=== PATIENT | female | born 1955 | race Caucasian/White ===

== ENCOUNTER 2020-05-09 08:11 | Outpatient (REF) | payer OTHER, SELFPAY ==
--- NOTE | 2020-05-09 08:16 | MM_ITS ---
EXAMINATION: MM SCREENING DIGITAL BREAST TOMOSYNTHESIS, BILATERAL CLINICAL INFORMATION: Screening. Asymptomatic. The lifetime risk of breast cancer based on the Tyrer-Cuzick Model is 7.6%. COMPARISON: Mammography: 05/04/2019 and studies dating back to 07/12/2011. TECHNIQUE: Digital breast tomosynthesis is performed in both the craniocaudal and mediolateral oblique views along with computer-aided detection (CAD). Synthesized 2D images are generated from the tomosynthesis. FINDINGS: The breasts are heterogeneously dense, which may obscure small masses (ACR BI-RADS breast composition Category c). There is stable parenchymal pattern of the right breast with some architectural distortion related to previous biopsy. There is multiplicity and bilaterality of calcifications. Within the deep lateral aspect of the left breast there is a density with some increasing calcifications approximately 10 cm from the nipple measuring approximately 1.1 cm in diameter. Recommend spot magnification view in craniocaudal view and rolled craniocaudal views to see its vertical orientation within the breast. If lesion is persistent would consider ultrasound. MM/MM tomosynthesis screening BI IMPRESSION: Left breast density with increasing calcifications for further evaluation as described. ASSESSMENT: BI-RADS 0: Incomplete - Need Additional Imaging Evaluation RECOMMENDATION: 1. Additional views of the left breast 2. Targeted ultrasound if warranted after review of the additional views. 3. Radiology department staff will contact the patient for additional imaging. This patient's information was entered into a reminder system with a target due date for their next mammogram.
== END 2020-05-09 08:12 | disposition home or self-care (01) ==
LOC: HO.MAMMO 08:11
PROVIDERS: PCP Family Medicine; Visit Provider Family Medicine
DX: Z12.31 Encounter for screening mammogram for malignant neoplasm of breast (principal)
CPT/HCPCS: 77063; 77067

== ENCOUNTER 2020-05-21 08:20 | Outpatient (REF) | payer OTHER, SELFPAY ==
--- NOTE | ~2020-05-21 | US_ITS ---
EXAMINATION: US DIAGNOSTIC ULTRASOUND BREAST, LEFT CLINICAL INFORMATION: Density with question calcifications.. COMPARISON: Mammography of same day and mammograms and ultrasounds dating back to November 25, 2011. TECHNIQUE: Ultrasound of the breast is performed with real-time villagomez scale imaging and color Doppler. FINDINGS: There is no focal suspicious finding. There is no solid mass, architectural abnormality, duct ectasia, or edema in the soft tissue planes. Results are discussed with the patient at time of visit. US/US breast LT limited IMPRESSION: No suspicious ultrasound findings to suggest malignancy of the left breast. ASSESSMENT: BI-RADS 1: Negative RECOMMENDATION: Routine annual mammography screening due in 12 months. This patient's information was entered into a reminder system with a target due date for their next mammogram.
--- NOTE | ~2020-05-21 | MM_ITS ---
EXAMINATION: MM DIAGNOSTIC DIGITAL BREAST TOMOSYNTHESIS, LEFT US TARGETED BREAST, LEFT CLINICAL INFORMATION: Question density with calcifications lateral deep left breast. COMPARISON: Mammography: 05/09/2020 and studies dating back to 10/09/2009 TECHNIQUE: Digital breast tomosynthesis is performed. 2D images are generated from the tomosynthesis. The following views are obtained: Spot magnification views in craniocaudal projection as well as rolled medial and lateral craniocaudal views. Targeted left breast ultrasound. FINDINGS: There are scattered areas of fibroglandular density (ACR BI-RADS breast composition Category b). There are some scattered calcifications with no suspicious grouping identified. No persistent suspicious mass is evident with a nodular parenchymal pattern being present. Targeted left breast ultrasound was then performed. No suspicious cystic or solid masses identified. No region of abnormal distal sound shadowing. Results are discussed with the patient at time of visit. MM/MM tomosynthesis added views L IMPRESSION: No mammographic or ultrasound findings to suggest malignancy of the left breast. ASSESSMENT: BI-RADS 1: Negative. RECOMMENDATION: Routine annual mammography screening due in 12 months. This patient's information was entered into a reminder system with a target due date for their next mammogram.
== END 2020-05-21 08:21 | disposition home or self-care (01) ==
LOC: HO.MAMMO 08:20
PROVIDERS: Visit Provider Family Medicine
DX: R92.8 Other abnormal and inconclusive findings on diagnostic imaging of breast (principal)
CPT/HCPCS: 76642; 77061; 77065

== ENCOUNTER 2021-05-15 09:34 | Outpatient (REF) | payer OTHER, SELFPAY ==
--- NOTE | ~2021-05-15 | MM_ITS ---
EXAMINATION: MM SCREENING DIGITAL BREAST TOMOSYNTHESIS, BILATERAL CLINICAL INFORMATION: Screening. Asymptomatic. The lifetime risk of breast cancer based on the Tyrer-Cuzick Model is 3%. COMPARISON: Mammography: 05/21/2020, 05/09/2020, 05/04/2019, 04/28/2018, 04/26/2017; targeted ultrasound left breast 05/21/2020 TECHNIQUE: Digital breast tomosynthesis is performed in both the craniocaudal and mediolateral oblique views along with computer-aided detection (CAD). Synthesized 2D images are generated from the tomosynthesis. Additional right CC view is provided. FINDINGS: There are scattered areas of fibroglandular density (ACR BI-RADS breast composition Category b). Breast tissue composition borders on heterogeneously dense. There is fine fibronodular parenchymal pattern similar to prior exams. There is no interval significant mass or architectural abnormality or abnormal calcifications. Right breast again has chronic ectatic duct and central anterior breast with associated coarse calcifications and adjacent biopsy clip marker. There is a stable nodule with some coarse calcification posterior central 12:00 right breast. The axilla and skin contours are unremarkable. MM/MM tomosynthesis screening BI IMPRESSION: No significant changes from prior exams. ASSESSMENT: BI-RADS 2: Benign RECOMMENDATION: Routine annual mammography screening. This patient's information was entered into a reminder system with a target due date for their next mammogram.
== END 2021-05-15 09:35 | disposition home or self-care (01) ==
LOC: HO.MAMMO 09:34
PROVIDERS: PCP Family Medicine; Visit Provider Family Medicine
DX: Z12.31 Encounter for screening mammogram for malignant neoplasm of breast (principal)
CPT/HCPCS: 77063; 77067

== ENCOUNTER 2021-09-17 12:47 | Outpatient (REF) | payer OTHER, SELFPAY ==
--- NOTE | ~2021-09-17 | MM_ITS ---
EXAMINATION: BONE DENSITOMETRY CLINICAL INDICATION: Menopause. COMPARISON: Baseline BD dated 04/29/2005. TECHNIQUE: Using a MacuCLEAR DXA System (software version: 13.1) manufactured by [employer], dual-energy x-ray absorptiometry was performed of the lumbar spine and left hip. The images are of good technical quality. Summary results are attached. FINDINGS: AP SPINE L1-L4: Current: BMD 1.305 g/cm2, Z-score 2.6, T-score 1.0, normal, 8.8% increase from baseline (<5% change is not significant). Baseline: BMD 1.199 g/cm2. LEFT FEMUR, NECK: Current: BMD 0.883 g/cm2, Z-score 0.4, T-score -1.1, osteopenia. Baseline: BMD 0.912 g/cm2. LEFT FEMUR, TOTAL: Current: BMD 1.014 g/cm2, Z-score 1.3, T-score 0.0, normal, 8.9% increase from baseline (<5% change is not significant). Baseline: BMD 0.931 g/cm2. IDENTIFIED RISK FACTORS: Early menopause, bilateral oophorectomy, secondary osteoporosis. HISTORY OF FRACTURE: None listed. MEDICATIONS: Vitamin D, ERT/SERMS. MM/XR DEXA axial skeleton IMPRESSION: 1. DIAGNOSIS: Osteopenia based on the lowest T-score value of -1.1 in the femoral neck applying World Health Organization criteria. 2. 10-YEAR FRACTURE RISK PREDICTION, FRAX: Major osteoporotic fracture (clinical spine, forearm, hip or shoulder) 8.5%. Hip fracture 0.7%. 3. Treatment Recommendations: NOF guidelines recommend consideration for treatment in postmenopausal women and men age 50 and older presenting with the following: -A hip or vertebral (clinical or morphometric) fracture. -T-score less than or equal to -2.5 at the femoral neck or spine after appropriate evaluation to exclude secondary causes. -Low bone mass at the hip or spine and a 10-year fracture probability by FRAX of greater than or equal to 3% for hip fracture or greater than or equal to 20% for major osteoporotic fracture based on the [place] adapted WHO algorithm. 4. Other Recommendations: All treatment decisions require clinical judgment and consideration of individual patient factors, including patient preferences, comorbidities, previous drug use, risk factors not captured in the FRAX model (e.g. frailty, falls, vitamin D deficiency, increased bone turnover, interval significant decline in bone density) and possible under or overestimation of fracture risk by FRAX. Additional medical evaluation for secondary cause of low bone mineral density may be appropriate. FUTURE SCAN RECOMMENDATION: People with diagnosed cases of osteoporosis or at high risk for fracture should have regular bone mineral density tests. For patients eligible for Medicare, routine testing is allowed once every 2 years. The testing frequency can be increased to one year for patients who have rapidly progressing disease, those who are receiving or discontinuing medical therapy to restore bone mass, or have additional risk factors.
== END 2021-09-17 12:48 | disposition home or self-care (01) ==
LOC: HO.MAMMO 12:47
PROVIDERS: Visit Provider Family Medicine
DX: Z13.820 Encounter for screening for osteoporosis (principal); Z78.0 Asymptomatic menopausal state; M85.80 Other specified disorders of bone density and structure, unspecified site
CPT/HCPCS: 77080

== ENCOUNTER 2022-05-20 13:49 | Outpatient (REF) | payer OTHER, SELFPAY ==
--- NOTE | ~2022-05-20 | MM_ITS ---
EXAMINATION: MM SCREENING DIGITAL BREAST TOMOSYNTHESIS, BILATERAL CLINICAL INFORMATION: Screening. Asymptomatic. The lifetime risk of breast cancer based on the Tyrer-Cuzick Model is 6%. COMPARISON: Mammography: 05/15/2021, 05/21/2020, 05/09/2020, 05/04/2019, 04/28/2018 TECHNIQUE: Digital breast tomosynthesis is performed in both the craniocaudal and mediolateral oblique views along with computer-aided detection (CAD). Synthesized 2D images are generated from the tomosynthesis. FINDINGS: There are scattered areas of fibroglandular density (ACR BI-RADS breast composition Category b). There is fine fibronodular parenchymal pattern similar to prior studies. Right breast has chronic duct ectasia central anterior breast with associated rim calcifications and adjacent biopsy clip marker. There are other scattered calcifications which are similar to prior studies. No developing density or architectural abnormality or significant mass. The axilla and skin contours are unremarkable. MM/MM tomosynthesis screening BI IMPRESSION: No significant changes from prior exams. ASSESSMENT: BI-RADS 2: Benign RECOMMENDATION: Routine annual mammography screening. This patient's information was entered into a reminder system with a target due date for their next mammogram.
== END 2022-05-20 13:50 | disposition home or self-care (01) ==
LOC: HO.MAMMO 13:49
PROVIDERS: Visit Provider Family Medicine
DX: Z12.31 Encounter for screening mammogram for malignant neoplasm of breast (principal)
CPT/HCPCS: 77063; 77067

== ENCOUNTER 2023-05-26 11:50 | Outpatient (REF) | payer OTHER, SELFPAY ==
--- NOTE | ~2023-05-26 | MM_ITS ---
EXAMINATION: MM SCREENING DIGITAL BREAST TOMOSYNTHESIS, BILATERAL CLINICAL INFORMATION: Screening. Asymptomatic. COMPARISON: Mammography: This study is compared with prior exams dating back to 2018. TECHNIQUE: Digital breast tomosynthesis is performed in both the craniocaudal and mediolateral oblique views along with computer-aided detection (CAD). Synthesized 2D images are generated from the tomosynthesis. FINDINGS: There are scattered areas of fibroglandular density (ACR BI-RADS breast composition Category b). There are no significant masses, abnormal calcifications, or other abnormalities. In the right breast, there is a tissue marker in the posterior nipple line at a middle depth. Extending from the level of the tissue marker with the nipple, there are coarse, unchanged, benign calcifications. MM/MM tomosynthesis screening BI IMPRESSION: No mammographic evidence of malignancy. ASSESSMENT: BI-RADS BI-RADS 2 - Benign Findings RECOMMENDATION: Routine annual mammography screening. 1 year F/U This examination should not preclude the clinical evaluation of a suspicious palpable abnormality. This patient's information was entered into a reminder system with a target due date for their next mammogram.
== END 2023-05-26 11:51 | disposition home or self-care (01) ==
LOC: HO.MAMMO 11:50
PROVIDERS: PCP Family Medicine; Visit Provider Family Medicine
DX: Z12.31 Encounter for screening mammogram for malignant neoplasm of breast (principal)
CPT/HCPCS: 77063; 77067

== ENCOUNTER → 2023-05-26 12:30 | Outpatient (BNV) | payer OTHER, SELFPAY | PROVIDERS: PCP Family Medicine; Visit Provider Radiology Diagnostic Radiology | DX: Z12.31 Encounter for screening mammogram for malignant neoplasm of breast (principal) | CPT/HCPCS: 77063; 77067 ==

== ENCOUNTER 2024-04-22 12:58 | Outpatient (AMB) | payer MEDICARE, SELFPAY ==
--- NOTE | 2024-04-22 13:01 | MHC.OFFVIS ---
Vital Signs 04/22/24 13:02 Height 5 ft 4 in Weight 143 lb BMI 24.5 BP 130/68 Blood Pressure Location Lt brachial Position Sitting Respiration 16 Pulse 86 Pulse Source Pulse Oximeter Pulse Oximetry (%) 95 Oxygen Delivery Method Room Air Intake Visit Reasons: Chronic Neck Pain Allergies Penicillins Allergy (Severe, Verified 04/22/24 13:06) Seizure minocycline Adverse Reaction (Severe, Verified 04/22/24 13:06) Hives Medication List - Last Reconciled 04/22/24 by Rosy Jeffrey LPN amlodipine 2.5 mg PO DAILY estradiol 1 patch topical QWEEK ipratropium bromide 2 sprays intranasal TID PRN losartan 100 mg PO DAILY HPI Comments Details: Nancy is very pleasant 68 years old female who presents in my office with complains on pain in the right-side of the neck. She reports that this pain started 12 years ago. She denies any trauma associated with this pain. She denies any car accident. She was under care of multiple practitioners in the town including Dr. Pratt, [facility], [facility] pain management, and [facility] pain management and Dr. Dumont. She reports her pain today severe 9/10. Because of her pain she can not sleep normally can not do activities of daily living she can - take care of herself, she can function normally. She reports that movements aggravate her pain and heat application make her pain slightly better. The pain is constant and severe throughout the day. In terms of tissue damage he reports her pain is pulsing, throbbing, shooting, sharp, hurting sensation. In the past she tried meloxicam and muscle relaxants for her pain, she reports no improvement. She tried physical therapy, last physical therapy was in October of 2022 she reports no improvement. Right chiropractic manipulations with no help she tried acupuncture therapy with minimal help immediately after the procedure but then the pain would come back she tried laser treatment she tried trigger point injections facet joint injections epidural steroid injections all of those were not effective to control her pain. She had an MRI of the lumbar spine results of which dictated as below. Her past medical history significant for chronic neck pain, hypertension, migraine headaches and history of midline upper back basal cell carcinoma past surgical history significant for total hysterectomy due to endometriosis colonoscopy, right thumb CMC arthroplasty, and left thumb tenosynovitis procedure. Review of Systems Const Reports no additional complaints ENT Reports Normal hearing present Card Reports no additional complaints Resp Reports no additional complaints GI Reports no additional complaints Reports no additional complaints Musc Reports as per HPI Neuro Reports no additional complaints, Reports Normal hearing present, Denies Abnormal speech present, Denies confusion and Denies Sensory deficit (Neuro) Psych Reports no additional complaints and Denies confusion Physical Exam Vital Signs: Last Vital Signs Pulse 86 04/22/24 13:02 Resp 16 04/22/24 13:02 BP 130/68 04/22/24 13:02 Pulse Ox 95 04/22/24 13:02 Oxygen Delivery Method Room Air 04/22/24 13:02 BMI result Body Mass Index 24.5 Const General: no acute distress; No confusion Orientation/consciousness: patient oriented x3 and No confusion Eyes General: appearance normal, both eyes and all related structures Pupils: Equal, round and reactive pupils present EOM: EOMs intact bilaterally Neck Other: Limited range of motion of the cervical spine. Lateral medial rotation of the neck is painful. Flexing forward causes strain in the neck but no pain and flexing backwards causes severe pain aggravation. Axial compression on the head aggravates the pain, Valsalva maneuver is negative. No radiation of the pain into the upper extremities. Chest Chest palpation & inspection: normal inspection of the chest Resp Effort & Inspection: normal respiratory effort, able to speak in complete sentences, normal respiratory pattern, no audible wheezes and no cough Cardio Jugular venous distension: no JVD GI Inspection: Yes normal to inspection Neuro General: patient oriented x3, gait normal and No confusion Cranial nerves: Yes CN's II-XII intact bilaterally, Yes Equal, round and reactive pupils present, Yes Normal hearing present and Yes Ability to bilaterally elevate shoulders present Speech: No Abnormal speech present Gait exam (Neuro): Normal gait present Motor exam (neuro): 5/5 motor strength present throughout Sensory Exam: No Sensory deficit (Neuro) Extrem General: No pedal edema Psych Speech and movement: Normal speech and movement present Affect: normal affect Attitude: cooperative Thought process: Normal thought process present Thought content: Normal thought content present Insight: Good insight present (Psych) Judgement: Good judgement present (Psych) Results Reviewed Results Reviewed: MRI of the cervical spine without contrast 06/11/2023. Bones appear normal no fracture or deformity no regular edema. Alignment appears normal. Spinal cord appears normal in signal. Soft tissues appears normal. Cervical spine levels: C2-C3: Degenerative disc changes as well as degenerative facet and uncovertebral changes are noted more prominent on the left. Finding cause moderate left-sided foraminal stenosis. No significant spinal canal stenosis. C3-C4: Mild degenerative disc changes and degenerative changes of the facets and uncovertebral joints with moderate left-sided foraminal stenosis. Only minimal central canal stenosis. C4-C5: Minimal degenerative disc bulge with only mild spinal canal stenosis and minimal bilateral foraminal stenosis. C5-C6: Minimal degenerative disc bulge with slightly more prominent on the right paracentral and foraminal positioned finding cause mild spinal canal stenosis. Degenerative changes contribute to moderate right-sided foraminal stenosis. C6-C7 degenerative disc osteophyte with mild spinal canal stenosis. Finding cause mild bilateral foraminal stenosis. C7-T1: Minimal degenerative changes with mild left sided foraminal stenosis Assessment & Plan Assessment & Plan (1) Spondylosis of cervical joint without myelopathy: Code(s): M47.812 - Spondylosis without myelopathy or radiculopathy, cervical region Category: Medical (2) Chronic pain syndrome: Code(s): G89.4 - Chronic pain syndrome Category: Medical Plan This patient most likely suffers from spondylosis of cervical spine which is demonstrable on her MRI. Possibility exists of myofascial pain syndrome however negative results of trigger point injections put this diagnosis very far on background. I offered this patient diagnostic medial branch block on the right C4-C5 C6-C7. If this will result in good pain improvement I will perform sprint PNS for this patient. If the medial branch block results in no improvement considering prolonged history of treatment with this patient absence of the results of multiple therapy modalities, absence of results from conservative therapy including NSAIDs and muscle relaxants I will offer this patient [facility]. Brochures of [facility] and sprint PNS were given to the patient. I will see the patient after the diagnostic right C4-C5 C6-C7 medial branch block. Patient Instructions: I here by testify that I spent 46 minutes in conversation with this patient as well as planning her care evaluating her prior records and diagnostic studies and organizing this note. Coding Level of Care Code New Pt Level 4 (23506) Diagnoses Spondylosis of cervical joint without myelopathy M47.812 Chronic pain syndrome G89.4
[2024-04-22 13:02] VITALS: BP 130/68; PULSE 86; RESP 16; O2SAT 95; BMI 24.5
--- OUTSIDE RECORDS SUMMARY | 2024-04-22 15:15 | XMS_ITS | Data Portability ---
Author Organization [facility], [facility] Address [address] [place] [address] Care Team Providers Care Human Services Instructor Name Role Phone MIQUEL PENA Primary Care Provide r RYAN FORBES OTHER MERRAY HANEY OTHER SHARMAINE DELGADO Sports Medicine Assessment Encounter Date Assessment Date Assessment LastModified by Organization Details LastModified Time 06/22/2023 06/22/2023 We completed your Medicare Wellness exam today. This was an opportunity to assess your overall well being including your ability to care for yourself, your mobility, memory, mental health, as well as your safety. With advancing age, it is important to assign someone in your life as your Health Care Proxy (HCP). This person should know what is important to you and what your wishes are for medical procedures if you cannot communicate your wishes yourself (severe illness, unconsciousness) . We discussed having a completed Health Care Proxy form today. In addition, today we started a conversation about your End of Life wishes. These conversations will continue over the years. Please consider reading the book, Being Mortal by Chapin Metz to help frame future conversations. We discussed the purpose of a MOLST form (Medical Orders for Life Sustaining Treatment) and completed this form if appropriate per your wishes. Vision and Hearing are senses that are critically important as we age. When impaired, they can contribute to memory loss, falls, and make it harder to drive, talk to family and friends, and engage in the world. Please get your vision checked yearly and your hearing checked when you start to notice hearing loss. We discussed approaches to lowering your risk of heart disease and stroke . Your blood pressure . Your cholesterol . We discussed cancer screening you may need as well as vaccines to prevent infections. Colon Cancer : Your risk of colon cancer is . Due for colorectal screening:. If you are not planning to have a colonoscopy please screen with stool cards yearly. Breast Cancer : Breast Cancer Screening (mammography). Next mammogram due: . Cervical Cancer Screening (pap test). Next pap due: . Influenza Vaccine : Flu shot yearly. Tetanus Vaccine : Every 10 years. Due: . The following vaccines are available from your pharmacy: Pneumonia Vaccine : PCV20: once after age 65. Shingles Vaccine : 2 shots after age 50. Covid Vaccine : Make sure you have received the most up to date covid vaccine. Your personal health goal for the year is: [email or web address] Not available 06/22/2023 10:30:56 01/16/2024 01/16/2024 Exostosis right foot [email or web address] Not available 01/16/2024 10:45:56 Plan of Treatment Reminders Order Date Submit Date Provider Last Modified By Organization Details Last Modified Time Details Appointments LAB Follow-Up 2024 09:00A M [facility] Lab Not available Not available Not available Medical Managemen t 15 2024 09:15A M Miquel Salazar MD Not available Not available Not available LAB Follow-Up 2024 09:00A M [facility] Lab Not available Not available Not available Wellness Visit 30 2024 08:30A M Miquel Salazar MD Not available Not available Not available Lab lipid panel, serum - did you draw this on 06/14? if not pls draw TY 2023 024 [facility], [address], [place], [address], 06/23/2023 10:18:22 Referral podiatris t referral - right foot ganglion cyst. causing pain 2023 024 [email or web address] Carson Barney DPM, [address], [place], [address], 12/08/2023 14:33:13 Procedures None recorded. Surgeries None recorded. Imaging XR, hip + pelvis, unilatera l, 2 or 3 view - left hip pain r/o arthritis 2023 024 [facility] ([facility]), [address], [place], [address], 09/12/2023 08:28:16 Medication Orders meloxicam 7.5 mg tablet 2023 024 [id number], [address], [place], [id number], 12/25/2023 12:24:39 methocarb shahid 500 mg tablet 2023 024 [facility] [address], [address] [place], [address], 12/25/2023 12:53:31 amlodipin e 2.5 mg tablet 2023 024 [facility] [address], [address] [place], [address], 12/25/2023 12:42:05 ipratropi um bromide 42 mcg (0.06 %) nasal spray 2023 024 [facility] [address], [address] [place], [address], 12/25/2023 12:45:42 Patient TargetsNo targets recorded. Patient Instructions Encounter Date Encounter Id Patient Instructions Last Modified By Organization Details Last Modified Time 06/22/2023 [id number] advance directives: care instructions [email or web address] Not available 06/22/2023 14:42:21 preventing falls: care instructions [email or web address] Not available 06/22/2023 14:42:21 hearing loss: care instructions [email or web address] Not available 06/22/2023 14:42:21 well visit, over 65: care instructions [email or web address] Not available 06/22/2023 14:42:21 After a discussion of treatment and medication options, which included consideration of the best practices in medicine, a medical plan was provided. The patient's opinions and concerns were included in this treatment plan and goal. * Maintain 1200 mg of calcium from food sources daily, * Take vitamin D 3206-9779 units daily to help absorption of calcium into your bones * Use sunblock consistently * Review the website: CVRx to get more information on the Mediterranean diet - a heart healthy eating plan * Immunizations up to date. Discussed Prevnar 20. Shingrix vaccine at the pharmacy. * The current guidelines from the [place] [employer] is moderate aerobic physical activity about 30 minutes for 5 days of the week. Walking at a moderately fast pace, as tolerated. Try to build muscle mass. This will help maintain bone strength and support your joints. * Pap smear not indicated due to hysterectomy (endometriosis) * Mammogram guidelines discussed, no family history or personal history of abnormal mammograms, Up to date, normal in 2023. Prefers every year,, Giovanna Renae MD and done at [facility] * Your bone density is due 2023, prefers 2024. Osteopenia. FRAX major 8.9% Hip 0.7% * Colonoscopy is due 2032. Normal in year 2022. * Health care proxy discussed and no changes. * MOLST form discussed. No changes. * Wellness Visit in 1 year * See your dentist at least twice a year. * Get your vision checked at least once every 2 years. * Discussed labs Saturated fat is a bad kind of fat. For a heart healthy diet, 16 grams of saturated fat per day for women and 20 grams of saturated fat per day for men. * yearly visits with derm at [facility]. HTN - at goal of less than 130/80 per the AHA guidelines. Continue meds and f/u in 6 mos. Discussed labs, sugar and kidney function and electrolytes normal. Cholesterol labs were not drawn for this visit, pt will have labs done today. Saturated fat is a bad kind of fat. For a heart healthy diet, 16 grams of saturated fat per day for women and 20 grams of saturated fat per day for men. Continue low salt diet of less than 1500 mg of sodium per day. The [place] [employer] (AHA) recommends 30 minutes of moderate physical activity 5 days a week. A Mediterranean type of diet and a plant based diet is recommended, review the website: [employer].org. The DASH diet is also recommended. DO NOT USE WITH ANY IBUPROFEN, ALEVE, ADVIL, NAPROXEN OR MOTRIN if taking this prescription strength NSAID. Always take this with meals/food. * Continue to be active. Bed rest is not good for pain, and can make it worse. * Gentle stretching is helpful to maintain your flexibility. * Try alternating both warm packs and ice packs on the affected area. * Take meloxicam as needed for back pain, * To reduce the risk of future back problems, adopt an exercise plan that strengthens the core of your body. * Always use good body mechanics: lift by bending your knees, don? t twist your body to reach or lift, and don? t reach high over your head. * Return to clinic if symptoms are worse or persistent. adela Not available 06/22/2023 20:07:55 12/04/2023 [id number] [facility] serves as the focal point for all health care services the patient needs. adela Not available 12/04/2023 20:57:12 01/16/2024 [id number] Dispensed order for x-ray evaluation right foot. jen Not available 01/16/2024 10:46:13 Reason for Referral Systems Project Manager Referral for Gang lion cyst of right foot right foot ganglion cyst. causing pain Referring Physician: Miquel Salazar, Family Medicine, Encounter Date: 12/04/2023 Results Created Date Observation Date Name Description Value Unit Range Abnormal Flag Note LastModifiedBy Organization Detail LastModifiedTime 06/15/19 24 06/15/2023 BASIC METAB OLIC PANEL glucose 90 mg/dL 70-100 Not Available [address], [address], 06/15/2023 15:41:57 06/15/19 24 06/15/2023 BASIC METAB OLIC PANEL BUN 18 mg/dL 7-18 Not Available [address], [address], 06/15/2023 15:41:57 06/15/19 24 06/15/2023 BASIC METAB OLIC PANEL creatinine 0.6 mg/dL 0.8-1. 3 low Not Available [address], [address], 06/15/2023 15:41:57 06/15/19 24 06/15/2023 BASIC METAB OLIC PANEL B/C 30.0 ratio Not Available [address], [address], 06/15/2023 15:41:57 06/15/19 24 06/15/2023 BASIC METAB OLIC PANEL GFR >=60ML /MIN mL/mi n normal >=60m L/min - Ethel l or midly reduc ed <60mL /min- Decre ased kidne y funct ion <15mL /min - Kidne y failu re [facility] calcu lates estim ated Glome rular Filtr ation Rate (eGFR ) using the Chron ic Kidne y Disea se Epide miolo gy Colla borat ion (CKD- EPI) Equat ion (Alexey barker et. al 2020) as recom yovani d by the Natio nal Kidne y Found ation . eGFR is based on age, serum creat inine , and sex. CKD-E PI does not calcu late eGFR by race, does not apply to child joni (age <18 years ), and shoul d not be used in pregn garrison. Not Available [address], [address], 06/15/2023 15:41:57 06/15/19 24 06/15/2023 BASIC METAB OLIC PANEL sodium 138 mmol/ L 136-14 5 Not Available [address], [address], 06/15/2023 15:41:57 06/15/19 24 06/15/2023 BASIC METAB OLIC PANEL potassium 4.2 mmol/ L 3.5-5. 1 Not Available [address], [address], 06/15/2023 15:41:57 06/15/19 24 06/15/2023 BASIC METAB OLIC PANEL chloride 100 mmol/ L 96-107 Not Available [address], [address], 06/15/2023 15:41:57 06/15/19 24 06/15/2023 BASIC METAB OLIC PANEL anion gap 11.1 5.0-15 .0 Not Available [address], [address], 06/15/2023 15:41:57 06/15/19 24 06/15/2023 BASIC METAB OLIC PANEL CO2 27 mmol/ L 21-32 Not Available [address], [address], 06/15/2023 15:41:57 06/15/19 24 06/15/2023 BASIC METAB OLIC PANEL calcium 9.7 mg/dL 8.5-10 .3 Not Available [address], [address], 06/15/2023 15:41:57 06/22/19 24 06/23/2023 LIPID PANEL cholesterol 224 mg/dL <200 mg/dl Leidy able 200-2 39 mg/dl Borde rline High >240 mg/dl High Not Available [address], [address], 06/23/2023 10:18:22 06/22/19 24 06/23/2023 LIPID PANEL triglyceride s 108 mg/dL <150 mg/dL Ethel l 150-1 99 mg/dL Borde rline High 200-4 99 mg/dL High >500 mg/dL Very High Not Available [address], [address], 06/23/2023 10:18:22 06/22/19 24 06/23/2023 LIPID PANEL direct HDL 82 mg/dL <40 mg/dl - Major Risk for CHD >60 mg/dl - Negat myranda Risk for CHD Not Available [address], [address], 06/23/2023 10:18:22 06/22/19 24 06/23/2023 LDL - CALCU LATED LDL - calculated 120.4 RISK CATEG ORY LDL GOAL _ CHD or CHD Risk Equiv alent s <100 mg/dl (10-y ear risk >20%) 2+ Risk Facto rs <130 mg/dl (10-y ear risk <= 20%) 0-1 Risk Facto r??? <160 mg/dl ??? Almos t all peopl e with 0-1 risk facto r have a 10 year risk <10%, thus 10 year risk asses ment in peopl e with 0-1 risk facto r is not vidyachavez carrera. Not Available [address], [address], 06/23/2023 10:18:24 12/22/19 24 12/22/2023 CBC WBC 5.97 K/??L 3.98-1 0.04 Not Available [address], [address], 12/22/2023 15:42:34 12/22/1912/22/2023 CBC RBC 3.55 M/??L 3.93-5 .22 low Not Available [address], [address], 12/22/2023 15:42:34 12/22/1912/22/2023 CBC HGB 11.9 g/dL 11.2-1 5.7 Not Available [address], [address], 12/22/2023 15:42:34 12/22/1912/22/2023 CBC HCT 35.3 % 34.1-4 4.9 Not Available [address], [address], 12/22/2023 15:42:34 12/22/1912/22/2023 CBC MCV 99.4 fL 79.4-9 4.8 high Not Available [address], [address], 12/22/2023 15:42:34 12/22/19 24 12/22/2023 CBC MCH 33.5 pg 25.6-3 2.2 high Not Available [address], [address], 12/22/2023 15:42:34 12/22/19 24 12/22/2023 CBC MCHC 33.7 g/dL 32.2-3 5.5 Not Available [address], [address], 12/22/2023 15:42:34 12/22/19 24 12/22/2023 CBC plt 300 K/??L 182-36 9 Not Available [address], [address], 12/22/2023 15:42:34 12/22/19 24 12/22/2023 CBC MPV 9.6 fL 9.4-12 .3 Not Available [address], [address], 12/22/2023 15:42:34 12/22/19 24 12/22/2023 CBC neut% 52.9 % 34.0-7 1.1 Not Available [address], [address], 12/22/2023 15:42:34 12/22/19 24 12/22/2023 CBC neut# 3.16 1.56-6 .13 Not Available [address], [address], 12/22/2023 15:42:34 12/22/19 24 12/22/2023 CBC lymph % 34.0 % 19.3-5 1.7 Not Available [address], [address], 12/22/2023 15:42:34 12/22/19 24 12/22/2023 CBC lymph # 2.03 K/??L 1.18-3 .74 Not Available [address], [address], 12/22/2023 15:42:34 12/22/19 24 12/22/2023 CBC mono% 8.7 % 4.7-12 .5 Not Available [address], [address], 12/22/2023 15:42:34 12/22/19 24 12/22/2023 CBC mono# 0.52 0.24-0 .56 Not Available [address], [address], 12/22/2023 15:42:34 12/22/19 24 12/22/2023 CBC eo% 3.7 % 0.7-5. 8 Not Available [address], [address], 12/22/2023 15:42:34 12/22/19 24 12/22/2023 CBC eo# 0.22 0.04-0 .36 Not Available [address], [address], 12/22/2023 15:42:34 12/22/19 24 12/22/2023 CBC baso% 0.5 % 0.1-1. 2 Not Available [address], [address], 12/22/2023 15:42:34 12/22/19 24 12/22/2023 CBC baso# 0.03 0.00-0 .08 Not Available [address], [address], 12/22/2023 15:42:34 12/22/19 24 12/22/2023 CBC RDW-CV 11.8 % 11.7-1 4.4 Not Available [address], [address], 12/22/2023 15:42:34 12/22/19 24 12/22/2023 CBC Ig% 0.200 % 0.000- 1.500 Ig % >0.5 Indic ates possi ble Left Shift Not Available [address], [address], 12/22/2023 15:42:34 12/22/19 24 12/22/2023 CBC Ig# 0.010 0.000- 0.093 Not Available [address], [address], 12/22/2023 15:42:34 12/22/19 24 12/22/2023 CBC NRBC% 0.0 % 0.0-0. 2 Not Available [address], [address], 12/22/2023 15:42:34 12/22/19 24 12/22/2023 CBC NRBC# 0.000 0.000- 0.012 Not Available [address], [address], 12/22/2023 15:42:34 12/22/19 24 12/22/2023 COMP. METAB OLIC PANEL glucose 98 mg/dL 70-100 Not Available [address], [address], 12/22/2023 16:25:37 12/22/19 24 12/22/2023 COMP. METAB OLIC PANEL BUN 18 mg/dL 7-18 Not Available [address], [address], 12/22/2023 16:25:37 12/22/19 24 12/22/2023 COMP. METAB OLIC PANEL creatinine 0.7 mg/dL 0.8-1. 3 low Not Available [address], [address], 12/22/2023 16:25:37 12/22/19 24 12/22/2023 COMP. METAB OLIC PANEL B/C 25.7 ratio Not Available [address], [address], 12/22/2023 16:25:37 12/22/19 24 12/22/2023 COMP. METAB OLIC PANEL GFR >=60ML /MIN mL/mi n normal >=60m L/min - Ethel l or midly reduc ed <60mL /min- Decre ased kidne y funct ion <15mL /min - Kidne y failu re [facility] calcu lates estim ated Glome rular Filtr ation Rate (eGFR ) using the Chron ic Kidne y Disea se Epide miolo gy Colla borat ion (CKD- EPI) Equat ion (Inke r et. al 2020) as recom yovani d by the Natio nal Kidne y Found ation . eGFR is based on age, serum creat inine , and sex. CKD-E PI does not calcu late eGFR by race, does not apply to child joni (age <18 years ), and shoul d not be used in pregn garrison. Not Available [address], [address], 12/22/2023 16:25:37 12/22/19 24 12/22/2023 COMP. METAB OLIC PANEL sodium 137 mmol/ L 136-14 5 Not Available [address], [address], 12/22/2023 16:25:37 12/22/19 24 12/22/2023 COMP. METAB OLIC PANEL potassium 5.2 mmol/ L 3.5-5. 1 high Not Available [address], [address], 12/22/2023 16:25:37 12/22/19 24 12/22/2023 COMP. METAB OLIC PANEL chloride 102 mmol/ L 96-107 Not Available [address], [address], 12/22/2023 16:25:37 12/22/19 24 12/22/2023 COMP. METAB OLIC PANEL anion gap 11.1 5.0-15 .0 Not Available [address], [address], 12/22/2023 16:25:37 12/22/19 24 12/22/2023 COMP. METAB OLIC PANEL CO2 24 mmol/ L 21-32 Not Available [address], [address], 12/22/2023 16:25:37 12/22/19 24 12/22/2023 COMP. METAB OLIC PANEL calcium 9.3 mg/dL 8.5-10 .3 Not Available [address], [address], 12/22/2023 16:25:37 12/22/19 24 12/22/2023 COMP. METAB OLIC PANEL total protein 7.4 g/dL 6.4-8. 2 Not Available [address], [address], 12/22/2023 16:25:37 12/22/19 24 12/22/2023 COMP. METAB OLIC PANEL albumin 3.7 g/dL 3.4-5. 0 Not Available [address], [address], 12/22/2023 16:25:37 12/22/19 24 12/22/2023 COMP. METAB OLIC PANEL globulin 3.7 g/dL Not Available [address], [address], 12/22/2023 16:25:37 12/22/19 24 12/22/2023 COMP. METAB OLIC PANEL A/G 1.0 ratio 0.8-2. 0 Not Available [address], [address], 12/22/2023 16:25:37 12/22/19 24 12/22/2023 COMP. METAB OLIC PANEL total bilirubin 0.40 mg/dL 0.00-1 .00 Not Available [address], [address], 12/22/2023 16:25:37 12/22/19 24 12/22/2023 COMP. METAB OLIC PANEL AST 26 U/L 0-37 Not Available [address], [address], 12/22/2023 16:25:37 12/22/19 24 12/22/2023 COMP. METAB OLIC PANEL ALT 32 U/L 6-63 Not Available [address], [address], 12/22/2023 16:25:37 12/22/19 24 12/22/2023 COMP. METAB OLIC PANEL alk. phos. 95 U/L 50-136 Not Available [address], [address], 12/22/2023 16:25:37 12/22/19 24 12/22/2023 LIPID PANEL cholesterol 249 mg/dL <200 mg/dl Leidy able 200-2 39 mg/dl Borde rline High >240 mg/dl High Not Available [address], [address], 12/22/2023 16:25:37 12/22/19 24 12/22/2023 LIPID PANEL triglyceride s 59 mg/dL <150 mg/dL Ethel l 150-1 99 mg/dL Borde rline High 200-4 99 mg/dL High >500 mg/dL Very High Not Available [address], [address], 12/22/2023 16:25:37 12/22/19 24 12/22/2023 LIPID PANEL direct HDL 82 mg/dL <40 mg/dl - Major Risk for CHD >60 mg/dl - Negat myranda Risk for CHD Not Available [address], [address], 12/22/2023 16:25:37 12/22/19 24 12/22/2023 DIREC T LDL direct LDL 136 mg/dL RISK CATEG ORY LDL GOAL _ CHD or CHD Risk Equiv alent s <100 mg/dl (10-y ear risk >20%) 2+ Risk Facto rs <130 mg/dl (10-y ear risk <= 20%) 0-1 Risk Facto r??? <160 mg/dl ??? Almos t all peopl e with 0-1 risk facto r have a 10 year risk <10%, thus 10 year risk asses ment in peopl e with 0-1 risk facto r is not necchavez carrera. Not Available [facility] [address], [place], [address], 12/22/2023 16:25:38 06/12/19 24 06/12/2023 MRI, cervi connie spine No observ ation record ed. [facility] [address], [place], [address], 06/13/2023 17:57:38 06/20/19 24 05/26/2023 MAMMO , scree tye No observ ation record ed. [facility] [address] [place] [address] [place], [address], 06/20/2023 13:18:03 09/12/19 24 09/11/2023 XR, hip + pelvi s, unila teral , 2 or 3 view CLINIC AL HISTOR Y: Left hip pain. TECHNI QUE: Two views of the left hip were obtain ed. COMPAR VIET: None. FINDIN GS: There is no fractu re, sublux ation, or disloc ation. There is mild narrow ing of the left hip joint. IMPRES RYAN: Mild DJD left hip. Iván pierre Physic aaliyah: Victor Manuel oglesby [facility] ([facility]) [address] [place], [address], 09/26/2023 14:54:29 01/17/20 24 01/17/2024 XR, foot CLINIC AL HISTOR Y: Exosto sis right foot TECHNI QUE: AP, obliqu e, and latera l views of the right foot obtain ed. COMPAR VIET: Novemb er 18, 2014 FINDIN GS: There is no acute fractu re or disloc ation. The joint spaces are preser amado. The soft tissue s are unrema rkable . IMPRES RYAN: No acute bone injury . No interv al change Readin ignacio Physic aaliyah: Victor Manuel Kaufman [facility] (Imaging) [address] [place], [address], 01/17/2024 10:00:29 Result Notes None recorded. Problems Name Problem SNOMED Code Status Onset Date Resolution Date Notes Provider Name and Address Organization Details Recorded Time Sprain of sacroilia c ligament 92544618 Completed 02/27/2013 Miquel Salazar MD [address] [place], [place] [address] [place], [address], [facility] 6 16:04:44 Diarrhea 05795548 Completed 02/27/2013 Miquel Salazar MD [address] [place], [place] [address], [address], [facility] 6 16:04:44 Low back pain 018136330 Active Miquel Salazar MD [address] [place] [address] [place], [address], [facility] 6 16:04:44 Hip pain 27280623 Completed 02/27/2013 MD [place], [address], [facility] 6 16:04:44 Acute bronchiti s 27947503 Completed 02/27/2013 MD [place], [address], [facility] 6 16:04:44 Congenita l hearing disorder 72252623 Active Miquel Salazar MD [address] [place], [place] [address], [address], [facility] 6 19:53:11 Migraine 92296922 Active 2017 Miquel Salazar MD [address] [place] [address] [place], [address], [facility] 8 16:38:15 Essential hypertens ion 40726128 Active 2018 Miquel Salazar MD [address] [place] [address] [place], [address], [facility] 9 09:15:00 Lymphocyt ic-plasma cytic colitis Active 2020 Miquel Salazar MD [address] [place] [address] [place], [address], [facility] 1 11:59:55 Osteopeni a 050201238 Active 2023 Miquel Salazar MD [address] [place] [address] [place], [address], [facility] 4 20:11:57 Chronic neck pain for greater than 3 months 878884602675 103 Active 2023 Miquel Salazar MD [address] [place] [address] [place], [address], [facility] 4 16:57:36 Notes:Some problems listed i n Document: #[id number] could not be added to this patient's chart. Please review this document and add these problems to the patient's chart manually as needed. Problem Notes None recorded. Procedures Surgical History Date Name Laterality Status Provider Name and Address Organization Details Recorded Time 12/25/19 24 Cardiovascular disease risk reduction counseling [place], [address], [facility] 12/25/2023 12:39:12 12/04/19 24 [id number] [place], [address], [facility] 12/04/2023 20:57:12 06/22/19 24 Medicare Wellness Visit completed Haydee Pollock [facility] 06/22/2023 10:30:57 11/15/19 23 Colonoscopy completed Miquel Salazar MD [address] [place] [address], [address], [facility] 11/26/2022 19:55:34 06/18/19 23 Medicare Wellness Visit completed Haydee Pollock [place] [facility] 06/17/2022 08:23:54 05/28/19 22 Medicare Wellness Visit completed Haydee Pollock [facility] 05/28/2021 08:39:36 05/28/19 22 Alcohol use screening completed Haydee Pollock [facility] 05/28/2021 08:39:36 05/28/19 22 Cardiovascular disease risk reduction counseling completed Haydee Pollock [facility] 05/28/2021 08:39:37 05/28/19 22 Medicare Risk for Falls Screen completed Haydee Pollock [facility] 05/28/2021 14:50:49 05/28/19 22 Advanced Care Planning completed Miquel Salazar MD [address] [place] [address], [address], [facility] 05/28/2021 21:13:29 07/24/19 21 Medicare Risk for Falls Screen completed Hansa Portillo CMA [facility] 07/23/2020 09:13:13 11/25/19 20 prevention[facility]cardiov ascular risk reduction [facility] 12:17:26 11/25/19 20 [facility] 12:17:26 02/23/20 17 Other (specify) completed Miquel Salazar MD [address] [place] [address], [address], [facility] 03/08/2017 06:44:43 07/10/19 15 Other (specify) completed Miquel Salazar MD [address] [place] [address], [address], [facility] 07/12/2014 10:51:09 09/11/19 13 Colonoscopy completed Miquel Salazar MD [address] [place] [address], [id number], [facility] 05/01/2013 12:50:27 05/25/19 13 Treatment and Advice completed Raven Dobbins Mph, LPT [address] [place] [address], [phone], [facility] 05/25/2012 10:16:20 Total Hysterectomy completed Jesus Salazar MD [address] [place] [address], [phone], [facility] 08/24/2012 10:30:09 Appendectomy completed Judy Sood [facility] 04/08/2011 15:42:03 Imaging Results Imaging Date Name Status LastModified by Organiz ation Details LastModified Time 06/12/2023 MRI, cervical spine completed [facility] [address] [place], [address], 06/13/2023 17:57:38 05/26/2023 MAMMO, screening completed [facility] [address] [place] [address] [place], [address], 06/20/2023 13:18:03 09/11/2023 XR, hip + pelvis, unilateral, 2 or 3 view completed [facility] (Imaging) [address] [place], [address], 09/26/2023 14:54:29 01/17/2024 XR, foot completed [facility] (Imaging) [address] [place], [address], 01/17/2024 10:00:29 Procedure Notes None recorded. Medical Equipment None Reported. Allergies Allergen ID Allergen Name Allergen Category Reaction Reaction Severity Criticality Documentation Date Start Date Code Code System Note Provider Name and Address Organization Details Recorded Time 321102 lisinopri l medicatio n cough Not available Not available 05/06/2019 87199 RxNorm Miquel Salazar MD [address] [place] [address], [place], [phone], [facility] 0 15:45:08 63711 Medicinal product containin g penicilli n and acting as antibacte rial agent (product) medicatio n Not available Not available Not available 01/14/2011 95856 05 SNOMED Not Available [facility] 1 06:05:41 27497 minocycli ne medicatio n Not available Not available Not available 01/14/2011 6980 RxNorm Not Available [facility] 1 06:05:41 Medications Name Sig Start Date Stop Date Status Note LastModified by Organization Details LastModified Time prednison e tab 5mg active Not Available Not Available No t Available tramadol hcl tab 50mg active Not Available Not Available Not Available flovent hfa aer 110mcg active Not Available Not Available Not Available prednison e tab 10mg active Not Available Not Available Not Available meloxicam tab 15mg active Not Available Not Available Not Available sumatript an tab 100mg use as directed active Not Available Not Available No t Available metronida zol cre 0.75% active Not Available Not Available Not Available estradiol tab 1mg take 1.00 tab daily active Not Available Not Available No t Available fluticaso ne spr 50mcg active Not Available Not Available Not Available irais-d tab 12 hour active Not Available Not Available Not Available cyclobenz apr tab 10mg active Not Available Not Available Not Available cheratuss in syp ac active Not Available Not Available No t Available betameth dip cre 0.05% use as directed active Not Available Not Available No t Available budesonid e cap 3mg/24hr active Not Available Not Available Not Available irais-d tab 24 hour active Not Available Not Available Not Available azithromy shireen tab 250mg active Not Available Not Available Not Available apap/code ine tab 300-30mg active Not Available Not Available Not Available omeprazol e cap 20mg active Not Available Not Available Not Available proair hfa aer active Not Available Not Available Not Available losartan 50 mg tablet TAKE 1 & 1/2 (ONE & ONE-HALF ) TABLETS BY MOUTH ONCE DAILY 05/28 completed Not Available Not Available Not Available methocarb shahid 500 mg tablet TAKE 1 TABLET BY MOUTH TWICE DAILY NEEDED FOR 30 DAYS FOR CHRONIC NECK PAIN active Not Available Not Available No t Available prednison e 10 mg tablet Take 3 tablets every day by oral route for 5 days. 03/05 completed Not Available Not Available Not Available naproxen 375 mg tablet take 1 tablet by mouth twice a day active Not Available Not Available No t Available AmLactin 12 % topical cream active OTC PRN Not Available Not Available Not Available azithromy shireen 250 mg tablet 2 tablets on day 1, then one a day for 4 days 2011 active Not Available Not Available Not Avai lable sumatript an 100 mg tablet take 1 tablet by mouth immediat terrence may repeat after 2 hours active PRN Not Available Not Available No t Available prednison e 20 mg tablet TAKE 2 TABLETS BY MOUTH EVERY DAY FOR 4 DAYS 06/21 completed Not Available Not Available Not Available fluoroura cil 5 % topical cream APPLY CREAM TOPICALL Y TO SKIN CANCER AND 1 CM SURROUND ING TWICE DAILY FOR UP TO 8 WEEKS OR STOP SOONER IF SIGNIFIC ANT CRUSTING , IRRITATI ON, OR PAIN DEVELOPS active Not Available Not Available No t Available amlodipin e 2.5 mg tablet Take 1 tablet every day by oral route for 90 days, for hyperten ryan. 2023 active Not Available Not Available Not Avai lable acetamino phen 300 mg-codein e 30 mg tablet TAKE 1 TABLET BY MOUTH EVERY 6 HOURS NEEDED FOR 7 DAYS active Not Available Not Available No t Available triamcino lone acetonide 0.1 % topical cream apply to legs twice a day for 2 weeks ON and 1 week OFF; AVOID FACE AND BODY FOLDS 09/23 completed Not Available Not Available Not Available meloxicam 7.5 mg tablet TAKE 1 TO 2 TABLETS BY MOUTH DAILY WITH FOOD NEEDED FOR ACUTE BACK PAIN 12/24 completed Not Available Not Available Not Available oxycodone -acetamin ophen 5 mg-325 mg tablet TAKE 1 TABLET BY MOUTH EVERY 4 TO 6 HOURS NEEDED FOR PAIN active Not Available Not Available No t Available prednisol one acetate 1 % eye drops,mario pension INSTILL 1 DROP INTO RIGHT EYE THREE TIMES DAILY FOR 5 DAYS FOLLOWIN G PROCEDUR E, THEN STOP, SHAKE WELL 11/25 completed Not Available Not Available Not Available estradiol 1 mg tablet TAKE 1 TABLET BY MOUTH ONCE DAILY 11/20 completed not taking 1 xr Not Available Not Available Not Available Beconase AQ 42 mcg (0.042 %) nasal spray SPRAY 1 SPRAY TWICE A DAY BY INTRANAS AL ROUTE 07/18 completed Not Available Not Available Not Available imiquimod 5 % topical cream packet APPLY A SMALL AMOUNT TO BIOPSY SITE ON RIGHT LEG (SITES A AND B DISCUSSE D) 5 NIGHTS WEEKLY FOR 6 WEEKS. EXPECT IRRITATI ON, INFLAMMA TION, CRUSTING . 12/03 completed Not Available Not Available Not Available benzonata te 100 mg capsule TAKE 1 CAPSULE BY MOUTH THREE TIMES DAILY FOR 5 DAYS 06/21 completed Not Available Not Available Not Available lisinopri l 10 mg tablet TAKE 1 TABLET BY MOUTH ONCE DAILY 05/29 completed Not Available Not Available Not Available metronida zole 0.75 % topical cream APPLY CREAM TOPICALL Y TWICE DAILY TO FACE FOR ROSACEA 12/15 completed Not Available Not Available Not Available losartan 25 mg tablet TAKE 1 TABLET BY MOUTH ONCE DAILY FOR 30 DAYS STOP LISINOPR IL DUE TO COUGH 11/20 completed Not taking 05/19/19 21 LZ Not Available Not Available Not Available codeine 10 mg-guaife nesin 100 mg/5 mL Syrup Take 10 millilit ers by oral route at bedtime and every 6h as needed for cough. 2011 active Not Available Not Available Not Avai lable omeprazol e 20 mg capsule,d elayed release Take 1 capsule( s) every day by oral route 30 minutes before breakfas t 2011 active Not Available Not Available Not Avai lable codeine 10 mg-guaife nesin 100 mg/5 mL oral liquid TAKE 10 ML BY MOUTH EVERY 4 HOURS NEEDED 06/21 completed Not Available Not Available Not Available mupirocin 2 % topical ointment 11/24 completed Not taking 04/05/19 LZ Not Available Not Available Not Available diclofena c sodium 50 mg tablet,de layed release take 1 tablet by mouth twice a day if needed for 15 DAYS 09/23 completed Not Available Not Available Not Available budesonid e DR - ER 3 mg capsule,d elayed,ex tended release TAKE 2 CAPSULES BY MOUTH DAILY FOR 14 DAYS THEN 1 CAPSULE DAILY FOR 14 DAYS THEN STOP 11/20 completed not taking xr Not Available Not Available Not Available ipratropi um bromide 42 mcg (0.06 %) nasal spray USE 2 SPRAY(S) IN EACH NOSTRIL THREE TIMES DAILY NEEDED FOR POST NASAL DRIP active Not Available Not Available No t Available losartan 100 mg tablet TAKE 1 TABLET BY MOUTH EVERY DAY FOR 30 DAYS active Not Available Not Available No t Available fexofenad ine 60 mg-pseudo ephedrine ER 120 mg tablet,ex t.release ,12 hr Take 1 tablet twice a day by oral route. 2011 active Not Available Not Available Not Avai lable SF 5000 Plus 1.1 % dental cream USE A PEA SIZED AMOUNT TWICE DAILY DIRECTED 06/17 completed Not Available Not Available Not Available fluticaso ne propionat e 50 mcg/actua tion nasal spray,mario pension INSTILL 1 SPRAY INTO EACH NOSTRIL 2 TIMES DAILY active Not Available Not Available No t Available doxycycli ne hyclate 100 mg tablet Take 1 tablet twice a day by oral route for 10 days. 10/07 completed Not Available Not Available Not Available estradiol 0.1 mg/24 hr weekly transderm al patch APPLY 1 PATCH TOPICALL Y ONCE A WEEK FOR 90 DAYS active Not Available Not Available No t Available naproxen 500 mg tablet take 1 tablet by mouth twice a day with meals for 7 days 06/10 completed Not Available Not Available Not Available oxycodone 5 mg tablet 02/27 completed Not taking 04/05/19 LZ Not Available Not Available Not Available neomycin- polymyxin -hydrocor t 3.5 mg-10,000 unit/mL-1 % ear drops,mario p INSTILL 4 DROPS INTO AFFECTED EAR(S) BY OTIC ROUTE 3 TIMES PER DAY active ineffect myranda Not Available Not Available Not Available cyclobenz aprine 5 mg tablet TAKE 1 TABLET BY MOUTH 3 TIMES A DAY NEEDED FOR 7 DAYS active Not Available Not Available No t Available azelaic acid 15 % topical gel APPLY TO PERIORBI CARMEN DERMATIT IS ONCE DAILY active Not Available Not Available No t Available Prilosec OTC 20 mg tablet,de layed release take 1 tab 30 minutes before breakfas t 2011 active Not Available Not Available Not Avai lable Flovent HFA 110 mcg/actua tion aerosol inhaler Inhale 2 puffs twice a day by inhalati on route. 2012 active Not Available Not Available Not Avai lable Irais-D 24 Hour 180 mg-240 mg tablet,ex tended release Take 1 tablet daily 2011 active Not Available Not Available Not Avai lable vitamin E 1 PO QD active Not Available Not Av ailable Not Available Fish Oil active Not Available Not Avai lable Not Available biotin 1 PO QD active Not Available Not Avail able Not Available Vitamin D3 active Not Available Not Available Not Available vitamin A and D 1 PO QD active Not Available Not Available Not Available Vitamin B12 active Not Available Not Available Not Available Vitals Date Recorded Body height Body mass index (BMI) Body weight Heart rate Systolic blood pressure Diastolic blood pressure Provider Name and Address Organization Details Last Updated DateTime 4 162.56 cm 24.1 kg/m2 03646.3 3 g 72 /min 112 mm[Hg] 72 mm[Hg] Haydee Pollock MA [facility] 4 14:26:01 Date Recorded Body height Body mass index (BMI) Body weight Heart rate Systolic blood pressure Diastolic blood pressure Provider Name and Address Organization Details Last Updated DateTime 4 162.56 cm 23.7 kg/m2 05155.7 5 g 72 /min 120 mm[Hg] 69 mm[Hg] Kelly Cox MA [facility] 4 14:26:38 Date Recorded Body height Body mass index (BMI) Body weight Heart rate Systolic blood pressure Diastolic blood pressure Provider Name and Address Organization Details Last Updated DateTime 4 162.56 cm 23.7 kg/m2 78644.7 5 g 76 /min 126 mm[Hg] 74 mm[Hg] Haydee Pollock MA [facility] 4 15:07:05 Date Recorded Body height Body mass index (BMI) Body weight Heart rate Systolic blood pressure Diastolic blood pressure Provider Name and Address Organization Details Last Updated DateTime 4 162.56 cm 23.5 kg/m2 53265.1 5 g 76 /min 132 mm[Hg] 74 mm[Hg] Haydee Pollock MA [facility] 4 12:27:28 Date Recorded Systolic blood pressure Diastolic blood pressure Provider Name and Address Organization Details Last Updated DateTime 12/25/2023 110 mm[Hg] 70 mm[Hg] Miquel Salazar MD [address] [place] [address], [phone], [facility] 12/25/2023 12:46:14 Date Recorded Body height Body mass index (BMI) Body weight Provider Name and Address Organization Details Last Updated DateTime 01/16/2024 162.56 cm 23.8 kg/m2 33811.62 g Rody Hardin LPN [facility] 01/16/2024 10:23:13 Social History Question Answer Notes LastModified by Organizat ion Details LastModified Time Tobacco Smoking Status Former Smoker quit 1995. Smoked for about 25 years. EZRA Angel, [facility] 01/14/2011 14:04:30 What Is Your Level Of Alcohol Consumption? Moderate 3-4 Beer A Week Information not available 05/15/2015 Do You Wear A Helmet When Biking? No N/A Information not available 02/25/2015 What Is Your Level Of Caffeine Consumption? Occasional Information not available 02/25/2015 How Much Tobacco Do You Chew? None Information not available 02/25/2015 What Type Of Diet Are You Following? REGULAR Information not available 02/25/2015 Which Illicit Or Recreational Drugs Have You Used? 0 Information not available 02/25/2015 Do You Or Have You Ever Used E-cigarettes Or Vape? 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 16+yearssinc elastcigaret te 1997 Information not available 06/22/2023 How Many Days In The Past Year Have You Had A Heavy Drinking Consumption (4+ Female, 5+ Male)? 0 Information not available 08/24/2012 Are There Any Guns Present In Your Home? No Information not available 02/25/2015 Live Alone Or With Others? With Others Boyfriend Since 20 Yrs - Babatunde Information not available 01/14/2011 Does The Patient Have Difficulty Speaking German? No Information not available 02/25/2015 Does The Patient Have Difficulty Reading German? No Information not available 02/25/2015 Patient Has Health Care Proxy Signed And In Chart Yes Babatunde Lamere - Form Given 07/18/2016 Information not available 11/23/2018 MOLST Form Signed And In Chart 05/28/2021 Information not available 06/02/2021 Marital Status Single [id number] In formation not available 02/24/2011 Mosquito Repellent Used Routinely Yes Information not available 02/25/2015 What Was The Date Of Your Most Recent Tobacco Screening? 12/25/2023 Information not available 12/25/2023 How Many Children Do You Have? 0 [id number] Information not available 02/24/2011 Are There Any Occupational Health Risks Where You Work? None Information not available 05/15/2015 What Is Your Current Pack Years? 30ormorepack years 27 Pack Yrs Information not available 06/22/2023 Seat Belts Used Routinely No Information not available 02/25/2015 Are You Sexually Active? Yes Information not available 05/15/2015 Smoke Alarm In Home Yes Information not available 02/25/2015 At What Age Did You Start Smoking Tobacco? 15 Information not available 06/22/2023 Do You Or Have You Ever Used Smokeless Tobacco? Never Used Smokeless Tobacco Information not available 04/05/2019 How Much Tobacco Do You Smoke? 1 PPD Information not available 06/22/2023 What Types Of Sporting Activities Do You Participate In? Walking Information not available 05/15/2015 General Stress Level Low Information not available 02/25/2015 Do You Use Sunscreen Routinely? Yes Information not available 02/25/2015 Do You Or Have You Ever Used Any Other Forms Of Tobacco Or Nicotine? No Information not available 11/25/2021 Sex: Female Functional Status None recorded. Mental Status None recorded. Family History Relationship Description Onset Age of this Age Resolved Age Notes LastModified by Organization Details LastModified Time Mother Hypertensive disorder previo usly record ed as Hypert ension [email or web address] illo Not available 05/15/2015 16:12:11 Father Problem 85 acute anemia from WW2 klopezdelcast illo Not available 05/15/2015 16:12:11 Sister Hypertensive disorder klopezdelcast illo Not available 11/25/2019 15:10:54 Notes:sister x 3 in [place], unkn own Medical History Condition Response Hearing Loss Y Migraine Headaches Y Chronic Neck Pain Y Allergic Rhinitis Y CANCER Y Crohn's Disease Y Gynecological History Statement/Question Response Hysterectomy Y Age at Menarche 12 Obstetrics History GPAL:G 0 P 0 0 0 0 Immunizations Vaccine Type Date Status Note Provider Altaf ba and Address Organization Details Recorded Time Tdap 1 completed Not Available [facility] 04/27/2019 02:35:39 Influenza, split virus, quadrivalent, PF 0 completed Melani Anne LPN [facility] 01/27/2020 15:25:21 Td (adult), 2 Lf tetanus toxoid, preservative free, adsorbed 1 completed Haydee Pollock MA [facility] 12/24/2020 10:54:20 pneumococcal polysaccharide PPV23 1 completed Miquel Salazar MD [address] [place] [address], [address], [facility] 02/26/2021 14:05:27 COVID-19, mRNA, LNP-S, PF, 30 mcg/0.3 mL dose 1 [facility] 09:14:10 COVID-19, mRNA, LNP-S, PF, 30 mcg/0.3 mL dose 3 completed Francisca Lnych RMSravan null, [facility] 05/09/2023 12:30:04 Influenza, adjuvanted, quadrivalent, PF 3 completed Haydee Pollock MA [facility] 12/25/2023 12:25:29 COVID-19, mRNA, LNP-S, PF, 30 mcg/0.3 mL dose 1 completed Haydee Pollock MA [facility] 12/25/2023 12:25:29 COVID-19, mRNA, LNP-S, PF, 30 mcg/0.3 mL dose, lia-sucrose 2 [facility] 12/25/2023 12:25:29 COVID-19, mRNA, LNP-S, PF, lia-sucrose, 30 mcg/0.3 mL 3 [facility] 12/25/2023 12:25:29 Pneumococcal conjugate PCV20, polysaccharide [id number] conjugate, adjuvant, PF 4 [facility] 12/25/2023 12:25:36 COVID-19, mRNA, LNP-S, PF, 50 mcg/0.5 mL 4 [facility] 12/25/2023 12:25:36 Influenza, high-dose, trivalent, PF 4 [facility] 12/25/2023 12:25:36 Past Encounters Encounter ID Performer Location Encounter Start Date Encounter Closed Date Diagnosis/Indication Diagnosis SNOMED-CT Code Diagnosis ICD10 Code Diagnosis Note [id number] Radiology , [address] [address] 11/12/2010 13:51:13 11/22/2010 12:23:08 [id number] [facility], OFFICE [address] [place] [address] 01/14/2011 13:44:02 01/17/2011 06:59:04 [id number] Michael Quiroz , [facility], OFFICE [address] [place] [id number] 02/10/2012 09:20:09 02/10/2012 11:00:55 [id number] Arabella Sood MD , [facility], OFFICE [address] [place] [id number] 02/22/2012 09:14:13 02/22/2012 10:20:13 [id number] Brian Millard MD Radiology , [address] [address] 02/22/2012 10:20:36 02/28/2012 13:59:22 [id number] Michael Quiroz , [facility], OFFICE [address] [facility] [place] [address] 03/09/2012 15:12:29 03/09/2012 16:04:52 [id number] Michael Quiroz , [facility], OFFICE [address] [facility] [place] [address] 03/23/2012 08:02:55 03/23/2012 08:43:50 [id number] Elba Adams NP , [facility], OFFICE [address] [facility] [place] [address] 04/19/2012 09:13:18 04/19/2012 10:03:50 [id number] Miquel Salazar MD , [facility], OFF[facility] [address] [facility] [place] [address] 04/27/2012 08:06:14 04/27/2012 09:01:31 [id number] Miquel Salazar MD , [facility], OFF[facility] [address] [facility] [place] [address] 05/18/2012 08:40:21 05/18/2012 09:36:54 [id number] Raven Dobbins Mph, LPT Physical Therapy, [facility] [address] [facility] [place] [address] 05/25/2012 08:16:34 05/25/2012 10:24:40 [id number] Michael ROY, [facility], OFFICE [address] [facility] [place] [address] 08/09/2012 16:03:43 08/10/2012 06:43:41 [id number] CESAR Elaine , [facility], OFFICE [address] [facility] [place] [address] 08/15/2012 16:35:53 08/16/2012 06:43:27 [id number] Nithya Stahl , [facility], OFFICE [address] [facility] [place] [address] 08/20/2012 14:22:08 08/20/2012 15:25:51 [id number] , [facility], OFFICE [address] [facility] [place] [address] 08/24/2012 09:31:14 08/24/2012 10:50:07 [id number] Melani Norman LPN , [facility], OFFICE [address] [place] [id number] 10/16/2012 08:49:42 10/16/2012 09:54:00 [id number] Miquel Salazar MD , [facility], OFFICE [address] [place] [address] 09/20/2013 07:59:33 09/20/2013 08:58:38 Elevated blood-pressure reading without diagnosis of hypertension 404537498 Upper resp iratory infection 49406399 Cough 97560865 Adult heal th examination 426866302 see Risk Assessment and Lifestyle Change Counseling section above [id number] Rosalia Vidal CMA , [facility], OFFICE [address] [place] [id number] 09/27/2013 13:19:21 09/27/2013 13:42:57 Acute sinusitis 74535263 Dysfunctio n of eustachian tube 66999838 [id number] , [facility], OFFICE [address] [place] [address] 02/14/2014 09:33:13 02/14/2014 10:48:12 Adult health examination 716075376 see Risk Assessment and Lifestyle Change Counseling section above Counseling [id number] Hearing loss 59082684 Migraine 61645454 Colitis 56394178 [id number] Miquel Salazar MD , [facility], OFFICE [address] [place] [id number] 04/22/2014 15:33:39 04/22/2014 16:43:49 Low back strain 164916169 Upper resp iratory infection 98238851 Cough 50020071 [id number] Alin Olivares MD , [facility], OFFICE [address] [place] [id number] 02/25/2015 15:39:15 02/25/2015 16:36:12 Screening for disorder 746067764 Z11.59 Foot pain 46042002 M79.6 71 [id number] Nuha Mariano, PT Physical Therapy, [address] [address] 03/17/2015 17:05:32 03/18/2015 09:42:30 Foot pain 82552257 M79.055 [id number] Nuha Mariano, PT Physical Therapy, [address] [address] 03/23/2015 16:47:44 03/24/2015 08:15:30 Foot pain 48099504 M79.106 [id number] [facility], [address] [address] 04/14/2015 14:35:36 04/16/2015 15:51:16 Plantar fasciitis 380820876 M72.2 [id number] Miquel Salazar MD , [facility], OFFICE [address] [place] [address] 05/15/2015 15:46:19 05/18/2015 15:29:00 Adult health examination 735250947 Z00.00 see Risk Assessment and Lifestyle Change Counseling section above Counseling 948641324 Z71 .9 Migraine 57174699 G43.90 9 Varicella vaccination 68 098993 Z23 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 [id number] Carson Barney DPM Podiatry, [address] [address] 06/02/2015 14:49:39 06/02/2015 15:47:38 Plantar fasciitis 754681367 M72.2 [id number] Lexie Dozier , [facility], OFFICE [address] [place] [id number] 2015 15:06:18 06/20/2015 11:41:45 Upper respiratory infection 78228853 J06.9 [id number] Carson Barney DPM Podiatry, [address] [address] 07/30/2015 15:15:59 07/30/2015 15:54:16 Plantar fasciitis 371417175 M72.2 [id number] Carson Barney DPM Podiatry, [address] [address] 10/01/2015 15:11:30 10/01/2015 16:37:34 Plantar fasciitis 921949996 M72.2 [id number] Miquel Salazar MD , [facility], OFFICE [address] [place] [id number] 07/18/2016 15:41:28 07/18/2016 16:35:55 Adult health examination 198490434 Z00.00 see Risk Assessment and Lifestyle Change Counseling section above Congenital hearing disorder 36964287 H90.8 Headache 81272260 R51 Knee pain 55430411 M25.5 [id number] Mendy Vance NP , [facility], OFFICE [address] [place] [address] [phone] 6 09/23/2016 15:34:42 09/23/2016 16:02:53 Low back pain 734828114 M54.5 right sided [id number] Candido Dodson MD , [facility], OFFICE [address] [place] [address] [phone] 6 06/10/2017 09:10:12 06/10/2017 10:14:37 Edema of lower extremity 892966652 R60.0 no ultrasound available over weekend; will check D dimer and if negative just supportive measures; if positive send to ER for u/s. [id number] Miquel Salazar MD , [facility], OFFICE [address] [place] [address] [phone] 6 06/23/2017 15:10:50 06/23/2017 16:33:11 Pain in left knee 1346815233 99607 M25.500 [id number] Michael Ann NP , [facility], OFFICE [address] [place] [address] [phone] 6 08/03/2017 15:11:10 08/03/2017 15:55:08 Abdominal pain 60459555 R10.9 r/o U colitis mild, GB disease, pancreatit is, gastroente ritis-- BM's are normal for her and without fever.cons ider colleen vu, US abd, : she has not missed any work, eating well and BM's unchanged. diagnostic picture is unclear. will get abd US to evaluate for gallstones . If sx persist or worsen she is to either go to ED or contact her PCP. [id number] MD KIRILL Jain, [facility], OFFICE [address] [place] [address] [phone] 6 11/17/2017 15:39:36 11/17/2017 16:58:56 Adult health examination 966090182 Z00.00 see Risk Assessment and Lifestyle Change Counseling section above Depression screening 171 233621 Z13.89 depression screening tool administer ed, entered into emr, scored and discussed, time greater than 7.5 minutes Congenital hearing disorder 46179906 H90.8 Migraine 34001643 G43.90 9 [id number] Miquel Salazar MD FP, [facility], OFFICE [address] [place] [address] [id number] 6 11/22/2018 15:54:32 11/22/2018 17:00:32 Adult health examination 944481037 Z00.00 see Risk Assessment and Lifestyle Change Counseling section above Depression screening 171 604458 Z13.89 depression screening tool administer ed, entered into emr, scored and discussed, time greater than 7.5 minutes Migraine 85353404 G43.90 9 Elevated blood-pressure reading without diagnosis of hypertension 905795960 R03.0 [id number] Miquel Salazar MD , [facility], OFFICE [address] [place] [address] [id number] 6 04/05/2019 08:45:14 04/05/2019 10:16:08 Essential hypertension 67772709 I10 [id number] MD KIRILL Jain, [facility], OFFICE [address] [place] [address] [phone] 6 08/08/2019 08:51:07 08/09/2019 13:52:03 Essential hypertension 14120552 I10 [id number] MD KIRILL Jain, [facility], OFFICE [address] [place] [address] [phone] 6 11/25/2019 14:54:07 11/26/2019 09:22:11 Adult health examination 880902584 Z00.00 see Risk Assessment and Lifestyle Change Counseling section above Depression screening 171 535813 Z13.89 depression screening tool administer ed, entered into emr, scored and discussed, time greater than 7.5 minutes Screening for alcohol abuse 566432646 Z13.39 Counseling 314991079 Z71 .89 Essential hypertension 10642443 I10 Congenital hearing disorder 12181831 H90.8 Migraine 40940743 G43.90 9 [id number] Melani Anne LPN , [facility], OFFICE [address] [place] [address] 6 01/25/2020 08:58:43 01/28/2020 12:08:00 Active or passive immunization 710688261 Z23 [id number] Carson Barney DPM Podiatry, [address] 40259-537 1 02/28/2020 07:53:48 03/02/2020 13:04:56 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 [id number] Miquel Salazar MD , [facility], OFFICE [address] [place] [address] [id number] 6 05/19/2020 10:47:12 05/20/2020 15:40:02 Essential hypertension 99349625 I10 [id number] Miquel Salazar MD , [facility], OFFICE [address] [place] [address] [id number] 6 06/25/2020 08:03:12 06/29/2020 11:33:28 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 [id number] Miquel Salazar MD , [facility], OFFICE [address] [place] [address] [id number] 6 07/23/2020 09:08:07 07/27/2020 13:46:16 Lymphocytic-plasmacyt ic colitis 88691327 K52.832 Essential hypertension 10047329 I10 [id number] Miquel Salazar MD , [facility], OFFICE [address] [place] [address] [id number] 6 09/03/2020 11:44:14 09/04/2020 09:57:05 Essential hypertension 26397272 I10 Lymphocyti c-plasmacyt ic colitis 46223887 K52.832 Neck pain 84781021 M54.2 Thoracic back pain 08276 8004 M54.6 [id number] Miquel Salazar MD , [facility], OFFICE [address] [place] [address] [id number] 6 11/20/2020 09:19:54 11/22/2020 19:09:53 Essential hypertension 73810274 I10 Migraine 54914295 G43.90 9 [id number] Miquel Salazar MD , [facility], OFFICE [address] [place] [address] [phone] 6 12/24/2020 10:20:05 01/06/2021 09:09:52 Screening for malignant neoplasm of colon 530224422 Z12.11 Referral for a DIRECT booked colonoscop y. This patient is a healthy ASA Class 1 or 2 patient (only mild systemic disease), or a STABLE, well controlled insulin dependent diabetic. They do not have serious cardiac disease ie MD/angiopl asty within 1 year, symptomati c CHF; renal failure with CKD 4 or 5; take Coumadin, Plavix, Aggrenox, etc. Active or passive immunization 483989585 Z23 Palpitations 36301091 R0 0.2 Essential hypertension 97180208 I10 [id number] Ginger Littlejohn RN BSN , [facility], OFFICE [address] [place] [address] [phone] 6 12/28/2020 14:59:41 12/29/2020 10:38:18 Palpitations 28482286 R00.2 [id number] Ginger Littlejohn RN BSN , [facility], OFFICE [address] [place] [address] [phone] 6 12/29/2020 16:08:37 12/30/2020 12:53:10 Palpitations 69864608 R00.2 [id number] Miquel Salazar MD , [facility], OFFICE [address] [place] [address] [id number] 6 02/26/2021 13:42:37 02/26/2021 14:20:59 Active or passive immunization 660150651 Z23 Strain of right trapezius muscle 4391373906 3438564 S29.012A Strain of neck muscle 36 4104663 S16.1XXA [id number] Miquel Salazar MD , [facility], OFFICE [address] [place] [address] [phone] 6 05/28/2021 14:42:04 05/28/2021 15:41:00 Adult health examination 109674942 Z00.00 see Risk Assessment and Lifestyle Change Counseling section above Counseling 818905854 Z71 .9 including cardiovasc ular risk reduction counseling Depression screening 171 027231 Z13.31 depression screening tool administer ed, entered into emr, scored and discussed, time greater than 7.5 minutes Screening for alcohol abuse 963255963 Z13.39 Essential hypertension 14706838 I10 Advance di rective discussed with patient 544283668 Z71.89 Strain of right trapezius muscle 4588620017 6202212 S29.012A Congenital hearing disorder 78927916 H90.8 Migraine 57609877 G43.90 9 Screening for osteoporosis 054372563 Z13.416 [id number] Miquel Salazar MD , [facility], OFFICE [address] [place] [address] [phone] 6 11/25/2021 08:00:39 11/25/2021 08:30:56 Essential hypertension 31669253 I10 Active or passive immunization 844107092 Z23 Pt declines Shingles/ PPV23 vac 11/25/21 Posterior rhinorrhea 758 46275 R09.82 [id number] Miquel Salazar MD , [facility], OFFICE [address] [place] [address] [phone] 6 06/17/2022 13:46:55 06/17/2022 14:56:58 Adult health examination 724273359 Z00.00 see Risk Assessment and Lifestyle Change Counseling section above Depression screening 171 342239 Z13.31 depression screening tool administer ed Screening for alcohol abuse 189569388 Z13.39 Alcohol use screening tool administer ed Essential hypertension 08551481 I10 Migraine 57316061 G43.90 9 Chronic neck pain 713221 3690 107 M54.2 Congenital hearing disorder 80448580 H90.8 Lymphocytic colitis 1187 494669 K52.832 Menopausal flushing 1984 24671 N95.1 Rosacea 980944764 L71.9 Hyperlipidemia 97043717 E78.5 [id number] Giovanna Crocker RN Endoscopy , [address] [phone] 1 11/11/2022 08:16:15 11/11/2022 13:43:57 [id number] Miquel Salazar MD , [facility], OFFICE [address] [place] [address] [phone] 6 12/15/2022 13:16:12 12/15/2022 13:56:14 Migraine 25749483 G43.909 Active or passive immunization 275085633 Z23 Pneumo: aware at [facility] ingrix: aware at pharmacy Essential hypertension 12135818 I10 [id number] APURVA Castaneda , [facility], OFFICE [address] [place] [address] [phone] 6 05/01/2023 13:15:48 05/01/2023 13:56:17 Upper respiratory infection 79685886 J06.9 Patient presents with symptoms consistent with viral infection. No evidence of pneumonia on exam. Discussed supportive care: pushing fluids, rest, nasal saline and Mucinex as needed. Encouraged to follow up if symptoms persist for more then 10 days or if they are worsening. Discussed natural course of viral illnesses and lack of evidence for treating with antibiotic s. Cough 65325350 R05.9 use flonasesta rt tessalon pearls Acute sinusitis 43493329 J01.90 Encourage force fluids, steam inhalation as needed, adequate rest.Will start flonaseAdv ised current guidelines no abx until >2 weeks sx or worsening with fever/clifton ge in nasal dischargeC an use mucinex OTCFollow up if not improving or symptoms worsening. [id number] Mendy Vance NP , [facility], OFFICE [address] [place] [address] [phone] 6 05/09/2023 13:53:09 05/12/2023 13:08:35 Active or passive immunization 892267995 Z23 Pneumo: aware at [facility] ingrix: aware at pharmacy Acute bronchitis 2092543 2 J20.9 sick x2+ weeks with exp wheeze on exam- pt declines albuterol, has not tolerated in the past- short prednisone burst as prescribed . med discussed- discussed supportive care, rest, fluids, nasal saline, warm salt water gargle, humidifier - report trouble breathing, fever, not improving in a few days, or other concerns Cough 47831595 R05.9 cough med with codeine has been helpful. will refill. 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 Congenital hearing disorder 91383222 H90.8 Essential hypertension 30084707 I10 Lymphocytic colitis 1187 084450 K52.832 Acute low back pain 2788 62817 M54.50 Osteopenia 540654681 M85 .80 [id number] APURVA Castaneda , [facility], OFFICE [address] [place] [address] [id number] 6 09/08/2023 14:18:40 09/08/2023 14:56:41 Active or passive immunization 562544499 Z23 Pneumo/Brittany ngles-awar e at pharmacy Pain of le ft hip joint 3354058995 14499 M25.552 hx and sx consistent with likely arthritisx ray todayAdvis ed tylenol/ib uprofen as needed for painAdvise d to wear good fitting shoes and limit activities that worsen painAdvise d to call with worsneing or change in sxConsider sports med fu [id number] Miquel Salazar MD , [facility], OFFICE [address] [place] [address] [id number] 6 12/04/2023 14:38:53 12/04/2023 15:33:49 Ganglion cyst of right foot 2665881263 921783 M67.471 reassuranc e, wants to aspirate cyst, referral to Dr Barney [id number] Miquel Slaazar MD , [facility], OFFICE [address] [place] [address] [id number] 6 12/25/2023 11:51:29 12/25/2023 12:56:18 Migraine 50262658 G43.909 has no had a migraine since 2017 Essential hypertension 62347413 I10 HTN - at goal of less than 130/80 per the AHA guidelines . Continue meds and f/u in 6 mos.Discus sed labs.Minerva nue low salt diet of less than 1500 mg of sodium per day. The [place] [employer] n (AHA) recommends 30 minutes of moderate physical activity 5 days a week.A Mediterran maranda type of diet and a plant based diet is recommende d, review the website: [employer]. Brandtone. The DASH diet is also recommende d.* Review this website: https://Acompli/al l-about-go od-and-alfred ap for healthy inexpensiv e meals. Active or passive immunization 409389790 Z23 Pneumo: aware at pharmacy Shingrix: aware at pharmacy Flu: Completed 12/25/23 as COVID: Completed 12/25/23 as Counseled by member of primary health care team 168524994 Z71.9 Today we discussed ways to reduce your 10-year cardiovasc ular disease risk. 10%Things that decrease risk for cardiovasc ular events include eating a diet high in fiber (fruits and vegetables ) and low in simple carbohydra vicky (bread, rice, pasta, alcohol, potatoes), decreasing processed foods, limiting juice and alcohol, limiting saturated fats (butter, ice cream, and cheeses), and adding regular daily activity. Having blood pressure that is <130/80. Having well controlled cholestero l (LDL and triglyceri yannick) by eating a healthy diet and taking medication s when necessary. Managing daily stress with meditation or yoga. Depending on your other cardiovasc ular risks your practition er may recommend taking daily aspirin. Posterior rhinorrhea 758 08282 R09.82 effective, refill given Chronic neck pain 539703 3097 107 M54.2 consulted with waste specialist , cortisone injection, NSAIDS and PT with no improvemen t, trial of muscle relaxant and try 1/2 tab first per dose and let me know via portal. [id number] Carson Barney DPM Podiatry, [address] [address]91-288 6 01/16/2024 10:16:17 01/16/2024 10:53:04 Exostosis of right foot 8196488152 7065633 M89.8X7 Health Concerns Section Related Observation LastModified by Organization Detai ls LastModified Time None Recorded Concern Status LastModified by Organization Details LastModified Time None Recorded Advance Directives Directive None Recorded Payers Encounter Date Sequence Insurance Name Policy Number Policy [place] Covered Member ID [place] Member ID Guarantor Name 06/22/2023 1 [facility] [id number] Nancy Gesiorek [id number] Nancy Gesiorek 09/08/2023 1 [facility] [id number] Nancy Gesiorek [id number] Nancy Gesiorek 12/04/2023 1 [facility] [id number] Nancy Gesiorek [id number] Nancy Gesiorek 12/25/2023 1 [facility] [id number] Nancy Gesiorek [id number] Nancy Gesiorek 01/16/2024 1 [place] [employer] Nancy Gesiorek [id number] Nancy Gesiorek 01/16/2024 2 [place] [id number] Nancy Gesiorek [id number] Nancy Gesiorek Notes Date Note Type Note Provider Name and Address Organization Details Recorded Time text/html Physical Exam/FemaleReported bypatient.PHAPatient is here for a Wellness Visit. She describes her health status as good. Patient's health is the same as last year.Risk Assessment and Lifestyle Change Counseling 65+ (Medicare)Reported bypatient.Coronary Artery Disease Risk Assessment:No Family history of coronary artery disease; No personal history of diabetes; No history of peripheral vascular disease, AAA, or carotid disease; No personal history of coronary artery disease Breast Cancer Risk Assessment:No family history of breast cancer; No history of breast cancer or dcis Colon Cancer Risk Assessment:No family history of pre cancerous colon polyps or cancer; Patient has low risk for colon cancer Lung Cancer Risk Assessment:Has used cigarettes less than 30 pack years;Former smoker quit more than 15 years ago; No symptoms of Lung Cancer; No asbestos exposure Fracture Risk Assessment:No unexplained fracture; balance is normal; No use of corticosteroids; No anti-seizure medication;Abnormal bone density osteopenia; Has adequate calcium intake; Taking Vitamin D supplement; No chronic use of proton pump inhibitors; Patient has higher than average risk for osteoporotic bone fractures Cognitive/Behavioral Risk Assessment:No personal history of mental illness; No family history of mental illness; Do you or anyone else have concerns about your memory? no Safety Risk Assessment:No grab bars in bathroom; Has rails on steps; No falls; No evidence of abuse/neglect; Do you feel safe in your current relationship?YES Functional Status:Patient does not have trouble hearing the television or radio when others do not. (wears hearing aids); Patient does not have to strain or struggle to hear/understand conversations (wears hearing aids); Patient does not need help with preparing meals, transportation, shopping, taking medicine, managing finances, or other activities of daily living.; Patient does not have visual loss that interferes with daily activities; Does not live alone; Patient was not unsteady and did not take longer than 30 seconds during the timed get up and go test.; Patient reports no falls in the past 6 months. Diet:Counseled about eating a diet low in trans and saturated fats and high in fiber, fruits and vegetables; Counseled about appropriate calcium intake and good dietary sources of calcium.; Counseled about the importance of maintaining a positive calcium balance and taking 1000 iu Vitamin D daily.; Discussed the value of a Mediterranean diet , and eating more fruits and vegetables Exercise counseling:Discussed the importance of daily physical activity; Discussed the importance of weight bearing exercise Safety:Counseled about protecting skin from the sun and lowering the risk of skin cancerVMG HypertensionReported bypatient.Duration:Age / year diagnosed (63); ASCVD 10-year risk Context:No ischemic heart disease; No kidney disease; No history of CVA; No congestive heart failure; No history of transient ischemic attacks; No peripheral vascular disease; No history of diabetes Control:BP Goal less than (130/80); Patient understands medications are to lower blood pressure Compliance:Compliant with diet; Compliant with follow-up visits Barriers to CareNo identified barriers to care Self Care:Using home BP monitor occasionally home BPs range >140/90 Aggravating factors:counseled to increase activity; counseled to decrease salt intake Associated Symptoms:No chest pain; No shortness of breath; No edema; No fatigue; No palpitations; No decline in exercise capacity; No snoring Ability to Manage Self CareOn how confident the patient feels in ability to self manage condition the patient selects 9 with 10 being very confident and 1 being very low confidence back pain from Mondaywa reaching for something with both hands and felt painwas not able to return to work on Mon stiff difficult getting in and out of the car Miquel Salazar MD [address] [place], [phone], [facility] 06/22/2023 20:12:07 4 text/html 09/08/2023left hip sore since junenothing makes better or worsewalking forward is okhurts walking backwardssitting for awhile and then getting up hurtslying on side hurts no numbness or tingling in legsno pain into leg at allall pain centered in the hip tylenol doesn't helpmeloxicam wasn't helpful APURVA Castaneda [address] [place], [address], [facility] 09/08/2023 14:50:00 4 text/html cyst on the irght lateral side of footgot larger in the past 2 weekscausing pt pain Miquel Salazar MD [address] [place], [phone], [facility] 12/04/2023 20:58:54 4 text/html VMG HypertensionReported bypatient.Duration:Age / year diagnosed (63); ASCVD 10-year risk Context:No ischemic heart disease; No kidney disease; No history of CVA; No congestive heart failure; No history of transient ischemic attacks; No peripheral vascular disease; No history of diabetes Control:BP Goal less than (130/80); Patient understands medications are to lower blood pressure Compliance:Compliant with diet; Compliant with follow-up visits Barriers to CareNo identified barriers to care Self Care:Using home BP monitor occasionally home BPs range 130-140/85/90 Aggravating factors:counseled to increase activity; counseled to decrease salt intake Associated Symptoms:No chest pain; No shortness of breath; No edema; No fatigue; No palpitations; No decline in exercise capacity; No snoring Ability to Manage Self CareOn how confident the patient feels in ability to self manage condition the patient selects 9 with 10 being very confident and 1 being very low confidence has not needed migraine medication since 2016chronic neck pain - did PT several times, went to waste specialist and was told muscular, minor arthritis, did cortisone injection not help; takes tylenol arthritis ; has tried diclofenac, meloxicam, and naproxen, has tried cyclobenzaprine and nothing has been effective Miquel Salazar MD [address] [place] [address], [phone], [facility] 12/25/2023 21:12:15 4 text/html Patient presents to the office complaining of a small lump on the top/outside of her right foot. Patient states area is generally not uncomfortable and she first noticed lump a couple of months ago. Patient without complaints of swelling or discoloration. Patient without any known trauma. Carson Barney DPM [address] [place], [address], [facility] 01/16/2024 10:46:27 OBGyn Episode No OBEpisode recorded.
== END 2024-04-22 13:37 | disposition home or self-care (01) ==
PROVIDERS: PCP Family Medicine; Referring Provider Family Medicine; Visit Provider Anesthesiology
DX: M47.812 Spondylosis without myelopathy or radiculopathy, cervical region (principal); G89.4 Chronic pain syndrome
CPT/HCPCS: 99204

== ENCOUNTER → 2024-04-22 12:58 | Outpatient (BNVA) | payer MEDICARE, SELFPAY | PROVIDERS: PCP Family Medicine; Referring Provider Family Medicine; Visit Provider Anesthesiology | DX: M47.812 Spondylosis without myelopathy or radiculopathy, cervical region (principal); G89.4 Chronic pain syndrome | CPT/HCPCS: 99202 ==

== ENCOUNTER 2024-06-10 08:54 | Outpatient (REF) | payer MEDICARE, SELFPAY ==
--- NOTE | ~2024-06-10 | MM_ITS ---
EXAMINATION: MM SCREENING DIGITAL BREAST TOMOSYNTHESIS, BILATERAL CLINICAL INFORMATION: Screening. Asymptomatic. COMPARISON: Mammography: Comparison is made with available priors TECHNIQUE: Digital breast mammography with tomosynthesis is performed in both the craniocaudal and mediolateral oblique views along with computer-aided detection (CAD). FINDINGS: There are scattered areas of fibroglandular density (ACR BI-RADS breast composition Category b). Right marker clip with adjacent benign calcifications. Bilateral circumscribed oval masses which wax and wane consistent with benign fibrocystic changes. There are no significant masses, abnormal calcifications, or other abnormalities. MM/MM tomosynthesis screening BI IMPRESSION: No mammographic evidence of malignancy. ASSESSMENT: BI-RADS BI-RADS 2 - Benign Findings RECOMMENDATION: Routine annual mammography screening. 1 year F/U This examination should not preclude the clinical evaluation of a suspicious palpable abnormality. This patient's information was entered into a reminder system with a target due date for their next mammogram. Electronically signed by: Judi Ozuna DO 06/11/2024 04:06 PM BATSHEVA CEJA
--- OUTSIDE RECORDS SUMMARY | 2024-06-10 09:28 | XMS_ITS | Patient Health Record ---
Author Organization [facility] Address [address] [facility] [address] [place] [id number] Care Team Providers Care Mobile Application Tester Name Role Phone ERIKA DE LEON Primary Care Provider SHARON Vale Unavailable [phone] Allergies Allergen (clinical drug ingredient) Drug/Non Drug Allergy documented on EMR Reaction Allergy Type Onset Date Status minocycline Minocycline HCl Hives Drug Allergy Active Penicillin Seizures Drug Allergy Active Reason For Referral No Information Medications Medication SIG (Take, Route, Frequency, Duration) Notes Start Date End Date Status Estradiol 0.1 MG/24HR 1 patch to skin Transdermal for 90 days 06/10/2019 Active Losartan Potassium 50 MG 1 tablet Orally Once a day Active amLODIPine Besylate 2.5 MG 1 tablet Orally Once a day Active Social History Tobacco Use: Social History Observation Description Date Details (start date - stop date) Former Smoker NA - NA Tobacco Use/Smoking Question Answer Notes Are you a former smoker How long has it been since you last smoked? > 10 years Alcohol Screen (Audit-C) Question Answer Notes Did you have a drink contain ing alcohol in the past year? Yes How often did you have a dri nk containing alcohol in the past year? 2 to 3 times a week (3 points) How many drinks did you have on a typical day when you were drinking in the past year? 3 or 4 drinks (1 point) How often did you have 6 or more drinks on one occasion in the past year? Never (0 point) Points 4 Interpretation Positive Problems Problem Type SNOMED Code ICD Code Onset Dates Problem Status W/U Status Risk Notes Problem Menopause (682984495) Menopausal and female climacteric states (N95.1) Active confirmed Problem COVID-19 (515899309) COVID-19 (U07.1) Active confirmed Vital Signs Temperature 96.4 degrees Fahrenheit 06/26/2023 Blood pressure diastolic 78 mm Hg 06/26/2023 Height 5 ft 2.8 in in 06/26/2023 Blood pressure systolic 124 mm Hg 06/26/2023 Weight 140 lbs 06/26/2023 BMI 24.96 kg/m2 06/26/2023 Encounters Encounter Location Date Provider Diagnosis [facility] [employer] [address] [place] [address] 06/26/2023 SHARON RICO Encounter for gynecological examination (general) (routine) without abnormal findings Z01.419 ; Encounter for screening mammogram for malignant neoplasm of breast Z12.31 and Menopausal and female climacteric states N95.1 [facility] [employer] [address] [place] [address] 03/11/2024 SHARON RICO Menopausal and femal e climacteric states N95.1 Assessments Encounter Date Diagnosis (ICD Code) Assessment Notes Treatment Notes Treatment Clinical Notes Section Notes 06/26/2023 Encounter for gynecological examination (general) (routine) without abnormal findings (ICD-10 - Z01.419) During the visit, the following areas of concern were addressed: Discussed sstopping cervical cancer screening as per ASCCP guidelines. Advised continued annual pelvic exams. Patient encouraged to increase her level of exercise. SBE technique encouraged/tau ght. Patient reminded when annual mammogram is due. Patient encouraged to keep colon screening up to date. 03/11/2024 Menopausal and female climacteric states (ICD-10 - N95.1) 06/26/2023 Encounter for screening mammogram for malignant neoplasm of breast (ICD-10 - Z12.31) 06/26/2023 Menopausal and female climacteric states (ICD-10 - N95.1) Plan Of Treatment Pending Test Test Name Order Date MM Digital Screening Mammogram 3D 2018 MM Digital Screening Mammogram 3D 2020 MM Digital Screening Mammogram 3D 2021 MM Digital Screening Mammogram 3D 2022 MM Digital Screening Mammogram 3D 2023 Next Appt Details Provider Name:SHARON Ronnie Melendez, 07/01/2024 01:00:00 PM, [address], [place], [address], Insurance Providers Payer Name Payer Address Payer Phone Subscriber Number Group Number Insured Name Patient Relationship to Insured Coverage Start Date Coverage End Date MEDICARE [address] MAYURI HOLLIS [id number] YUDY MELARA Self - patient is the insured [employer] [place] [address] [place] [address] YUDY MELARA Self - patient is the insured Medical (General) History Medical History History ICD Code Essential (primary) hypertension I10 COVID-19 U07.1 Surgical History Surgery Date(Month/Year) RICARDO/BSO in her 20's (one ovary was remov ed later) Basal Cell - Thumb - right 2016 Basal Cell - Thumb - left 11/2018 Removal of mole on right upper arm 2018 Removal of dry patch on back - potentially precancerous, not sent for pathology 2018 removal of mole on right leg and on fore head 2023 Hospitalization History Reason Date(Month/Year) see surgical history
--- OUTSIDE RECORDS SUMMARY | 2024-06-10 09:28 | XMS_ITS | Data Portability ---
Author Organization [facility], , [facility], OFFICE Address [address] [place] [address] Care Team Providers Care Advertising Operations Coordinator Name Role Phone MIQUEL PENA Primary Care Provide r RYAN FORBES OTHER MERARY HANEY OTHER SHARMAINE DELGADO Sports Medicine [facility] Pain Management Assessment Encounter Date Assessment Date Assessment LastModified by Organization Details LastModified Time 01/16/2024 01/16/2024 Exostosis right foot jerskine Not available 01/16/2024 10:45:56 Plan of Treatment Reminders Order Date Submit Date Provider Last Modified By Organization Details Last Modified Time Details Appointments LAB Follow- Up 2024 09:00A M [facility] Lab Not available Not available Not available Medical Managem ent 15 2024 09:15A M Miquel Salazar MD Not available Not available Not available LAB Follow- Up 2024 09:00A M [facility] Lab Not available Not available Not available Wellnes s Visit 30 2024 08:30A M Miquel Salazar MD Not available Not available Not available Lab CBC 2024 025 [facility], [address] [place] [address], [address], 05/14/2024 16:35:58 TSH, serum or plasma 2024 025 [facility], [address] [place] [address], [address], 05/14/2024 16:35:58 BMP, serum or plasma 2024 025 [facility], [address] [place], [address], 05/14/2024 16:35:58 BNP (B-type natriur etic peptide ), serum or plasma 2024 025 [facility], [address] [place] [address], [address], 05/14/2024 16:35:59 Referral podiatr ist referra l - right foot ganglio n cyst. causing pain 2023 024 [email or web address] Carson Barney DPM, [address] [facility], [place], [address], 12/08/2023 14:33:13 Procedures None recorde d. Surgeries None recorde d. Imaging exercis e stress test - can walk on treadmi ll, 5'4 , 142lbs, no pacer, pt cleared to hold Amlodip ine 24hrs priorSt andard exercis e stress test without imaging Can the patient walk on a treadmi ll? YOK to hold beta mrina s? N/ADoes patient have asthma? NDoes patient have seizure disorde r? NDoes patient have abnorma l triponi n value? N/A 2024 025 [facility] (Cardiology), [address] [place], [address], 05/22/2024 13:51:32 XR, chest - worseni ng SOB [address] [facility] (Imaging), [address], [place], [address], 05/15/2024 10:55:52 XR, hip + pelvis, unilate ral, 2 or 3 view - left hip pain r/o arthrit is [address] [facility] (Imaging), [address], [place], [address], 09/12/2023 08:28:16 Medication Orders methoca rbamol 500 mg tablet 2023 024 [facility] [address], [address] [place], [address], 05/14/2024 16:06:24 amlodip ine 2.5 mg tablet 2023 024 [facility] [address], [address] [place], [address], 12/25/2023 12:42:05 ipratro pium bromide 42 mcg (0.06 %) nasal spray 2023 024 [facility] [address], [address] [place], [address], 12/25/2023 12:45:42 Patient TargetsNo targets recorded. Patient Instructions Encounter Date Encounter Id Patient Instructions Last Modified By Organization Details Last Modified Time 12/04/2023 [id number] [facility] serves as the focal point for all health care services the patient needs. adela Not available 12/04/2023 20:57:12 01/16/2024 [id number] Dispensed order for x-ray evaluation right foot. jersjosé miguel Not available 01/16/2024 10:46:13 05/14/2024 [id number] CCM: The provider and patient discussed the Chronic Care Management program, including the services provided, and any fees associated with them. [facility] Not available 05/14/2024 15:57:29 Reason for Referral Battery Checker Referral for Gang lion cyst of right foot right foot ganglion cyst. causing pain Referring Physician: Miquel Salazar, Family Medicine, Encounter Date: 12/04/2023 Results Created Date Observation Date Name Description Value Unit Range Abnormal Flag Note LastModifiedBy Organization Detail LastModifiedTime 12/22/19 24 12/22/2023 CBC WBC 5.97 K/? ? ?L 3.98-1 0.04 Not Available [address], [address], 12/22/2023 15:42:34 12/22/19 24 12/22/2023 CBC RBC 3.55 M/? ? ?L 3.93-5 .22 low Not Available [address], [address], 12/22/2023 15:42:34 12/22/19 24 12/22/2023 CBC HGB 11.9 g/dL 11.2-1 5.7 Not Available [address], [address], 12/22/2023 15:42:34 12/22/19 24 12/22/2023 CBC HCT 35.3 % 34.1-4 4.9 Not Available [address], [address], 12/22/2023 15:42:34 12/22/19 24 12/22/2023 CBC MCV 99.4 fL 79.4-9 4.8 high Not Available [address], [address], 12/22/2023 15:42:34 12/22/19 24 12/22/2023 CBC MCH 33.5 pg 25.6-3 2.2 high Not Available [address], [address], 12/22/2023 15:42:34 12/22/19 24 12/22/2023 CBC MCHC 33.7 g/dL 32.2-3 5.5 Not Available [address], [address], 12/22/2023 15:42:34 12/22/19 24 12/22/2023 CBC plt 300 K/? ? ?L 182-36 9 Not Available [address], [address], 12/22/2023 15:42:34 12/22/19 24 12/22/2023 CBC MPV 9.6 fL 9.4-12 .3 Not Available [address], [address], 12/22/2023 15:42:34 12/22/19 24 12/22/2023 CBC neut% 52.9 % 34.0-7 1.1 Not Available [address], [address], 12/22/2023 15:42:34 12/22/19 24 12/22/2023 CBC neut# 3.16 1.56-6 .13 Not Available [address], [address], 12/22/2023 15:42:34 12/22/19 24 12/22/2023 CBC lymph % 34.0 % 19.3-5 1.7 Not Available [address], [address], 12/22/2023 15:42:34 12/22/19 24 12/22/2023 CBC lymph # 2.03 K/? ? ?L 1.18-3 .74 Not Available [address], [address], 12/22/2023 15:42:34 12/22/19 24 12/22/2023 CBC mono% 8.7 % 4.7-12 .5 Not Available [address], [address], 12/22/2023 15:42:34 12/22/19 24 12/22/2023 CBC mono# 0.52 0.24-0 .56 Not Available [address], [address], 12/22/2023 15:42:34 12/22/19 24 12/22/2023 CBC eo% 3.7 % 0.7-5. 8 Not Available [address], [address], 12/22/2023 15:42:34 12/22/19 24 12/22/2023 CBC eo# 0.22 0.04-0 .36 Not Available [address], [address], 12/22/2023 15:42:34 12/22/19 24 12/22/2023 CBC baso% 0.5 % 0.1-1. 2 Not Available [address], [address], 12/22/2023 15:42:34 12/22/19 24 12/22/2023 CBC baso# 0.03 0.00-0 .08 Not Available [address], [address], 12/22/2023 15:42:34 12/22/19 24 12/22/2023 CBC RDW-CV 11.8 % 11.7-1 4.4 Not Available [address], [address], 12/22/2023 15:42:34 12/22/19 24 12/22/2023 CBC Ig% 0.200 % 0.000- 1.500 Ig % >0.5 Indic ates possi ble Left Shift Not Available [address], [address], 12/22/2023 15:42:34 12/22/19 24 12/22/2023 CBC Ig# 0.010 0.000- 0.093 Not Available [address], [address], 12/22/2023 15:42:34 12/22/19 24 12/22/2023 CBC NRBC% 0.0 % 0.0-0. 2 Not Available [address], [address], 12/22/2023 15:42:34 12/22/19 24 12/22/2023 CBC NRBC# 0.000 0.000- 0.012 Not Available [address], [address], 12/22/2023 15:42:34 12/22/19 24 12/22/2023 COMP. METAB OLIC PANEL glucose 98 mg/dL 70-100 Not Available [address], [address], 12/22/2023 16:25:37 12/22/19 24 12/22/2023 COMP. METAB OLIC PANEL BUN 18 mg/dL 7-18 Not Available [address], [address], 12/22/2023 16:25:37 12/22/19 24 12/22/2023 COMP. METAB OLIC PANEL creatinine 0.7 mg/dL 0.8-1. 3 low Not Available [address], [address], 12/22/2023 16:25:37 12/22/19 24 12/22/2023 COMP. METAB OLIC PANEL B/C 25.7 ratio Not Available [address], [address], 12/22/2023 16:25:37 12/22/19 24 12/22/2023 COMP. METAB [...] be used in pregn garrison. Not Available [address], [address], 12/22/2023 16:25:37 12/22/19 24 12/22/2023 COMP. METAB OLIC PANEL sodium 137 mmol/ L 136-14 5 Not Available [address], [address], 12/22/2023 16:25:37 12/22/19 24 12/22/2023 COMP. METAB OLIC PANEL potassium 5.2 mmol/ L 3.5-5. 1 high Not Available [address], [address], 12/22/2023 16:25:37 12/22/19 24 12/22/2023 COMP. METAB OLIC PANEL chloride 102 mmol/ L 96-107 Not Available [address], [address], 12/22/2023 16:25:37 12/22/19 24 12/22/2023 COMP. METAB OLIC PANEL anion gap 11.1 5.0-15 .0 Not Available [address], [address], 12/22/2023 16:25:37 12/22/19 24 12/22/2023 COMP. METAB OLIC PANEL CO2 24 mmol/ L 21-32 Not Available [address], [address], 12/22/2023 16:25:37 12/22/19 24 12/22/2023 COMP. METAB OLIC PANEL calcium 9.3 mg/dL 8.5-10 .3 Not Available [address], [address], 12/22/2023 16:25:37 12/22/19 24 12/22/2023 COMP. METAB OLIC PANEL total protein 7.4 g/dL 6.4-8. 2 Not Available [address], [address], 12/22/2023 16:25:37 12/22/19 24 12/22/2023 COMP. METAB OLIC PANEL albumin 3.7 g/dL 3.4-5. 0 Not Available [address], [address], 12/22/2023 16:25:37 12/22/19 24 12/22/2023 COMP. METAB OLIC PANEL globulin 3.7 g/dL Not Available [address], [address], 12/22/2023 16:25:37 12/22/19 24 12/22/2023 COMP. METAB OLIC PANEL A/G 1.0 ratio 0.8-2. 0 Not Available [address], [address], 12/22/2023 16:25:37 12/22/19 24 12/22/2023 COMP. METAB OLIC PANEL total bilirubin 0.40 mg/dL 0.00-1 .00 Not Available [address], [address], 12/22/2023 16:25:37 12/22/19 24 12/22/2023 COMP. METAB OLIC PANEL AST 26 U/L 0-37 Not Available [address], [address], 12/22/2023 16:25:37 12/22/19 24 12/22/2023 COMP. METAB OLIC PANEL ALT 32 U/L 6-63 Not Available [address], [address], 12/22/2023 16:25:37 12/22/19 24 12/22/2023 COMP. METAB OLIC PANEL alk. phos. 95 U/L 50-136 Not Available [address], [address], 12/22/2023 16:25:37 12/22/19 24 12/22/2023 LIPID PANEL cholesterol 249 mg/dL <200 mg/dl Leidy able 200-2 39 mg/dl Borde rline High >240 mg/dl High Not Available [address], [address], 12/22/2023 16:25:37 12/22/19 24 12/22/2023 LIPID PANEL triglyceride s 59 mg/dL <150 mg/dL Ethel l 150-1 99 mg/dL Borde rline High 200-4 99 mg/dL High >500 mg/dL Very High Not Available [address], [address], 12/22/2023 16:25:37 12/22/19 24 12/22/2023 LIPID PANEL direct HDL 82 mg/dL <40 mg/dl - Major Risk for CHD >60 mg/dl - Negat myranda Risk for CHD Not Available [address], [address], 12/22/2023 16:25:37 12/22/19 24 12/22/2023 DIREC T LDL direct LDL 136 mg/dL RISK CATEG ORY LDL GOAL _ CHD or CHD Risk Equiv alent s <100 mg/dl (10-y ear risk >20%) 2+ Risk Facto rs <130 mg/dl (10-y ear risk <= 20%) 0-1 Risk Facto r? <160 mg/dl ? Almos t all peopl e with 0-1 risk facto r have a 10 year risk <10%, thus 10 year risk asses ment in peopl e with 0-1 risk facto r is not neces deandre. Not Available [address], [address], 12/22/2023 16:25:38 09/12/19 24 09/11/2023 XR, hip + pelvi [...] joint. IMPRES RYAN: Mild DJD left hip. Readlamar pierre Physic aaliyah: Victor Manuel Kaufman [facility] (Imaging) [address] [place], [address], 09/26/2023 14:54:29 01/17/20 24 01/17/2024 XR, foot CLINIC AL HISTOR Y: Exosto sis right foot TECHNI QUE: AP, obliqu e, and latera l views of the right foot obtain ed. COMPAR VIET: Novemb er 2014 FINDIN GS: There is no acute fractu re or disloc ation. The joint spaces are preser amado. The soft tissue s are unrema rkable . IMPRES RYAN: No acute bone injury . No interv al change Iván pierre Physic aaliyah: Victor Manuel Kaufman [facility] (Imaging) [address] [place], [address], 01/17/2024 10:00:29 05/15/19 25 05/15/2024 XR, chest CLINIC AL HISTOR Y: Cough. TECHNI QUE: Fronta l view and latera l view of the chest obtain ed. COMPAR VIET: Report of a chest x-ray [facility] Novemb er 2011 FINDIN GS: The heart is normal in size and config uratio n.Ther e is no hilar or medias tinal enlarg ement. There is no focal lung consol idatio n or infilt rate. The bony thorax is intact . IMPRES RYAN: No acute diseas e. Iván pierre Physic aaliyah: Victor Manuel Kaufman [facility] (Imaging) [address] [place], [address], 05/16/2024 17:05:22 05/22/19 25 05/22/2024 stres s test exerc ise Table format ting from the origin al result was not includ ed. Images from the origin al result were not includ ed. Result Report Amado cabrera Name: Gesior ek, Racheal e Pativirgilio t Class: Outpat ient Techno logist : Bruffe e, Ayana Perfor jeanine Physic aaliyah: None Select ed Orderi ng Prov: Loaiza Jackarvin barker Stephy Brady Primar y Care Physic aaliyah: Jesus Luna Elina lo Diagno sis: Dyspne a, unspec ified type [R06.0 0 (ICD-1 0-CM)] Reason For Exam: Dyspne a on exerti on Proced ure(s) Perfor med: Stress Test Exerci se Exam Date and Time: 2024 11:13 AM Access ion #: [id number] Result Status : Final Stress Test Exerci se: Patien t Commun icatio n Not Releas ed Not seen Stress Test Findin gs Stress Findin gs The restin g heart rate was 88 BPM. The restin g BP was 132/82 mmHg. A peak heart rate of 139 BPM was achiev ed. ECG Report Pt exerci sed for 3: 49 min on a ROBERTH protoc ol achiev ing 6.5 METS. Test termin ated due to shortn ess of breath . Baseli ne restin g HR was 88 bpm. Max heart rate achiev ed was 142 bpm (93% MPHR). 1. ECG: Baseli ne ECG showed sinus rhythm withou t signif icant ST-T wave abnorm ality. With exerci se there were no ECG change s meetin g criter ia for ischem ia. 2. SYMPTO MS: No chest pain sympto ms concer tye for angina . Patien t did endors e signif icant shortn ess of breath with exerci se. 3. EXERCI SE PHYSIO LOGY: Averag e functi onal capaci ty for age. Blood pressu re: 148/90 at rest, 200/90 with exerci se, and 120/78 on discha rge from stress lab. 4. ARRHYT HMIAS: None Conclu ryan: Exerci se stress test withou t EKG change s meetin g criter ia for ischem ia and withou t sympto ms concer tye for angina . Testin g was stoppe d due to patien t report of signif icant shortn ess of breath . SaO2 at peak exerci se 93%, SaO2 at rest 99%. See attach ed stress report for full detail s. Susan Chao HORTICULTURAL SERVICES SUPERVISOR with Dr. Palbito watts Respon se to Stress The patien t exerci sed for minute s and second s, achiev ing 6.5 METS at peak exerci se. Baseli ne blood pressu re was 132/82 mmHg, and baseli ne heart rate was 88 bpm. The patien t achiev ed a peak heart rate of 139 bpm, which is% of their maximu m predic harley heart rate. Stress Measur ements Max Stress Vitals Max BP Systol ic 200 mmHg Max BP Diasto lic 90 mmHg Stress Vitals ( 10:22 AM - 5 11:13 AM) Stress Test Row Name 10:30: 18 10:37: 06 10:40: 06 10:40: 55 10:41: 55 Phase of Stress Test Baseli ne Exerci se Exerci se Exerci se Recove ry HR 88 bpm 90 bpm 134 bpm 139 bpm 133 bpm BP ? 148/90 188/10 0 ? 200/90 Stage Supine Stage 1 Stage 1 Stage 2 ? Speed 0 mph 0 mph 1.7 mph 2.5 mph 0 mph METs 1 METs 1 METs 4.6 METs 6.5 METs 1.1 METs Time in Stage 00:01: 47 00:00: 00 00:03: 00 00:00: 49 00:01: 00 Elevat ion 0 % 0 % 10 % 12 % 0 % Row Name 10:47: 01 Phase of Stress Test Recove ry HR 94 bpm BP 120/78 Speed 0 mph METs 1 METs Time in Stage 00:05: 06 Elevat ion 0 % Signed Electr onical ly signed by Jase Dan MD on 5 at 1348 EST JESUS HEREDIA [facility] Diagnostic Imaging [address] [facility], [place], [address], 05/23/2024 12:59:34 05/22/19 25 05/22/2024 exerc ise stres s test No observ ation record ed. [facility] [address] [place], [address], 05/23/2024 12:59:34 Result Notes None recorded. Procedures Surgical History Date Name Laterality Status Provider Name and Address Organization Details Recorded Time Jorge Luis - Colonoscopy completed Aleksander Kang MD [address] [place] [address], [id number], [facility] 11/11/2022 10:16:45 Imaging Results Imaging Date Name Status LastModified by Organiz ation Details LastModified Time 09/11/2023 XR, hip + pelvis, unilateral, 2 or 3 view completed [facility] (Imaging) [address], [place], [address], 09/26/2023 14:54:29 01/17/2024 XR, foot completed [facility] (Imaging) [address], [place], [address], 01/17/2024 10:00:29 05/15/2024 XR, chest completed [facility] (Imaging) [address], [place], [address], 05/16/2024 17:05:22 05/22/2024 stress test exercise completed [facility] Diagnostic Imaging [address] [place], [address], 05/23/2024 12:59:34 05/22/2024 exercise stress test completed [facility] [address] [place], [address], 05/23/2024 12:59:34 Procedure Notes None recorded. Medical Equipment None Reported. Allergies Allergen ID Allergen Name Allergen Category Reaction Reaction Severity Criticality Documentation Date Start Date Code Code System Note Provider Name and Address Organization Details Recorded Time 665131 minocycli ne medicatio n hives Not available Not available 11/09/2022 6980 RxNorm HUONG Arredondo, [facility] 14:58:29 [id number] Product containin g penicilli n (product) medicatio n seizure Not available Not available 11/09/2022 94186 8001 SNOMED Shaylee Aguilar RN [facility] 3 14:59:41 Medications Name Sig Start Date Stop Date [...] DAYS FOR CHRONIC NECK PAIN active Not taking 05/14/24 cc Not Available Not Available Not Available prednison e 10 mg tablet Take [...] t Available amlodipin e 2.5 mg tablet TAKE 1 TABLET BY MOUTH ONCE DAILY FOR HIGH BLOOD PRESSURE active Not Available Not Available No t Available acetamino phen 300 mg-codein e 30 mg [...] Available prednisol one acetate 1 % eye drops,mraio pension INSTILL 1 DROP INTO RIGHT EYE [...] TAKE 1 TABLET BY MOUTH ONCE DAILY active Not Available Not Available [...] weekly transderm al patch APPLY 1 PATCH TO SKIN WEEKLY active Not Available Not Available No t [...] Not Available Not Available Not Available Vitals None Recorded Social History Question Answer Notes LastModified by Organizat ion Details LastModified Time What Is Your Level Of Alcohol Consumption? 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 16+yearssinc elastcigaret te 1997 Information not available 06/22/2023 How Many Days In The Past Year Have You Had A Heavy Drinking Consumption (4+ Female, 5+ Male)? 0 [email or web address] Information not available 08/24/2012 Are There Any Guns Present In Your Home? No Information not available 02/25/2015 Live Alone Or With Others? With Others Boyfriend Since 20 Yrs - Babatunde adela Information not available 01/14/2011 Patient Has Health Care Proxy Signed And In Chart Yes Babatunde Nateere - Form Given 07/18/2016 Information not available 11/23/2018 MOLST Form Signed And In Chart 05/28/2021 Information not available 06/02/2021 Marital Status Single [id number] In formation not available 02/24/2011 Mosquito Repellent Used Routinely Yes Information not available 02/25/2015 What Was The Date Of Your Most Recent Tobacco Screening? 05/14/2024 [email or web address] Information not available 05/14/2024 How Many Children Do You Have? 0 Information not available 02/24/2011 Are There Any Occupational Health Risks Where You Work? None Information not available 05/15/2015 What Is Your Current Pack Years? 30ormorepack years 27 Pack Yrs Information not available 06/22/2023 Seat Belts Used Routinely No Information not available 02/25/2015 Are You Sexually Active? Yes [email or web address] Information not available 05/15/2015 Smoke Alarm In [...] previo usly record ed as Hypert ension [email or web address] illo Not available 05/15/2015 16:12:11 Father Problem 85 acute anemia from WW2 [email or web address] illo Not available 05/15/2015 16:12:11 Sister Hypertensive disorder [email or web address] illo Not available 11/25/2019 15:10:54 Notes:sister x 3 in [place], unkn own Medical History Condition Response Hearing Loss Y Migraine Headaches Y Chronic Neck Pain Y Allergic Rhinitis Y CANCER Y Crohn's Disease Y Gynecological History Statement/Question Response Hysterectomy Y Age at Menarche 12 Obstetrics History GPAL:G 0 P 0 0 0 0 Past Encounters Encounter ID Performer Location Encounter Start Date Encounter Closed Date Diagnosis/Indication Diagnosis SNOMED-CT Code Diagnosis ICD10 Code Diagnosis Note [id number] Radiology , [address] [place] [facility] [place] [address] 11/12/2010 13:51:13 11/22/2010 12:23:08 [id number] , [facility], OFFICE [address] [place] [facility] [place] [address] 01/14/2011 13:44:02 01/17/2011 06:59:04 [id number] Michael Quiroz , [facility], OFFICE [address] [place] [facility] [place] [address] 02/10/2012 09:20:09 02/10/2012 11:00:55 [id number] Arabella Sood MD , [facility], OFFICE [address] [place] [facility] [place] [address] 02/22/2012 09:14:13 02/22/2012 10:20:13 [id number] Brian Millard MD Radiology , [address] [place] [facility] [place] [address] 02/22/2012 10:20:36 02/28/2012 13:59:22 [id number] Michael ROY, [facility], OFFICE [address] [place] [facility] [place] [address] 03/09/2012 15:12:29 03/09/2012 16:04:52 [id number] Michael ROY, [facility], OFFICE [address] [facility] [place] [address] 03/23/2012 08:02:55 03/23/2012 08:43:50 [id number] Elba Adams NP , [facility], OFFICE [address] [place] [facility] [place] [address] 04/19/2012 09:13:18 04/19/2012 10:03:50 [id number] Miquel Salazar MD FP, [facility], OFFICE [address] [place] [facility] [place] [address] 04/27/2012 08:06:14 04/27/2012 09:01:31 [id number] MD KIRILL Jain, [facility], OFFICE [address] [facility] [place] [address] 05/18/2012 08:40:21 05/18/2012 09:36:54 [id number] Raven Dobbins Mph, LPT Physical Therapy, [facility] [address] [facility] [place] [address] 05/25/2012 08:16:34 05/25/2012 10:24:40 [id number] Michael Quiroz , [facility], OFFICE [address] [facility] [place] [address] 08/09/2012 16:03:43 08/10/2012 06:43:41 [id number] CESAR Elaine , [facility], OFFICE [address] [facility] [place] [address] 08/15/2012 16:35:53 08/16/2012 06:43:27 [id number] Nithya Stahl , [facility], OFFICE [address] [facility] [place] [address] 08/20/2012 14:22:08 08/20/2012 15:25:51 [id number] , [facility], OFFICE [address] [facility] [place] [address] 08/24/2012 09:31:14 08/24/2012 10:50:07 [id number] Melani Norman LPN , [facility], OFFICE [address] [facility] [place] [address] 10/16/2012 08:49:42 10/16/2012 09:54:00 [id number] Miquel Salazar MD , [facility], OFFICE [address] [facility] [place] [address] 09/20/2013 07:59:33 09/20/2013 08:58:38 [id number] Rosalia Vidal CMA FP, [facility], OFFICE [address] [facility] [place] [address] 09/27/2013 13:19:21 09/27/2013 13:42:57 [id number] , [facility], OFFICE [address] [facility] [place] [address] 02/14/2014 09:33:13 02/14/2014 10:48:12 [id number] Miquel Salazar MD , [facility], OFFICE [address] [facility] [place] [address] 04/22/2014 15:33:39 04/22/2014 16:43:49 [id number] Alin Olivares MD , [facility], OFFICE [address] [place] [address], [place] [address] 02/25/2015 15:39:15 02/25/2015 16:36:12 [id number] Nuha Mariano, PT Physical Therapy, [address] [place] [facility] [place] [address] 03/17/2015 17:05:32 03/18/2015 09:42:30 [id number] Nuha Mariano, PT Physical Therapy, [address] [place] [facility] [place] [address] 03/23/2015 16:47:44 03/24/2015 08:15:30 [id number] Mary Lou Copeland Podiatry, [facility] [address] [place] [address] 04/14/2015 14:35:36 04/16/2015 15:51:16 [id number] Miquel Salazar MD , [facility], OFFICE [address] [place] [address] on [facility] [place] [address] 05/15/2015 15:46:19 05/18/2015 15:29:00 [id number] Carson Barney DPM Podiatry, [facility] [address] [place] [address] 06/02/2015 14:49:39 06/02/2015 15:47:38 [id number] Lexie Dozier , [facility], OFFICE [address] [place] [address], [place] [address] 2015 15:06:18 06/20/2015 11:41:45 [id number] Carson Barney DPM Podiatry, [address] [place] [facility] [place] [address] 07/30/2015 15:15:59 07/30/2015 15:54:16 [id number] Carson Barney DPM Podiatry, [address] [place] [facility] [place] [address] 10/01/2015 15:11:30 10/01/2015 16:37:34 [id number] Miquel Salazar MD FP, [facility], OFFICE [address] [place] [facility] [place] [address] 07/18/2016 15:41:28 07/18/2016 16:35:55 [id number] Mendy Vance HORTICULTURAL SERVICES SUPERVISOR , [facility], OFFICE [address] [place] [facility] [place] [address] 09/23/2016 15:34:42 09/23/2016 16:02:53 [id number] Candido Dodson MD , [facility], OFFICE [address] [place] [address] 06/10/2017 09:10:12 06/10/2017 10:14:37 [id number] Miquel Salazar MD , [facility], OFFICE [address] [place] [facility] [place] [address] 06/23/2017 15:10:50 06/23/2017 16:33:11 [id number] Michael Ann NP , [facility], OFFICE [address] [place] [facility] [place] [address] 08/03/2017 15:11:10 08/03/2017 15:55:08 [id number] Miquel Salazar MD , [facility], OFFICE [address] [place] [facility] [place] [address] 11/17/2017 15:39:36 11/17/2017 16:58:56 [id number] Miquel Salazar MD , [facility], OFFICE [address] [place] [facility] [place] [address] 11/22/2018 15:54:32 11/22/2018 17:00:32 [id number] Miquel Salazar MD , [facility], OFFICE [address] [place] [facility] [place] [address] 04/05/2019 08:45:14 04/05/2019 10:16:08 [id number] Miquel Salazar MD FP, [facility], OFFICE [address] [place] [facility] [place] [address] 08/08/2019 08:51:07 08/09/2019 13:52:03 [id number] MD KIRILL Jain, [facility], OFFICE [address] [place] [address] 6 11/25/2019 14:54:07 11/26/2019 09:22:11 [id number] Melani Anne LPN , [facility], OFFICE [address] [place] [address] 01/25/2020 08:58:43 01/28/2020 12:08:00 [id number] Carson Barney, DPDaiana Podiatry, [facility] [address] [place] [address] 02/28/2020 07:53:48 03/02/2020 13:04:56 [id number] Miquel Salazar MD , [facility], OFFICE [address] [place] [facility] [place] [address] 05/19/2020 10:47:12 05/20/2020 15:40:02 [id number] MD KIRILL Jain, [facility], OFFICE [address] [place] [facility] [place] [address] 06/25/2020 08:03:12 06/29/2020 11:33:28 [id number] MD KIRILL Jain, [facility], OFFICE [address] [place] [facility] [place] [address] 07/23/2020 09:08:07 07/27/2020 13:46:16 [id number] MD KIRILL Jain, [facility], OFFICE [address] [place] [facility] [place] [address] 09/03/2020 11:44:14 09/04/2020 09:57:05 [id number] Miquel Salazar MD , [facility], OFFICE [address] [place] [facility] [place] [address] 11/20/2020 09:19:54 11/22/2020 19:09:53 [id number] MD KIRILL Jain, [facility], OFFICE [address] [place] [facility] [place] [address] 12/24/2020 10:20:05 01/06/2021 09:09:52 [id number] Ginger Littlejohn RN BSN , [facility], OFFICE [address] [place] [facility] [place] [address] 12/28/2020 14:59:41 12/29/2020 10:38:18 [id number] Ginger Littlejohn RN BSN , [facility], OFFICE [address] [place] [address] [place] [facility] [place] [address] 12/29/2020 16:08:37 12/30/2020 12:53:10 [id number] Miquel Salazar MD FP, [facility], OFFICE [address] [place] [address] [place] [facility] [place] [address] 02/26/2021 13:42:37 02/26/2021 14:20:59 [id number] MD KIRILL Jain, [facility], OFFICE [address] [place] [address], [place] [address] 6 05/28/2021 14:42:04 05/28/2021 15:41:00 [id number] MD KIRILL Jain, [facility], OFFICE [address] [place] [address], [place] [address] 11/25/2021 08:00:39 11/25/2021 08:30:56 [id number] MD KIRILL Jain, [facility], OFFICE [address] [place] [address], [place] [address] 6 06/17/2022 13:46:55 06/17/2022 14:56:58 [id number] Giovanna Crocker RN Endoscopy , [address] [address] 11/11/2022 08:16:15 11/11/2022 13:43:57 [id number] MD KIRILL Jain, [facility], OFFICE [address] [place] [address] [place] [facility] [place] [address] 12/15/2022 13:16:12 12/15/2022 13:56:14 [id number] APURVA Castaneda FP, [facility], OFFICE [address] [place] [address] [place] [facility] [place] [address] 05/01/2023 13:15:48 05/01/2023 13:56:17 [id number] Mendy Vance NP FP, [facility], OFFICE [address] [place] [address] 05/09/2023 13:53:09 05/12/2023 13:08:35 [id number] Miquel Salazar MD , [facility], OFFICE [address] [place] [address] 6 06/22/2023 13:48:30 06/22/2023 14:55:15 [id number] APURVA Castaneda , [facility], OFFICE [address] [place] [address] 6 09/08/2023 14:18:40 09/08/2023 14:56:41 [id number] Miquel Salazar MD , [facility], OFFICE [address] [place] [address] 6 12/04/2023 14:38:53 12/04/2023 15:33:49 [id number] Miquel Salazar MD , [facility], OFFICE [address] [place] [address] 6 12/25/2023 11:51:29 12/25/2023 12:56:18 [id number] Carson Barney DPM Podiatry, [address] [address] 01/16/2024 10:16:17 01/16/2024 10:53:04 [id number] GREGOR LOAIZA PA-C FP, [facility], OFFICE [address] [place] [address] 6 05/14/2024 15:46:46 05/14/2024 16:32:47 Health Concerns Section Related Observation LastModified by Organization Detai ls LastModified Time None Recorded Concern Status LastModified by Organization Details LastModified Time None Recorded Advance Directives Directive None Recorded Payers Encounter Date Sequence Insurance Name Policy Number Policy [place] Covered Member ID [place] Member ID Guarantor Name 09/08/[address] [facility] [id number] Nancy Gesiorek [id number] Nancy Gesiorek 12/04/[address] [facility] [id number] [facility] [id number] Nancy Gesiorek 12/25/[address] [facility] [id number] Nancy Gesiorek [id number] Nancy Gesiorek 01/16/2024 1 [place] [facility] Nancy Gesiorek [id number] Nancy Gesiorek 01/16/2024 2 [place] [id number] Nancy Gesiorek [id number] Nancy Gesiorek 05/14/2024 1 [place] [facility] Nancy Gesiorek [id number] Nancy Gesiorek 05/14/2024 2 [facility] [id number] Nancy Gesiorek [id number] Nancy Gesiorek OBGyn Episode No OBEpisode recorded.
--- OUTSIDE RECORDS SUMMARY | 2024-06-10 09:29 | XMS_ITS | Data Portability ---
Author Organization [facility], [facility] Address [address] [place] [address] Care Team Providers Care Junior Technical Writer Name Role Phone MIQUEL PENA Primary Care Provide r RYAN FORBES OTHER MERARY HANEY OTHER SHARMAINE DELGADO Sports Medicine [facility] Pain Management Assessment Encounter Date Assessment Date Assessment LastModified by Organization Details LastModified Time 01/16/2024 01/16/2024 Exostosis right foot jerskine Not available 01/16/2024 10:45:56 Plan of Treatment Reminders Order Date Submit Date Provider Last Modified By Organization Details Last Modified Time Details Appointments LAB Follow- Up 2024 09:00A M [facility] Lab Not available Not available Not available Medical Managem ent 15 2024 09:15A M Miquel Salazar MD Not available Not available Not available LAB Follow- Up 2024 09:00A M [facility] Lab Not available Not available Not available [facility] s Visit 30 2024 08:30A M Miquel Salazar MD Not available Not available Not available Lab CBC 2024 025 [facility], [address] [place] [address], [address], 05/14/2024 16:35:58 TSH, serum or plasma 2024 025 [facility], [address] [place] [address], [address], 05/14/2024 16:35:58 BMP, serum or plasma 2024 025 [facility], [address] [place] [address], [address], 05/14/2024 16:35:58 BNP (B-type natriur etic peptide ), serum or plasma 2024 025 [facility], [address] [place] [address], [address], 05/14/2024 16:35:59 Referral podiatr ist referra l - right foot ganglio n cyst. causing pain 2023 024 [email or web address] Carson Barney DPM, [address], [place], [address], 12/08/2023 14:33:13 Procedures None recorde d. Surgeries None recorde d. Imaging exercis e stress test - can walk on treadmi ll, 5'4 , 142lbs, no pacer, pt cleared to hold Amlodip ine 24hrs priorSt andard exercis e stress test without imaging Can the patient walk on a treadmi ll? YOK to hold beta mirna s? N/ADoes patient have asthma? NDoes patient have seizure disorde r? NDoes patient have abnorma l triponi n value? N/A 2024 025 [facility] (Cardiology), [address] [place], [address], 05/22/2024 13:51:32 XR, chest - worseni ng SOB 2024 025 [facility] (Imaging), [address] [place], [address], 05/15/2024 10:55:52 XR, hip + pelvis, unilate ral, 2 or 3 view - left hip pain r/o arthrit is 2023 024 [facility] (Imaging), [address] [place], [address], 09/12/2023 08:28:16 Medication Orders methoca rbamol 500 mg tablet 2023 024 [facility] [address], [address] [place], [address], 05/14/2024 16:06:24 amlodip ine 2.5 mg tablet 2023 024 [facility] [address] [place], [address], 12/25/2023 12:42:05 ipratro pium bromide 42 mcg (0.06 %) nasal spray 2023 024 [facility] [address] [place], [address], 12/25/2023 12:45:42 Patient TargetsNo targets recorded. Patient Instructions Encounter Date Encounter Id Patient Instructions Last Modified By Organization Details Last Modified Time 12/04/2023 [id number] [facility] serves as the focal point for all health care services the patient needs. adela Not available 12/04/2023 20:57:12 01/16/2024 [id number] Dispensed order for x-ray evaluation right foot. jersjosé miguel Not available 01/16/2024 10:46:13 05/14/2024 [id number] CCM: The provider and patient discussed the Chronic Care Management program, including the services provided, and any fees associated with them. [facility] Not available 05/14/2024 15:57:29 Reason for Referral Compounder Referral for Gang lion cyst of right foot right foot ganglion cyst. causing pain Referring Physician: Miquel Salazar, Family Medicine, Encounter Date: 12/04/2023 Results Created Date Observation Date Name Description Value Unit Range Abnormal Flag Note LastModifiedBy Organization Detail LastModifiedTime 12/22/19 24 12/22/2023 CBC WBC 5.97 K/? ? ?L 3.98-1 0.04 Not Available [address] [place], [address], 12/22/2023 15:42:34 12/22/19 24 12/22/2023 CBC RBC 3.55 M/? ? ?L 3.93-5 .22 low Not Available [address], [address], 12/22/2023 15:42:34 12/22/19 24 12/22/2023 CBC HGB 11.9 g/dL 11.2-1 5.7 Not Available [address], [address], 12/22/2023 15:42:34 12/22/19 24 12/22/2023 CBC HCT 35.3 % 34.1-4 4.9 Not Available [address], [address], 12/22/2023 15:42:34 12/22/19 24 12/22/2023 CBC MCV 99.4 fL 79.4-9 4.8 high Not Available [address], [address], 12/22/2023 15:42:34 12/22/19 24 12/22/2023 CBC MCH 33.5 pg 25.6-3 2.2 high Not Available [address], [address], 12/22/2023 15:42:34 12/22/19 24 12/22/2023 CBC MCHC 33.7 g/dL 32.2-3 5.5 Not Available [address], [address], 12/22/2023 15:42:34 12/22/19 24 12/22/2023 CBC plt 300 K/? ? ?L 182-36 9 Not Available [address], [address], 12/22/2023 15:42:34 12/22/19 24 12/22/2023 CBC MPV 9.6 fL 9.4-12 .3 Not Available [address], [address], 12/22/2023 15:42:34 12/22/1912/22/2023 CBC neut% 52.9 % 34.0-7 1.1 Not Available [address], [address], 12/22/2023 15:42:34 12/22/19 24 12/22/2023 CBC neut# 3.16 1.56-6 .13 Not Available [address], [address], 12/22/2023 15:42:34 12/22/1912/22/2023 CBC lymph % 34.0 % 19.3-5 1.7 Not Available [address], [address], 12/22/2023 15:42:34 12/22/1912/22/2023 CBC lymph # 2.03 K/? ? ?L 1.18-3 .74 Not Available [address], [address], 12/22/2023 15:42:34 12/22/1912/22/2023 CBC mono% 8.7 % 4.7-12 .5 Not Available [address], [address], 12/22/2023 15:42:34 12/22/1912/22/2023 CBC mono# 0.52 0.24-0 .56 Not Available [address], [address], 12/22/2023 15:42:34 12/22/19 24 12/22/2023 CBC eo% 3.7 % 0.7-5. 8 Not Available [address], [address], 12/22/2023 15:42:34 12/22/19 24 12/22/2023 CBC eo# 0.22 0.04-0 .36 Not Available [address], [address], 12/22/2023 15:42:34 12/22/19 24 12/22/2023 CBC baso% 0.5 % 0.1-1. 2 Not Available [address], [address], 12/22/2023 15:42:34 12/22/19 24 12/22/2023 CBC baso# 0.03 0.00-0 .08 Not Available [address], [address], 12/22/2023 15:42:34 12/22/19 24 12/22/2023 CBC RDW-CV 11.8 % 11.7-1 4.4 Not Available [address], [address], 12/22/2023 15:42:34 12/22/19 24 12/22/2023 CBC Ig% 0.200 % 0.000- 1.500 Ig % >0.5 Indic ates possi ble Left Shift Not Available [address], [address], 12/22/2023 15:42:34 12/22/19 24 12/22/2023 CBC Ig# 0.010 0.000- 0.093 Not Available [address], [address], 12/22/2023 15:42:34 12/22/19 24 12/22/2023 CBC NRBC% 0.0 % 0.0-0. 2 Not Available [address], [address], 12/22/2023 15:42:34 12/22/19 24 12/22/2023 CBC NRBC# 0.000 0.000- 0.012 Not Available [address], [address], 12/22/2023 15:42:34 12/22/19 24 12/22/2023 COMP. METAB OLIC PANEL glucose 98 mg/dL 70-100 Not Available [address], [address], 12/22/2023 16:25:37 12/22/19 24 12/22/2023 COMP. METAB OLIC PANEL BUN 18 mg/dL 7-18 Not Available [address], [address], 12/22/2023 16:25:37 12/22/19 24 12/22/2023 COMP. METAB OLIC PANEL creatinine 0.7 mg/dL 0.8-1. 3 low Not Available [address], [address], 12/22/2023 16:25:37 12/22/19 24 12/22/2023 COMP. METAB OLIC PANEL B/C 25.7 ratio Not Available [address], [address], 12/22/2023 16:25:37 12/22/19 24 12/22/2023 COMP. METAB [...] borat ion (CKD- EPI) Equat ion (Alexey r et. al 2020) as recom yovani d by the [facility]io n[facility] ation . eGFR is based on age, serum creat inine , and sex. CKD-E PI does not calcu late eGFR by race, does not apply to child joni (age <18 years ), and shoul d not be used in pregn garrison. Not Available [address], [address], 12/22/2023 16:25:37 12/22/19 24 12/22/2023 COMP. METAB OLIC PANEL sodium 137 mmol/ L 136-14 5 Not Available [address], [address], 12/22/2023 16:25:37 12/22/19 24 12/22/2023 COMP. METAB OLIC PANEL potassium 5.2 mmol/ L 3.5-5. 1 high Not Available [address], [address], 12/22/2023 16:25:37 12/22/19 24 12/22/2023 COMP. METAB OLIC PANEL chloride 102 mmol/ L 96-107 Not Available [address], [address], 12/22/2023 16:25:37 12/22/19 24 12/22/2023 COMP. METAB OLIC PANEL anion gap 11.1 5.0-15 .0 Not Available [address], [address], 12/22/2023 16:25:37 12/22/19 24 12/22/2023 COMP. METAB OLIC PANEL CO2 24 mmol/ L 21-32 Not Available [address], [address], 12/22/2023 16:25:37 12/22/19 24 12/22/2023 COMP. METAB OLIC PANEL calcium 9.3 mg/dL 8.5-10 .3 Not Available [address], [address], 12/22/2023 16:25:37 12/22/19 24 12/22/2023 COMP. METAB OLIC PANEL total protein 7.4 g/dL 6.4-8. 2 Not Available [address], [address], 12/22/2023 16:25:37 12/22/19 24 12/22/2023 COMP. METAB OLIC PANEL albumin 3.7 g/dL 3.4-5. 0 Not Available [address], [address], 12/22/2023 16:25:37 12/22/19 24 12/22/2023 COMP. METAB OLIC PANEL globulin 3.7 g/dL Not Available [address], [address], 12/22/2023 16:25:37 12/22/19 24 12/22/2023 COMP. METAB OLIC PANEL A/G 1.0 ratio 0.8-2. 0 Not Available [address], [address], 12/22/2023 16:25:37 12/22/19 24 12/22/2023 COMP. METAB OLIC PANEL total bilirubin 0.40 mg/dL 0.00-1 .00 Not Available [address], [address], 12/22/2023 16:25:37 12/22/19 24 12/22/2023 COMP. METAB OLIC PANEL AST 26 U/L 0-37 Not Available [address], [address], 12/22/2023 16:25:37 12/22/19 24 12/22/2023 COMP. METAB OLIC PANEL ALT 32 U/L 6-63 Not Available [address], [address], 12/22/2023 16:25:37 12/22/19 24 12/22/2023 COMP. METAB OLIC PANEL alk. phos. 95 U/L 50-136 Not Available [address], [address], 12/22/2023 16:25:37 12/22/19 24 12/22/2023 LIPID PANEL cholesterol 249 mg/dL <200 mg/dl Leidy able 200-2 39 mg/dl Borde rline High >240 mg/dl High Not Available [address], [address], 12/22/2023 16:25:37 12/22/19 24 12/22/2023 LIPID PANEL triglyceride s 59 mg/dL <150 mg/dL Ethel l 150-1 99 mg/dL Borde rline High 200-4 99 mg/dL High >500 mg/dL Very High Not Available [address], [address], 12/22/2023 16:25:37 12/22/19 24 12/22/2023 LIPID PANEL direct HDL 82 mg/dL <40 mg/dl - Major Risk for CHD >60 mg/dl - Negat myranda Risk for CHD Not Available [address], [address], 12/22/2023 16:25:37 12/22/19 24 12/22/2023 DIREC T [...] with 0-1 risk facto r is not nitesh carrera. Not Available [address], [address], 12/22/2023 16:25:38 09/12/19 24 09/11/2023 XR, hip [...] Readlamar pierre Physic aaliyah: Victor Manuel Kaufman [facility] (Imaging) [address] [place], [address], 09/26/2023 14:54:29 01/17/20 24 01/17/2024 XR, foot CLINIC AL HISTOR Y: Exosto sis right foot TECHNI QUE: AP, obliqu e, and latera l views of the right foot obtain ed. COMPAR VIET: [facility] er 2014 FINDIN GS: There is no acute fractu re or disloc ation. The joint spaces are preser amado. The soft tissue s are unrema rkable . IMPRES RYAN: No acute bone injury . No interv al change Readlamar pierre Physic aaliyah: Victor Manuel Kaufman [facility] (Imaging) [address] [place], [address], 01/17/2024 10:00:29 05/15/19 25 05/15/2024 XR, chest CLINIC AL HISTOR Y: Cough. TECHNI QUE: Fronta l view and latera l view of the chest obtain ed. COMPAR VIET: Report of a chest x-ray [facility] ([place], [place]) Novem er 2011 FINDIN GS: The heart is normal in size and config uratio n.Ther e is no hilar or medias tinal enlarg ement. There is no focal lung consol idatio n or infilt rate. The bony thorax is intact . IMPRES RYAN: No acute diseas e. Readlamar pierre Physic aaliyah: Victor Manuel Kaufman [facility] (Imaging) [address] [place], [address], 05/16/2024 17:05:22 05/22/19 25 05/22/2024 stres s test exerc ise Table format ting from the origin al result was not includ ed. Images from the origin al result were not includ ed. Result Report Amado cabrera Name: Gesior ek, Racheal e Pativirgilio cabrera Class: Outpat ient Techno logist : Bruffe e, Ayana Perfor jeanine Physic aaliyah: None Select ed Orderi ng Prov: Mike Loaiza Primar y Care Physic aaliyah: Jesus Flores Jeremy Antoine lo Diagno sis: Dyspne a, unspec ified type [R06.0 0 (ICD-1 0-CM)] Reason For Exam: Dyspne a on exerti on Proced ure(s) Perfor med: Stress Test Exerci se Exam Date and Time: 2024 11:13 AM Access ion #: [id number] Result Status : Final Stress Test Exerci se: Pativirgilio t Commun icatio n Not Releas ed [...] report for full detail s. Susan Chao EN[employer] LEVEL SALES REPRESENTATIVE with Dr. Pablito watts Respon se to Stress The patien [...] on 5 at 1348 EST JESUS HEREDIA [facility] [address], [place], [address], 05/23/2024 12:59:34 05/22/19 25 05/22/2024 exerc ise stres s test No observ ation record ed. [facility] [address], [place], [address], 05/23/2024 12:59:34 Result Notes None recorded. Problems Name Problem SNOMED Code Status Onset Date Resolution Date Notes Provider Name and Address Organization Details Recorded Time Sprain of sacroilia c ligament 43218601 Completed 02/27/2013 [place], [address], [facility] 6 16:04:44 Diarrhea 10906386 Completed 02/27/2013 [place], [address], [facility] 6 16:04:44 Low back pain 150659843 [place], [address], [facility] 6 16:04:44 Hip pain 53055786 Completed 02/27/2013 [place], [address], [facility] 6 16:04:44 Acute bronchiti s 93902208 Completed 02/27/2013 [place], [address], [facility] 6 16:04:44 Congenita l hearing disorder 37153369 Active [place], [address], [facility] 6 19:53:11 Migraine 28819004 Active 2017 [place], [address], [facility] 8 16:38:15 Essential hypertens ion 63723815 Active 2018 [place], [address], [facility] 9 09:15:00 Lymphocyt ic-plasma cytic colitis Active 2020 Miquel Salazar MD [address] [place], [place] [address] [place], [address], [facility] 1 11:59:55 Osteopeni a 972735037 Active 2023 Miquel Salazar MD [address] [place], [place] [address] [place], [address], [facility] 20:11:57 Chronic neck pain for greater than 3 months 177848484050 103 Active 2023 Miquel Salazar MD [address] [place], [place] [address] [place], [address], [facility] 16:57:36 Notes:Some problems listed i n Document: #[id number] could not be added to this patient's chart. Please review this document and add these problems to the patient's chart manually as needed. Problem Notes None recorded. Procedures Surgical History Date Name Laterality Status Provider Name and Address Organization Details Recorded Time 12/25/19 24 Cardiovascular disease risk reduction counseling completed Miquel Salazar MD [address] [place] [address], [address], [facility] 12/25/2023 12:39:12 12/04/19 24 G2211 completed Miquel Salazar MD [address] [place] [address], [address], [facility] 12/04/2023 20:57:12 06/22/19 24 Medicare Wellness Visit completed Haydee Pollock MA [facility] 06/22/2023 10:30:57 11/15/19 23 Colonoscopy completed Miquel Salazar MD [address] [place] [address], [address], [facility] 11/26/2022 19:55:34 06/18/19 23 Medicare Wellness [...] Risk for Falls Screen completed Haydee Pollock MA [facility] 05/28/2021 14:50:49 05/28/19 22 Advanced Care Planning completed Miquel Salazar MD [address] [place] [address], [address], [facility] 05/28/2021 21:13:29 07/24/19 21 Medicare Risk for Falls Screen completed Hansa Portillo CMA [facility] 07/23/2020 09:13:13 11/25/19 20 prevention-cardiov ascular risk reduction counseling completed [facility] 11/22/2019 12:17:26 11/25/19 20 prevention-annual alcohol misuse screening completed [facility] 11/22/2019 12:17:26 02/23/20 17 Other (specify) completed Miquel Salazar MD [address] [place] [address], [address], [facility] 03/08/2017 06:44:43 07/10/19 15 Other (specify) completed Miquel Salazar MD [address] [place] [address], [phone], [facility] 07/12/2014 10:51:09 09/11/19 13 Colonoscopy completed Miquel Salazar MD [address] [place] [address], [address], [facility] 05/01/2013 12:50:27 05/25/19 13 Treatment and Advice completed Raven Dobbins Mph, LPT [address] [place] [address], [address], [facility] 05/25/2012 10:16:20 Total Hysterectomy completed Jeuss Salazar MD [address] [place] [address], [address], [facility] 08/24/2012 10:30:09 Appendectomy completed Judy Sood MA [facility] 04/08/2011 15:42:03 Imaging Results Imaging Date Name Status LastModified by Organiz ation Details LastModified Time 09/11/2023 XR, hip + pelvis, unilateral, [address] [facility] (Imaging) [address], [place], [address], 09/26/2023 14:54:29 01/17/2024 XR, foot completed [facility] (Imaging) [address] [place], [address], 01/17/2024 10:00:29 05/15/2024 XR, chest completed [facility] (Imaging) [address] [place], [address], 05/16/2024 17:05:22 05/22/2024 stress test exercise completed [facility] [address] [place] [address], [address], 05/23/2024 12:59:34 05/22/2024 exercise stress test completed [address], [address], 05/23/2024 12:59:34 Procedure Notes None recorded. Medical Equipment None Reported. Allergies Allergen ID Allergen Name Allergen Category Reaction Reaction Severity Criticality Documentation Date Start Date Code Code System Note Provider Name and Address Organization Details Recorded Time 562551 lisinopri l medicatio n cough Not available Not available 05/06/2019 84286 RxNorm Miquel Salazar MD [address] [place] [address], [place], [address], [facility] 0 15:45:08 980[address] Product containin g penicilli n (product) medicatio n Not available Not available Not available 01/14/2011 54961 8001 SNOMED Not Available [facility] 1 06:05:41 07099 minocycli ne medicatio n Not available Not available Not available 01/14/2011 6980 RxNorm Not Available [facility] 1 06:05:41 Medications Name Sig Start Date Stop Date Status Note LastModified by Organization Details LastModified Time prednison e tab 5mg active Not Available Not Available Not Available flovent hfa aer 110mcg active Not Available Not Available Not Available meloxicam tab 15mg active Not Available Not Available Not Available sumatript an tab 100mg use as directed active Not Available Not Available No t Available estradiol tab 1mg take 1.00 tab daily active Not Available Not Available No t Available cyclobenz apr tab 10mg active Not Available Not Available Not Available betameth dip cre 0.05% use as directed active Not Available Not Available No t Available irais-d tab 24 hour active Not Available Not Available Not Available azithromy shireen tab 250mg active Not Available Not Available Not Available apap/code ine tab 300-30mg active Not Available Not Available Not Available proair hfa aer active Not Available Not Available Not Available tramadol hcl tab 50mg active Not Available Not Available Not Available prednison e tab 10mg active Not Available Not Available Not Available metronida zol cre 0.75% active Not Available Not Available Not Available fluticaso ne spr 50mcg active Not [...] MOUTH ONCE DAILY 11/20 completed not taking xr Not Available [...] Updated DateTime 4 162.56 cm 23.7 kg/m2 24654.7 5 g 72 /min 120 mm[Hg] 69 mm[Hg] Kelly Cox MA [facility] 4 14:26:38 Date Recorded Body height Body mass index (BMI) Body weight Heart rate Systolic blood pressure Diastolic blood pressure Provider Name and Address Organization Details Last Updated DateTime 4 162.56 cm 23.7 kg/m2 44973.7 5 g 76 /min 126 mm[Hg] 74 mm[Hg] Haydee Pollock MA [facility] 4 15:07:05 Date Recorded Body height Body mass index (BMI) Body weight Heart rate Systolic blood pressure Diastolic blood pressure Provider Name and Address Organization Details Last Updated DateTime 4 162.56 cm 23.5 kg/m2 99968.1 5 g 76 /min 132 mm[Hg] 74 mm[Hg] Haydee Pollock MA [facility] 4 12:27:28 Date Recorded Systolic blood pressure Diastolic blood pressure Provider Name and Address Organization Details Last Updated DateTime 12/25/2023 110 mm[Hg] 70 mm[Hg] Miquel Salazar MD [address] [place] [address], [phone], [facility] 12/25/2023 12:46:14 Date Recorded Body height Body mass index (BMI) Body weight Provider Name and Address Organization Details Last Updated DateTime 01/16/2024 162.56 cm 23.8 kg/m2 46722.62 g Rody Hardin LPN [facility] 01/16/2024 10:23:13 Date Recorded Body height Body mass index (BMI) Body weight Oxygen saturation Oxygen saturation in Arterial blood by Pulse oximetry Heart rate Systolic blood pressure Diastolic blood pressure Provider Name and Address Organization Details Last Updated DateTime 5 162.56 cm 24.4 kg/m2 46558.8 2 g 98 % 98 % 86 /min 124 mm[Hg] 84 mm[Hg] Saloni Jacques MA [facility] 16:08:34 Date Recorded Systolic blood pressure Diastolic blood pressure Provider Name and Address Organization Details Last Updated DateTime 04/22/2024 130 mm[Hg] 68 mm[Hg] Estella Villa RN [facility] 04/23/2024 09:22:02 Social History Question Answer Notes LastModified by Organizat ion Details LastModified Time Tobacco Smoking Status Former Smoker quit 1995. Smoked for about 25 years. Rosalia Vidal CMA null, [facility] 01/14/2011 14:04:30 What Is Your Level Of Alcohol Consumption? 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 not available 05/15/2015 When Did You [...] Others Boyfriend Since 20 Yrs - Babatunde chapman Information not available 01/14/2011 Patient Has Health Care Proxy Signed And In Chart Yes Babatunde Vazquez - Form Given 07/18/2016 Information not available [...] quadrivalent, PF 0 completed Melani Anne LPN [facility] 01/27/2020 15:25:21 Td (adult), 2 Lf tetanus toxoid, preservative free, adsorbed 1 completed Haydee Pollock MA [facility] 12/24/2020 10:54:20 pneumococcal polysaccharide PPV23 1 completed Miquel Salazar MD [address] [place] [address], [address], [facility] 02/26/2021 14:05:27 COVID-19, mRNA, LNP-S, PF, 30 mcg/0.3 mL dose 1 completed Hansa Portillo CMA [facility] 07/23/2020 09:14:10 COVID-19, mRNA, LNP-S, PF, 30 mcg/0.3 mL dose 3 completed Francisca Lynch RMSravan [facility] 05/09/2023 12:30:04 Influenza, adjuvanted, quadrivalent, PF 3 completed Haydee Pollock MA [facility] 12/25/2023 12:25:29 COVID-19, mRNA, LNP-S, PF, 30 mcg/0.3 mL dose 1 completed Haydee Pollock MA [facility] 12/25/2023 12:25:29 COVID-19, mRNA, LNP-S, PF, 30 mcg/0.3 mL dose, lia-sucrose 2 completed Haydee Pollock MA [facility] 12/25/2023 12:25:29 COVID-19, mRNA, LNP-S, PF, lia-sucrose, 30 mcg/0.3 mL 3 [facility] 12:25:29 Pneumococcal conjugate PCV20, polysaccharide LCT443 conjugate, adjuvant, PF 4 [facility] 12/25/2023 12:25:36 COVID-19, mRNA, LNP-S, PF, 50 mcg/0.5 mL 4 [facility] 12/25/2023 12:25:36 Influenza, high-dose, trivalent, PF 4 [facility] 12:25:36 Past Encounters Encounter ID Performer Location Encounter Start Date Encounter Closed Date Diagnosis/Indication Diagnosis SNOMED-CT Code Diagnosis ICD10 Code Diagnosis Note [id number] Radiology , [address] [address] 6 11/12/2010 13:51:13 11/22/2010 12:23:08 [id number] [facility], OFFICE [address] [place] [address]75[address]193 6 01/14/2011 13:44:02 01/17/2011 06:59:04 [id number] Michael Quiroz , [facility], OFFICE [address] [place] [address]80-145 6 02/10/2012 09:20:09 02/10/2012 11:00:55 [id number] Arabella Sood MD , [facility], OFFICE [address] [place] [address] 61106-443 6 02/22/2012 09:14:13 02/22/2012 10:20:13 [id number] Brian Millard MD Radiology , [address] [address] 6 02/22/2012 10:20:36 02/28/2012 13:59:22 [id number] Michael Quiroz [facility], OFFICE [address] [place] [address]37[address] 6 03/09/2012 15:12:29 03/09/2012 16:04:52 [id number] Michael Quiroz , [facility], OFFICE [address] [facility] [place] [address] 03/23/2012 08:02:55 03/23/2012 08:43:50 [id number] Elba Adams NP , [facility], OFFICE [address] [facility] [place] [address] 6 04/19/2012 09:13:18 04/19/2012 10:03:50 [id number] Miquel Salazar MD , [facility], OFFICE [address] [facility] [place] [address] 6 04/27/2012 08:06:14 04/27/2012 09:01:31 [id number] Miquel Salazar MD , [facility], OFFICE [address] [facility] [place] [address] 6 05/18/2012 08:40:21 05/18/2012 09:36:54 [id number] Raven Dobbins Mph, LPT Physical Therapy, [facility] [address] [facility] [place] [address] 05/25/2012 08:16:34 05/25/2012 10:24:40 [id number] Michael Quiroz , [facility], OFFICE [address] [facility] [place] [address] 6 08/09/2012 16:03:43 08/10/2012 06:43:41 [id number] KERI ElaineP-EZE , [facility], OFFICE [address] [facility] [place] [address] 6 08/15/2012 16:35:53 08/16/2012 06:43:27 [id number] Nithya Stahl , [facility], OFFICE [address] [facility] [place] [address] 08/20/2012 14:22:08 08/20/2012 15:25:51 [id number] , [facility], OFFICE [address] [facility] [place] [address] 6 08/24/2012 09:31:14 08/24/2012 10:50:07 [id number] Melani Norman LPN , [facility], OFFICE [address] [facility] [place] [address] 6 10/16/2012 08:49:42 10/16/2012 09:54:00 [id number] Miquel Salazar MD , [facility], OFFICE [address] [place] [address]22[address] 6 09/20/2013 07:59:33 09/20/2013 08:58:38 Elevated blood-pressure reading without diagnosis of hypertension [id number] Upper resp iratory infection 22048174 Cough 33577046 Adult heal th examination 220200519 see Risk Assessment and Lifestyle Change Counseling section above [id number] Rosalia Vidal CMA FP, [facility], OFFICE [address] [place] [address]39[address] 6 09/27/2013 13:19:21 09/27/2013 13:42:57 Acute sinusitis 07650503 Dysfunctio n of eustachian tube 39143671 [id number] , [facility], OFFICE [address] [place] [address]207 6 02/14/2014 09:33:13 02/14/2014 10:48:12 Adult health examination 047070603 see Risk Assessment and Lifestyle Change Counseling section above Counseling 118327388 Hearing loss 89078619 Migraine 17898011 Colitis 06337641 [id number] Miquel Salazar MD , [facility], OFFICE [address] [place] [address] 6 04/22/2014 15:33:39 04/22/2014 16:43:49 Low back strain 411230781 Upper resp iratory infection 06015019 Cough 86612028 [id number] Alin Olivares MD , [facility], OFFICE [address] [place] [address]24[address]738 6 02/25/2015 15:39:15 02/25/2015 16:36:12 Screening for disorder 301326800 Z11.59 Foot pain 37234330 M79.6 71 [id number] Nuha Mariano, PT Physical Therapy, [address] [address] 6 03/17/2015 17:05:32 03/18/2015 09:42:30 Foot pain 02051516 M79.919 [id number] Nuha Mariano, PT Physical Therapy, [address] [address] 6 03/23/2015 16:47:44 03/24/2015 08:15:30 Foot pain 36372737 M79.144 [id number] Mary Lousravan [facility], [facility] [address] [place] [address] 04/14/2015 14:35:36 04/16/2015 15:51:16 Plantar fasciitis 179935272 M72.2 [id number] Miquel Salazar MD , [facility], OFFICE [address] [place] [address]759 6 05/15/2015 15:46:19 05/18/2015 15:29:00 Adult health examination 858431475 Z00.00 see Risk Assessment and Lifestyle Change Counseling section above Counseling 261069562 Z71 .9 Migraine 85695472 G43.90 9 Varicella vaccination 68 693192 Z23 Congenital hearing disorder 33631827 H90.8 [id number] Carson Barney DPM Podiatry, [facility] [address] [place] [address] 6 06/02/2015 14:49:39 06/02/2015 15:47:38 Plantar fasciitis 713875881 M72.2 [id number] Lexie Dozier , [facility], OFFICE [address] [place] [address] 6 2015 15:06:18 06/20/2015 11:41:45 Upper respiratory infection 45885224 J06.9 [id number] Carson Barney DPM Podiatry, [address] [address] 6 07/30/2015 15:15:59 07/30/2015 15:54:16 Plantar fasciitis 362161512 M72.2 [id number] Carson Barney DPM Podiatry, [address] [address] 6 10/01/2015 15:11:30 10/01/2015 16:37:34 Plantar fasciitis 242678330 M72.2 [id number] Miquel Salazar MD , [facility], OFFICE [address] [place] [address]98[address] 6 07/18/2016 15:41:28 07/18/2016 16:35:55 Adult health examination 216440029 Z00.00 see Risk Assessment and Lifestyle Change Counseling section above Congenital hearing disorder 73204717 H90.8 Headache 85021718 R51 Knee pain 95385988 M25.5 61 [id number] Mendy Vance NP FP, [facility], OFFICE [address] [place] [address] 6 09/23/2016 15:34:42 09/23/2016 16:02:53 Low back pain 039938596 M54.5 right sided [id number] Candido Dodson MD FP, [facility], OFFICE [address] [place] [address] 06/10/2017 09:10:12 06/10/2017 10:14:37 Edema of lower extremity 639637780 R60.0 no ultrasound available over weekend; will check D dimer and if negative just supportive measures; if positive send to ER for u/s. [id number] Miquel Salazar MD FP, [facility], OFFICE [address] [place] [address] 6 06/23/2017 15:10:50 06/23/2017 16:33:11 Pain in left knee 6364888561 21764 M25.565 [id number] Michael Ann NP FP, [facility], OFFICE [address] [place] [address] 6 08/03/2017 15:11:10 08/03/2017 15:55:08 Abdominal pain 33811959 R10.9 r/o U colitis mild, GB disease, pancreatit is, gastroente ritis-- BM's are normal for her and without fever.cons ider watching, colleen, US abd, : she has not missed any work, eating well and BM's unchanged. diagnostic picture is unclear. will get abd US to evaluate for gallstones . If sx persist or worsen she is to either go to ED or contact her PCP. [id number] Miquel Salazar MD FP, [facility], OFFICE [address] [place] [address] 11/17/2017 15:39:36 11/17/2017 16:58:56 Adult health examination 730302661 Z00.00 see Risk Assessment and Lifestyle Change Counseling section above Depression screening 171 006885 Z13.89 depression screening tool administer ed, entered into emr, scored and discussed, time greater than 7.5 minutes Congenital hearing disorder 72101911 H90.8 Migraine 05927047 G43.90 9 [id number] Miquel Salazar MD , [facility], OFFICE [address] [place] [address] 6 11/22/2018 15:54:32 11/22/2018 17:00:32 Adult health examination 262630249 Z00.00 see Risk Assessment and Lifestyle Change Counseling section above Depression screening 171 Z13.89 depression screening tool administer ed, entered into emr, scored and discussed, time greater than 7.5 minutes Migraine 04122428 G43.90 9 Elevated blood-pressure reading without diagnosis of hypertension 293579895 R03.0 [id number] Miquel Salazar MD , [facility], OFFICE [address] [place] [address]13[address] 6 04/05/2019 08:45:14 04/05/2019 10:16:08 Essential hypertension 95281862 I10 [id number] Miquel Salazar MD , [facility], OFFICE [address] [place] [address]6776[address] 6 08/08/2019 08:51:07 08/09/2019 13:52:03 Essential hypertension 64326251 I10 [id number] Miquel Salazar MD , [facility], OFFICE [address] [place] [address] 80870[address] 6 11/25/2019 14:54:07 11/26/2019 09:22:11 Adult health examination 804564681 Z00.00 see Risk Assessment and Lifestyle Change Counseling section above Depression screening 171 Z13.89 depression screening tool administer ed, entered into emr, scored and discussed, time greater than 7.5 minutes Screening for alcohol abuse 245980308 Z13.39 Counseling 328465143 Z71 .89 Essential hypertension 22569806 I10 Congenital hearing disorder 01194876 H90.8 Migraine 90878549 G43.90 9 [id number] Melani Anne LPN FP, [facility], OFFICE [address] [place] [address] 6 01/25/2020 08:58:43 01/28/2020 12:08:00 Active or passive immunization 490523356 Z23 [id number] Carson Barney DPM Podiatry, [address] [address] 02/28/2020 07:53:48 03/02/2020 13:04:56 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 [id number] Miquel Salazar MD , [facility], OFFICE [address] [place] [address] 6 05/19/2020 10:47:12 05/20/2020 15:40:02 Essential hypertension 32160432 I10 [id number] Miquel Salazar MD , [facility], OFFICE [address] [place] [address]1597[address] 6 06/25/2020 08:03:12 06/29/2020 11:33:28 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 [id number] Miquel Salazar MD , [facility], OFFICE [address] [place] [address]39[address] 6 07/23/2020 09:08:07 07/27/2020 13:46:16 Lymphocytic-plasmacyt ic colitis 25110887 K52.832 Essential hypertension 02205507 I10 [id number] Miquel Salazar MD , [facility], OFFICE [address] [place] [address]9775[address] 6 09/03/2020 11:44:14 09/04/2020 09:57:05 Essential hypertension 81404173 I10 Lymphocyti c-plasmacyt ic colitis 14323633 K52.832 Neck pain 32327178 M54.2 Thoracic back pain 79966 8004 M54.6 [id number] Miquel Salazar MD , [facility], OFFICE [address] [place] [address]06[address] 6 11/20/2020 09:19:54 11/22/2020 19:09:53 Essential hypertension 81954016 I10 Migraine 87124563 G43.90 9 [id number] Miquel Salazar MD , [facility], OFFICE [address] [place] [address] 26556[address]365 6 12/24/2020 10:20:05 01/06/2021 09:09:52 Screening for malignant neoplasm of colon 771956807 Z12.11 Referral for a DIRECT booked colonoscop y. This patient is a healthy ASA Class 1 or 2 patient (only mild systemic disease), or a STABLE, well controlled insulin dependent diabetic. They do not have serious cardiac disease ie CT/angiopl asty within 1 year, symptomati c CHF; renal failure with CKD 4 or 5; take Coumadin, Plavix, Aggrenox, etc. Active or passive immunization 756856598 Z23 Palpitations 38671151 R0 0.2 Essential hypertension 55051929 I10 [id number] Ginger Littlejohn RN BSN , [facility], OFFICE [address] [place] [address] 98[address] 6 12/28/2020 14:59:41 12/29/2020 10:38:18 Palpitations 37144616 R00.2 [id number] Ginger Littlejohn RN BSN , [facility], OFFICE [address] [place] [address]153[address] 6 12/29/2020 16:08:37 12/30/2020 12:53:10 Palpitations 84306628 R00.2 [id number] Miquel Salazar MD , [facility], OFFICE [address] [place] [address]326[address]737 6 02/26/2021 13:42:37 02/26/2021 14:20:59 Active or passive immunization 564813603 Z23 Strain of right trapezius muscle 1610435790 3947299 S29.012A Strain of neck muscle 36 7555807 S16.1XXA [id number] Miquel Salazar MD , [facility], OFFICE [address] [place] [address] 6 05/28/2021 14:42:04 05/28/2021 15:41:00 Adult health examination 559189466 Z00.00 see Risk Assessment and Lifestyle Change Counseling section above Counseling 787623293 Z71 .9 including cardiovasc ular risk reduction counseling Depression screening 171 985091 Z13.31 depression screening tool administer ed, entered into emr, scored and discussed, time greater than 7.5 minutes Screening for alcohol abuse 226997892 Z13.39 Essential hypertension 28800001 I10 Advance di rective discussed with patient 471856745 Z71.89 Strain of right trapezius muscle 5678229682 1645008 S29.012A Congenital hearing disorder 33361707 H90.8 Migraine 63216010 G43.90 9 Screening for osteoporosis 842046310 Z13.547 [id number] Miquel Salazar MD , [facility], OFFICE [address] [place] [address] 6 11/25/2021 08:00:39 11/25/2021 08:30:56 Essential hypertension 36014844 I10 Active or passive immunization 694130367 Z23 Pt declines Shingles/ PPV23 vac 11/25/21 Posterior rhinorrhea 758 54600 R09.82 [id number] Miquel Salazar MD , [facility], OFFICE [address] [place] [address]40[address] 6 06/17/2022 13:46:55 06/17/2022 14:56:58 Adult health examination 742596781 Z00.00 see Risk Assessment and Lifestyle Change Counseling section above Depression screening 171 103105 Z13.31 depression screening tool administer ed Screening for alcohol abuse 787296387 Z13.39 Alcohol use screening tool administer ed Essential hypertension 80149394 I10 Migraine 97634775 G43.90 9 Chronic neck pain 808689 4923 107 M54.2 Congenital hearing disorder 04871524 H90.8 Lymphocytic colitis 1187 522843 K52.832 Menopausal flushing 1983 38943 N95.1 Rosacea 072725813 L71.9 Hyperlipidemia 22670169 E78.5 [id number] Giovanna Crocker , surety bond agent , [address] [address] 11/11/2022 08:16:15 11/11/2022 13:43:57 [id number] Miquel Salazar MD , [facility], OFFICE [address] [place] [address]346[address] 6 12/15/2022 13:16:12 12/15/2022 13:56:14 Migraine 26440879 G43.909 Active or passive immunization 196481214 Z23 Pneumo: aware at pharmacy ingrix: aware at pharmacy Essential hypertension 24821016 I10 [id number] APURVA Castaneda , [facility], OFFICE [address] [place] [address] 05/01/2023 13:15:48 05/01/2023 13:56:17 Upper respiratory infection 07649593 J06.9 Patient presents with symptoms consistent with viral infection. No evidence of pneumonia on exam. Discussed supportive care: pushing fluids, rest, nasal saline and Mucinex as needed. Encouraged to follow up if symptoms persist for more then 10 days or if they are worsening. Discussed natural course of viral illnesses and lack of evidence for treating with antibiotic s. Cough 49160577 R05.9 use flonasesta rt tessalon pearls Acute sinusitis 13868794 J01.90 Encourage force fluids, steam inhalation as needed, adequate rest.Will start flonaseAdv ised current guidelines no abx until >2 weeks sx or worsening with fever/clifton ge in nasal dischargeC an use mucinex OTCFollow up if not improving or symptoms worsening. [id number] Mendy Vance NP , [facility], OFFICE [address] [place] [address] 16852[address] 6 05/09/2023 13:53:09 05/12/2023 13:08:35 Active or passive immunization 723417582 Z23 Pneumo: aware at [facility] ingrix: aware at pharmacy Acute bronchitis 7074851 2 J20.9 sick x2+ weeks with exp wheeze on exam- pt declines albuterol, has not tolerated in the past- short prednisone burst as prescribed . med discussed- discussed supportive care, rest, fluids, nasal saline, warm salt water gargle, humidifier - report trouble breathing, fever, not improving in a few days, or other concerns Cough 30038837 R05.9 cough med with codeine has been helpful. will refill. can cause sedation not to take before driving [id number] Miquel Salazar MD , [facility], OFFICE [address] [place] [address] 6 06/22/2023 13:48:30 06/22/2023 14:55:15 Adult health examination 311733379 Z00.00 see Risk Assessment and Lifestyle Change Counseling section above Depression screening 171 856139 Z13.31 depression screening tool administer ed Screening for alcohol abuse 890350728 Z13.39 Alcohol use screening tool administer ed Migraine 44021520 G43.90 9 Postmenopausal state 764 82867 Z78.0 Screening mammography 24 507988 Z12.31 ENDOSCOPY SUPPORT SPECIALIST orders for PT Congenital hearing disorder 03364356 H90.8 Essential hypertension 74280894 I10 Lymphocytic colitis 1187 259876 K52.832 Acute low back pain 2788 57199 M54.50 Osteopenia 807193550 M85 .80 [id number] APURVA Castaneda FP, [facility], OFFICE [address] [place] [address]91[address] 6 09/08/2023 14:18:40 09/08/2023 14:56:41 Active or passive immunization 796358829 Z23 Pneumo/Brittany ngles-awar e at pharmacy Pain of le ft hip joint 6571463714 61807 M25.552 hx and sx consistent with likely arthritisx ray todayAdvis ed tylenol/ib uprofen as needed for painAdvise d to wear good fitting shoes and limit activities that worsen painAdvise d to call with worsneing or change in sxConsider sports med fu [id number] Miquel Salazar MD , [facility], OFFICE [address] [place] [address] 6 12/04/2023 14:38:53 12/04/2023 15:33:49 Ganglion cyst of right foot 4854148355 142021 M67.471 reassuranc e, wants to aspirate cyst, referral to Dr Barney [id number] Miquel Salazar MD , [facility], OFFICE [address] [place] [address] 30642[address] 6 12/25/2023 11:51:29 12/25/2023 12:56:18 Migraine 21392916 G43.909 has no had a migraine since 2017 Essential hypertension 46044218 I10 HTN - at goal of less than 130/80 per the AHA guidelines . Continue meds and f/u in 6 mos.Discus sed labs.Minerva nue low salt diet of less than 1500 mg of sodium per day. The [place] [employer] n (AHA) recommends 30 minutes of moderate physical activity 5 days a week.A Mediterran maranda type of diet and a plant based diet is recommende d, review the website: [place]. The DASH diet is also recommende d.* Review this website: https://[employer]/al l-about-go od-and-alfred ap for healthy inexpensiv e meals. Active or passive immunization 073265365 Z23 Pneumo: aware at pharmacy Shingrix: aware at pharmacy Flu: Completed 12/25/23 as COVID: Completed 12/25/23 as Counseled by member of primary health care team 803820495 Z71.9 Today we discussed ways to reduce [...] recommend taking daily aspirin. Posterior rhinorrhea 758 03293 R09.82 effective, refill given Chronic neck pain 024075 2327 107 M54.2 consulted with [facility] , cortisone injection, NSAIDS and PT with no improvemen t, trial of muscle relaxant and try 1/2 tab first per dose and let me know via portal. [id number] Carson Barney DPM Podiatry, [address] [address] 01/16/2024 10:16:17 01/16/2024 10:53:04 Exostosis of right foot 6188767362 5658034 M89.8X7 [id number] GREGOR LOAIZA PA-C , [facility], OFFICE [address] [place] [address] 05/14/2024 15:46:46 05/14/2024 16:32:47 Active or passive immunization 330107356 Z23 Shingles - reminded Dyspnea on exertion 6084 5006 R06.09 c/o shortness of breath with increased heart rate on exertion intermitte ntlyreassu evelyn VS and exam todayWill order labs, chest xray, and a stress test for further evaluation Call with any worsening symptoms in the interimGo to the emergency room if crushing chest pain, severe SOB Cough 50523384 R05.9 Patient with 1 month of dry cough, noticed after losartan brand changePoss ibly a side effect of new manufactur ed medication vs other - workup belowCan contact pharmacy to see if previous tablet is available , if not possibly consider pharmacy change vs medication changewill call after speaking with her pharmacy Health Concerns Section Related Observation LastModified by Organization Detai ls LastModified Time None Recorded Concern Status LastModified by Organization Details LastModified Time None Recorded Advance Directives Directive None Recorded Payers Encounter Date Sequence Insurance Name Policy Number Policy [place] Covered Member ID [place] Member ID Guarantor Name 09/08/2023 1 [facility] [id number] Nancy Gesiorek [id number] Nancy Gesiorek 12/04/2023 1 [facility] [id number] Nancy Gesiorek [id number] Nancy Gesiorek 12/25/2023 1 [facility] [id number] Nancy Gesiorek [id number] Nancy Gesiorek 01/16/2024 1 [place] Nancy Gesiorek [id number] Nancy Gesiorek 01/16/2024 2 [place] [id number] Nancy Gesiorek [id number] Nancy Gesiorek 05/14/2024 1 [place] Nancy Gesiorek [id number] Nancy Gesiorek 05/14/2024 2 [place] [id number] Nancy Gesiorek [id number] Nancy Gesiorek Notes Date Note Type Note Provider Name and Address Organization Details Recorded Time 4 text/html 09/08/2023left hip sore since junenothing makes better or worsewalking forward is okhurts walking backwardssitting for awhile and then getting up hurtslying on side hurts no numbness or tingling in legsno pain into leg at allall pain centered in the hip tylenol doesn't helpmeloxicam wasn't helpful APURVA Castaneda [address] [place] [address], [phone], [facility] 09/08/2023 14:50:00 4 text/html cyst on the irght lateral side of footgot larger in the past 2 weekscausing pt pain Miquel Salazar MD [address] [place] [address], [phone], [facility] 12/04/2023 20:58:54 4 text/html [facility] HypertensionReported [...] - did PT several times, went to [facility] and was told muscular, minor arthritis, did cortisone injection not help; takes tylenol arthritis ; has tried diclofenac, meloxicam, and naproxen, has tried cyclobenzaprine and nothing has been effective Miquel Salazar MD [address] [place] [address], [phone], [facility] 12/25/2023 21:12:15 4 text/html Patient presents to the office complaining of a small lump on the top/outside of her right foot. Patient states area is generally not uncomfortable and she first noticed lump a couple of months ago. Patient without complaints of swelling or discoloration. Patient without any known trauma. Carson Barney DPM [address] [place] [address], [phone], [facility] 01/16/2024 10:46:27 5 text/html VMG HypertensionReported bypatient.Duration:Age / year diagnosed [...] confident and 1 being very low confidence 05/14/24 Patient presents with cough and shortness or breath on exertion - dry cough, feels like she can't breath x 1 month- getting very short of breath- gets very weak and feels like shes going to pee her pants- hr goes to 87-127 with walking to the bathroom- was getting losartan at a different pharmacy ([facility]) then refilled at a different pharmacy ([facility]) in march and feels like the cough began then denies chest pain, syncopedenies n/v/ddenies swelling of legs no hx of cardiac event Patient has agreed to allow the participation of a professional student in today? s visit. This consent allows for a professional student to: gather medical history, review present medications, review past medical history and complaints, perform non-sensitive parts of physical exam without supervising practitioner present, and participate in discussion with patient and practitioner of diagnosis and treatment plans. 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
--- OUTSIDE RECORDS SUMMARY | 2024-06-10 09:29 | XMS_ITS ---
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 Physical Medications Medication SIG (Take, Route, Frequency, Duration) Notes Start Date End Date Status Losartan Potassium 50 MG 1 tablet Orally Once a day Active amLODIPine Besylate 2.5 MG 1 tablet Orally Once a day Active Estradiol 0.1 MG/24HR 1 patch to skin Transdermal for 90 days 06/10/2019 Active Social History Tobacco Use: Social History [...] Never (0 point) Points 4 Interpretation Positive Vital Signs Temperature 96.4 degrees Fahrenheit 06/26/19 24 Blood pressure systolic 124 mm Hg 06/26/19 24 Blood pressure diastolic 78 mm Hg 024 Height 5 ft 2.8 in in 06/26/2023 Weight 140 lbs 06/26/2023 BMI 24.96 kg/m2 06/26/2023 Encounters Encounter Location Date Provider Diagnosis [facility] [address] [place] [address] 06/26/2023 SHARON RICO Encounter for gynecological examination (general) (routine) without abnormal findings Z01.419 ; Encounter for screening mammogram for malignant neoplasm of breast Z12.31 and Menopausal and female climacteric states N95.1 Assessments Encounter Date Diagnosis [...] to keep colon screening up to date. 06/26/2023 Encounter for screening mammogram for malignant neoplasm of breast (ICD-10 - Z12.31) 06/26/2023 Menopausal and female climacteric states (ICD-10 - N95.1) Plan Of Treatment Medication Medication Name Sig Start Date Stop Date Notes Estradiol 0.1 MG/24HR 1 patch to skin Tr ansdermal for 90 days 06/10/2019 Treatment Notes Assessment Notes Encounter for gynecological examination (general) (routine) without abnormal findings During the visit, the following areas of concern were addressed: Discussed sstopping cervical cancer screening as per ASCCP guidelines. Advised continued annual pelvic exams. Patient encouraged to increase her level of exercise. SBE technique encouraged/taught. Patient reminded when annual mammogram is due. Patient encouraged to keep colon screening up to date. Pending Test Test Name Order Date MM Digital Screening Mammogram 3D 2023 Next Appt Details Follow Up: 1 Year, Reason: Y early Internal Grinding Machine Operator Exam Provider Name:SHARON Ronnie Melendez, 07/01/2024 01:00:00 PM, [address], [address], [place], [address], Progress Notes * GABRIELLE MELARAOB: 956 (68 yo F)Acc No.[id number]:06/26/2023 PROGRESS NOTES Patient:?NANCY MELARA Provider:?SHARON RICO MD :1955???Age:68 Y???Sex:Female D ate:06/26/2023 Address:[address] [place] [address] [id number] Pcp:ERIKA DE LEON Subjective: * Chief Complaints: * ???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 Nancy is a 68yo G0 s/p RICARDO/BSO for endometriosis who presents for her yearly obgyn specialist exam. ? She has been in state of good health since her last exam. She has the following concerns: none ? She has received the Perceptive Pixel Covid-19 vaccine. ? Relationship status: partnered for nearly 27 years. She is sexually active. Sexual partner(s): male. She does not wish to have STI testing. ? She does not report vaginal dryness. She does not have hot flashes/night sweats - she uses estrogen therapy and would like a refill. ? The patient has had a hysterectomy for endometriosis. Pap smears are no longer indicated. ? She has not been diagnosed with breast cancer. She does not have a family history of breast cancer. Her last mammogram was 05/26/2023 (done at [facility]). ? She does not have a family history of colon cancer. She a has had a colonoscopy. She had a colonoscopy November 2022. She reports no polyps, so follow up in 10 yrs. ? The patient does exercise. She exercises x 2 days/week by walking and lifting weights. 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 * Medical History:? * Internal Grinding Machine Operator History:?/ Para?0/0.?Mammogram:?05/26/23 [facility] < 50% density, 05/15/21 < 50% density, at [facility]04/20/20 with additional imaging 05/2020, 05/04/19 < 50% density, 05/01/18 < 50% density, 2018.?Abnormal Pap Smear:?no history of abnormal pap smears.?LMP and menses?hysterectomy.?Hysterectomy:?RICARDO/BSO 40yrs ago for endometriosis (done over several surgeries).?Colonoscopy?November 2022, yes has had one ? 2008.?Bone Density:?Had one years ago.?*Hep B Vac?2015.? * OB History:?Total pregnancies?0.? * Surgical History:?RICARDO/BSO in her 20's (one ovary was removed later) Basal Cell - Thumb - right 2016Basal Cell - Thumb - left 11/2018Removal of mole on right upper arm 2018Removal of dry patch on back - potentially precancerous, not sent for pathology 2018removal of mole on right leg and on forehead 2023 * Hospitalization/Major Diagno stic Procedure:?see surgical history * Family History:?Mother: dece ased.?Father: .? No Family Hx : Breast, Ovarian or Colon Cancer No contact with 2 siblings Sister - Madhavi - 1946 - well. * Social History:?Tobacco Use:?Tobacco Use/Smoking?Are you a?former smoker ?How long has it been since you last smoked??> 10 years ???Drugs/Alcohol:?Drugs?Have you used drugs other than those for medical reasons in the past 12 months??No ?Alcohol Screen (Audit-C)?Did you have a drink containing alcohol in the past year??Yes ?How often did you have a drink containing alcohol in the past year??2 to 3 times a week (3 points) ?How many drinks did you have on a typical day when you were drinking in the past year??3 or 4 drinks (1 point) ?How often did you have 6 or more drinks on one occasion in the past year??Never (0 point) ?Points?4 ?Interpretation?Positive ???Miscellaneous:?no Children. ?no Domestic violence. ?Exercise: yes. ?Home smoke detector use: yes, smoke detectors, carbon monoxide detector. ?Housing: [place] owns a home. ?Living with: significant other. ?Marital status: single, in relationship with male partner, Babatunde. 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 ?Pets: none. ?no Sexual abuse. ?Sexually active: yes. ?no Travel outside of the [place]. ?no Verbal abuse. * Medications:?TakingamLODIPin e Besylate 2.5 MG Tablet 1 tablet Orally Once a dayLosartan Potassium 50 MG Tablet 1 tablet Orally Once a dayEstradiol 0.1 MG/24HR Patch Weekly 1 patch to skin Transdermal Medication List reviewed and reconciled with the patientTaking amLODIPine Besylate 2.5 MG Tablet 1 tablet Orally Once a dayTaking Losartan Potassium 50 MG Tablet 1 tablet Orally Once a dayTaking Estradiol 0.1 MG/24HR Patch Weekly 1 patch to skin Transdermal Medication List reviewed and reconciled with the patient * Allergies:?Minocycline HCl: Hives - AllergyPenicillin: Seizures - Allergyno[Allergies Verified] Objective: * Vitals:?Ht: 5 ft 2.8 in, Wt: 140 lbs, BMI:24.96 Index, BP: 124/78 mm Hg, Temp: 96.4 F. * Examination: ???General Examination: ?GENERAL APPEARANCE:?in no acute distress, well developed, well nourished, chili pepper grinder present in room.?HEAD:?normocephalic, atraumatic.?NECK/THYROID:?neck supple, full range of motion, thyroid normal.?LYMPH NODES:?no axillary or supraclavicular adenopathy.?SKIN:? normal, good turgor, no rashes, no suspicious lesions.?BREASTS:? normal, no dimpling, no discharge, no drainage, no masses palpable bilaterally, nontender.?ABDOMEN:? soft, non-tender, non distended without masses or hepatosplenomegay.?RECTAL:?deferred due to recent colonoscopy.?BACK:? no costovertebral angle tenderness.?FEMALE GENITOURINARY:?Vulva without lesions or masses, vagina pink without abnormal discharge, lesions or masses, cervix, uterus and ovaries are surgically absent.?NEUROLOGIC:? alert and oriented, gait normal.?PSYCH:? alert, oriented, cognitive function intact, cooperative with exam, good eye contact, mood/affect full range, speech clear.? Assessment: * Assessment: 1.?Encounter for gynecologic al examination (general) (routine) without abnormal findings - Z01.419 (Primary)?2.?Encounter for screening mammogram for malignant neoplasm of breast - Z12.31?3.?Menopausal and female climacteric states - N95.1? Plan: * Treatment: 2.?Encounter for screening m ammogram for malignant neoplasm of breast?Imaging: MM Digital Screening Mammogram 3D 3.?Menopausal and female cli macteric states? Refill Estradiol Patch Weekly, 0.1 MG/24HR, 1 patch to skin, Transdermal, 90 days, 13, Refills 4.?? * Procedure Codes:? * Follow Up:?1 Year (Reason: Y early Internal Grinding Machine Operator Exam) * Images: Billing Information: * Visit Code:? [id number] Preventive Care Est Pt. Age 65 and over. * Procedure Codes:? * Sign off status: Completed true * Provider:?SHARON RICO MD Date:?2023 Generated for [employer] anitha/Sherice/eTransmitting on:?06/10/2024 09:29 AM EST History and Physical Notes * HPI (History of Present Illness) Category Sub-Category Detail Notes Category Not es Constitutional Nancy is a 68yo G0 s/p RICARDO/BSO for endometriosis who presents for her yearly obgyn specialist exam. She has been in state of good health since her last exam. She has the following concerns: none She has received the Perceptive Pixel Covid-19 vaccine. Relationship status: partnered for nearly 27 years. She is sexually active. Sexual partner(s): male. She does not wish to have STI testing. She does not report vaginal dryness. She does not have hot flashes/night sweats - she uses estrogen therapy and would like a refill. The patient has had a hysterectomy for endometriosis. Pap smears are no longer indicated. She has not been diagnosed with breast cancer. She does not have a family history of breast cancer. Her last mammogram was 05/26/2023 (done at [facility]). She does not have a family history of colon cancer. She a has had a colonoscopy. She had a colonoscopy November 2022. She reports no polyps, so follow up in 10 yrs. The patient does exercise. She exercises x 2 days/week by walking and lifting weights. Examination Category Sub-Category Detail Notes Category Not es General Examination GENERAL APPEARANCE: in no ac [place] distress, well developed, well nourished, chili pepper grinder present in room HEAD: normocephalic, atrau matic NECK/THYROID: neck supple, full ra nge of motion, thyroid normal ABDOMEN: soft, non-tender, no n distended without masses or hepatosplenomegay NEUROLOGIC: alert and oriented, gait normal SKIN: normal, good turgor, no rashes, no suspicious lesions BACK: no costovertebral an gle tenderness BREASTS: normal, no dimpling, no discharge, no drainage, no masses palpable bilaterally, nontender LYMPH NODES: no axillary or supra clavicular adenopathy RECTAL: deferred due to rece nt colonoscopy PSYCH: alert, oriented, cog nitive function intact, cooperative with exam, good eye contact, mood/affect full range, speech clear FEMALE GENITOURINARY: Vulva without lesi ons or masses, vagina pink without abnormal discharge, lesions or masses, cervix, uterus and ovaries are surgically absent
--- OUTSIDE RECORDS SUMMARY | 2024-06-10 09:30 | XMS_ITS ---
Author Organization [facility] Address [address] [place] [address] Care Team Providers Care Drum Loader And Unloader Name Role Phone ERIKA DE LEON Primary Care Provider SHARON Vale Unavailable [phone] REASON FOR VISIT RX TO NEW PHARMACY Medications Medication SIG (Take, Route, Fr equency, Duration) Notes Start Date End Date Status Estradiol 0.1 MG/24HR 1 patch to skin Tr ansdermal for 90 days 06/10/2019 Active Encounters Encounter Location Date Provider Diagnosis [facility] [address] [address] 03/11/2024 SHARON RICO Menopausal and femal e climacteric states N95.1 Assessments Encounter Date Diagnosis (ICD Code) Assessment Notes Treatment Notes Treatment Clinical Notes Section Notes 03/11/2024 Menopausal and female climacteric states (ICD-10 - N95.1) Plan Of Treatment Medication Medication Name Sig Start Date Stop Date Notes Estradiol 0.1 MG/24HR 1 patch to skin Tr ansdermal for 90 days 06/10/2019 Next Appt Details Provider Name:SHARON Melendez, 07/01/2024 01:00:00 PM, [address], [address], [place], [address], Progress Notes * GABRIELLE MELARAOB: 9[birth year] (68 yo F)Acc No.[id number]:03/11/2024 Patient:?FAUSTONIDHINILES MORATAYAIE :1955???Age:68 Y???Sex:Female Address:[address] [place] [address] [place], [address] * Refills? Refill Estradiol Patch Weekly, 0.1 MG/24HR, Transdermal, 13, 1 patch to skin, 90 days, Refills=4 * true * Date:? Generated for Isaias welsh/Sherice/Johnitting on:?06/10/2024 09:29 AM EST
== END 2024-06-10 08:55 | disposition home or self-care (01) ==
LOC: HO.MAMMO 08:54
PROVIDERS: PCP Family Medicine; Visit Provider Family Medicine
DX: Z12.31 Encounter for screening mammogram for malignant neoplasm of breast (principal)
CPT/HCPCS: 77063; 77067

== ENCOUNTER → 2024-06-10 09:15 | Outpatient (BNV) | payer MEDICARE, SELFPAY | PROVIDERS: PCP Family Medicine; Visit Provider Internal Medicine | DX: Z12.31 Encounter for screening mammogram for malignant neoplasm of breast (principal) | CPT/HCPCS: 77063; 77067 ==

== ENCOUNTER 2024-07-09 06:08 | Outpatient (REF) | payer MEDICARE, SELFPAY ==
--- NOTE | ~2024-07-09 | FL_ITS ---
EXAMINATION: FL GUIDANCE ONLY HISTORY: M47.812 - Spondylosis without myelopathy or radiculopathy, cervical region COMPARISON: None available. TECHNIQUE: Fluoroscopy time: 0.4 minutes. Cumulative Dose: 1.31 mGy. DAP: 0.0201 mGym2 Images: 6. FINDINGS: Images demonstrate multiple needles and contrast material in the right neck. FL/FL guidance in treatment room IMPRESSION: Fluoroscopy during procedure. Please see procedure report for additional information. Electronically signed by: Stephen Tapia MD 07/09/2024 11:06 AM EDT
--- OUTSIDE RECORDS SUMMARY | 2024-07-09 06:11 | XMS_ITS ---
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 Medications Medication SIG (Take, Route, Frequency, Duration) Notes Start Date End Date Status Estradiol 0.075 MG/24HR 1 patch to skin Transdermal weekly for 90 days Use this script preferentially, as we are working on decreasing the dosage 07/01/2024 Active amLODIPine Besylate 2.5 MG 1 tablet Orally Once a day Active Losartan Potassium 50 MG 1 tablet [...] Points 4 Interpretation Positive Vital Signs Temperature 97.3 degrees Fahrenheit 07/02/19 25 Blood pressure systolic 144 mm Hg 07/02/19 25 Blood pressure diastolic 78 mm Hg 025 Height 5 ft 2.8 in in 07/01/2024 Weight 140 lbs 07/01/2024 BMI 24.96 kg/m2 07/01/2024 Encounters Encounter Location Date Provider Diagnosis [address] [place] [address] 07/01/2024 SHARON RICO Encounter for gynecological examination (general) (routine) without abnormal findings Z01.419 ; Encounter for screening mammogram for malignant neoplasm of breast Z12.31 and Menopausal and female climacteric states N95.1 Assessments Encounter Date Diagnosis (ICD Code) Assessment Notes Treatment Notes Treatment Clinical Notes Section Notes 07/01/2024 Encounter for gynecological examination (general) (routine) without [...] to keep colon screening up to date. 07/01/2024 Encounter for screening mammogram for malignant neoplasm of breast (ICD-10 - Z12.31) 07/01/2024 Menopausal and female climacteric states (ICD-10 - N95.1) Estrogen patch refill sent to pharmacy in 03/2024. Does not need refill today, but would be agreeable to trial of lower dose patch to see if we can taper her dose without a return of the symptoms of hot flashes/night sweats. Plan Of Treatment Medication Medication Name Sig Start Date Stop Date Notes Estradiol 0.1 MG/24HR 1 patch to skin Transdermal 06/10/2019 Estradiol 0.075 MG/24HR 1 patch to skin Transdermal weekly for 90 days 07/01/2024 Use this script preferentially, as we are working on decreasing the dosage Treatment Notes Assessment Notes Encounter for gynecological [...] to keep colon screening up to date. Menopausal and female climacteric states Estrogen patch refill sent to pharmacy in 03/2024. Does not need refill today, but would be agreeable to trial of lower dose patch to see if we can taper her dose without a return of the symptoms of hot flashes/night sweats. 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 ? She has been in state of good health since her last exam. She has the following concerns: none ? She has received the [employer] Covid-19 vaccine. ? Relationship status: partnered for nearly 28 years. She is sexually active. Sexual partner(s): male. She does not wish to have STI testing. ? She does not report vaginal dryness. She does not have hot flashes/night sweats - she uses estrogen therapy and would like a refill. According to the [place] [employer], estrogens may increase a woman's potential for breast cancer, coronary heart disease, stroke, venous thromboembolism, and dementia. ? The patient has had a hysterectomy for endometriosis. Pap smears are no longer indicated. ? She has not been diagnosed with breast cancer. She does not have a family history of breast cancer. Her last mammogram was 06/2024 (done at [facility]). ? She does not have a family history of colon cancer. She a has had a colonoscopy. She had a colonoscopy November 2022. She reports no polyps, so follow up in 10 yrs. ? The patient does exercise. She exercises x 1-2 days/week by walking and lifting weights. * ROS:?Annual Visual Developer Exam ROS:?Bowel habit changes?denies.?Bladder symptoms?denies.?Vaginal discharge, unusual?denies.?Vaginal itch or odor?denies.?weight or appetite changes?denies.?Chest pains, SOB?denies.?depression?denies.?Breast:?Denies?Breast lump.?Denies?Nipple discharge.?Hematology:?Denies?Swollen glands.?Skin:?Patient denies?changing moles.?Comments?sees derm annually.?Psychiatric:?Denies?Anxiety.? * Medical History:? * Visual Developer History:?/ Para?0/0.?Mammogram:?06/10/2024, < 50% density, 05/26/23 [facility] < 50% density, 05/15/21 < 50% density, at [facility]04/20/20 with additional imaging 05/2020, 05/04/19 < 50% density, 05/01/18 < 50% density, 2019.?Abnormal Pap Smear:?no history of abnormal pap smears.?LMP and menses?hysterectomy.?Hysterectomy:?RICARDO/BSO 40yrs ago for endometriosis (done over several surgeries).?Colonoscopy?November 2022, yes has had one ? 2008.?Bone Density:?Had one years ago.?*Hep B Vac?2016.? * OB History:?Total pregnancies?0.? * Surgical History:?RICARDO/BSO [...] the past year??Never (0 point) ?Points?4 ?Interpretation?Positive ???Miscellaneous:?Children: no. ?Domestic violence: no. ?Exercise: yes. ?Home smoke detector use: yes, smoke detectors, carbon monoxide detector. ?Housing: [place] owns a home. ?Living with: significant other. ?Marital status: single, in relationship with male partner, Babatunde. 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 ?Pets: none. ?Sexual abuse: no. ?Sexually active: yes. ?Travel outside of the [place]: no. ?Verbal abuse: no. * Medications:?TakingamLODIPin e Besylate 2.5 MG Tablet 1 tablet Orally Once a day Losartan Potassium 50 MG Tablet 1 tablet Orally Once a day Estradiol 0.1 MG/24HR Patch Weekly 1 patch to skin Transdermal Medication List reviewed and reconciled with the patientTaking amLODIPine Besylate 2.5 MG Tablet 1 tablet Orally Once a day Taking Losartan Potassium 50 MG Tablet 1 tablet Orally Once a day Taking Estradiol 0.1 MG/24HR Patch Weekly 1 patch to skin Transdermal Medication List reviewed and reconciled with the patient * Allergies:?Minocycline HCl: Hives - AllergyPenicillin: Seizures - Allergyno[Allergies Verified] Objective: * Vitals:?Ht: 5 ft 2.8 in, Wt: 140 lbs, BMI:24.96Index, BP: 144/78 mm Hg, Temp: 97.3 F. * Examination: ???General Examination: ?GENERAL APPEARANCE:?in no acute distress, well developed, well nourished, home supervisor present in room.?HEAD:?normocephalic, atraumatic.?NECK/THYROID:?neck supple, full range of motion, thyroid normal.?LYMPH NODES:?no axillary or supraclavicular adenopathy.?SKIN:? normal, good turgor, no rashes, no suspicious lesions.?BREASTS:? normal, no dimpling, no discharge, no drainage, no masses palpable bilaterally, nontender.?ABDOMEN:? soft, non-tender, non distended without masses or hepatosplenomegay.?RECTAL:?deferred at patient request.?BACK:? no costovertebral angle tenderness.?FEMALE GENITOURINARY:?Vulva without lesions or masses, vagina pink without abnormal discharge, lesions or masses, cervix, uterus and ovaries are surgically absent.?NEUROLOGIC:? alert and oriented, gait normal.?PSYCH:? alert, oriented, cognitive function intact, cooperative with exam, good eye contact, mood/affect full range, speech clear.? Assessment: * Assessment: 1.?Encounter for gynecologic al examination (general) (routine) without abnormal findings - Z01.419 (Primary)???2.?Encounter for screening mammogram for malignant neoplasm of breast - Z12.31???3.?Menopausal and female climacteric states - N95.1??? Plan: * Treatment: 2.?Encounter for screening m ammogram for malignant neoplasm of breast?Imaging: MM Digital Screening Mammogram 3D 3.?Menopausal and female cli macteric states? Stop Estradiol Patch Weekly, 0.1 MG/24HR, 1 patch to skin, Transdermal.?? Notes: Estrogen patch refill sent to pharmacy in 03/2024. Does not need refill today, but would be agreeable to trial of lower dose patch to see if we can taper her dose without a return of the symptoms of hot flashes/night sweats.?? 4.?Others? Start Estradiol Patch Weekly, 0.075 MG/24HR, 1 patch to skin, Transdermal, weekly, 90 days, 13 patches, Refills 3, Notes to Pharmacist: Use this script preferentially, as we are working on decreasing the dosage.?? * Procedure Codes:? * Follow Up:?1 year, med follo wup; 2 year (Reason: Yearly Visual Developer Exam) * Images: Billing Information: * Visit Code:? 40540 Preventive Care Est Pt. Age 65 and over. * Procedure Codes:? * Sign off status: Completed true * Provider:?SHARON RICO MD Date:?2024 Generated for Isaias welsh/Sherice/eTjaviersmitting on:?07/09/2024 06:11 AM EDT History and Physical Notes * HPI (History of Present Illness) Category Sub-Category Detail Notes Category Not es Constitutional Nancy is a 69yo G0 s/p RICARDO/BSO for endometriosis who presents for her yearly cannoneer exam. She has been in state of good health since her last exam. She has the following concerns: none She has received the [employer] Covid-19 vaccine. Relationship status: partnered for nearly 28 years. She is sexually active. Sexual partner(s): male. She does not wish to have STI testing. She does not report vaginal dryness. She does not have hot flashes/night sweats - she uses estrogen therapy and would like a refill. According to the [place] [employer], estrogens may increase a woman's potential for breast cancer, coronary heart disease, stroke, venous thromboembolism, and dementia. The patient has had a hysterectomy for endometriosis. Pap smears are no longer indicated. She has not been diagnosed with breast cancer. She does not have a family history of breast cancer. Her last mammogram was 06/2024 (done at [facility]). She does not have a family history of colon cancer. She a has had a colonoscopy. She had a colonoscopy November 2022. She reports no polyps, so follow up in 10 yrs. The patient does exercise. She exercises x 1-2 days/week by walking and lifting weights. Examination Category Sub-Category Detail Notes Category Not es General Examination GENERAL APPEARANCE: in no ac [place] distress, well developed, well nourished, home supervisor present in room HEAD: normocephalic, atrau matic [...] axillary or supra clavicular adenopathy RECTAL: deferred at patient request PSYCH: alert, oriented, cog nitive function intact, cooperative with exam, good eye contact, mood/affect full range, speech clear FEMALE GENITOURINARY: Vulva without lesi ons or masses, vagina pink without abnormal discharge, lesions or masses, cervix, uterus and ovaries are surgically absent
--- OUTSIDE RECORDS SUMMARY | 2024-07-09 06:12 | XMS_ITS | Patient Health Record ---
Author Organization [facility] Address [address] [place] [address] Care Team Providers Care Blocker And Cutter Contact Lens Name Role Phone ERIKA DE LEON Primary Care Provider SHARON Vale Unavailable [phone] Allergies Allergen (clinical drug ingredient) Drug/Non Drug [...] Status W/U Status Risk Notes Problem Menopause ([id number]) Menopausal and female climacteric states (N95.1) Active confirmed Problem COVID-19 (090013837) COVID-19 (U07.1) Active confirmed Vital Signs Temperature 97.3 degrees Fahrenheit 07/01/2024 Blood pressure diastolic 78 mm Hg 07/01/2024 Height 5 ft 2.8 in in 07/01/2024 Blood pressure systolic 144 mm Hg 07/01/2024 Weight 140 lbs 07/01/2024 BMI 24.96 kg/m2 07/01/2024 Encounters Encounter Location Date Provider Diagnosis [facility] [place] [address] [address] [facility] [address] [place] [address] 07/01/2024 SHARONSravan CASTILLORICO Encounter for gynecological examination (general) (routine) without abnormal findings Z01.419 ; Encounter for screening mammogram for malignant neoplasm of breast Z12.31 and Menopausal and female climacteric states N95.1 [facility] [address] [facility] [address] [place] [address] 03/11/2024 SHARON RICO Menopausal and femal e climacteric states N95.1 Assessments Encounter Date Diagnosis (ICD Code) Assessment Notes Treatment Notes Treatment Clinical Notes Section Notes 03/11/2024 Menopausal and female climacteric states (ICD-10 - N95.1) 07/01/2024 Encounter for gynecological examination (general) (routine) [...] of hot flashes/night sweats. Plan Of Treatment Pending Test Test Name Order Date MM Digital Screening Mammogram 3D 2018 MM Digital Screening Mammogram 3D 2020 MM Digital Screening Mammogram 3D 2021 MM Digital Screening Mammogram 3D 2022 MM Digital Screening Mammogram 3D 2023 MM Digital Screening Mammogram 3D 2024 Next Appt Details Provider Name:SHARON Melendez, 07/03/2025 10:40:00 AM, [address], [address], [place], [address], Insurance Providers Payer Name Payer Address Payer Phone Subscriber Number Group Number Insured Name Patient Relationship to Insured Coverage Start Date Coverage End Date MEDICARE [address] [place] [id number] FAUSTONIDHIYUDY MORATAYA Self - patient is the insured 1 MED[employer] [address] [place] [address] [id number] FAUSTONIDHIYUDY MORATAYA Self - patient is the insured Medical [...]
--- OUTSIDE RECORDS SUMMARY | 2024-07-09 06:12 | XMS_ITS | Data Portability ---
Author Organization [facility], , [facility], OFFICE Address [address] [place] [address] Care Team Providers Care Maintenance Assistant Name Role Phone MIQUEL PENA Primary Care Provide r RYAN FORBES OTHER MERARY HANEY OTHER SHARMAINE DELGADO Sports Medicine [facility] [phone] Assessment Encounter Date Assessment Date Assessment LastModified by Organization Details LastModified Time 01/16/2024 01/16/2024 Exostosis right foot jerskine Not available 01/16/2024 10:45:56 06/24/2024 06/24/2024 We reviewed your chronic medical conditions and updated your plan for management. Please review instructions below. We have discussed your personal goals and discussed how to reach your goals. Please reach out to us via the Portal or phone if you have questions about your chronic conditions or if you or your caregivers require assistance in meeting your goals. Please visit our website [employer] for more patient resources. As part of your care plan, we will help coordinate your ongoing medical needs, arrange for durable medical equipment, renew prescriptions and necessary prior authorizations, facilitate getting referrals and collaborating with specialist, referrals for VNA services. reny Not available 06/24/2024 08:06:07 Plan of Treatment Reminders Order Date Submit Date Provider Last Modified By Organization Details Last Modified Time Details Appointments Follow Up, 15 2024 09:30A M Miquel Salazar MD Not available Not available Not available LAB Follow -Up 2024 09:00A M [facility] Lab Not available Not available Not available Wellne ss Visit 30 2024 08:30A M Miquel Salazar MD Not available Not available Not available Lab CBC 2024 025 [facility], [address] [place] [address], [address], 06/19/2024 10:43:11 TSH, serum or plasma 2024 025 [facility], [address] [place] [address], [address], 06/19/2024 14:21:50 BMP, serum or plasma 2024 025 [facility], [address] [place] [address], [address], 06/19/2024 15:57:53 BNP (B-typ e natriu retic peptid e), serum or plasma 2024 025 [facility], [address] [place] [address], [address], 06/20/2024 11:08:16 Referral podiat rist referr al - right foot gangli on cyst. causin g pain 2023 024 Carson Barney DPM, [address] [facility], [place], [address], 12/08/2023 14:33:13 Procedures None record ed. Surgeries None record ed. Imaging exerci se stress test - can walk on treadm ill, 5'4 , 142lbs , no pacer, pt cleare d to hold Amlodi pine 24hrs priorS tandar d exerci se stress test withou t imagin gCan the patien t walk on a treadm ill? YOK to hold beta blocke rs? N/ADoe s patien t have asthma ? NDoes patien t have seizur e disord er? NDoes patien t have abnorm al tripon in value? N/A 2024 025 [facility] (Cardiology), [address] [place], [address], 05/22/2024 13:51:32 XR, chest - worsen ing SOB 2024 025 [facility] (Imaging), [address], [place], [address], 05/15/2024 10:55:52 Medication Orders omepra zole 20 mg capsul e,armando yed releas e 2024 025 [facility], [address] [place], [address], 06/24/2024 09:43:57 ipratr opium bromid e 42 mcg (0.06 %) nasal spray 2024 025 [facility], [address] [place], [address], 06/24/2024 09:41:06 methoc arbamo l 500 mg tablet 2023 025 [facility], [address] [place], [address], 06/24/2024 09:09:21 amlodi pine 2.5 mg tablet 2023 024 [facility], [address] [place], [address], 12/25/2023 12:42:05 ipratr opium bromid e 42 mcg (0.06 %) nasal spray 2023 024 [facility], [address] [place], [address], 12/25/2023 12:45:42 Patient TargetsNo targets recorded. Patient Instructions Encounter Date Encounter Id Patient Instructions Last Modified By Organization Details Last Modified Time 12/04/[id number] [facility] serves as the focal point for all health care services the patient needs. HealthLoopluisitozdelcastillo Not available 12/04/2023 20:57:12 01/16/2024 [id number] Dispensed order for x-ray evaluation right foot. jerskine Not available 01/16/2024 10:46:13 05/14/2024 [id number] CCM: The provider and patient discussed the Chronic Care Management program, including the services provided, and any fees associated with them. 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 causing pain Referring Physician: Miquel Salazar, Family Medicine, Encounter Date: 12/04/2023 Results Created Date Observation Date Name Description Value Unit Range Abnormal Flag Note LastModifiedBy Organization Detail LastModifiedTime 12/22/1912/22/2023 CBC WBC 5.97 K/? ? ?L 3.98-1 0.04 Not Available [address], [address], 12/22/2023 15:42:34 12/22/19 24 12/22/2023 CBC RBC 3.55 M/? ? ?L 3.93-5 .22 low Not Available [address], [address], 12/22/2023 15:42:34 12/22/1912/22/2023 CBC HGB 11.9 g/dL 11.2-1 5.7 Not Available [address], [address], 12/22/2023 15:42:34 12/22/1912/22/2023 CBC HCT 35.3 % 34.1-4 4.9 Not Available [address], [address], 12/22/2023 15:42:34 12/22/19 24 12/22/2023 CBC MCV 99.4 fL 79.4-9 4.8 high Not Available [address], [address], 12/22/2023 15:42:34 12/22/19 24 12/22/2023 CBC MCH 33.5 pg 25.6-3 2.2 high Not Available [address], [address], 12/22/2023 15:42:34 12/22/19 24 12/22/2023 CBC MCHC 33.7 g/dL 32.2-3 5.5 Not Available [address], [address], 12/22/2023 15:42:34 12/22/19 24 12/22/2023 CBC plt 300 K/? ? ?L 182-36 9 Not Available [address], [address], 12/22/2023 15:42:34 12/22/19 24 12/22/2023 CBC MPV 9.6 fL 9.4-12 .3 Not Available [address], [address], 12/22/2023 15:42:34 12/22/19 24 12/22/2023 CBC neut% 52.9 % 34.0-7 1.1 Not Available [address], [address], 12/22/2023 15:42:34 12/22/19 24 12/22/2023 CBC neut# 3.16 1.56-6 .13 Not Available [address], [address], 12/22/2023 15:42:34 12/22/19 24 12/22/2023 CBC lymph % 34.0 % 19.3-5 1.7 Not Available [address], [address], 12/22/2023 15:42:34 12/22/19 24 12/22/2023 CBC lymph # 2.03 K/? ? ?L 1.18-3 .74 Not Available [address], [address], 12/22/2023 15:42:34 12/22/19 24 12/22/2023 CBC mono% 8.7 % 4.7-12 .5 Not Available [address], [address], 12/22/2023 15:42:34 12/22/19 24 12/22/2023 CBC mono# 0.52 0.24-0 .56 Not Available [address], [address], 12/22/2023 15:42:34 12/22/19 24 12/22/2023 CBC eo% 3.7 % 0.7-5. 8 Not Available [address], [address], 12/22/2023 15:42:34 12/22/19 24 12/22/2023 CBC eo# 0.22 0.04-0 .36 Not Available [address], [address], 12/22/2023 15:42:34 12/22/19 24 12/22/2023 CBC baso% 0.5 % 0.1-1. 2 Not Available [address], [address], 12/22/2023 15:42:34 12/22/19 24 12/22/2023 CBC baso# 0.03 0.00-0 .08 Not Available [address], [address], 12/22/2023 15:42:34 12/22/19 24 12/22/2023 CBC RDW-CV 11.8 % 11.7-1 4.4 Not Available [address], [address], 12/22/2023 15:42:34 12/22/19 24 12/22/2023 CBC Ig% 0.200 % 0.000- 1.500 Ig % >0.5 Indic ates possi ble Left Shift Not Available [address], [address], 12/22/2023 15:42:34 12/22/19 24 12/22/2023 CBC Ig# 0.010 0.000- 0.093 Not Available [address], [address], 12/22/2023 15:42:34 12/22/19 24 12/22/2023 CBC NRBC% 0.0 % 0.0-0. 2 Not Available [address], [address], 12/22/2023 15:42:34 12/22/19 24 12/22/2023 CBC NRBC# 0.000 0.000- 0.012 Not Available [address], [address], 12/22/2023 15:42:34 12/22/19 24 12/22/2023 COMP. METAB OLIC PANEL glucose 98 mg/dL 70-100 Not Available [address], [address], 12/22/2023 16:25:37 12/22/19 24 12/22/2023 COMP. METAB OLIC PANEL BUN 18 mg/dL 7-18 Not Available [address], [address], 12/22/2023 16:25:37 12/22/19 24 12/22/2023 COMP. METAB OLIC PANEL creatinine 0.7 mg/dL 0.8-1. 3 low Not Available [address], [address], 12/22/2023 16:25:37 12/22/19 24 12/22/2023 COMP. METAB OLIC PANEL B/C 25.7 ratio Not Available [address], [address], 12/22/2023 16:25:37 12/22/19 24 12/22/2023 COMP. METAB [...] be used in pregn garrison. Not Available [address], [address], 12/22/2023 16:25:37 12/22/19 24 12/22/2023 COMP. METAB OLIC PANEL sodium 137 mmol/ L 136-14 5 Not Available [address], [address], 12/22/2023 16:25:37 12/22/19 24 12/22/2023 COMP. METAB OLIC PANEL potassium 5.2 mmol/ L 3.5-5. 1 high Not Available [address], [address], 12/22/2023 16:25:37 12/22/19 24 12/22/2023 COMP. METAB OLIC PANEL chloride 102 mmol/ L 96-107 Not Available [address], [address], 12/22/2023 16:25:37 12/22/19 24 12/22/2023 COMP. METAB OLIC PANEL anion gap 11.1 5.0-15 .0 Not Available [address], [address], 12/22/2023 16:25:37 12/22/19 24 12/22/2023 COMP. METAB OLIC PANEL CO2 24 mmol/ L 21-32 Not Available [address], [address], 12/22/2023 16:25:37 12/22/19 24 12/22/2023 COMP. METAB OLIC PANEL calcium 9.3 mg/dL 8.5-10 .3 Not Available [address], [address], 12/22/2023 16:25:37 12/22/19 24 12/22/2023 COMP. METAB OLIC PANEL total protein 7.4 g/dL 6.4-8. 2 Not Available [address], [address], 12/22/2023 16:25:37 12/22/19 24 12/22/2023 COMP. METAB OLIC PANEL albumin 3.7 g/dL 3.4-5. 0 Not Available [address], [address], 12/22/2023 16:25:37 12/22/19 24 12/22/2023 COMP. METAB OLIC PANEL globulin 3.7 g/dL Not Available [address], [address], 12/22/2023 16:25:37 12/22/19 24 12/22/2023 COMP. METAB OLIC PANEL A/G 1.0 ratio 0.8-2. 0 Not Available [address], [address], 12/22/2023 16:25:37 12/22/19 24 12/22/2023 COMP. METAB OLIC PANEL total bilirubin 0.40 mg/dL 0.00-1 .00 Not Available [address], [address], 12/22/2023 16:25:37 12/22/19 24 12/22/2023 COMP. METAB OLIC PANEL AST 26 U/L 0-37 Not Available [address], [address], 12/22/2023 16:25:37 12/22/19 24 12/22/2023 COMP. METAB OLIC PANEL ALT 32 U/L 6-63 Not Available [address], [address], 12/22/2023 16:25:37 12/22/19 24 12/22/2023 COMP. METAB OLIC PANEL alk. phos. 95 U/L 50-136 Not Available [address], [address], 12/22/2023 16:25:37 12/22/19 24 12/22/2023 LIPID PANEL cholesterol 249 mg/dL <200 mg/dl Leidy able 200-2 39 mg/dl Borde rline High >240 mg/dl High Not Available [address], [address], 12/22/2023 16:25:37 12/22/19 24 12/22/2023 LIPID PANEL triglyceride s 59 mg/dL <150 mg/dL Ethel l 150-1 99 mg/dL Borde rline High 200-4 99 mg/dL High >500 mg/dL Very High Not Available [address], [address], 12/22/2023 16:25:37 12/22/19 24 12/22/2023 LIPID PANEL direct HDL 82 mg/dL <40 mg/dl - Major Risk for CHD >60 mg/dl - Negat myranda Risk for CHD Not Available [address], [address], 12/22/2023 16:25:37 12/22/19 24 12/22/2023 DIREC T [...] r is not nitesh carrera. Not Available [address], [address], 12/22/2023 16:25:38 06/20/19 25 06/19/2024 CBC WBC 6.19 K/? ? ?L 3.98-1 0.04 Not Available [address], [address], 06/19/2024 10:43:11 06/20/19 25 06/19/2024 CBC RBC 4.03 M/? ? ?L 3.93-5 .22 Not Available [address], [address], 06/19/2024 10:43:11 06/20/19 25 06/19/2024 CBC HGB 13.3 g/dL 11.2-1 5.7 Not Available [address], [address], 06/19/2024 10:43:11 06/20/19 25 06/19/2024 CBC HCT 39.0 % 34.1-4 4.9 Not Available [address], [address], 06/19/2024 10:43:11 06/20/19 25 06/19/2024 CBC MCV 96.8 fL 79.4-9 4.8 high Not Available [address], [address], 06/19/2024 10:43:11 06/20/19 25 06/19/2024 CBC MCH 33.0 pg 25.6-3 2.2 high Not Available [address], [address], 06/19/2024 10:43:11 06/20/19 25 06/19/2024 CBC MCHC 34.1 g/dL 32.2-3 5.5 Not Available [address], [address], 06/19/2024 10:43:11 06/20/19 25 06/19/2024 CBC plt 279 K/? ? ?L 182-36 9 Not Available [address], [address], 06/19/2024 10:43:11 06/20/19 25 06/19/2024 CBC MPV 9.3 fL 9.4-12 .3 low Not Available [address], [address], 06/19/2024 10:43:11 06/20/19 25 06/19/2024 CBC neut% 48.6 % 34.0-7 1.1 Not Available [address], [address], 06/19/2024 10:43:11 06/20/19 25 06/19/2024 CBC neut# 3.01 1.56-6 .13 Not Available [address], [address], 06/19/2024 10:43:11 06/20/19 25 06/19/2024 CBC lymph % 36.5 % 19.3-5 1.7 Not Available [address], [address], 06/19/2024 10:43:11 06/20/19 25 06/19/2024 CBC lymph # 2.26 K/? ? ?L 1.18-3 .74 Not Available [address], [address], 06/19/2024 10:43:11 06/20/19 25 06/19/2024 CBC mono% 8.9 % 4.7-12 .5 Not Available [address], [address], 06/19/2024 10:43:11 06/20/19 25 06/19/2024 CBC mono# 0.55 0.24-0 .56 Not Available [address], [address], 06/19/2024 10:43:11 06/20/19 25 06/19/2024 CBC eo% 5.2 % 0.7-5. 8 Not Available [address], [address], 06/19/2024 10:43:11 06/20/19 25 06/19/2024 CBC eo# 0.32 0.04-0 .36 Not Available [address], [address], 06/19/2024 10:43:11 06/20/19 25 06/19/2024 CBC baso% 0.6 % 0.1-1. 2 Not Available [address], [address], 06/19/2024 10:43:11 06/20/19 25 06/19/2024 CBC baso# 0.04 0.00-0 .08 Not Available [address], [address], 06/19/2024 10:43:11 06/20/19 25 06/19/2024 CBC RDW-CV 11.9 % 11.7-1 4.4 Not Available [address], [address], 06/19/2024 10:43:11 06/20/19 25 06/19/2024 CBC Ig% 0.200 % 0.000- 1.500 Ig % >0.5 Indic ates possi ble Left Shift Not Available [address], [address], 06/19/2024 10:43:11 06/20/19 25 06/19/2024 CBC Ig# 0.010 0.000- 0.093 Not Available [address], [address], 06/19/2024 10:43:11 06/20/19 25 06/19/2024 CBC NRBC% 0.0 % 0.0-0. 2 Not Available [address], [address], 06/19/2024 10:43:11 06/20/19 25 06/19/2024 CBC NRBC# 0.000 0.000- 0.012 Not Available [address], [address], 06/19/2024 10:43:11 06/20/19 25 06/19/2024 TSH TSH 4.32 uIU/m L 0.50-6 .00 The Ameri can Colle ge of Endoc rinol ogy and Ameri can Thyro id Assoc iatio n recom mend goal TSH value s betwe en 0.4-4 .0 mIU/m L. Not Available [address], [address], 06/19/2024 14:21:50 06/20/1906/19/2024 BASIC METAB OLIC PANEL glucose 94 mg/dL 70-100 Not Available [address], [address], 06/19/2024 15:57:53 06/20/19 25 06/19/2024 BASIC METAB OLIC PANEL BUN 15 mg/dL 7-18 Not Available [address], [address], 06/19/2024 15:57:53 06/20/19 25 06/19/2024 BASIC METAB OLIC PANEL creatinine 0.7 mg/dL 0.8-1. 3 low Not Available [address], [address], 06/19/2024 15:57:53 06/20/19 25 06/19/2024 BASIC METAB OLIC PANEL B/C 21.4 ratio Not Available [address], [address], 06/19/2024 15:57:53 06/20/19 25 06/19/2024 BASIC METAB OLIC PANEL GFR >=60ML /MIN [...] be used in pregn garrison. Not Available [address], [address], 06/19/2024 15:57:53 06/20/19 25 06/19/2024 BASIC METAB OLIC PANEL sodium 137 mmol/ L 136-14 5 Not Available [address], [address], 06/19/2024 15:57:53 06/20/19 25 06/19/2024 BASIC METAB OLIC PANEL potassium 4.5 mmol/ L 3.5-5. 1 Not Available [address], [address], 06/19/2024 15:57:53 06/20/19 25 06/19/2024 BASIC METAB OLIC PANEL chloride 102 mmol/ L 96-107 Not Available [address], [address], 06/19/2024 15:57:53 06/20/19 25 06/19/2024 BASIC METAB OLIC PANEL anion gap 10.4 5.0-15 .0 Not Available [address], [address], 06/19/2024 15:57:53 06/20/19 25 06/19/2024 BASIC METAB OLIC PANEL CO2 25 mmol/ L 21-32 Not Available [address], [address], 06/19/2024 15:57:53 06/20/19 25 06/19/2024 BASIC METAB OLIC PANEL calcium 9.3 mg/dL 8.5-10 .3 Not Available [address], [address], 06/19/2024 15:57:53 06/20/19 25 06/19/2024 LIPID PANEL cholesterol 250 mg/dL <200 mg/dl Leidy able 200-2 39 mg/dl Borde rline High >240 mg/dl High Not Available [address], [address], 06/19/2024 16:23:28 06/20/19 25 06/19/2024 LIPID PANEL triglyceride s 80 mg/dL <150 mg/dL Ethel l 150-1 99 mg/dL Borde rline High 200-4 99 mg/dL High >500 mg/dL Very High Not Available [address], [address], 06/19/2024 16:23:28 06/20/19 25 06/19/2024 LIPID PANEL direct HDL 93 mg/dL <40 mg/dl - Major Risk for CHD >60 mg/dl - Negat myranda Risk for CHD Not Available [address], [address], 06/19/2024 16:23:28 06/20/19 25 06/19/2024 DIREC T LDL direct LDL 133 mg/dL RISK CATEG ORY LDL GOAL _ [...] r is not neces deandre. Not Available [address], [address], 06/19/2024 16:23:29 06/20/19 25 06/20/2024 B TYPE NATRI URETI C PEPTI DE (BNP) B type natriuretic peptide (BNP) 35 pg/mL <100 normal BNP level s incre ase with age in the gener al popul ation with the highe st value s seen in indiv idual s great er than 75 years of age. Refer ence: J. Am. Mickey. Cardi ol. 2002; 40:97 6-982 . Not Available [facility] [address] [place], [address], 06/20/2024 11:08:16 01/17/20 24 01/17/2024 XR, foot CLINIC AL HISTOR Y: Exosto sis right foot TECHNI QUE: AP, obliqu e, and latera l views of the right foot obtain ed. COMPAR VIET: Novemb er 18, 2015 FINDIN GS: There is no acute fractu re or disloc ation. The joint spaces are preser amado. The soft tissue s are unrema rkable . IMPRES RYAN: No acute bone injury . No interv al change Iván pierre Physic aaliyah: Victor Manuel Kaufman [facility] (Imaging) [address], [place], [address], 01/17/2024 10:00:29 05/15/1905/15/2024 XR, chest CLINIC AL HISTOR Y: Cough. TECHNI QUE: Fronta l view and latera l view of the chest obtain ed. COMPAR VIET: Report of a chest x-ray perfor med Novemb er 2011 FINDIN GS: The heart is normal in size and config uratio n.Ther e is no hilar or medias tinal enlarg ement. There is no focal lung consol idatio n or infilt rate. The bony thorax is intact . IMPRES RYAN: No acute diseas e. Iván pierre Physic aaliyah: Victor Manuel Kaufman [facility] (Imaging) [address], [place], [address], 05/16/2024 17:05:22 05/22/1905/22/2024 stres s test exerc ise Table format ting from the origin al result was not includ ed. Images from the origin al result were not includ ed. 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 Kenney er Respon se to Stress The pativirgilio t exerci sed for minute s and [...] mmHg Stress Vitals ( 10:22 AM - 2 5 11:13 AM) Stress Test Row Name [...] Dan MD on 5 at 1348 EST KHARME N HALEY WRIGHT CASTIL MIKE LOAIZA [facility] [address] [place] [place] [address], [address], 05/23/2024 12:59:34 05/22/1905/22/2024 exerc ise stres s test No observ ation record ed. [address], [address], 05/23/2024 12:59:34 06/12/1906/10/2024 MAMMO , scree tye No observ ation record ed. clementina [facility] [address] [place], [address], 06/11/2024 21:55:32 Result Notes None recorded. Procedures Surgical History Date Name Laterality Status Provider Name and Address Organization Details Recorded Time 3 Jorge Luis - Colonoscopy completed Aleksander Kang MD [address] [place] [address], [id number], [facility] 11/11/2022 10:16:45 Imaging Results Imaging Date Name Status LastModified by Organiz ation Details LastModified Time 01/17/2024 XR, foot completed [facility] (Imaging) [address] [place], [address], 01/17/2024 10:00:29 05/15/2024 XR, chest completed [facility] (Imaging) [address] [place], [address], 05/16/2024 17:05:22 05/22/2024 stress test exercise completed [facility] [address] [place], [address], 05/23/2024 12:59:34 05/22/2024 exercise stress test completed [facility] [address] [place], [address], 05/23/2024 12:59:34 06/10/2024 MAMMO, screening completed [facility] [address] [place], [address], 06/11/2024 21:55:32 Procedure Notes None recorded. Medical Equipment None Reported. Allergies Allergen ID Allergen Name Allergen Category Reaction Reaction Severity Criticality Documentation Date Start Date Code Code System Note Provider Name and Address Organization Details Recorded Time 098606 minocycli ne medicatio n hives Not available Not available 11/09/2022 6980 RxNorm HUONG Arredondo, [facility] 14:58:29 664282 Product containin g penicilli n (product) medicatio n seizure Not available Not available 11/09/2022 84505 8001 SNOMED HUONG Arredondo, [facility] 14:59:41 Medications Name Sig Start Date Stop [...] FOR 30 DAYS FOR CHRONIC NECK PAIN 06/24 completed Not taking 05/14/24 cc Not Available Not [...] Not Available Not Available Not Avai lable benzonata te 200 mg capsule Take 1 capsule 3 times a day by oral route as needed, for cough. 06/24 completed Not Available Not Available Not Available sumatript an 100 mg tablet take 1 tablet by mouth immediat terrence may repeat after 2 hours 06/24 completed PRN Not Available Not Available Not Available prednison e 20 mg tablet TAKE 2 TABLETS BY MOUTH EVERY DAY FOR 4 DAYS 06/21 completed Not Available Not Available Not Available fluoroura cil 5 % topical cream APPLY CREAM TOPICALL Y TO SKIN CANCER AND 1 CM SURROUND ING TWICE DAILY FOR UP TO 8 WEEKS OR STOP SOONER IF SIGNIFIC ANT CRUSTING , IRRITATI ON, OR PAIN DEVELOPS active not using 06/24/24 as Not Available Not Available Not Available amlodipin e 2.5 mg tablet TAKE [...] xr Not Available Not Available Not Available estradiol 0.075 mg/24 hr weekly transderm al patch APPLY 1 PATCH TO SKIN ONCE WEEKLY active Not Available Not Available No t Available Beconase AQ 42 mcg (0.042 %) [...] oral route 30 minutes before breakfas t 2024 active Not Available Not Available Not Avai [...] bromide 42 mcg (0.06 %) nasal spray SPRAY 2 SPRAYS 3 TIMES A DAY INTRANAS ALLY NEEDED, FOR RHINORRH EA POST NASAL DRIP. active Not Available Not Available No t Available losartan 100 mg tablet TAKE 1 TABLET BY MOUTH ONCE DAILY 2024 active Not Available Not Available Not Avai lable fexofenad ine 60 mg-pseudo ephedrine ER 120 mg tablet,ex t.release ,12 hr Take 1 tablet twice a day by oral route. 2011 active Not Available Not Available Not Avai laboscar SF 5000 Plus 1.1 % dental cream [...] myranda Not Available Not Available Not Available olmesarta n 5 mg tablet TAKE 2 TABLETS BY MOUTH DAILY FOR HIGH BLOOD PRESSURE active Not taking, wants to take Losartan 06/24/24 Not Available Not Available Not Available cyclobenz [...] Alcohol Consumption? 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 06/24/2024 Information not available 06/24/2024 How Many Children Do You Have? 0 [...] Fl, unkn own Medical History Condition Response Migraine Headaches Y Hearing Loss Y Crohn's Disease Y CANCER Y Chronic Neck Pain Y Allergic Rhinitis Y Gynecological History Statement/Question Response Hysterectomy Y Age at Menarche 12 Obstetrics History GPAL:G 0 P 0 0 0 0 Past Encounters Encounter ID Performer Location Encounter Start Date Encounter Closed Date Diagnosis/Indication Diagnosis SNOMED-CT Code Diagnosis ICD10 Code Diagnosis Note [id number] Radiology , [facility] [address] [facility] [place] [address] 11/12/2010 13:51:13 11/22/2010 12:23:08 [id number] , [facility], OFFICE [address] [facility] [facility] [place] [phone] 01/14/2011 13:44:02 01/17/2011 06:59:04 [id number] Michael Quiroz , [facility], OFFICE [address] [facility] [place] [address] 02/10/2012 09:20:09 02/10/2012 11:00:55 [id number] Arabella Sood MD , [facility], OFFICE [address] [facility] [place] [address] 02/22/2012 09:14:13 02/22/2012 10:20:13 [id number] Brian Millard MD Radiology , [facility] [address] [facility] [place] [address] 02/22/2012 10:20:36 02/28/2012 13:59:22 [id number] Michael ROY, [facility], OFFICE [address] [facility] [place] [address] 03/09/2012 15:12:29 03/09/2012 16:04:52 [id number] Michael ROY, [facility], OFFICE [address] [facility] [place] [address] 03/23/2012 08:02:55 03/23/2012 08:43:50 [id number] Elba Adams NP , [facility], OFFICE [address] [facility] [place] [address] 04/19/2012 09:13:18 04/19/2012 10:03:50 [id number] Miquel Salazar MD FP, [facility], OFFICE [address] [facility] [place] [address] 04/27/2012 08:06:14 04/27/2012 09:01:31 [id number] MD KIRILL Jain, [facility], OFFICE [address] [place] [facility] [place] [address] 05/18/2012 08:40:21 05/18/2012 09:36:54 [id number] Raven Dobbins Mph, LPT Physical Therapy, [facility] [address] [facility] [address] 05/25/2012 08:16:34 05/25/2012 10:24:40 [id number] Michael Quiroz , [facility], OFFICE [address] [facility] [address] 08/09/2012 16:03:43 08/10/2012 06:43:41 [id number] CESAR Elaine , [facility], OFFICE [address] [facility] [address] 08/15/2012 16:35:53 08/16/2012 06:43:27 [id number] Nithya Stahl , [facility], OFFICE [address] [facility] [address] 08/20/2012 14:22:08 08/20/2012 15:25:51 [id number] , [facility], OFFICE [address] [facility] [address] 08/24/2012 09:31:14 08/24/2012 10:50:07 [id number] Melani Norman LPN , [facility], OFFICE [address] [facility] [address] 10/16/2012 08:49:42 10/16/2012 09:54:00 [id number] Miquel Salazar MD , [facility], OFFICE [address] [facility] [address] 09/20/2013 07:59:33 09/20/2013 08:58:38 [id number] Rosalia Vidal CMA , [facility], OFFICE [address] [facility] [address] 09/27/2013 13:19:21 09/27/2013 13:42:57 [id number] , [facility], OFFICE [address] [place] [facility] [address] 02/14/2014 09:33:13 02/14/2014 10:48:12 [id number] Miquel Salazar MD , [facility], OFFICE 238 [facility] [place] [facility] [address] 04/22/2014 15:33:39 04/22/2014 16:43:49 [id number] Alin Olivares MD , [facility], OFFICE 238 [facility] [place] [facility] [address] 02/25/2015 15:39:15 02/25/2015 16:36:12 [id number] Nuha Mariano, PT Physical Therapy, [facility] 238 [facility] [place] [facility] [address] 03/17/2015 17:05:32 03/18/2015 09:42:30 [id number] Nuha Mariano, PT Physical Therapy, [address] [place] [facility] [address] 03/23/2015 16:47:44 03/24/2015 08:15:30 [id number] Mary Lou Copeland Podiatry, [facility] [address] [place] [address] 04/14/2015 14:35:36 04/16/2015 15:51:16 [id number] Miquel Salazar MD , [facility], OFFICE [address] [place] [address] [place] [facility] [address] 05/15/2015 15:46:19 05/18/2015 15:29:00 [id number] Carson Barney DPM Podiatry, [facility] [address] [place] [address] 06/02/2015 14:49:39 06/02/2015 15:47:38 [id number] Lexie Dozier , [facility], OFFICE 238 [facility] [place] [facility] [address] 2015 15:06:18 06/20/2015 11:41:45 [id number] Carson Barney DPM Podiatry, [address] [place] [facility] [address] 07/30/2015 15:15:59 07/30/2015 15:54:16 [id number] Carson Barney DPM Podiatry, [address] [place] [facility] [address] 10/01/2015 15:11:30 10/01/2015 16:37:34 [id number] Miquel Salazar MD , [facility], OFFICE [address] [facility] [address] 07/18/2016 15:41:28 07/18/2016 16:35:55 [id number] Mendy Vance NP FP, [facility], OFFICE [address] [facility] [address] 09/23/2016 15:34:42 09/23/2016 16:02:53 [id number] Candido Dodson MD , [facility], OFFICE [address] [place] [address] 06/10/2017 09:10:12 06/10/2017 10:14:37 [id number] Miquel Salazar MD , [facility], OFFICE [address] [facility] [address] 06/23/2017 15:10:50 06/23/2017 16:33:11 [id number] Michael Ann NP , [facility], OFFICE [address] [place] [address] [place] [facility] [address] 08/03/2017 15:11:10 08/03/2017 15:55:08 [id number] Miquel Salazar MD , [facility], OFFICE [address] [facility] [address] 11/17/2017 15:39:36 11/17/2017 16:58:56 [id number] MD KIRILL Jain, [facility], OFFICE [address] [facility] [address] 11/22/2018 15:54:32 11/22/2018 17:00:32 [id number] MD KIRILL Jain, [facility], OFFICE [address] [place] [address] [place] [facility] [address] 04/05/2019 08:45:14 04/05/2019 10:16:08 [id number] MD KIRILL Jain, [facility], OFFICE [address] [facility] [address] 08/08/2019 08:51:07 08/09/2019 13:52:03 [id number] MD KIRILL Jain, [facility], OFFICE [address] [facility] [address] 11/25/2019 14:54:07 11/26/2019 09:22:11 [id number] Melani Anne LPN , [facility], OFFICE [address] [place] [address] 01/25/2020 08:58:43 01/28/2020 12:08:00 [id number] Carson Barney, DPDaiana Podiatry, [address] [address] 02/28/2020 07:53:48 03/02/2020 13:04:56 [id number] Miquel Salazar MD , [facility], OFFICE [address] [facility] [address] 05/19/2020 10:47:12 05/20/2020 15:40:02 [id number] MD KIRILL Jain, [facility], OFFICE [address] [facility] [address] 06/25/2020 08:03:12 06/29/2020 11:33:28 [id number] MD KIRILL Jain, [facility], OFFICE [address] [facility] [address] 07/23/2020 09:08:07 07/27/2020 13:46:16 [id number] MD KIRILL Jain, [facility], OFFICE [address] [facility] [address] 09/03/2020 11:44:14 09/04/2020 09:57:05 [id number] MD KIRILL Jain, [facility], OFFICE [address] [facility] [address] 11/20/2020 09:19:54 11/22/2020 19:09:53 [id number] MD KIRILL Jain, [facility], OFFICE [address] [facility] [address] 12/24/2020 10:20:05 01/06/2021 09:09:52 [id number] Ginger Littlejohn RN BSN , [facility], OFFICE [address] [facility] [address] 12/28/2020 14:59:41 12/29/2020 10:38:18 [id number] HUONG SchneiderN , [facility], OFFICE [address] [facility] [address] 12/29/2020 16:08:37 12/30/2020 12:53:10 [id number] MD KIRILL Jain, [facility], OFFICE [address] [facility] [address] 02/26/2021 13:42:37 02/26/2021 14:20:59 [id number] MD KIRILL Jain, [facility], OFFICE [address] [facility] [address] 05/28/2021 14:42:04 05/28/2021 15:41:00 [id number] MD KIRILL Jain, [facility], OFFICE [address] [facility] [address] 11/25/2021 08:00:39 11/25/2021 08:30:56 [id number] MD KIRILL Jain, [facility], OFFICE [address] [facility] [address] 06/17/2022 13:46:55 06/17/2022 14:56:58 [id number] Giovanna Crocker RN Endoscopy , [address] [address] 11/11/2022 08:16:15 11/11/2022 13:43:57 [id number] Miquel Salazar MD FP, [facility], OFFICE 238 [facility] [place] [facility] [address] 12/15/2022 13:16:12 12/15/2022 13:56:14 [id number] APURVA Castaneda FP, [facility], OFFICE [address] [facility] [place] [facility] [address] 05/01/2023 13:15:48 05/01/2023 13:56:17 [id number] Mendy Vance NP FP, [facility], OFFICE [address] [place] [address] [place] [facility] [address] 05/09/2023 13:53:09 05/12/2023 13:08:35 [id number] Miquel Salazar MD FP, [facility], OFFICE [address] [place] [address] on [facility] [address] 06/22/2023 13:48:30 06/22/2023 14:55:15 [id number] APRUVA Castaneda FP, [facility], OFFICE [address] [place] [address] on [facility] [address] 09/08/2023 14:18:40 09/08/2023 14:56:41 [id number] Miquel Salazar MD FP, [facility], OFFICE [address] [place] [address] on [facility] [address] 12/04/2023 14:38:53 12/04/2023 15:33:49 [id number] Miquel Salazar MD , [facility], OFFICE [address] [place] [address] on [facility] [address] 12/25/2023 11:51:29 12/25/2023 12:56:18 [id number] Carson Barney DPM Podiatry, [address] [place] [facility] [address] 01/16/2024 10:16:17 01/16/2024 10:53:04 [id number] GREGOR LOAIZA PA-C FP, [facility], OFFICE [address] [place] [address] on [facility] [address] 05/14/2024 15:46:46 05/14/2024 16:32:47 [id number] Miquel Salazar MD FP, [facility], OFFICE [address] [place] [address] [place] [facility] [address] 06/24/2024 08:59:03 06/24/2024 09:49:38 Health Concerns Section Related Observation LastModified by Organization Detai ls LastModified Time None Recorded Concern Status LastModified by Organization Details LastModified Time None Recorded Advance Directives Directive None Recorded Payers Encounter Date Sequence Insurance Name Policy Number Policy [place] Covered Member ID [place] Member ID Guarantor Name 12/04/2023 1 [facility] [id number] Nancy Gesiorek [id number] Nancy Gesiorek 12/25/2023 1 [facility] [id number] Nancy Gesiorek [id number] Nancy Gesiorek 01/16/2024 1 [place] Nancy Gesiorek [id number] Nancy Gesiorek 01/16/2024 2 [place] [id number] Nancy Gesiorek [id number] Nancy Gesiorek 05/14/2024 1 [place] Nancy Gesiorek [id number] Nancy Gesiorek 05/14/2024 2 [place] [id number] Nancy Gesiorek [id number] Nancy Gesiorek 06/24/2024 1 [place] Nancy Gesiorek [id number] Nancy Gesiorek 06/24/2024 2 [place] [id number] Nancy Gesiorek [id number] Nancy Gesiorek OBGyn Episode No OBEpisode recorded.
--- OUTSIDE RECORDS SUMMARY | 2024-07-09 06:13 | XMS_ITS ---
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 Physical Medications Medication SIG (Take, Route, Frequency, [...] 06/26/2023 Encounters Encounter Location Date Provider Diagnosis [facility] [address] [place] [address] 06/26/2023 SHARON RICO Encounter for gynecological examination [...] Follow Up: 1 Year, Reason: Y 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 ? She has been in state of good health since her last exam. She has the following concerns: none ? She has received the [employer] Covid-19 vaccine. ? Relationship status: partnered for [...] Her last mammogram was 05/26/2023 (done at [facility]). ? She does not have a family history of colon cancer. She a has had a colonoscopy. She had a colonoscopy November 2022. She reports no polyps, so follow up in 10 yrs. ? The patient does exercise. She exercises x 2 days/week by walking and lifting weights. 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 * Medical History:? * Wheel Worker History:?/ Para?0/0.?Mammogram:?05/26/23 [facility] < 50% density, 05/15/21 < 50% density, at [facility]04/20/20 with additional imaging 05/2020, 05/04/19 < [...] in relationship with male partner, Babatunde. 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 ?Pets: none. ?no Sexual abuse. ?Sexually active: yes. ?no Travel outside of the [place]. ?no Verbal abuse. * Medications:?TakingamLODIPin e [...] no acute distress, well developed, well nourished, diamond die maker present in room.?HEAD:?normocephalic, atraumatic.?NECK/THYROID:?neck supple, full range [...] * Follow Up:?1 Year (Reason: Y early Wheel Worker Exam) * Images: Billing Information: * Visit Code:? 07795 Preventive Care Est Pt. Age 65 and over. * Procedure Codes:? 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 She has been in state of good health since her last exam. She has the following concerns: none She has received the [employer] Covid-19 vaccine. Relationship status: partnered for nearly [...] Her last mammogram was 05/26/2023 (done at [facility]). She does not have a family history of colon cancer. She a has had a colonoscopy. She had a colonoscopy November 2022. She reports no polyps, so follow up in 10 yrs. The patient does exercise. She exercises x 2 days/week by walking and lifting weights. Examination Category Sub-Category Detail Notes Category Not es General Examination GENERAL APPEARANCE: in no ac tangirnaq distress, well developed, well nourished, diamond die maker present in room HEAD: normocephalic, atrau matic [...]
--- OUTSIDE RECORDS SUMMARY | 2024-07-09 06:13 | XMS_ITS | Data Portability ---
Author Organization [facility], [facility] Address [address] [place] [address] Care Team Providers Care Field Appraiser Name Role Phone MIQUEL PENA Primary Care Provide r RYAN FORBES OTHER MERARY HANEY OTHER SHARMAINE DELGADO Sports Medicine [facility] Pain Management Assessment Encounter Date [...] meeting your goals. Please visit our website [facility] for more patient resources. As part of [...] available LAB Follow -Up 2024 09:00A M [facility] Lab Not available Not available Not available Kallie ss Visit 30 2024 08:30A M Miquel Salazar MD Not available Not available Not available Lab CBC 2024 025 [facility], [address] [place] [address], [address], 06/19/2024 10:43:11 TSH, serum or plasma 2024 025 [facility], [address] [place] [address], [address], 06/19/2024 14:21:50 BMP, serum or plasma 2024 025 [facility], [address] [place] [address], [address], 06/19/2024 15:57:53 BNP (B-typ e natriu retic peptid e), serum or plasma 2024 025 [facility], [address] [place] [address], [address], 06/20/2024 11:08:16 Referral podiat rist referr al - right foot gangli on cyst. causin g pain 2023 024 [email or web address] Carson Barney DPM, [address] [facility], [place], [address], 12/08/2023 14:33:13 Procedures None record ed. Surgeries [...] al tripon in value? N/A 2024 025 GELA Lassiter [facility] (Cardiology), [address] [place], [address], 05/22/2024 13:51:32 XR, chest - worsen ing SOB 2024 [facility] (Imaging), [address] [place], [address], 05/15/2024 10:55:52 Medication Orders omepra zole 20 mg capsul e,armando yed releas e 2024 025 [facility][id number], [address] [place], [address], 06/24/2024 09:43:57 ipratr opium bromid e 42 mcg (0.06 %) nasal spray 2024 025 [facility][id number], [address] [place], [address], 06/24/2024 09:41:06 methoc arbamo l 500 mg tablet [address] [facility], [address] [place], [address], 06/24/2024 09:09:21 amlodi pine 2.5 mg tablet [address] [facility], [address] [place], [address], 12/25/2023 12:42:05 ipratr opium bromid e 42 mcg (0.06 %) nasal spray [address] [facility], [address] [place], [address], 12/25/2023 12:45:42 Patient TargetsNo targets recorded. Patient Instructions Encounter Date Encounter Id Patient Instructions Last Modified By Organization Details Last Modified Time 12/04/[id number] [facility] serves as the focal point for all health care services the patient needs. [email or web address] Not available 12/04/2023 20:57:12 01/16/2024 [id number] Dispensed order for x-ray evaluation right foot. [email or web address] Not available 01/16/2024 10:46:13 05/14/2024 [id number] CCM: The provider and patient discussed the Chronic Care Management program, including the services provided, and any fees associated with them. [email or web address] Not available 05/14/2024 15:57:29 06/24/2024 [id number] pulmonary function test* - dyspnea on exertion for 3 months, neg exercise stress test, smoker x 20 yrs 20 pack year, quit age 42 no ABG's [email or web address] Not available 06/28/2024 12:47:26 Reason for Referral [employer] Referral for Gang lion cyst of right foot right foot ganglion cyst. causing pain Referring Physician: Miquel Salazar, Family Medicine, Encounter Date: 12/04/2023 Results Created Date Observation Date Name Description Value Unit Range Abnormal Flag Note LastModifiedBy Organization Detail LastModifiedTime 12/22/1912/22/2023 CBC WBC 5.97 K/? ? ?L 3.98-1 0.04 Not Available [address], [address], 12/22/2023 15:42:34 12/22/1912/22/2023 CBC RBC 3.55 M/? ? ?L 3.93-5 .22 low Not Available [address], [address], 12/22/2023 15:42:34 12/22/1912/22/2023 CBC HGB 11.9 g/dL 11.2-1 5.7 Not Available [address], [address], 12/22/2023 15:42:34 12/22/1912/22/2023 CBC HCT 35.3 % 34.1-4 4.9 Not Available [address], [address], 12/22/2023 15:42:34 12/22/1912/22/2023 CBC MCV 99.4 fL 79.4-9 4.8 high Not Available [address], [address], 12/22/2023 15:42:34 12/22/19 24 12/22/2023 CBC MCH 33.5 pg 25.6-3 2.2 high Not Available [address], [address], 12/22/2023 15:42:34 12/22/19 24 12/22/2023 CBC MCHC 33.7 g/dL 32.2-3 5.5 Not Available [address], [address], 12/22/2023 15:42:34 12/22/1912/22/2023 CBC plt 300 K/? ? ?L 182-36 9 Not Available [address], [address], 12/22/2023 15:42:34 12/22/1912/22/2023 CBC MPV 9.6 fL 9.4-12 .3 Not Available [address], [address], 12/22/2023 15:42:34 12/22/1912/22/2023 CBC neut% 52.9 % 34.0-7 1.1 Not Available [address], [address], 12/22/2023 15:42:34 12/22/19 24 12/22/2023 CBC neut# 3.16 1.56-6 .13 Not Available [address], [address], 12/22/2023 15:42:34 12/22/19 24 12/22/2023 CBC lymph % 34.0 % 19.3-5 1.7 Not Available [address], [address], 12/22/2023 15:42:34 12/22/19 24 12/22/2023 CBC lymph # 2.03 K/? ? ?L 1.18-3 .74 Not Available [address], [address], 12/22/2023 15:42:34 12/22/19 24 12/22/2023 CBC mono% 8.7 % 4.7-12 .5 Not Available [address], [address], 12/22/2023 15:42:34 12/22/19 24 12/22/2023 CBC mono# 0.52 0.24-0 .56 Not Available [address], [address], 12/22/2023 15:42:34 12/22/19 24 12/22/2023 CBC eo% 3.7 % 0.7-5. 8 Not Available [address], [address], 12/22/2023 15:42:34 12/22/19 24 12/22/2023 CBC eo# 0.22 0.04-0 .36 Not Available [address], [address], 12/22/2023 15:42:34 12/22/19 24 12/22/2023 CBC baso% 0.5 % 0.1-1. 2 Not Available [address], [address], 12/22/2023 15:42:34 12/22/19 24 12/22/2023 CBC baso# 0.03 0.00-0 .08 Not Available [address], [address], 12/22/2023 15:42:34 12/22/19 24 12/22/2023 CBC RDW-CV 11.8 % 11.7-1 4.4 Not Available [address], [address], 12/22/2023 15:42:34 12/22/19 24 12/22/2023 CBC Ig% 0.200 % 0.000- 1.500 Ig % >0.5 Indic ates possi ble Left Shift Not Available [address], [address], 12/22/2023 15:42:34 12/22/19 24 12/22/2023 CBC Ig# 0.010 0.000- 0.093 Not Available [address], [address], 12/22/2023 15:42:34 12/22/19 24 12/22/2023 CBC NRBC% 0.0 % 0.0-0. 2 Not Available [address], [address], 12/22/2023 15:42:34 12/22/19 24 12/22/2023 CBC NRBC# 0.000 0.000- 0.012 Not Available [address], [address], 12/22/2023 15:42:34 12/22/19 24 12/22/2023 COMP. METAB OLIC PANEL glucose 98 mg/dL 70-100 Not Available [address], [address], 12/22/2023 16:25:37 12/22/19 24 12/22/2023 COMP. METAB OLIC PANEL BUN 18 mg/dL 7-18 Not Available [address], [address], 12/22/2023 16:25:37 12/22/19 24 12/22/2023 COMP. METAB OLIC PANEL creatinine 0.7 mg/dL 0.8-1. 3 low Not Available [address], [address], 12/22/2023 16:25:37 12/22/19 24 12/22/2023 COMP. METAB OLIC PANEL B/C 25.7 ratio Not Available [address], [address], 12/22/2023 16:25:37 12/22/19 24 12/22/2023 COMP. METAB [...] be used in pregn garrison. Not Available [address], [address], 12/22/2023 16:25:37 12/22/19 24 12/22/2023 COMP. METAB OLIC PANEL sodium 137 mmol/ L 136-14 5 Not Available [address], [address], 12/22/2023 16:25:37 12/22/19 24 12/22/2023 COMP. METAB OLIC PANEL potassium 5.2 mmol/ L 3.5-5. 1 high Not Available [address], [address], 12/22/2023 16:25:37 12/22/19 24 12/22/2023 COMP. METAB OLIC PANEL chloride 102 mmol/ L 96-107 Not Available [address], [address], 12/22/2023 16:25:37 12/22/19 24 12/22/2023 COMP. METAB OLIC PANEL anion gap 11.1 5.0-15 .0 Not Available [address], [address], 12/22/2023 16:25:37 12/22/19 24 12/22/2023 COMP. METAB OLIC PANEL CO2 24 mmol/ L 21-32 Not Available [address], [address], 12/22/2023 16:25:37 12/22/19 24 12/22/2023 COMP. METAB OLIC PANEL calcium 9.3 mg/dL 8.5-10 .3 Not Available [address], [address], 12/22/2023 16:25:37 12/22/19 24 12/22/2023 COMP. METAB OLIC PANEL total protein 7.4 g/dL 6.4-8. 2 Not Available [address], [address], 12/22/2023 16:25:37 12/22/19 24 12/22/2023 COMP. METAB OLIC PANEL albumin 3.7 g/dL 3.4-5. 0 Not Available [address], [address], 12/22/2023 16:25:37 12/22/19 24 12/22/2023 COMP. METAB OLIC PANEL globulin 3.7 g/dL Not Available [address], [address], 12/22/2023 16:25:37 12/22/19 24 12/22/2023 COMP. METAB OLIC PANEL A/G 1.0 ratio 0.8-2. 0 Not Available [address], [address], 12/22/2023 16:25:37 12/22/19 24 12/22/2023 COMP. METAB OLIC PANEL total bilirubin 0.40 mg/dL 0.00-1 .00 Not Available [address], [address], 12/22/2023 16:25:37 12/22/19 24 12/22/2023 COMP. METAB OLIC PANEL AST 26 U/L 0-37 Not Available [address], [address], 12/22/2023 16:25:37 12/22/19 24 12/22/2023 COMP. METAB OLIC PANEL ALT 32 U/L 6-63 Not Available [address], [address], 12/22/2023 16:25:37 12/22/19 24 12/22/2023 COMP. METAB OLIC PANEL alk. phos. 95 U/L 50-136 Not Available [address], [address], 12/22/2023 16:25:37 12/22/19 24 12/22/2023 LIPID PANEL cholesterol 249 mg/dL <200 mg/dl Leidy able 200-2 39 mg/dl Borde rline High >240 mg/dl High Not Available [address], [address], 12/22/2023 16:25:37 12/22/19 24 12/22/2023 LIPID PANEL triglyceride s 59 mg/dL <150 mg/dL Ethel l 150-1 99 mg/dL Borde rline High 200-4 99 mg/dL High >500 mg/dL Very High Not Available [address], [address], 12/22/2023 16:25:37 12/22/19 24 12/22/2023 LIPID PANEL direct HDL 82 mg/dL <40 mg/dl - Major Risk for CHD >60 mg/dl - Negat myranda Risk for CHD Not Available [address], [address], 12/22/2023 16:25:37 12/22/19 24 12/22/2023 DIREC T [...] 0-1 risk facto r is not nitesh causeyy. Not Available [address], [address], 12/22/2023 16:25:38 06/20/19 25 06/19/2024 CBC WBC 6.19 K/? ? ?L 3.98-1 0.04 Not Available [address], [address], 06/19/2024 10:43:11 06/20/19 25 06/19/2024 CBC RBC 4.03 M/? ? ?L 3.93-5 .22 Not Available [address], [address], 06/19/2024 10:43:11 06/20/19 25 06/19/2024 CBC HGB 13.3 g/dL 11.2-1 5.7 Not Available [address], [address], 06/19/2024 10:43:11 06/20/19 25 06/19/2024 CBC HCT 39.0 % 34.1-4 4.9 Not Available [address], [address], 06/19/2024 10:43:11 06/20/19 25 06/19/2024 CBC MCV 96.8 fL 79.4-9 4.8 high Not Available [address], [address], 06/19/2024 10:43:11 06/20/19 25 06/19/2024 CBC MCH 33.0 pg 25.6-3 2.2 high Not Available [address], [address], 06/19/2024 10:43:11 06/20/19 25 06/19/2024 CBC MCHC 34.1 g/dL 32.2-3 5.5 Not Available [address], [address], 06/19/2024 10:43:11 06/20/19 25 06/19/2024 CBC plt 279 K/? ? ?L 182-36 9 Not Available [address], [address], 06/19/2024 10:43:11 06/20/19 25 06/19/2024 CBC MPV 9.3 fL 9.4-12 .3 low Not Available [address], [address], 06/19/2024 10:43:11 06/20/19 25 06/19/2024 CBC neut% 48.6 % 34.0-7 1.1 Not Available [address], [address], 06/19/2024 10:43:11 06/20/19 25 06/19/2024 CBC neut# 3.01 1.56-6 .13 Not Available [address], [address], 06/19/2024 10:43:11 06/20/19 25 06/19/2024 CBC lymph % 36.5 % 19.3-5 1.7 Not Available [address], [address], 06/19/2024 10:43:11 06/20/19 25 06/19/2024 CBC lymph # 2.26 K/? ? ?L 1.18-3 .74 Not Available [address], [address], 06/19/2024 10:43:11 06/20/19 25 06/19/2024 CBC mono% 8.9 % 4.7-12 .5 Not Available [address], [address], 06/19/2024 10:43:11 06/20/19 25 06/19/2024 CBC mono# 0.55 0.24-0 .56 Not Available [address], [address], 06/19/2024 10:43:11 06/20/19 25 06/19/2024 CBC eo% 5.2 % 0.7-5. 8 Not Available [address], [address], 06/19/2024 10:43:11 06/20/19 25 06/19/2024 CBC eo# 0.32 0.04-0 .36 Not Available [address], [address], 06/19/2024 10:43:11 06/20/19 25 06/19/2024 CBC baso% 0.6 % 0.1-1. 2 Not Available [address], [address], 06/19/2024 10:43:11 06/20/19 25 06/19/2024 CBC baso# 0.04 0.00-0 .08 Not Available [address], [address], 06/19/2024 10:43:11 06/20/19 25 06/19/2024 CBC RDW-CV 11.9 % 11.7-1 4.4 Not Available [address], [address], 06/19/2024 10:43:11 06/20/19 25 06/19/2024 CBC Ig% 0.200 % 0.000- 1.500 Ig % >0.5 Indic ates possi ble Left Shift Not Available [address], [address], 06/19/2024 10:43:11 06/20/19 25 06/19/2024 CBC Ig# 0.010 0.000- 0.093 Not Available [address], [address], 06/19/2024 10:43:11 06/20/19 25 06/19/2024 CBC NRBC% 0.0 % 0.0-0. 2 Not Available [address], [address], 06/19/2024 10:43:11 06/20/19 25 06/19/2024 CBC NRBC# 0.000 0.000- 0.012 Not Available [address], [address], 06/19/2024 10:43:11 06/20/19 25 06/19/2024 TSH TSH 4.32 uIU/m L 0.50-6 .00 The Ameri can Colle ge of Endoc rinol ogy and Ameri can Thyro id Assoc iatio n recom mend goal TSH value s betwe en 0.4-4 .0 mIU/m L. Not Available [address], [address], 06/19/2024 14:21:50 06/20/1906/19/2024 BASIC METAB OLIC PANEL glucose 94 mg/dL 70-100 Not Available [address], [address], 06/19/2024 15:57:53 06/20/19 25 06/19/2024 BASIC METAB OLIC PANEL BUN 15 mg/dL 7-18 Not Available [address], [address], 06/19/2024 15:57:53 06/20/19 25 06/19/2024 BASIC METAB OLIC PANEL creatinine 0.7 mg/dL 0.8-1. 3 low Not Available [address], [address], 06/19/2024 15:57:53 06/20/19 25 06/19/2024 BASIC METAB OLIC PANEL B/C 21.4 ratio Not Available [address], [address], 06/19/2024 15:57:53 06/20/19 25 06/19/2024 BASIC METAB [...] be used in pregn garrison. Not Available [address], [address], 06/19/2024 15:57:53 06/20/19 25 06/19/2024 BASIC METAB OLIC PANEL sodium 137 mmol/ L 136-14 5 Not Available [address], [address], 06/19/2024 15:57:53 06/20/19 25 06/19/2024 BASIC METAB OLIC PANEL potassium 4.5 mmol/ L 3.5-5. 1 Not Available [address], [address], 06/19/2024 15:57:53 06/20/19 25 06/19/2024 BASIC METAB OLIC PANEL chloride 102 mmol/ L 96-107 Not Available [address], [address], 06/19/2024 15:57:53 06/20/19 25 06/19/2024 BASIC METAB OLIC PANEL anion gap 10.4 5.0-15 .0 Not Available [address], [address], 06/19/2024 15:57:53 06/20/19 25 06/19/2024 BASIC METAB OLIC PANEL CO2 25 mmol/ L 21-32 Not Available [address], [address], 06/19/2024 15:57:53 06/20/19 25 06/19/2024 BASIC METAB OLIC PANEL calcium 9.3 mg/dL 8.5-10 .3 Not Available [address], [address], 06/19/2024 15:57:53 06/20/19 25 06/19/2024 LIPID PANEL cholesterol 250 mg/dL <200 mg/dl Leidy able 200-2 39 mg/dl Borde rline High >240 mg/dl High Not Available [address], [address], 06/19/2024 16:23:28 06/20/19 25 06/19/2024 LIPID PANEL triglyceride s 80 mg/dL <150 mg/dL Ethel l 150-1 99 mg/dL Borde rline High 200-4 99 mg/dL High >500 mg/dL Very High Not Available [address], [address], 06/19/2024 16:23:28 06/20/19 25 06/19/2024 LIPID PANEL direct HDL 93 mg/dL <40 mg/dl - Major Risk for CHD >60 mg/dl - Negat myranda Risk for CHD Not Available [address], [address], 06/19/2024 16:23:28 06/20/19 25 06/19/2024 DIREC T [...] r is not neces deandre. Not Available [address], [address], 06/19/2024 16:23:29 06/20/19 25 06/20/2024 B TYPE [...] ol. 2002; 40:97 6-982 . Not Available [facility] [address] [place], [address], 06/20/2024 11:08:16 01/17/20 24 01/17/2024 XR, foot [...] Iván pierre Physic aaliyah: Victor Manuel Kaufman [facility]) [address], [place], [address], 01/17/2024 10:00:29 05/15/1905/15/2024 XR, chest CLINIC AL [...] e. Iván pierre Physic aaliyah: Victor Manuel gar [facility] (Imaging) [address], [place], [address], 05/16/2024 17:05:22 05/22/1905/22/2024 stres s test exerc ise Table format ting from the origin al result was not includ ed. Images from the origin al result were not includ ed. Result Report Patien t Name: Gesior ek, Racheal e Patien t Class: Outpat ient Techno logist : Bruffe eAyana Perfor jeanine Physic aaliyah: None Select ed Orderi ng Prov: Mike Loaiza Primar y Care Physic aaliyah: Jesus Swanson lo Diagno sis: Dyspne a, unspec ified type [R06.0 0 (ICD-1 0-CM)] Reason For Exam: Dyspne a on exerti on Proced ure(s) Perfor med: Stress Test Exerci se Exam Date and Time: 2024 11:13 AM Access ion #: [id number] Result Status : Final Stress Test [...] ed stress report for full detail sDenver Chao, RECORD LABEL INTERN with Dr. Kenney er Respon se to Stress The patien t [...] on 5 at 1348 EST JESUS HEREDIA [facility] [address] [place] [address], [address], 05/23/2024 12:59:34 05/22/19 25 05/22/2024 exerc ise stres s test No observ ation record ed. [address], [address], 05/23/2024 12:59:34 06/12/1906/10/2024 MAMMO , scree tye No observ ation record ed. clementina recinos [facility] [address] [place], [address], 06/11/2024 21:55:32 Result Notes None recorded. Problems Name Problem SNOMED Code Status Onset Date Resolution Date Notes Provider Name and Address Organization Details Recorded Time Sprain of sacroilia c ligament 63302946 Completed 02/27/2013 Miquel Salazar MD [address] [place], [address], [facility] 6 16:04:44 Diarrhea 73177876 Completed 02/27/2013 Miquel Salazar MD [address] [place] [address] [place], [address], [facility] 6 16:04:44 Low back pain 669416282 Active Miquel Salazar MD [address] [place] [address] [place], [address], [facility] 6 16:04:44 Hip pain 42469322 Completed 02/27/2013 Miquel Salazar MD [address] [place] [address] [place], [address], [facility] 6 16:04:44 Acute bronchiti s 82752117 Completed 02/27/2013 Miquel Salazar MD [address] [place] [address] [place], [address], [facility] 6 16:04:44 Congenita l hearing disorder 42063040 Active Miquel Salazar MD [address] [place] [address] [place], [address], [facility] 6 19:53:11 Migraine 53472387 Active 2017 Miquel Salazar MD [address] [place] [address] [place], [address], [facility] 8 16:38:15 Essential hypertens ion 74916884 Active 2018 Miquel Salazar MD [address] [place] [address] [place], [address], [facility] 9 09:15:00 Lymphocyt ic-plasma cytic colitis Active 2020 Miquel Salazar MD [address] [place] [address] [place], [address], [facility] 1 11:59:55 Osteopeni a 263483758 Active 2023 Miquel Salazar MD [address] [place], [address], [facility] 20:11:57 Chronic neck pain for greater than 3 months 793772691206 103 Active 2023 Miquel Salazar MD [address] [place] [address] [facility] [place], [address], [facility] 16:57:36 Notes:Some problems listed i n Document: #[id number] could not be added to this patient's chart. Please review this document and add these problems to the patient's chart manually as needed. Problem Notes None recorded. Procedures Surgical History Date Name Laterality Status Provider Name and Address Organization Details Recorded Time 12/25/19 24 Cardiovascular disease risk reduction counseling completed Miquel Salazar MD [address] [place] [address], [phone], [facility] 12/25/2023 12:39:12 12/04/19 24 [id number] completed Miquel Salazar MD [address] [place] [address], [address], [facility] 12/04/2023 20:57:12 06/22/19 24 Medicare Wellness Visit completed Haydee Pollock MA [facility] 06/22/2023 10:30:57 11/15/19 23 Colonoscopy completed Miquel Salazar MD [address] [place] [address], [address], [facility] 11/26/2022 19:55:34 06/18/19 23 Medicare Wellness Visit completed Haydee Pollock MA [facility] 06/17/2022 08:23:54 05/28/19 22 Medicare Wellness Visit completed Haydee Pollock MA [facility] 05/28/2021 08:39:36 05/28/19 22 Alcohol use screening completed Haydee Pollock MA [facility] 05/28/2021 08:39:36 05/28/19 22 Cardiovascular disease risk reduction counseling completed Haydee Pollock MA [facility] 05/28/2021 08:39:37 05/28/19 22 Medicare Risk for Falls Screen completed Haydee Pollock MA [facility] 05/28/2021 14:50:49 05/28/19 22 Advanced Care Planning completed Miquel Salazar MD [address] [place] [address], [address], [facility] 05/28/2021 21:13:29 07/24/19 21 Medicare Risk for Falls Screen completed Hansa Portillo CMA [facility] 07/23/2020 09:13:13 11/25/19 20 prevention-cardiov ascular risk reduction counseling completed [facility] 11/22/2019 12:17:26 11/25/19 20 prevention-annual alcohol misuse screening completed [facility] 11/22/2019 12:17:26 02/23/20 17 Other (specify) completed Miquel Salazar MD [address] [place] [address], [address], [facility] 03/08/2017 06:44:43 07/10/19 15 Other (specify) completed Miquel Salazar MD [address] [place] [address], [address], [facility] 07/12/2014 10:51:09 09/11/19 13 Colonoscopy completed Miquel Salazar MD [address] [place] [address], [address], [facility] 05/01/2013 12:50:27 05/25/19 13 Treatment and Advice completed Raven Dobbins Mph, LPT [address] [place] [address], [address], [facility] 05/25/2012 10:16:20 Total Hysterectomy completed Jesus Salazar MD [address] [place] [address], [address], [facility] 08/24/2012 10:30:09 Appendectomy completed Judy Sood MA [facility] 04/08/2011 15:42:03 Imaging Results Imaging Date Name Status LastModified by Organiz ation Details LastModified Time 01/17/2024 XR, foot completed [facility] [address], [place], [address], 01/17/2024 10:00:29 05/15/2024 XR, chest completed [facility] (Imaging) [address] , [place], [address], 05/16/2024 17:05:22 05/22/2024 stress test exercise completed [facility] [address] [place], [address], 05/23/2024 12:59:34 05/22/2024 exercise stress test completed [facility] [address] [place], [address], 05/23/2024 12:59:34 06/10/2024 MAMMO, screening completed [facility] [address] [place], [address], 06/11/2024 21:55:32 Procedure Notes None recorded. Medical Equipment None Reported. Allergies Allergen ID Allergen Name Allergen Category Reaction Reaction Severity Criticality Documentation Date Start Date Code Code System Note Provider Name and Address Organization Details Recorded Time 812344 lisinopri l medicatio n cough Not available Not available 05/06/2019 60358 RxNorm Miquel Salazar MD [address] [place] [address], [place], [address] [place] [address] 0 15:45:08 23226 Product containin g penicilli n (product) medicatio n Not available Not available Not available 01/14/2011 39783 8001 SNOMED Not Available [facility] 1 06:05:41 20339 minocycli ne medicatio n Not available Not available Not available 01/14/2011 6980 RxNorm Not Available [facility] 06:05:41 Medications Name Sig Start Date Stop [...] Updated DateTime 4 162.56 cm 23.7 kg/m2 17093.7 5 g 76 /min 126 mm[Hg] 74 mm[Hg] Haydee Pollock [facility] 4 15:07:05 Date Recorded Body height Body mass index (BMI) Body weight Heart rate Systolic blood pressure Diastolic blood pressure Provider Name and Address Organization Details Last Updated DateTime 162.56 cm 23.5 kg/m2 63517.1 5 g 76 /min 132 mm[Hg] 74 mm[Hg] Haydee Ron [facility] 4 12:27:28 Date Recorded Systolic blood pressure Diastolic blood pressure Provider Name and Address Organization Details Last Updated DateTime 12/25/2023 110 mm[Hg] 70 mm[Hg] Miquel Salazar MD [address] [place] [address], [id number], [facility] 12/25/2023 12:46:14 Date Recorded Body height Body mass index (BMI) Body weight Provider Name and Address Organization Details Last Updated DateTime 01/16/2024 162.56 cm 23.8 kg/m2 43815.62 g Rody Hardin LPN [facility] 01/16/2024 10:23:13 Date Recorded Body height Body mass index (BMI) Body weight Oxygen saturation Oxygen saturation in Arterial blood by Pulse oximetry Heart rate Systolic blood pressure Diastolic blood pressure Provider Name and Address Organization Details Last Updated DateTime 5 162.56 cm 24.4 kg/m2 66865.8 2 g 98 % 98 % 86 /min 124 mm[Hg] 84 mm[Hg] Saloni Jacques [facility] 5 16:08:34 Date Recorded Body height Body mass index (BMI) Body weight Heart rate Systolic blood pressure Diastolic blood pressure Provider Name and Address Organization Details Last Updated DateTime 03/17/202 5 162.56 cm 24.4 kg/m2 33510.1 2 g 76 /min 142 mm[Hg] 84 mm[Hg] Haydee Pollock MA [facility] 09:16:23 Date Recorded Systolic blood pressure Diastolic blood pressure Provider Name and Address Organization Details Last Updated DateTime 06/24/2024 124 mm[Hg] 80 mm[Hg] Miquel Salazar MD [address] [place] [address], [phone], [facility] 06/24/2024 09:40:20 Date Recorded Systolic blood pressure Diastolic blood pressure Provider Name and Address Organization Details Last Updated DateTime 04/22/2024 130 mm[Hg] 68 mm[Hg] Estella Villa RN [facility] 04/23/2024 09:22:02 Social History Question Answer Notes LastModified by Organizat ion Details LastModified Time Tobacco Smoking Status Former Smoker quit 1995. Smoked for about 25 years. EZRA Angel, 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 Information not available 05/15/2015 When Did You [...] Others Boyfriend Since 20 Yrs - Babatunde [email or web address] Information not available 01/14/2011 Patient Has Health [...] Medical History Condition Response Migraine Headaches Y Crohn's Disease Y Allergic Rhinitis Y Hearing Loss Y CANCER Y Chronic Neck Pain Y Gynecological History Statement/Question Response Hysterectomy Y [...] polysaccharide PPV23 1 completed Miquel Salazar MD [address] [place] [address], [phone], [facility] 02/26/2021 14:05:27 COVID-19, mRNA, LNP-S, PF, 30 mcg/0.3 mL dose 1 completed Hansa Portillo CMA [facility] 07/23/2020 09:14:10 COVID-19, mRNA, LNP-S, PF, 30 mcg/0.3 mL dose 3 [facility] 12:30:04 Influenza, adjuvanted, quadrivalent, PF 3 completed [facility] 12/25/2023 12:25:29 COVID-19, mRNA, LNP-S, PF, 30 mcg/0.3 mL dose 1 [facility] 12/25/2023 12:25:29 COVID-19, mRNA, LNP-S, PF, 30 mcg/0.3 mL dose, lia-sucrose 2 [facility] 12/25/2023 12:25:29 COVID-19, mRNA, LNP-S, PF, lia-sucrose, 30 mcg/0.3 mL 3 completed Haydee Pollock [facility] 12/25/2023 12:25:29 Pneumococcal conjugate PCV20, polysaccharide HUS256 conjugate, adjuvant, PF 4 completed Haydee Ronsaroj [facility] 12/25/2023 12:25:36 COVID-19, mRNA, LNP-S, PF, 50 mcg/0.5 mL 4 completed Haydee Asafsaroj [facility] 12/25/2023 12:25:36 Influenza, high-dose, trivalent, PF 4 completed [facility] 12/25/2023 12:25:36 Past Encounters Encounter ID Performer Location Encounter Start Date Encounter Closed Date Diagnosis/Indication Diagnosis SNOMED-CT Code Diagnosis ICD10 Code Diagnosis Note [id number] Radiology , [address] [address] 11/12/2010 13:51:13 11/22/2010 12:23:08 [id number] [facility], OFFICE [address] [place] [address] 6 01/14/2011 13:44:02 01/17/2011 06:59:04 [id number] Michael Quiroz , [facility], OFFICE [address] [place] [address]207 6 02/10/2012 09:20:09 02/10/2012 11:00:55 [id number] Arabella Sood MD , [facility], OFFICE [address] [place] [address] 6 02/22/2012 09:14:13 02/22/2012 10:20:13 [id number] Brian Millard MD Radiology , [facility] [address] [place] [facility] [address] 02/22/2012 10:20:36 02/28/2012 13:59:22 [id number] Michael Quiroz , [facility], OFFICE [address] [facility] [place] [address] 03/09/2012 15:12:29 03/09/2012 16:04:52 [id number] Michael Quiroz , [facility], OFFICE [address] [facility] [address] 03/23/2012 08:02:55 03/23/2012 08:43:50 [id number] Elba Adams NP , [facility], OFFICE [address] [facility] [place] [facility] [address] 04/19/2012 09:13:18 04/19/2012 10:03:50 [id number] Miquel Salazar MD , [facility], OFFICE [address] [facility] [place] [facility] [address] 04/27/2012 08:06:14 04/27/2012 09:01:31 [id number] Miquel Salazar MD , [facility], OFFICE [address] [facility] [place] [facility] [address] 05/18/2012 08:40:21 05/18/2012 09:36:54 [id number] Raven Dobbins Mph, LPT Physical Therapy, [facility] [address] [facility] [place] [facility] [address] 05/25/2012 08:16:34 05/25/2012 10:24:40 [id number] Micheal Quiroz , [facility], OFFICE [address] [facility] [place] [facility] [address] 08/09/2012 16:03:43 08/10/2012 06:43:41 [id number] CESAR Elaine , [facility], OFFICE [address] [facility] [place] [facility] [address] 08/15/2012 16:35:53 08/16/2012 06:43:27 [id number] Nithya Stahl , [facility], OFFICE [address] [place] [address] 08/20/2012 14:22:08 08/20/2012 15:25:51 [id number] , [facility], OFFICE [address] [place] [address]67[address] 6 08/24/2012 09:31:14 08/24/2012 10:50:07 [id number] Melani Norman LPN , [facility], OFFICE [address] [place] [address] 6 10/16/2012 08:49:42 10/16/2012 09:54:00 [id number] Miquel Salazar MD , [facility], OFFICE [address] [place] [address] 6 09/20/2013 07:59:33 09/20/2013 08:58:38 Elevated blood-pressure reading without diagnosis of hypertension 123696352 Upper resp iratory infection 71288999 Cough 67049970 Adult heal th examination 648960907 see Risk Assessment and Lifestyle Change Counseling section above [id number] Rosalia Vidal CMA FP, [facility], OFFICE [address] [place] [address] 6 09/27/2013 13:19:21 09/27/2013 13:42:57 Acute sinusitis 23643183 Dysfunctio n of eustachian tube 25734697 [id number] , [facility], OFFICE [address] [place] [address] 6 02/14/2014 09:33:13 02/14/2014 10:48:12 Adult health examination 228601303 see Risk Assessment and Lifestyle Change Counseling section above Counseling 116165387 Hearing loss 47808249 Migraine 18324821 Colitis 25018593 [id number] MD KIRILL Jain, C, OFFICE [address] [place] [address] 6 04/22/2014 15:33:39 04/22/2014 16:43:49 Low back strain 549882480 Upper resp iratory infection 78161176 Cough 01491532 [id number] Alin Olivares MD FP, C, OFFICE [address] [place] [address] 6 02/25/2015 15:39:15 02/25/2015 16:36:12 Screening for disorder 638328679 Z11.59 Foot pain 98686777 M79.6 71 [id number] Nuha Mariano, PT Physical Therapy, [address] [address] 6 03/17/2015 17:05:32 03/18/2015 09:42:30 Foot pain 55394010 M79.053 [id number] Nuha Mariano, PT Physical Therapy, [address] [address] 6 03/23/2015 16:47:44 03/24/2015 08:15:30 Foot pain 56148629 M79.450 [id number] Mary Lou Copeland Podiatry, [address] [address] 6 04/14/2015 14:35:36 04/16/2015 15:51:16 Plantar fasciitis 161057448 M72.2 [id number] Miquel Salazar MD , [facility], OFFICE [address] [place] [address] 6 05/15/2015 15:46:19 05/18/2015 15:29:00 Adult health examination 684648745 Z00.00 see Risk Assessment and Lifestyle Change Counseling section above Counseling 538844537 Z71 .9 Migraine 95532657 G43.90 9 Varicella vaccination 68 815302 Z23 Congenital hearing disorder 35491875 H90.8 [id number] Carson Barney Daiana Podiatry, [address] [address] 6 06/02/2015 14:49:39 06/02/2015 15:47:38 Plantar fasciitis 452220863 M72.2 [id number] Lexie ROY, [facility], OFFICE [address] [place] [address] 6 2015 15:06:18 06/20/2015 11:41:45 Upper respiratory infection 54854484 J06.9 [id number] Carson Barney DPM Podiatry, [address] [address] 6 07/30/2015 15:15:59 07/30/2015 15:54:16 Plantar fasciitis 201611240 M72.2 [id number] Carson Barney DPM Podiatry, [address] [address] 6 10/01/2015 15:11:30 10/01/2015 16:37:34 Plantar fasciitis 292519740 M72.2 [id number] Miquel Salazar MD , [facility], OFFICE [address] [place] [address] 6 07/18/2016 15:41:28 07/18/2016 16:35:55 Adult health examination 324943611 Z00.00 see Risk Assessment and Lifestyle Change Counseling section above Congenital hearing disorder 64353941 H90.8 Headache 06543735 R51 Knee pain 36031656 M25.5 61 [id number] Mendy Vance NP , [facility], OFFICE [address] [place] [address] 6 09/23/2016 15:34:42 09/23/2016 16:02:53 Low back pain 706214921 M54.5 right sided [id number] Candido Dodson MD , [facility], OFFICE [address] [place] [address] 06/10/2017 09:10:12 06/10/2017 10:14:37 Edema of lower extremity 422721938 R60.0 no ultrasound available over weekend; will check D dimer and if negative just supportive measures; if positive send to ER for u/s. [id number] Miquel Salazar MD , [facility], OFFICE [address] [place] [address] 6 06/23/2017 15:10:50 06/23/2017 16:33:11 Pain in left knee 0438613509 94709 M25.894 [id number] Michael Ann NP , [facility], OFFICE [address] [place] [address] 6 08/03/2017 15:11:10 08/03/2017 15:55:08 Abdominal pain 51790232 R10.9 r/o U colitis mild, GB disease, pancreatit is, gastroente ritis-- BM's are normal for her and without fever.cons ider watching, bentyl, US abd, : she has not missed any work, eating well and BM's unchanged. diagnostic picture is unclear. will get abd US to evaluate for gallstones . If sx persist or worsen she is to either go to ED or contact her PCP. [id number] MD KIRILL Jain, C, OFFICE [address] [place] [address] 6 11/17/2017 15:39:36 11/17/2017 16:58:56 Adult health examination 292708001 Z00.00 see Risk Assessment and Lifestyle Change Counseling section above Depression screening 171 400638 Z13.89 depression screening tool administer ed, entered into emr, scored and discussed, time greater than 7.5 minutes Congenital hearing disorder 82122826 H90.8 Migraine 06159524 G43.90 9 [id number] MD KIRILL Jain, Amina, OFFICE [address] [place] [address]16[address] 6 11/22/2018 15:54:32 11/22/2018 17:00:32 Adult health examination 435807983 Z00.00 see Risk Assessment and Lifestyle Change Counseling section above Depression screening 171 471727 Z13.89 depression screening tool administer ed, entered into emr, scored and discussed, time greater than 7.5 minutes Migraine 41915433 G43.90 9 Elevated blood-pressure reading without diagnosis of hypertension 888914511 R03.0 [id number] MD KIRLIL Jain, C, OFFICE [address] [place] [address] 6 04/05/2019 08:45:14 04/05/2019 10:16:08 Essential hypertension 47796438 I10 [id number] MD KIRILL Jain, C, OFFICE [address] [place] [address] 6 08/08/2019 08:51:07 08/09/2019 13:52:03 Essential hypertension 75130897 I10 [id number] MD KIRILL Jain, Amina, OFFICE [address] [place] [address]41[address] 6 11/25/2019 14:54:07 11/26/2019 09:22:11 Adult health examination 477273122 Z00.00 see Risk Assessment and Lifestyle Change Counseling section above Depression screening 171 979582 Z13.89 depression screening tool administer ed, entered into emr, scored and discussed, time greater than 7.5 minutes Screening for alcohol abuse 397098913 Z13.39 Counseling 161265324 Z71 .89 Essential hypertension 33314535 I10 Congenital hearing disorder 89991661 H90.8 Migraine 59893929 G43.90 9 [id number] Melani Anne LPN , [facility], OFFICE [address] [place] [address] 01/25/2020 08:58:43 01/28/2020 12:08:00 Active or passive immunization 632355391 Z23 [id number] Carson Barney DPM Podiatry, [address] [address] 02/28/2020 07:53:48 03/02/2020 13:04:56 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 [id number] Miquel Salazar MD , [facility], OFFICE [address] [place] [address]73[address] 6 05/19/2020 10:47:12 05/20/2020 15:40:02 Essential hypertension 00029507 I10 [id number] Miquel Salazar MD , [facility], OFFICE [address] [place] [address] 45254[address] 6 06/25/2020 08:03:12 06/29/2020 11:33:28 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 K52.646 [id number] Miquel Salazar MD , [facility], OFFICE [address] [place] [address]4044[address] 6 07/23/2020 09:08:07 07/27/2020 13:46:16 Lymphocytic-plasmacyt ic colitis 34554605 K52.832 Essential hypertension 89055697 I10 [id number] Miquel Salazar MD , [facility], OFFICE [address] [place] [address] 6 09/03/2020 11:44:14 09/04/2020 09:57:05 Essential hypertension 05479332 I10 Lymphocyti c-plasmacyt ic colitis 99403894 K52.832 Neck pain 32772425 M54.2 Thoracic back pain 50409 8004 M54.6 [id number] Miquel Salazar MD , [facility], OFFICE [address] [place] [address] 6 11/20/2020 09:19:54 11/22/2020 19:09:53 Essential hypertension 57179989 I10 Migraine 11732719 G43.90 9 [id number] Miquel Salazar MD , [facility], OFFICE [address] [place] [address] 11832[address] 6 12/24/2020 10:20:05 01/06/2021 09:09:52 Screening for malignant neoplasm of colon 656916401 Z12.11 Referral for a DIRECT booked colonoscop y. This patient is a healthy ASA Class 1 or 2 patient (only mild systemic disease), or a STABLE, well controlled insulin dependent diabetic. They do not have serious cardiac disease ie NC/angiopl asty within 1 year, symptomati c CHF; renal failure with CKD 4 or 5; take Coumadin, Plavix, Aggrenox, etc. Active or passive immunization 352647193 Z23 Palpitations 19401926 R0 0.2 Essential hypertension 82086031 I10 [id number] HUONG Schneider , [facility], OFFICE [address] [place] [address]3719[address] 6 12/28/2020 14:59:41 12/29/2020 10:38:18 Palpitations 90698006 R00.2 [id number] HUONG Schneider , [facility], OFFICE [address] [place] [address] 88371[address]731 6 12/29/2020 16:08:37 12/30/2020 12:53:10 Palpitations 61534137 R00.2 [id number] Miquel Salazar MD , [facility], OFFICE [address] [place] [address] 85897-870 6 02/26/2021 13:42:37 02/26/2021 14:20:59 Active or passive immunization 813383180 Z23 Strain of right trapezius muscle 1671675881 4103045 S29.012A Strain of neck muscle 36 6915196 S16.1XXA [id number] Miquel Salazar MD , [facility], OFFICE [address] [place] [address] 23693[address]476 6 05/28/2021 14:42:04 05/28/2021 15:41:00 Adult health examination 025208092 Z00.00 see Risk Assessment and Lifestyle Change Counseling section above Counseling 543225935 Z71 .9 including cardiovasc ular risk reduction counseling Depression screening 171 162931 Z13.31 depression screening tool administer ed, entered into emr, scored and discussed, time greater than 7.5 minutes Screening for alcohol abuse 144692342 Z13.39 Essential hypertension 59447790 I10 Advance di rective discussed with patient 681405039 Z71.89 Strain of right trapezius muscle 7738111876 1759211 S29.012A Congenital hearing disorder 55527220 H90.8 Migraine 31750397 G43.90 9 Screening for osteoporosis 536335784 Z13.766 [id number] Miquel Salazar MD , [facility], OFFICE [address] [place] [address] 03030[address]290 6 11/25/2021 08:00:39 11/25/2021 08:30:56 Essential hypertension 86878013 I10 Active or passive immunization 295656326 Z23 Pt declines Shingles/ PPV23 vac 11/25/21 Posterior rhinorrhea 758 75629 R09.82 [id number] Miquel Salazar MD , [facility], OFFICE [address] [place] [address] 65924-[address] 6 06/17/2022 13:46:55 06/17/2022 14:56:58 Adult health examination 672542509 Z00.00 see Risk Assessment and Lifestyle Change Counseling section above Depression screening 171 Z13.31 depression screening tool administer ed Screening for alcohol abuse 428970487 Z13.39 Alcohol use screening tool administer ed Essential hypertension 63008195 I10 Migraine 97837128 G43.90 9 Chronic neck pain 589586 1829 107 M54.2 Congenital hearing disorder 42692925 H90.8 Lymphocytic colitis 1187 350512 K52.832 Menopausal flushing 1984 71915 N95.1 Rosacea 505743680 L71.9 Hyperlipidemia 34869754 E78.5 [id number] Giovanna Crocker RN Endoscopy , [address] [address] 11/11/2022 08:16:15 11/11/2022 13:43:57 [id number] Miquel Salazar MD , [facility], OFFICE [address] [place] [address] 92740-[address] 6 12/15/2022 13:16:12 12/15/2022 13:56:14 Migraine 10136476 G43.909 Active or passive immunization 611150030 Z23 Pneumo: aware at [facility] ingrix: aware at pharmacy Essential hypertension 70198816 I10 [id number] APURVA Castaneda , [facility], OFFICE [address] [place] [address] 60[address] 6 05/01/2023 13:15:48 05/01/2023 13:56:17 Upper respiratory infection 38387356 J06.9 Patient presents with symptoms consistent with viral infection. No evidence of pneumonia on exam. Discussed supportive care: pushing fluids, rest, nasal saline and Mucinex as needed. Encouraged to follow up if symptoms persist for more then 10 days or if they are worsening. Discussed natural course of viral illnesses and lack of evidence for treating with antibiotic s. Cough 11593826 R05.9 use flonasesta rt tessalon pearls Acute sinusitis 92688912 J01.90 Encourage force fluids, steam inhalation as needed, adequate rest.Will start flonaseAdv ised current guidelines no abx until >2 weeks sx or worsening with fever/clifton ge in nasal dischargeC an use mucinex OTCFollow up if not improving or symptoms worsening. [id number] Mendy Vance NP , [facility], OFFICE [address] [place] [address] 62688-101 6 05/09/2023 13:53:09 05/12/2023 13:08:35 Active or passive immunization 272873853 Z23 Pneumo: aware at [facility] ingrix: aware at pharmacy Acute bronchitis 8683846 2 J20.9 sick x2+ weeks with exp wheeze on exam- pt declines albuterol, has not tolerated in the past- short prednisone burst as prescribed . med discussed- discussed supportive care, rest, fluids, nasal saline, warm salt water gargle, humidifier - report trouble breathing, fever, not improving in a few days, or other concerns Cough 53917536 R05.9 cough med with codeine has been helpful. will refill. can cause sedation not to take before driving [id number] Miquel Salazar MD , [facility], OFFICE [address] [place] [address] 06/22/2023 13:48:30 06/22/2023 14:55:15 Adult health examination 864763040 Z00.00 see Risk Assessment and Lifestyle Change Counseling section above Depression screening 171 963933 Z13.31 depression screening tool administer ed Screening for alcohol abuse 665568661 Z13.39 Alcohol use screening tool administer ed Migraine 76861926 G43.90 9 Postmenopausal state 764 19626 Z78.0 Screening mammography 24 417911 Z12.31 [employer]INEER orders for PT Congenital hearing disorder 00022508 H90.8 Essential hypertension 28392060 I10 Lymphocytic colitis 1187 495712 K52.832 Acute low back pain 2788 83473 M54.50 Osteopenia 860819443 M85 .80 [id number] APURVA Castaneda, [facility], OFFICE [address] [place] [address] 13777-435 6 09/08/2023 14:18:40 09/08/2023 14:56:41 Active or passive immunization 858778978 Z23 Pneumo/Brittany ngles-awar e at pharmacy Pain of le ft hip joint 5998608967 79859 M25.552 hx and sx consistent with likely arthritisx ray todayAdvis ed tylenol/ib uprofen as needed for painAdvise d to wear good fitting shoes and limit activities that worsen painAdvise d to call with worsneing or change in sxConsider sports med [id number] Miquel Salazar MD FP, [facility], OFFICE [address] [place] [address] 92756[address] 6 12/04/2023 14:38:53 12/04/2023 15:33:49 Ganglion cyst of right foot 5918870380 884514 M67.471 reassuranc e, wants to aspirate cyst, referral to Dr Barney [id number] Miquel Salazar MD , [facility], OFFICE [address] [facility] [place] [address] 12/25/2023 11:51:29 12/25/2023 12:56:18 Migraine 73447701 G43.Jerson9 has no had a migraine since 2017 Essential hypertension 16954408 I10 HTN - at goal of less than 130/80 per the AHA guidelines . Continue meds and f/u in 6 mos.Discus sed labs.Minerva nue low salt diet of less than 1500 mg of sodium per day. The [place] [employer] n (AHA) recommends 30 minutes of moderate physical activity 5 days a week.A Mediterran maranda type of diet and a plant based diet is recommende d, review the website: iCIMS. The DASH diet is also recommende d.* Review this website: https://[employer]/al l-about-go od-and-alfred ap for healthy inexpensiv e meals. Active or passive immunization 888125136 Z23 Pneumo: aware at pharmacy Shingrix: aware at pharmacy Flu: Completed 12/25/23 as COVID: Completed 12/25/23 as Counseled by member of primary health care team 244254794 Z71.9 Today we discussed ways to reduce [...] well controlled cholestero l (LDL and triglyceri yannikc) by eating a healthy diet and taking medication s when necessary. Managing daily stress with meditation or yoga. Depending on your other cardiovasc ular risks your practition er may recommend taking daily aspirin. Posterior rhinorrhea 758 36766 R09.82 effective, refill given Chronic neck pain 612690 1916 107 M54.2 consulted with network diagnostic support specialist , cortisone injection, NSAIDS and PT with no improvemen t, trial of muscle relaxant and try 1/2 tab first per dose and let me know via portal. [id number] Carson Barney DPM Podiatry, [address] [address] 01/16/2024 10:16:17 01/16/2024 10:53:04 Exostosis of right foot 7344423243 9742387 M89.8X7 [id number] GREGOR LOAIZA PA-C , [facility], OFFICE [address] [place] [address] 6 05/14/2024 15:46:46 05/14/2024 16:32:47 Active or passive immunization 658816158 Z23 Shingles - reminded Dyspnea on exertion 6084 5006 R06.09 c/o shortness of breath with increased heart rate on exertion intermitte ntlyreassu evelyn VS and exam todayWill order labs, chest xray, and a stress test for further evaluation Call with any worsening symptoms in the interimGo to the emergency room if crushing chest pain, severe SOB Cough 26436452 R05.9 Patient with 1 month of dry cough, noticed after losartan brand changePoss ibly a side effect of new manufactur ed medication vs other - workup belowCan contact pharmacy to see if previous tablet is available , if not possibly consider pharmacy change vs medication changewill call after speaking with her pharmacy [id number] Miquel Salazar MD , [facility], OFFICE [address] [place] [address] 20248[address] 6 06/24/2024 08:59:03 06/24/2024 09:49:38 Migraine 09609259 G43.909 has no had a migraine since 2017 Posterior rhinorrhea 758 72484 R09.82 effective, refill given Active or passive immunization 899454837 Z23 Pneumo: aware at pharmacy Shingrix: aware at pharmacy Flu: Completed Reminded 04/05/19 LZ advised 11/20/20 as advised 12/24/20 as// Pt completed 02/26/21 as 12/25/23 as COVID: pt declines 11/22/18 sj, informed 09/03/2020 xr Completed 12/25/23 as Dyspnea on exertion 6084 5006 R06.09 - Order pulmonary function test at [facility].- Advise monitoring and documentin g instances of cough and dyspnea. Chronic cough 60431611 R 05.3 Chronic dry cough possibly linked to losartan or silent reflux.- Try over-the-c ounter Prilosec for potential silent reflux.- Consider Tessalon Perles if cough persists.- Document cough occurrence s and triggers. Chronic ne ck pain for greater than 3 months 7446021889 32868 M54.2 Chronic neck pain with minor arthritis, no significan t stenosis or pinching. Previous treatments ineffectiv e.- scheduled for medial branch block on July 09 at pain management Essential hypertension [id number] I10 HTN - at goal of less than 130/80 per the AHA guidelines . Continue meds and f/u in 6 mos.Discus sed labs.- Advise on dietary modificati ons to reduce cholestero l, such as avoiding saturated fats.Minerva nue low salt diet of less than 1500 mg of sodium per day. The [place] [employer] n (AHA) recommends 30 minutes of moderate physical activity 5 days a week.A Mediterran maranda type of diet and a plant based diet is recommende d, review the website: [employer]. [employer] The DASH diet is also recommende d.* Review this website: https://helen carrascoZaya/al l-about-go od-and-alfred ap for healthy inexpensiv e meals. Health Concerns Section Related Observation LastModified by Organization Detai ls LastModified Time None Recorded Concern Status LastModified by Organization Details LastModified Time None Recorded Advance Directives Directive None Recorded Payers Encounter Date Sequence Insurance Name Policy Number Policy M[place] Covered Member ID Moul[place] Member ID Guarantor Name 12/04/2023 1 [facility] [id number] Nancy Gesiorek [id number] Nancy Gesiorek 12/25/2023 1 [facility] [id number] Nancy Gesiorek [id number] Nancy Gesiorek 01/16/2024 1 [place] Nancy Gesiorek [id number] Nancy Gesiorek 01/16/2024 2 [place] [id number] Nancy Gesiorek [id number] Nancy Gesiorek 05/14/2024 1 [place] Nancy Gesiorek [id number] Nancy Gesiorek 05/14/2024 2 [facility] [id number] Nancy Gesiorek [id number] 2 Nancy Gesiorek 06/24/2024 1 [place] Nancy Gesiorek [id number] Nancy Gesiorek 06/24/2024 2 [facility] [id number] Nancy Gesiorek [id number] 2 Nancy Gesiorek Notes Date Note Type Note Provider Name and Address Organization Details Recorded Time 4 text/html cyst on the irght lateral side of footgot larger in the past 2 weekscausing pt pain Miquel Salazar MD [address] [place] [address], [phone], [facility] 12/04/2023 20:58:54 4 text/html VMG HypertensionReported [...] - did PT several times, went to network diagnostic support specialist and was told muscular, minor arthritis, did cortisone injection not help; takes tylenol arthritis ; has tried diclofenac, meloxicam, and naproxen, has tried cyclobenzaprine and nothing has been effective Miquel Salazar MD [address] [place], [phone], [facility] 12/25/2023 21:12:15 4 text/html Patient presents to the office complaining of a small lump on the top/outside of her right foot. Patient states area is generally not uncomfortable and she first noticed lump a couple of months ago. Patient without complaints of swelling or discoloration. Patient without any known trauma. Carson Barney DPM [address] [place], [phone], [facility] 01/16/2024 10:46:27 5 text/html VMG HypertensionReported [...] was getting losartan at a different pharmacy ([facility]) then refilled at a different pharmacy ([facility]) in march and feels like the cough [...] treatment plans. Student name: Raquel Zamora Type: {{HUONG KOWALSKI NP PA* TREVER LAGOS}} 12/25/23as not needed migraine medication since 2016chronic neck pain - did PT several times, went to network diagnostic support specialist and was told muscular, minor arthritis, did cortisone injection not help; takes tylenol arthritis ; has tried diclofenac, meloxicam, and naproxen, has tried cyclobenzaprine and nothing has been effective GREGOR LOAIZA PA-C [address] [place] [address], [phone], [facility] 05/14/2024 16:55:25 5 text/html Patient presents for follow-up of their hypertension.Updates from last visit: see belowHome blood pressures: {{at goal not at goal}} not checkingTaking medications daily as prescribed: {{yes* no n/a}}Side effects from medications: {{yes no*}}Low salt diet: {{yes* no}}Regular Exercise: {{yes* no}}Caffeine intake: {{yes* no}}Alcohol consumption: {{yes no*}}Tobacco use: {{yes no*}}Daily stress level: {{min* mod max}} Denies any new shortness of breath, cough, dizziness, chest pain, nausea, vomiting, leg swelling or weakness. An independent historian contributed to the patient's information for this visit: {{yes no*}}.Patient is {{able* not able}} to manage his medications Patient informed and consents to use of AI assisted recording to improve documentation of visit.Word substitution may have occurred and may have gone unnoticed and uncorrected. quit smoking 42 y/o, started age 20 approx, 1 ppdThe patient has experienced a recent onset of shortness of breath that began after switching their medication source from [facility] to [facility] in mid-March. The pills from [facility] were green and different from their previous medication. They experienced severe shortness of breath, unable to walk more than a quarter of a mile without stopping. A stress test, chest x-ray, and blood work were performed, all reportedly normal. They switched back to their previous medication from [facility], which improved their symptoms but did not resolve them completely. They continue to experience significant shortness of breath with minimal exertion. No shortness of breath at rest, only with exertion.They report a persistent dry cough that began concurrently with the shortness of breath. They have tried Zyrtec and Robitussin without relief. The cough is described as constant and dry, occurring throughout the day and night, and is exacerbated by eating. They have a history of smoking, having quit 28 years ago after smoking a pack per day for approximately 20 years.They have persistent neck pain for which they have seen multiple specialists without relief. They were referred to pain management and have had one appointment on April 22, 2024. They are scheduled for a medial branch block on July 09, 2024. Previous treatments, including Botox, were discussed but not pursued. No history of significant arthritis or stenosis in the neck. Minor arthritis was noted on MRI but no significant findings.- Sumatriptan (not filled since 2015)cervical spine MRI: Minor arthritis, no stenosis, no nerve impingement (2023)Chest x-ray: NormalStress test: Normal Miquel Salazar MD [address] [place] [address], [phone], [facility] 06/24/2024 20:15:54 OBGyn Episode No OBEpisode recorded.
== END 2024-07-09 06:09 | disposition home or self-care (01) ==
LOC: CF 06:08
PROVIDERS: Visit Provider Anesthesiology
DX: M47.812 Spondylosis without myelopathy or radiculopathy, cervical region (principal)
CPT/HCPCS: 64490; 64491; J2003; J2795; Q9967

== ENCOUNTER 2024-07-09 07:20 | Outpatient (AMB) | payer MEDICARE, SELFPAY ==
--- OUTSIDE RECORDS SUMMARY | 2024-07-09 07:22 | XMS_ITS ---
Author Organization [facility] Address [address] [place] [id number] Care Team Providers Care Car Wash Supervisor Name Role Phone ERIKA DE LEON Primary Care Provider SHARON Vale Unavailable [phone] REASON FOR VISIT RX TO NEW PHARMACY Medications Medication SIG (Take, Route, Fr equency, Duration) Notes Start Date End Date Status Estradiol 0.1 MG/24HR 1 patch to skin Tr ansdermal for 90 days 06/10/2019 Active Encounters Encounter Location Date Provider Diagnosis [facility] [address] [address] 03/11/2024 SHARON RICO Menopausal and femal e [...] 06/10/2019 Next Appt Details Provider Name:SHARON Melendez, 07/03/2025 10:40:00 AM, [address] [place] [address], [facility] [place] [address], [place], [phone], Progress Notes * GABRIELLE MELARAOB: 956 (68 yo F)Acc No.[id number]:03/11/2024 Patient:?FAUSTONIDHINILES MORATAYAIE :1955???Age:68 Y???Sex:Female Address:[address] [place] [address] [place], [address] * Refills? Refill Estradiol Patch Weekly, 0.1 MG/24HR, Transdermal, 13, 1 patch to skin, 90 days, Refills=4 * true * Date:? Generated for Isaias welsh/Sherice/Johnitting on:?07/09/2024 06:13 AM EDT
[2024-07-09 07:35] VITALS: BP 160/95; PULSE 84; RESP 16; O2SAT 95
--- NOTE | 2024-07-09 07:35 | A.OFFVIS_ITS ---
Vital Signs 07/09/24 07:35 07/09/24 08:34 BP 160/95 H 156/90 H Blood Pressure Location Lt brachial Lt brachial Position Sitting Sitting Respiration 16 16 Pulse 84 81 Pulse Source Pulse Oximeter Pulse Oximeter Pulse Oximetry (%) 95 96 Oxygen Delivery Method Room Air Room Air Intake Visit Reasons: RIGHT DIAGNOSTIC C4, C5, C6, C7 MBB Cardiothoracic Physiotherapist Required: No Allergies Penicillins Allergy (Severe, Verified 07/09/24 07:36) Seizure minocycline Adverse Reaction (Severe, Verified 07/09/24 07:36) Hives Medication List - Last Reconciled 07/09/24 by Rosy Jeffrey LPN amlodipine 2.5 mg PO DAILY estradiol 1 patch topical QWEEK ipratropium bromide 2 sprays intranasal TID PRN losartan 100 mg PO DAILY Physical Exam Vital Signs: Last Vital Signs Pulse 81 07/09/24 08:34 Resp 16 07/09/24 08:34 BP 156/90 H 07/09/24 08:34 Pulse Ox 96 07/09/24 08:34 Oxygen Delivery Method Room Air 07/09/24 08:34 Assessment & Plan Assessment & Plan (1) Spondylosis of cervical joint without myelopathy: Code(s): M47.812 - Spondylosis without myelopathy or radiculopathy, cervical region Category: Medical Plan Right diagnostic cervical medial branch block C4-C5 C6 and C7. Informed consent was thoroughly explained to the patient. Risks and benefits were explained as risk of bleeding infection peripheral nerve damage spinal cord damage and headache. The patient was taken to the operating room and positioned prone on operating table. The posterior neck was prepped with ChloraPrep and draped with sterile utility towels. C-arm was brought over the operating field and picture of the C4, C5, C6, and C7 vertebra were delineated on the screen. Lateral masses on the right of this vertebras were chosen as target of the injection. The positioned of the waistline of each of the sterile mass was chosen at the endpoint of the needle advancement. After that projection of the and point to the skin was injected with small amount of mixture of lidocaine 2% and ropivacaine 0.5% one-to-one. After that four 22 gauge 3-1/2 inch needles were driven to the point of interest in tunnel vision fashion until the tip of the needle gently contacted the bone. Injection of the contrast was performed delineating no intrathecal and no intravascular spread of the contrast. After that small amount of local anesthetic less than 1 cc ropivacaine 0.5% was injected into each needle. Upon completion of the procedure needle was removed sterile Band-Aids were applied. Patient tolerated procedure well. Orders: Orders FL guidance in treatment room Today M47.812 - Spondylosis without myelopathy or radiculopathy, cervical region Coding Level of Care Code Procedure Only Diagnoses Spondylosis of cervical joint without myelopathy M47.812
[2024-07-09 08:34] VITALS: BP 156/90; PULSE 81; RESP 16; O2SAT 96
== END 2024-07-09 09:57 | disposition home or self-care (01) ==
LOC: HO.PMCPRC 07:20
PROVIDERS: PCP Family Medicine; Visit Provider Anesthesiology
DX: M47.812 Spondylosis without myelopathy or radiculopathy, cervical region (principal)
CPT/HCPCS: 64490; 64491

== ENCOUNTER 2024-07-11 09:47 | Outpatient (AMB) | payer MEDICARE, SELFPAY ==
[2024-07-11 09:48] VITALS: BP 169/76; PULSE 87; O2SAT 96; BMI 24.5
--- NOTE | 2024-07-11 09:48 | A.OFFVIS_ITS ---
Vital Signs 07/11/24 09:48 Height 5 ft 4 in Weight 142 lb 8 oz BMI 24.5 BP 169/76 H Blood Pressure Location Rt brachial Position Sitting Pulse 87 Pulse Source Pulse Oximeter Pulse Oximetry (%) 96 Oxygen Delivery Method Room Air Intake Visit Reasons: RIGHT DIAGNOSTIC C4, C5, C6, C7 MBB Allergies Penicillins Allergy (Severe, Verified 07/11/24 09:51) Seizure minocycline Adverse Reaction (Severe, Verified 07/11/24 09:51) Hives HPI Comments Details: Nancy is back in my office with the results of the diagnostic right-sided C4, C5, C6, C7 medial branch block she reported 75% pain improvement after the injection for the 1st 6 hours and longer after the procedure. She continues to enjoy increase mobility improved activities of daily living ability to perform actions and motions which she unable to do before. Therefore we can make a conclusion that the pain of this patient is from the spondylotic joints on the r ight side. I offered the patient 3 ways to treat her pain. Sprint PNS, RFA C4- C5 C6-C7 and therapeutic steroid injections. The patient chose to go for the sprint PNS procedure. I will schedule her as soon as possible. Review of Systems Const All systems reviewed & are unremarkable except as noted in HPI and below ENT Reports Normal hearing present Neuro Reports Normal hearing present, Denies Abnormal speech present, Denies confusion and Denies Sensory deficit (Neuro) Psych Denies confusion Physical Exam Vital Signs: Last Vital Signs Pulse 87 07/11/24 09:48 BP 169/76 H 07/11/24 09:48 Pulse Ox 96 07/11/24 09:48 Oxygen Delivery Method Room Air 07/11/24 09:48 BMI result Body Mass Index 24.5 Const General: no acute distress; No confusion Orientation/consciousness: patient oriented x3 and No confusion Eyes General: appearance normal, both eyes and all related structures Pupils: Equal, round and reactive pupils present EOM: EOMs intact bilaterally Neck Other: Limited range of motion of the cervical spine. Lateral medial rotation of the neck is painful. Flexing forward causes strain in the neck but no pain and flexing backwards causes severe pain aggravation. Axial compression on the head aggravates the pain, Valsalva maneuver is negative. No radiation of the pain into the upper extremities. Chest Chest palpation & inspection: normal inspection of the chest Resp Effort & Inspection: normal respiratory effort, able to speak in complete sentences, normal respiratory pattern, no audible wheezes and no cough Cardio Jugular venous distension: no JVD GI Inspection: Yes normal to inspection Neuro General: patient oriented x3, gait normal and No confusion Cranial nerves: Yes CN's II-XII intact bilaterally, Yes Equal, round and reactive pupils present, Yes Normal hearing present and Yes Ability to bilaterally elevate shoulders present Speech: No Abnormal speech present Gait exam (Neuro): Normal gait present Motor exam (neuro): 5/5 motor strength present throughout Sensory Exam: No Sensory deficit (Neuro) Extrem General: No pedal edema Psych Speech and movement: Normal speech and movement present Affect: normal affect Attitude: cooperative Thought process: Normal thought process present Thought content: Normal thought content present Insight: Good insight present (Psych) Judgement: Good judgement present (Psych) Results Reviewed Results Reviewed: MRI of the cervical spine without contrast 06/11/2023. Bones appear normal no fracture or deformity no regular edema. Alignment appears normal. Spinal cord appears normal in signal. Soft tissues appears normal. Cervical spine levels: C2-C3: Degenerative disc changes as well as degenerative facet and uncovertebral changes are noted more prominent on the left. Finding cause moderate left-sided foraminal stenosis. No significant spinal canal stenosis. C3-C4: Mild degenerative disc changes and degenerative changes of the facets and uncovertebral joints with moderate left-sided foraminal stenosis. Only minimal central canal stenosis. C4-C5: Minimal degenerative disc bulge with only mild spinal canal stenosis and minimal bilateral foraminal stenosis. C5-C6: Minimal degenerative disc bulge with slightly more prominent on the right paracentral and foraminal positioned finding cause mild spinal canal stenosis. Degenerative changes contribute to moderate right-sided foraminal stenosis. C6- C7 degenerative disc osteophyte with mild spinal canal stenosis. Finding cause mild bilateral foraminal stenosis. C7-T1: Minimal degenerative changes with mild left sided foraminal stenosis Assessment & Plan Assessment & Plan (1) Spondylosis of cervical joint without myelopathy: Code(s): M47.812 - Spondylosis without myelopathy or radiculopathy, cervical region Category: Medical (2) Chronic pain syndrome: Code(s): G89.4 - Chronic pain syndrome Category: Medical Plan This patient most likely suffers from spondylosis of cervical spine which is demonstrable on her MRI. It is supported by the results of right-sided diagnostic C4, C5, C6, C7 medial branch block after which patient received 75% pain improvement with improvement of mobility and activities of daily living. Sprint PNS was explained to the patient among other options. She chose to go for Sprint PNS procedure. I will schedule her as soon as possible. Patient Instructions: I here by testify that I spent 30 minutes in conversation with this patient as well as planning her care and organizing this note. Coding Level of Care Code Est Pt Level 4 (18491) Diagnoses Spondylosis of cervical joint without myelopathy M47.812 Chronic pain syndrome G89.4
--- OUTSIDE RECORDS SUMMARY | 2024-07-11 10:17 | XMS_ITS ---
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 Physical Medications Medication SIG (Take, Route, Frequency, [...] 07/01/2024 Encounters Encounter Location Date Provider Diagnosis [address] [place] [address] 07/01/2024 SHARON RICO Encounter for gynecological examination [...] med follo wup; 2 year, Reason: Yearly Control Room Agent Exam Provider Name:SHARONSravan Melendez, 07/03/2025 10:40:00 AM, [address] [facility], [address], [place], [address], Progress Notes * GABRIELLE MELARAOB: [birth year] (69 yo F)Acc No.[id number]:07/01/2024 PROGRESS NOTES Patient:?NANCY MELRAA Provider:?SHARON RICO MD :1955???Age:69 Y???Sex:Female D ate:07/01/2024 Address:[address] [place], [place] [id number] Pcp:ERIKA DE LEON Subjective: * Chief Complaints: * ???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 ? She has been in state of good health since her last exam. She has the following concerns: none ? She has received the [employer] Covid-19 vaccine. ? Relationship status: partnered for [...] Her last mammogram was 06/2024 (done at [facility]). ? She does not have a family history of colon cancer. She a has had a colonoscopy. She had a colonoscopy November 2022. She reports no polyps, so follow up in 10 yrs. ? The patient does exercise. She exercises x 1-2 days/week by walking and lifting weights. * ROS:?Annual Control Room Agent Exam ROS:?Bowel habit changes?denies.?Bladder symptoms?denies.?Vaginal discharge, unusual?denies.?Vaginal itch or odor?denies.?weight or appetite changes?denies.?Chest pains, SOB?denies.?depression?denies.?Breast:?Denies?Breast lump.?Denies?Nipple discharge.?Hematology:?Denies?Swollen glands.?Skin:?Patient denies?changing moles.?Comments?sees derm annually.?Psychiatric:?Denies?Anxiety.? * Medical History:? * Control Room Agent History:?/ Para?0/0.?Mammogram:?06/10/2024, < 50% density, 05/26/23 [facility] < 50% density, 05/15/21 < 50% density, at [facility]04/20/20 with additional imaging 05/2020, 05/04/19 < [...] No contact with 2 siblings Sister - Madhaiv - 1946 - well. * Social History:?Tobacco [...] relationship with male partner, Babatunde. 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 ?Pets: none. ?Sexual abuse: no. ?Sexually active: [...] no acute distress, well developed, well nourished, entomology professor present in room.?HEAD:?normocephalic, atraumatic.?NECK/THYROID:?neck supple, full range [...] med follo wup; 2 year (Reason: Yearly Control Room Agent Exam) * Images: Billing Information: * Visit Code:? 04282 Preventive Care Est Pt. Age 65 and over. * Procedure Codes:? 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 She has been in state of good health since her last exam. She has the following concerns: none She has received the [employer] Covid-19 vaccine. Relationship status: partnered for nearly [...] Her last mammogram was 06/2024 (done at [facility]). She does not have a family history of colon cancer. She a has had a colonoscopy. She had a colonoscopy November 2022. She reports no polyps, so follow up in 10 yrs. The patient does exercise. She exercises x 1-2 days/week by walking and lifting weights. Examination Category Sub-Category Detail Notes Category Not es General Examination GENERAL APPEARANCE: in no ac [place] distress, well developed, well nourished, entomology professor present in room HEAD: normocephalic, atrau matic [...]
--- OUTSIDE RECORDS SUMMARY | 2024-07-11 10:18 | XMS_ITS | Data Portability ---
Author Organization [facility], , [facility], OFFICE Address [address] [place] [address] Care Team Providers Care Aadc Plans Staff Officer Name Role Phone MIQUEL PENA Primary Care Provide r RYAN FORBES OTHER MERARY HANEY OTHER SHARMAINE DELGADO Sports Medicine [facility] Pain Management Assessment Encounter Date [...] meeting your goals. Please visit our website Shaka for more patient resources. As part of [...] available LAB Follow -Up 2024 09:00A M [facility] Lab Not available Not available Not available Wellne ss Visit 30 2024 08:30A M Miquel Salazar MD Not available Not available Not available Lab CBC 2024 025 [facility], [address] [place] [address], [address], 06/19/2024 10:43:11 TSH, serum or plasma 2024 025 [facility], [address] [place] [address], [address], 06/19/2024 14:21:50 BMP, serum or plasma 2024 025 [facility], [address] [place] [address], [address], 06/19/2024 15:57:53 BNP (B-typ e natriu retic peptid e), serum or plasma 2024 025 [facility], [address] [place] [address], [address], 06/20/2024 11:08:16 Referral podiat rist referr al - right foot gangli on cyst. causin g pain 2023 024 Carson Barney DPM, [address] [facility], [place], [address], 12/08/2023 14:33:13 Procedures None record ed. Surgeries [...] al tripon in value? N/A 2024 025 [facility] (Cardiology), [address] [place], [address], 05/22/2024 13:51:32 XR, chest - worsen ing SOB 2024 025 [facility] (Imaging), [address], [place], [address], 05/15/2024 10:55:52 Medication Orders omepra zole 20 mg capsul e,armando yed releas e 2024 025 [facility], [address] [place], [address], 06/24/2024 09:43:57 ipratr opium bromid e 42 mcg (0.06 %) nasal spray 2024 025 [facility], [address] [place], [address], 06/24/2024 09:41:06 methoc arbamo l 500 mg tablet [address] [facility], [address] [place], [address], 06/24/2024 09:09:21 amlodi pine 2.5 mg tablet [address] [facility], [address] [place], [address], 12/25/2023 12:42:05 ipratr opium bromid e 42 mcg (0.06 %) nasal spray [address] [facility], [address] [place], [address], 12/25/2023 12:45:42 Patient TargetsNo targets recorded. Patient Instructions Encounter Date Encounter Id Patient Instructions Last Modified By Organization Details Last Modified Time 12/04/2023 [id number] [facility] serves as the focal point for all health care services the patient needs. [email or web address] Not available 12/04/2023 20:57:12 01/16/2024 [id number] Dispensed order for x-ray evaluation right foot. [email or web address] Not available 01/16/2024 10:46:13 05/14/2024 [id number] CCM: The provider and patient discussed the Chronic Care Management program, including the services provided, and any fees associated with them. 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 causing pain Referring Physician: Miquel Salazar, Family Medicine, Encounter Date: 12/04/2023 Results Created Date Observation Date Name Description Value Unit Range Abnormal Flag Note LastModifiedBy Organization Detail LastModifiedTime 12/22/1912/22/2023 CBC WBC 5.97 K/? ? ?L 3.98-1 0.04 Not Available [address], [address], 12/22/2023 15:42:34 12/22/19 24 12/22/2023 CBC RBC 3.55 M/? ? ?L 3.93-5 .22 low Not Available [address], [address], 12/22/2023 15:42:34 12/22/1912/22/2023 CBC HGB 11.9 g/dL 11.2-1 5.7 Not Available [address], [address], 12/22/2023 15:42:34 12/22/1912/22/2023 CBC HCT 35.3 % 34.1-4 4.9 Not Available [address], [address], 12/22/2023 15:42:34 12/22/19 24 12/22/2023 CBC MCV 99.4 fL 79.4-9 4.8 high Not Available [address], [address], 12/22/2023 15:42:34 12/22/19 24 12/22/2023 CBC MCH 33.5 pg 25.6-3 2.2 high Not Available [address], [address], 12/22/2023 15:42:34 12/22/19 24 12/22/2023 CBC MCHC 33.7 g/dL 32.2-3 5.5 Not Available [address], [address], 12/22/2023 15:42:34 12/22/19 24 12/22/2023 CBC plt 300 K/? ? ?L 182-36 9 Not Available [address], [address], 12/22/2023 15:42:34 12/22/19 24 12/22/2023 CBC MPV 9.6 fL 9.4-12 .3 Not Available [address], [address], 12/22/2023 15:42:34 12/22/19 24 12/22/2023 CBC neut% 52.9 % 34.0-7 1.1 Not Available [address], [address], 12/22/2023 15:42:34 12/22/19 24 12/22/2023 CBC neut# 3.16 1.56-6 .13 Not Available [address], [address], 12/22/2023 15:42:34 12/22/19 24 12/22/2023 CBC lymph % 34.0 % 19.3-5 1.7 Not Available [address], [address], 12/22/2023 15:42:34 12/22/19 24 12/22/2023 CBC lymph # 2.03 K/? ? ?L 1.18-3 .74 Not Available [address], [address], 12/22/2023 15:42:34 12/22/19 24 12/22/2023 CBC mono% 8.7 % 4.7-12 .5 Not Available [address], [address], 12/22/2023 15:42:34 12/22/19 24 12/22/2023 CBC mono# 0.52 0.24-0 .56 Not Available [address], [address], 12/22/2023 15:42:34 12/22/19 24 12/22/2023 CBC eo% 3.7 % 0.7-5. 8 Not Available [address], [address], 12/22/2023 15:42:34 12/22/19 24 12/22/2023 CBC eo# 0.22 0.04-0 .36 Not Available [address], [address], 12/22/2023 15:42:34 12/22/19 24 12/22/2023 CBC baso% 0.5 % 0.1-1. 2 Not Available [address], [address], 12/22/2023 15:42:34 12/22/19 24 12/22/2023 CBC baso# 0.03 0.00-0 .08 Not Available [address], [address], 12/22/2023 15:42:34 12/22/19 24 12/22/2023 CBC RDW-CV 11.8 % 11.7-1 4.4 Not Available [address], [address], 12/22/2023 15:42:34 12/22/19 24 12/22/2023 CBC Ig% 0.200 % 0.000- 1.500 Ig % >0.5 Indic ates possi ble Left Shift Not Available [address], [address], 12/22/2023 15:42:34 12/22/19 24 12/22/2023 CBC Ig# 0.010 0.000- 0.093 Not Available [address], [address], 12/22/2023 15:42:34 12/22/19 24 12/22/2023 CBC NRBC% 0.0 % 0.0-0. 2 Not Available [address], [address], 12/22/2023 15:42:34 12/22/19 24 12/22/2023 CBC NRBC# 0.000 0.000- 0.012 Not Available [address], [address], 12/22/2023 15:42:34 12/22/19 24 12/22/2023 COMP. METAB OLIC PANEL glucose 98 mg/dL 70-100 Not Available [address], [address], 12/22/2023 16:25:37 12/22/19 24 12/22/2023 COMP. METAB OLIC PANEL BUN 18 mg/dL 7-18 Not Available [address], [address], 12/22/2023 16:25:37 12/22/19 24 12/22/2023 COMP. METAB OLIC PANEL creatinine 0.7 mg/dL 0.8-1. 3 low Not Available [address], [address], 12/22/2023 16:25:37 12/22/19 24 12/22/2023 COMP. METAB OLIC PANEL B/C 25.7 ratio Not Available [address], [address], 12/22/2023 16:25:37 12/22/19 24 12/22/2023 COMP. METAB [...] be used in pregn garrison. Not Available [address], [address], 12/22/2023 16:25:37 12/22/19 24 12/22/2023 COMP. METAB OLIC PANEL sodium 137 mmol/ L 136-14 5 Not Available [address], [address], 12/22/2023 16:25:37 12/22/19 24 12/22/2023 COMP. METAB OLIC PANEL potassium 5.2 mmol/ L 3.5-5. 1 high Not Available [address], [address], 12/22/2023 16:25:37 12/22/19 24 12/22/2023 COMP. METAB OLIC PANEL chloride 102 mmol/ L 96-107 Not Available [address], [address], 12/22/2023 16:25:37 12/22/19 24 12/22/2023 COMP. METAB OLIC PANEL anion gap 11.1 5.0-15 .0 Not Available [address], [address], 12/22/2023 16:25:37 12/22/19 24 12/22/2023 COMP. METAB OLIC PANEL CO2 24 mmol/ L 21-32 Not Available [address], [address], 12/22/2023 16:25:37 12/22/19 24 12/22/2023 COMP. METAB OLIC PANEL calcium 9.3 mg/dL 8.5-10 .3 Not Available [address], [address], 12/22/2023 16:25:37 12/22/19 24 12/22/2023 COMP. METAB OLIC PANEL total protein 7.4 g/dL 6.4-8. 2 Not Available [address], [address], 12/22/2023 16:25:37 12/22/19 24 12/22/2023 COMP. METAB OLIC PANEL albumin 3.7 g/dL 3.4-5. 0 Not Available [address], [address], 12/22/2023 16:25:37 12/22/19 24 12/22/2023 COMP. METAB OLIC PANEL globulin 3.7 g/dL Not Available [address], [address], 12/22/2023 16:25:37 12/22/19 24 12/22/2023 COMP. METAB OLIC PANEL A/G 1.0 ratio 0.8-2. 0 Not Available [address], [address], 12/22/2023 16:25:37 12/22/19 24 12/22/2023 COMP. METAB OLIC PANEL total bilirubin 0.40 mg/dL 0.00-1 .00 Not Available [address], [address], 12/22/2023 16:25:37 12/22/19 24 12/22/2023 COMP. METAB OLIC PANEL AST 26 U/L 0-37 Not Available [address], [address], 12/22/2023 16:25:37 12/22/19 24 12/22/2023 COMP. METAB OLIC PANEL ALT 32 U/L 6-63 Not Available [address], [address], 12/22/2023 16:25:37 12/22/19 24 12/22/2023 COMP. METAB OLIC PANEL alk. phos. 95 U/L 50-136 Not Available [address], [address], 12/22/2023 16:25:37 12/22/19 24 12/22/2023 LIPID PANEL cholesterol 249 mg/dL <200 mg/dl Leidy able 200-2 39 mg/dl Borde rline High >240 mg/dl High Not Available [address], [address], 12/22/2023 16:25:37 12/22/19 24 12/22/2023 LIPID PANEL triglyceride s 59 mg/dL <150 mg/dL Ethel l 150-1 99 mg/dL Borde rline High 200-4 99 mg/dL High >500 mg/dL Very High Not Available [address], [address], 12/22/2023 16:25:37 12/22/19 24 12/22/2023 LIPID PANEL direct HDL 82 mg/dL <40 mg/dl - Major Risk for CHD >60 mg/dl - Negat myranda Risk for CHD Not Available [address], [address], 12/22/2023 16:25:37 12/22/19 24 12/22/2023 DIREC T [...] r is not nitesh carrera. Not Available [address], [address], 12/22/2023 16:25:38 06/20/19 25 06/19/2024 CBC WBC 6.19 K/? ? ?L 3.98-1 0.04 Not Available [address], [address], 06/19/2024 10:43:11 06/20/19 25 06/19/2024 CBC RBC 4.03 M/? ? ?L 3.93-5 .22 Not Available [address], [address], 06/19/2024 10:43:11 06/20/19 25 06/19/2024 CBC HGB 13.3 g/dL 11.2-1 5.7 Not Available [address], [address], 06/19/2024 10:43:11 06/20/19 25 06/19/2024 CBC HCT 39.0 % 34.1-4 4.9 Not Available [address], [address], 06/19/2024 10:43:11 06/20/19 25 06/19/2024 CBC MCV 96.8 fL 79.4-9 4.8 high Not Available [address], [address], 06/19/2024 10:43:11 06/20/19 25 06/19/2024 CBC MCH 33.0 pg 25.6-3 2.2 high Not Available [address], [address], 06/19/2024 10:43:11 06/20/19 25 06/19/2024 CBC MCHC 34.1 g/dL 32.2-3 5.5 Not Available [address], [address], 06/19/2024 10:43:11 06/20/19 25 06/19/2024 CBC plt 279 K/? ? ?L 182-36 9 Not Available [address], [address], 06/19/2024 10:43:11 06/20/19 25 06/19/2024 CBC MPV 9.3 fL 9.4-12 .3 low Not Available [address], [address], 06/19/2024 10:43:11 06/20/19 25 06/19/2024 CBC neut% 48.6 % 34.0-7 1.1 Not Available [address], [address], 06/19/2024 10:43:11 06/20/19 25 06/19/2024 CBC neut# 3.01 1.56-6 .13 Not Available [address], [address], 06/19/2024 10:43:11 06/20/19 25 06/19/2024 CBC lymph % 36.5 % 19.3-5 1.7 Not Available [address], [address], 06/19/2024 10:43:11 06/20/19 25 06/19/2024 CBC lymph # 2.26 K/? ? ?L 1.18-3 .74 Not Available [address], [address], 06/19/2024 10:43:11 06/20/19 25 06/19/2024 CBC mono% 8.9 % 4.7-12 .5 Not Available [address], [address], 06/19/2024 10:43:11 06/20/19 25 06/19/2024 CBC mono# 0.55 0.24-0 .56 Not Available [address], [address], 06/19/2024 10:43:11 06/20/19 25 06/19/2024 CBC eo% 5.2 % 0.7-5. 8 Not Available [address], [address], 06/19/2024 10:43:11 06/20/19 25 06/19/2024 CBC eo# 0.32 0.04-0 .36 Not Available [address], [address], 06/19/2024 10:43:11 06/20/19 25 06/19/2024 CBC baso% 0.6 % 0.1-1. 2 Not Available [address], [address], 06/19/2024 10:43:11 06/20/19 25 06/19/2024 CBC baso# 0.04 0.00-0 .08 Not Available [address], [address], 06/19/2024 10:43:11 06/20/19 25 06/19/2024 CBC RDW-CV 11.9 % 11.7-1 4.4 Not Available [address], [address], 06/19/2024 10:43:11 06/20/19 25 06/19/2024 CBC Ig% 0.200 % 0.000- 1.500 Ig % >0.5 Indic ates possi ble Left Shift Not Available [address], [address], 06/19/2024 10:43:11 06/20/19 25 06/19/2024 CBC Ig# 0.010 0.000- 0.093 Not Available [address], [address], 06/19/2024 10:43:11 06/20/19 25 06/19/2024 CBC NRBC% 0.0 % 0.0-0. 2 Not Available [address], [address], 06/19/2024 10:43:11 06/20/19 25 06/19/2024 CBC NRBC# 0.000 0.000- 0.012 Not Available [address], [address], 06/19/2024 10:43:11 06/20/19 25 06/19/2024 TSH TSH 4.32 uIU/m L 0.50-6 .00 The [employer] can [employer] ge of Endoc rinol ogy and Ameri can Thyro id Assoc iatio n recom mend goal TSH value s betwe en 0.4-4 .0 mIU/m L. Not Available [address], [address], 06/19/2024 14:21:50 06/20/1906/19/2024 BASIC METAB OLIC PANEL glucose 94 mg/dL 70-100 Not Available [address], [address], 06/19/2024 15:57:53 06/20/19 25 06/19/2024 BASIC METAB OLIC PANEL BUN 15 mg/dL 7-18 Not Available [address], [address], 06/19/2024 15:57:53 06/20/19 25 06/19/2024 BASIC METAB OLIC PANEL creatinine 0.7 mg/dL 0.8-1. 3 low Not Available [address], [address], 06/19/2024 15:57:53 06/20/19 25 06/19/2024 BASIC METAB OLIC PANEL B/C 21.4 ratio Not Available [address], [address], 06/19/2024 15:57:53 06/20/19 25 06/19/2024 BASIC METAB [...] be used in pregn garrison. Not Available [address], [address], 06/19/2024 15:57:53 06/20/19 25 06/19/2024 BASIC METAB OLIC PANEL sodium 137 mmol/ L 136-14 5 Not Available [address], [address], 06/19/2024 15:57:53 06/20/19 25 06/19/2024 BASIC METAB OLIC PANEL potassium 4.5 mmol/ L 3.5-5. 1 Not Available [address], [address], 06/19/2024 15:57:53 06/20/19 25 06/19/2024 BASIC METAB OLIC PANEL chloride 102 mmol/ L 96-107 Not Available [address], [address], 06/19/2024 15:57:53 06/20/19 25 06/19/2024 BASIC METAB OLIC PANEL anion gap 10.4 5.0-15 .0 Not Available [address], [address], 06/19/2024 15:57:53 06/20/19 25 06/19/2024 BASIC METAB OLIC PANEL CO2 25 mmol/ L 21-32 Not Available [address], [address], 06/19/2024 15:57:53 06/20/19 25 06/19/2024 BASIC METAB OLIC PANEL calcium 9.3 mg/dL 8.5-10 .3 Not Available [address], [address], 06/19/2024 15:57:53 06/20/19 25 06/19/2024 LIPID PANEL cholesterol 250 mg/dL <200 mg/dl Leidy able 200-2 39 mg/dl Borde rline High >240 mg/dl High Not Available [address], [address], 06/19/2024 16:23:28 06/20/19 25 06/19/2024 LIPID PANEL triglyceride s 80 mg/dL <150 mg/dL Ethel l 150-1 99 mg/dL Borde rline High 200-4 99 mg/dL High >500 mg/dL Very High Not Available [address], [address], 06/19/2024 16:23:28 06/20/19 25 06/19/2024 LIPID PANEL direct HDL 93 mg/dL <40 mg/dl - Major Risk for CHD >60 mg/dl - Negat myranda Risk for CHD Not Available [address], [address], 06/19/2024 16:23:28 06/20/19 25 06/19/2024 DIREC T [...] r is not neces deandre. Not Available [address], [address], 06/19/2024 16:23:29 06/20/19 25 06/20/2024 B TYPE [...] ol. 2002; 40:97 6-982 . Not Available [facility] [address] [place], [address], 06/20/2024 11:08:16 01/17/20 24 01/17/2024 XR, foot [...] Iván pierre Physic aaliyah: Victor Manuel Kaufman [facility] (Imaging) [address], [place], [address], 01/17/2024 10:00:29 05/15/1905/15/2024 XR, chest CLINIC AL [...] Iván pierre Physic aaliyah: Victor Manuel Kaufman [facility] (Imaging) [address], [place], [address], 05/16/2024 17:05:22 05/22/1905/22/2024 stres s test exerc [...] Time: 2024 11:13 AM Access ion #: [id number] Result Status : Final Stress Test [...] stress report for full detail sDenver Chao 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 Kenney er Respon se to [...] KHARME N HALEY WRIGHT CASTIL MIKE LOAIZA [facility] [address] [place] [address], [address], 05/23/2024 12:59:34 05/22/1905/22/2024 exerc ise stres s test No observ ation record ed. [address], [address], 05/23/2024 12:59:34 06/12/1906/10/2024 MAMMO , scree tye No observ ation record ed. clementina [facility] [address] [place], [address], 06/11/2024 21:55:32 Result Notes None recorded. Procedures Surgical History Date Name Laterality Status Provider Name and Address Organization Details Recorded Time 3 Jorge Luis - Colonoscopy completed Aleksander Kang MD [address] [place] [address], [id number], [facility] 11/11/2022 10:16:45 Imaging Results Imaging Date Name Status LastModified by Organiz ation Details LastModified Time 01/17/2024 XR, foot completed [facility] (Imaging) [address] [place], [address], 01/17/2024 10:00:29 05/15/2024 XR, chest completed [facility] (Imaging) [address] [place], [address], 05/16/2024 17:05:22 05/22/2024 stress test exercise completed [facility] [address] [place], [address], 05/23/2024 12:59:34 05/22/2024 exercise stress test completed [facility] [address] [place], [address], 05/23/2024 12:59:34 06/10/2024 MAMMO, screening completed [facility] [address] [place], [address], 06/11/2024 21:55:32 Procedure Notes None recorded. Medical Equipment None Reported. 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 Information not available 05/15/2015 When Did You [...] SNOMED-CT Code Diagnosis ICD10 Code Diagnosis Note [id number] Radiology , [facility] [address] [place] [address] 11/12/2010 13:51:13 11/22/2010 12:23:08 [id number] , [facility], OFFICE [address] [facility] [place] [address] 01/14/2011 13:44:02 01/17/2011 06:59:04 [id number] Michael Quiroz , [facility], OFFICE [address] [facility] [place] [address] 02/10/2012 09:20:09 02/10/2012 11:00:55 [id number] Arabella Sood MD , [facility], OFFICE [address] [facility] [place] [address] 02/22/2012 09:14:13 02/22/2012 10:20:13 [id number] Brian Millard MD Radiology , [facility] [address] [facility] [place] [address] 02/22/2012 10:20:36 02/28/2012 13:59:22 [id number] Michael ROY, [facility], OFFICE [address] [facility] [place] [address] 03/09/2012 15:12:29 03/09/2012 16:04:52 [id number] Michael ROY, [facility], OFFICE [address] [facility] [place] [address] 03/23/2012 08:02:55 03/23/2012 08:43:50 [id number] Elba Adams NP , [facility], OFFICE [address] [facility] [place] [address] 04/19/2012 09:13:18 04/19/2012 10:03:50 [id number] Miquel Salazar MD FP, [facility], OFFICE [address] [facility] [place] [address] 04/27/2012 08:06:14 04/27/2012 09:01:31 [id number] MD KIRILL Jain, [facility], OFFICE [address] [place] [address] 05/18/2012 08:40:21 05/18/2012 09:36:54 [id number] Raven Dobbins Mph, LPT Physical Therapy, [facility] [address] [facility] [place] [address] 05/25/2012 08:16:34 05/25/2012 10:24:40 [id number] Michael Quiroz , [facility], OFFICE [address] [facility] [place] [address] 08/09/2012 16:03:43 08/10/2012 06:43:41 [id number] CESAR Elaine , [facility], OFFICE [address] [facility] [place] [address] 08/15/2012 16:35:53 08/16/2012 06:43:27 [id number] Nithya Stahl , [facility], OFFICE [address] [facility] [place] [address] 08/20/2012 14:22:08 08/20/2012 15:25:51 [id number] , [facility], OFFICE [address] [facility] [place] [address] 08/24/2012 09:31:14 08/24/2012 10:50:07 [id number] Melani Norman LPN , [facility], OFFICE [address] [facility] [place] [address] 10/16/2012 08:49:42 10/16/2012 09:54:00 [id number] Miquel Salazar MD , [facility], OFFICE [address] [facility] [place] [address] 09/20/2013 07:59:33 09/20/2013 08:58:38 [id number] Rosalia Vidal CMA , [facility], OFFICE [address] [facility] [place] [address] 09/27/2013 13:19:21 09/27/2013 13:42:57 [id number] , [facility], OFFICE [address] [place] [address] 02/14/2014 09:33:13 02/14/2014 10:48:12 [id number] Miquel Salazar MD , [facility], OFFICE [address] [facility] [place] [address] 04/22/2014 15:33:39 04/22/2014 16:43:49 [id number] Alin Olivares MD , [facility], OFFICE [address] [facility] [place] [address] 02/25/2015 15:39:15 02/25/2015 16:36:12 [id number] Nuha Mariano, PT Physical Therapy, [facility] [address] [place] [address] 03/17/2015 17:05:32 03/18/2015 09:42:30 [id number] Nuha Mariano, PT Physical Therapy, [address] [place] [address] 03/23/2015 16:47:44 03/24/2015 08:15:30 [id number] Mary Lou Copeland Podiatry, [facility] [address] [place] [address] 04/14/2015 14:35:36 04/16/2015 15:51:16 [id number] Miquel Salazar MD , [facility], OFFICE [address] [place] [address] [place] [address] 05/15/2015 15:46:19 05/18/2015 15:29:00 [id number] Carson Barney DPM Podiatry, [facility] [address] [place] [address] 06/02/2015 14:49:39 06/02/2015 15:47:38 [id number] Lexie Dozier , [facility], OFFICE [address] [facility] [place] [address] 2015 15:06:18 06/20/2015 11:41:45 [id number] Carson Barney DPM Podiatry, [address] [place] [address] 07/30/2015 15:15:59 07/30/2015 15:54:16 [id number] Carson Barney DPM Podiatry, [address] [place] [address] 10/01/2015 15:11:30 10/01/2015 16:37:34 [id number] Miquel Salazar MD , [facility], OFFICE [address] [facility] [place] [address] 07/18/2016 15:41:28 07/18/2016 16:35:55 [id number] Mendy Vance NP FP, [facility], OFFICE [address] [facility] [place] [address] 09/23/2016 15:34:42 09/23/2016 16:02:53 [id number] Candido Dodson MD , [facility], OFFICE [address] [place] [address] 06/10/2017 09:10:12 06/10/2017 10:14:37 [id number] Miquel Salazar MD , [facility], OFFICE [address] [facility] [place] [address] 06/23/2017 15:10:50 06/23/2017 16:33:11 [id number] Michael Ann NP , [facility], OFFICE [address] [place] [address] 08/03/2017 15:11:10 08/03/2017 15:55:08 [id number] Miquel Salazar MD , [facility], OFFICE [address] [facility] [place] [address] 11/17/2017 15:39:36 11/17/2017 16:58:56 [id number] MD KIRILL Jain, [facility], OFFICE [address] [facility] [place] [address] 11/22/2018 15:54:32 11/22/2018 17:00:32 [id number] MD KIRILL Jain, [facility], OFFICE [address] [place] [address] 04/05/2019 08:45:14 04/05/2019 10:16:08 [id number] MD KIRILL Jain, [facility], OFFICE [address] [facility] [place] [address] 08/08/2019 08:51:07 08/09/2019 13:52:03 [id number] MD KIRILL Jain, [facility], OFFICE [address] [facility] [place] [address] 11/25/2019 14:54:07 11/26/2019 09:22:11 [id number] Melani Anne LPN , [facility], OFFICE [address] [place] [address] 01/25/2020 08:58:43 01/28/2020 12:08:00 [id number] Carson Barney, DPDa[facility] Podiat[facility], [address] [address] 02/28/2020 07:53:48 03/02/2020 13:04:56 [id number] Miquel Salazar MD , [facility], OFFICE [address] [facility] [place] [address] 05/19/2020 10:47:12 05/20/2020 15:40:02 [id number] MD KIRILL Jain, [facility], OFFICE [address] [facility] [place] [address] 06/25/2020 08:03:12 06/29/2020 11:33:28 [id number] MD KIRILL Jain, [facility], OFFICE [address] [facility] [place] [address] 07/23/2020 09:08:07 07/27/2020 13:46:16 [id number] MD KIRILL Jain, [facility], OFFICE [address] [facility] [place] [address] 09/03/2020 11:44:14 09/04/2020 09:57:05 [id number] MD KIRILL Jain, [facility], OFFICE [address] [facility] [place] [id number] 11/20/2020 09:19:54 11/22/2020 19:09:53 [id number] MD KIRILL Jain, [facility], OFFICE [address] [facility] [place] [id number] 12/24/2020 10:20:05 01/06/2021 09:09:52 [id number] Ginger Littlejohn RN BSN , [facility], OFFICE [address] [facility] [place] [address] 12/28/2020 14:59:41 12/29/2020 10:38:18 [id number] HUONG SchneiderN , [facility], OFFICE [address] [facility] [place] [address] 12/29/2020 16:08:37 12/30/2020 12:53:10 [id number] MD KIRILL Jain, [facility], OFFICE [address] [facility] [place] [address] 02/26/2021 13:42:37 02/26/2021 14:20:59 [id number] MD KIRILL Jain, [facility], OFFICE [address] [facility] [place] [address] 6 05/28/2021 14:42:04 05/28/2021 15:41:00 [id number] MD KIRILL Jain, [facility], OFFICE [address] [facility] [place] [address] 11/25/2021 08:00:39 11/25/2021 08:30:56 [id number] MD KIRILL Jain, [facility], OFFICE [address] [facility] [place] [address] 06/17/2022 13:46:55 06/17/2022 14:56:58 [id number] Giovanna Crocker RN Endoscopy , [address] [address] 11/11/2022 08:16:15 11/11/2022 13:43:57 [id number] Miquel Salazar MD FP, [facility], OFFICE [address] [facility] [place] [address] 12/15/2022 13:16:12 12/15/2022 13:56:14 [id number] APURVA Castaneda FP, [facility], OFFICE [address] [facility] [place] [address] 05/01/2023 13:15:48 05/01/2023 13:56:17 [id number] Mendy Vance NP FP, [facility], OFFICE [address] [place] [address] [place] [address] 05/09/2023 13:53:09 05/12/2023 13:08:35 [id number] Miquel Salazar MD FP, [facility], OFFICE [address] [place] [address] [place] [address] 06/22/2023 13:48:30 06/22/2023 14:55:15 [id number] APURVA Castaneda FP, [facility], OFFICE [address] [place] [address] [place] [address] 6 09/08/2023 14:18:40 09/08/2023 14:56:41 [id number] Miquel Salazar MD FP, [facility], OFFICE [address] [place] [address] [place] [address] 12/04/2023 14:38:53 12/04/2023 15:33:49 [id number] Miquel Salazar MD , [facility], OFFICE [address] [place] [address] [place] [address] 12/25/2023 11:51:29 12/25/2023 12:56:18 [id number] Carson Barney DPM Podiatry, [address] [place] [address] 01/16/2024 10:16:17 01/16/2024 10:53:04 [id number] GREGOR LOAIZA PA-C FP, [facility], OFFICE [address] [place] [address] [place] [address] 05/14/2024 15:46:46 05/14/2024 16:32:47 [id number] Miquel Salazar MD FP, [facility], OFFICE [address] [place] [address] [place] [address] 6 06/24/2024 08:59:03 06/24/2024 09:49:38 Health Concerns Section Related Observation LastModified by Organization Detai ls LastModified Time None Recorded Concern Status LastModified by Organization Details LastModified Time None Recorded Advance Directives Directive None Recorded Payers Encounter Date Sequence Insurance Name Policy Number Policy [place] Covered Member ID [place] Member ID Guarantor Name 12/04/2023 1 [facility] [id number] Nancy Gesiorek [id number] Nancy Gesiorek 12/25/2023 1 [facility] [id number] Nancy Gesiorek [id number] Nancy Gesiorek 01/16/2024 1 [place] [employer] [employer] Nancy Gesiorek [id number] Nancy Gesiorek 01/16/2024 2 [place] [id number] Nancy Gesiorek [id number] Nancy Gesiorek 05/14/2024 1 [place] [employer] Nancy Gesiorek [id number] Nancy Gesiorek 05/14/2024 2 [place] [id number] Nancy Gesiorek [id number] 2 Nancy Gesiorek 06/24/2024 1 [place] [employer] Nancy Gesiorek [id number] Nancy Gesiorek 06/24/2024 2 [place] [id number] Nancy Gesiorek [id number] Nancy Gesiorek OBGyn Episode No OBEpisode recorded.
--- OUTSIDE RECORDS SUMMARY | 2024-07-11 10:19 | XMS_ITS ---
Author Organization [employer] [facility] Address [address] [place] [id number] Care Team Providers Care Coater Slate Name Role Phone ERIKA DE LEON Primary Care Provider SHARON Vale Unavailable [phone] REASON FOR VISIT RX TO NEW PHARMACY Medications Medication SIG (Take, Route, Fr equency, Duration) Notes Start Date End Date Status Estradiol 0.1 MG/24HR 1 patch to skin Tr ansdermal for 90 days 06/10/2019 Active Encounters Encounter Location Date Provider Diagnosis [facility] [employer] [address] [address] 03/11/2024 SHARON RICO Menopausal and femal e [...] Details Provider Name:SHARON Melendez, 07/03/2025 10:40:00 AM, [address] [place] [address], [facility] [address], [place], [address], Progress Notes * GABRIELLE MELARAOB: [birth year] (68 yo F)Acc No.[id number]:03/11/2024 Patient:?FAUSTONIDHINILES MORATAYAIE :1955???Age:68 Y???Sex:Female Address:[address] [place] [address] [place], [address] * Refills? Refill Estradiol Patch Weekly, 0.1 MG/24HR, Transdermal, 13, 1 patch to skin, 90 days, Refills=4 * true * Date:? Generated for Isaias welsh/Sherice/Johnitting on:?07/11/2024 10:19 AM EDT
--- OUTSIDE RECORDS SUMMARY | 2024-07-11 10:19 | XMS_ITS | Data Portability ---
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 Please visit our website [employer] for more patient resources. As part of [...] available LAB Follow -Up 2024 09:00A M [facility] Lab Not available Not available Not available Kallie ss Visit 30 2024 08:30A M Miquel Salazar MD Not available Not available Not available Lab CBC 2024 025 [facility], [address] [place] [address], [address], 06/19/2024 10:43:11 TSH, serum or plasma 2024 025 [facility], [address] [place] [address], [address], 06/19/2024 14:21:50 BMP, serum or plasma 2024 025 [facility], [address] [place] [address], [address], 06/19/2024 15:57:53 BNP (B-typ e natriu retic peptid e), serum or plasma 2024 025 [facility], [address] [place] [address], [address], 06/20/2024 11:08:16 Referral podiat rist referr al - right foot gangli on cyst. causin g pain 2023 024 [email or web address] Carson Barney DPM, [address] [facility], [place], [address], 12/08/2023 14:33:13 Procedures None record ed. Surgeries [...] in value? N/A 2024 025 GELA [facility] (Cardiology), [address] [place], [address], 05/22/2024 13:51:32 XR, chest - worsen ing SOB 2024 [facility] (Imaging), [address] [place], [address], 05/15/2024 10:55:52 Medication Orders omepra zole 20 mg capsul e,armando yed releas e 2024 025 [facility]2024, [address] [place], [address], 06/24/2024 09:43:57 ipratr opium bromid e 42 mcg (0.06 %) nasal spray 2024 025 [facility]2024, [address] [place], [address], 06/24/2024 09:41:06 methoc arbamo l 500 mg tablet 2023 025 [facility], [address] [place], [address], 06/24/2024 09:09:21 amlodi pine 2.5 mg tablet 2023 024 [facility], [address] [place], [address], 12/25/2023 12:42:05 ipratr opium bromid e 42 mcg (0.06 %) nasal spray 2023 024 [facility], [address] [place], [address], 12/25/2023 12:45:42 Patient TargetsNo targets recorded. Patient Instructions Encounter Date Encounter Id Patient Instructions Last Modified By Organization Details Last Modified Time 12/04/2023 [id number] [facility] serves as the focal point for all health care services the patient needs. [email or web address] Not available 12/04/2023 20:57:12 01/16/2024 [id number] Dispensed order for x-ray evaluation right foot. [email or web address] Not available 01/16/2024 10:46:13 05/14/2024 [id number] CCM: The provider and patient discussed the Chronic Care Management program, including the services provided, and any fees associated with them. 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 causing pain Referring Physician: Miquel Salazar, Family Medicine, Encounter Date: 12/04/2023 Results Created Date Observation Date Name Description Value Unit Range Abnormal Flag Note LastModifiedBy Organization Detail LastModifiedTime 12/22/1912/22/2023 CBC WBC 5.97 K/? ? ?L 3.98-1 0.04 Not Available [address], [address], 12/22/2023 15:42:34 12/22/1912/22/2023 CBC RBC 3.55 M/? ? ?L 3.93-5 .22 low Not Available [address], [address], 12/22/2023 15:42:34 12/22/1912/22/2023 CBC HGB 11.9 g/dL 11.2-1 5.7 Not Available [address], [address], 12/22/2023 15:42:34 12/22/1912/22/2023 CBC HCT 35.3 % 34.1-4 4.9 Not Available [address], [address], 12/22/2023 15:42:34 12/22/1912/22/2023 CBC MCV 99.4 fL 79.4-9 4.8 high Not Available [address], [address], 12/22/2023 15:42:34 12/22/19 24 12/22/2023 CBC MCH 33.5 pg 25.6-3 2.2 high Not Available [address], [address], 12/22/2023 15:42:34 12/22/19 24 12/22/2023 CBC MCHC 33.7 g/dL 32.2-3 5.5 Not Available [address], [address], 12/22/2023 15:42:34 12/22/1912/22/2023 CBC plt 300 K/? ? ?L 182-36 9 Not Available [address], [address], 12/22/2023 15:42:34 12/22/1912/22/2023 CBC MPV 9.6 fL 9.4-12 .3 Not Available [address], [address], 12/22/2023 15:42:34 12/22/1912/22/2023 CBC neut% 52.9 % 34.0-7 1.1 Not Available [address], [address], 12/22/2023 15:42:34 12/22/19 24 12/22/2023 CBC neut# 3.16 1.56-6 .13 Not Available [address], [address], 12/22/2023 15:42:34 12/22/19 24 12/22/2023 CBC lymph % 34.0 % 19.3-5 1.7 Not Available [address], [address], 12/22/2023 15:42:34 12/22/19 24 12/22/2023 CBC lymph # 2.03 K/? ? ?L 1.18-3 .74 Not Available [address], [address], 12/22/2023 15:42:34 12/22/19 24 12/22/2023 CBC mono% 8.7 % 4.7-12 .5 Not Available [address], [address], 12/22/2023 15:42:34 12/22/19 24 12/22/2023 CBC mono# 0.52 0.24-0 .56 Not Available [address], [address], 12/22/2023 15:42:34 12/22/19 24 12/22/2023 CBC eo% 3.7 % 0.7-5. 8 Not Available [address], [address], 12/22/2023 15:42:34 12/22/19 24 12/22/2023 CBC eo# 0.22 0.04-0 .36 Not Available [address], [address], 12/22/2023 15:42:34 12/22/19 24 12/22/2023 CBC baso% 0.5 % 0.1-1. 2 Not Available [address], [address], 12/22/2023 15:42:34 12/22/19 24 12/22/2023 CBC baso# 0.03 0.00-0 .08 Not Available [address], [address], 12/22/2023 15:42:34 12/22/19 24 12/22/2023 CBC RDW-CV 11.8 % 11.7-1 4.4 Not Available [address], [address], 12/22/2023 15:42:34 12/22/19 24 12/22/2023 CBC Ig% 0.200 % 0.000- 1.500 Ig % >0.5 Indic ates possi ble Left Shift Not Available [address], [address], 12/22/2023 15:42:34 12/22/19 24 12/22/2023 CBC Ig# 0.010 0.000- 0.093 Not Available [address], [address], 12/22/2023 15:42:34 12/22/19 24 12/22/2023 CBC NRBC% 0.0 % 0.0-0. 2 Not Available [address], [address], 12/22/2023 15:42:34 12/22/19 24 12/22/2023 CBC NRBC# 0.000 0.000- 0.012 Not Available [address], [address], 12/22/2023 15:42:34 12/22/19 24 12/22/2023 COMP. METAB OLIC PANEL glucose 98 mg/dL 70-100 Not Available [address], [address], 12/22/2023 16:25:37 12/22/19 24 12/22/2023 COMP. METAB OLIC PANEL BUN 18 mg/dL 7-18 Not Available [address], [address], 12/22/2023 16:25:37 12/22/19 24 12/22/2023 COMP. METAB OLIC PANEL creatinine 0.7 mg/dL 0.8-1. 3 low Not Available [address], [address], 12/22/2023 16:25:37 12/22/19 24 12/22/2023 COMP. METAB OLIC PANEL B/C 25.7 ratio Not Available [address], [address], 12/22/2023 16:25:37 12/22/19 24 12/22/2023 COMP. METAB [...] be used in pregn garrison. Not Available [address], [address], 12/22/2023 16:25:37 12/22/19 24 12/22/2023 COMP. METAB OLIC PANEL sodium 137 mmol/ L 136-14 5 Not Available [address], [address], 12/22/2023 16:25:37 12/22/19 24 12/22/2023 COMP. METAB OLIC PANEL potassium 5.2 mmol/ L 3.5-5. 1 high Not Available [address], [address], 12/22/2023 16:25:37 12/22/19 24 12/22/2023 COMP. METAB OLIC PANEL chloride 102 mmol/ L 96-107 Not Available [address], [address], 12/22/2023 16:25:37 12/22/19 24 12/22/2023 COMP. METAB OLIC PANEL anion gap 11.1 5.0-15 .0 Not Available [address], [address], 12/22/2023 16:25:37 12/22/19 24 12/22/2023 COMP. METAB OLIC PANEL CO2 24 mmol/ L 21-32 Not Available [address], [address], 12/22/2023 16:25:37 12/22/19 24 12/22/2023 COMP. METAB OLIC PANEL calcium 9.3 mg/dL 8.5-10 .3 Not Available [address], [address], 12/22/2023 16:25:37 12/22/19 24 12/22/2023 COMP. METAB OLIC PANEL total protein 7.4 g/dL 6.4-8. 2 Not Available [address], [address], 12/22/2023 16:25:37 12/22/19 24 12/22/2023 COMP. METAB OLIC PANEL albumin 3.7 g/dL 3.4-5. 0 Not Available [address], [address], 12/22/2023 16:25:37 12/22/19 24 12/22/2023 COMP. METAB OLIC PANEL globulin 3.7 g/dL Not Available [address], [address], 12/22/2023 16:25:37 12/22/19 24 12/22/2023 COMP. METAB OLIC PANEL A/G 1.0 ratio 0.8-2. 0 Not Available [address], [address], 12/22/2023 16:25:37 12/22/19 24 12/22/2023 COMP. METAB OLIC PANEL total bilirubin 0.40 mg/dL 0.00-1 .00 Not Available [address], [address], 12/22/2023 16:25:37 12/22/19 24 12/22/2023 COMP. METAB OLIC PANEL AST 26 U/L 0-37 Not Available [address], [address], 12/22/2023 16:25:37 12/22/19 24 12/22/2023 COMP. METAB OLIC PANEL ALT 32 U/L 6-63 Not Available [address], [address], 12/22/2023 16:25:37 12/22/19 24 12/22/2023 COMP. METAB OLIC PANEL alk. phos. 95 U/L 50-136 Not Available [address], [address], 12/22/2023 16:25:37 12/22/19 24 12/22/2023 LIPID PANEL cholesterol 249 mg/dL <200 mg/dl Leidy able 200-2 39 mg/dl Borde rline High >240 mg/dl High Not Available [address], [address], 12/22/2023 16:25:37 12/22/19 24 12/22/2023 LIPID PANEL triglyceride s 59 mg/dL <150 mg/dL Ethel l 150-1 99 mg/dL Borde rline High 200-4 99 mg/dL High >500 mg/dL Very High Not Available [address], [address], 12/22/2023 16:25:37 12/22/19 24 12/22/2023 LIPID PANEL direct HDL 82 mg/dL <40 mg/dl - Major Risk for CHD >60 mg/dl - Negat myranda Risk for CHD Not Available [address], [address], 12/22/2023 16:25:37 12/22/19 24 12/22/2023 DIREC T [...] r is not nitesh causeyy. Not Available [address], [address], 12/22/2023 16:25:38 06/20/19 25 06/19/2024 CBC WBC 6.19 K/? ? ?L 3.98-1 0.04 Not Available [address], [address], 06/19/2024 10:43:11 06/20/19 25 06/19/2024 CBC RBC 4.03 M/? ? ?L 3.93-5 .22 Not Available [address], [address], 06/19/2024 10:43:11 06/20/19 25 06/19/2024 CBC HGB 13.3 g/dL 11.2-1 5.7 Not Available [address], [address], 06/19/2024 10:43:11 06/20/19 25 06/19/2024 CBC HCT 39.0 % 34.1-4 4.9 Not Available [address], [address], 06/19/2024 10:43:11 06/20/19 25 06/19/2024 CBC MCV 96.8 fL 79.4-9 4.8 high Not Available [address], [address], 06/19/2024 10:43:11 06/20/19 25 06/19/2024 CBC MCH 33.0 pg 25.6-3 2.2 high Not Available [address], [address], 06/19/2024 10:43:11 06/20/19 25 06/19/2024 CBC MCHC 34.1 g/dL 32.2-3 5.5 Not Available [address], [address], 06/19/2024 10:43:11 06/20/19 25 06/19/2024 CBC plt 279 K/? ? ?L 182-36 9 Not Available [address], [address], 06/19/2024 10:43:11 06/20/19 25 06/19/2024 CBC MPV 9.3 fL 9.4-12 .3 low Not Available [address], [address], 06/19/2024 10:43:11 06/20/19 25 06/19/2024 CBC neut% 48.6 % 34.0-7 1.1 Not Available [address], [address], 06/19/2024 10:43:11 06/20/19 25 06/19/2024 CBC neut# 3.01 1.56-6 .13 Not Available [address], [address], 06/19/2024 10:43:11 06/20/19 25 06/19/2024 CBC lymph % 36.5 % 19.3-5 1.7 Not Available [address], [address], 06/19/2024 10:43:11 06/20/19 25 06/19/2024 CBC lymph # 2.26 K/? ? ?L 1.18-3 .74 Not Available [address], [address], 06/19/2024 10:43:11 06/20/19 25 06/19/2024 CBC mono% 8.9 % 4.7-12 .5 Not Available [address], [address], 06/19/2024 10:43:11 06/20/19 25 06/19/2024 CBC mono# 0.55 0.24-0 .56 Not Available [address], [address], 06/19/2024 10:43:11 06/20/19 25 06/19/2024 CBC eo% 5.2 % 0.7-5. 8 Not Available [address], [address], 06/19/2024 10:43:11 06/20/19 25 06/19/2024 CBC eo# 0.32 0.04-0 .36 Not Available [address], [address], 06/19/2024 10:43:11 06/20/19 25 06/19/2024 CBC baso% 0.6 % 0.1-1. 2 Not Available [address], [address], 06/19/2024 10:43:11 06/20/19 25 06/19/2024 CBC baso# 0.04 0.00-0 .08 Not Available [address], [address], 06/19/2024 10:43:11 06/20/19 25 06/19/2024 CBC RDW-CV 11.9 % 11.7-1 4.4 Not Available [address], [address], 06/19/2024 10:43:11 06/20/19 25 06/19/2024 CBC Ig% 0.200 % 0.000- 1.500 Ig % >0.5 Indic ates possi ble Left Shift Not Available [address], [address], 06/19/2024 10:43:11 06/20/19 25 06/19/2024 CBC Ig# 0.010 0.000- 0.093 Not Available [address], [address], 06/19/2024 10:43:11 06/20/19 25 06/19/2024 CBC NRBC% 0.0 % 0.0-0. 2 Not Available [address], [address], 06/19/2024 10:43:11 06/20/19 25 06/19/2024 CBC NRBC# 0.000 0.000- 0.012 Not Available [address], [address], 06/19/2024 10:43:11 06/20/19 25 06/19/2024 TSH TSH 4.32 uIU/m L 0.50-6 .00 The Amer[employer] can [employer] ge of Endoc rinol ogy and Ameri can Thyro id Assoc iatio n recom mend goal TSH value s betwe en 0.4-4 .0 mIU/m L. Not Available [address], [address], 06/19/2024 14:21:50 06/20/1906/19/2024 BASIC METAB OLIC PANEL glucose 94 mg/dL 70-100 Not Available [address], [address], 06/19/2024 15:57:53 06/20/19 25 06/19/2024 BASIC METAB OLIC PANEL BUN 15 mg/dL 7-18 Not Available [address], [address]683, 06/19/2024 15:57:53 06/20/19 25 06/19/2024 BASIC METAB OLIC PANEL creatinine 0.7 mg/dL 0.8-1. 3 low Not Available [address], [address], 06/19/2024 15:57:53 06/20/19 25 06/19/2024 BASIC METAB OLIC PANEL B/C 21.4 ratio Not Available [address], [address], 06/19/2024 15:57:53 06/20/19 25 06/19/2024 BASIC METAB [...] be used in pregn garrison. Not Available [address], [address], 06/19/2024 15:57:53 06/20/19 25 06/19/2024 BASIC METAB OLIC PANEL sodium 137 mmol/ L 136-14 5 Not Available [address], [address], 06/19/2024 15:57:53 06/20/19 25 06/19/2024 BASIC METAB OLIC PANEL potassium 4.5 mmol/ L 3.5-5. 1 Not Available [address], [address]107, 06/19/2024 15:57:53 06/20/19 25 06/19/2024 BASIC METAB OLIC PANEL chloride 102 mmol/ L 96-107 Not Available [address], [address]96, 06/19/2024 15:57:53 06/20/19 25 06/19/2024 BASIC METAB OLIC PANEL anion gap 10.4 5.0-15 .0 Not Available [address], [address], 06/19/2024 15:57:53 06/20/19 25 06/19/2024 BASIC METAB OLIC PANEL CO2 25 mmol/ L 21-32 Not Available [address], [address], 06/19/2024 15:57:53 06/20/19 25 06/19/2024 BASIC METAB OLIC PANEL calcium 9.3 mg/dL 8.5-10 .3 Not Available [address], [address], 06/19/2024 15:57:53 06/20/19 25 06/19/2024 LIPID PANEL cholesterol 250 mg/dL <200 mg/dl Leidy able 200-2 39 mg/dl Borde rline High >240 mg/dl High Not Available [address], [address], 06/19/2024 16:23:28 06/20/19 25 06/19/2024 LIPID PANEL triglyceride s 80 mg/dL <150 mg/dL Ethel l 150-1 99 mg/dL Borde rline High 200-4 99 mg/dL High >500 mg/dL Very High Not Available [address], [address], 06/19/2024 16:23:28 06/20/19 25 06/19/2024 LIPID PANEL direct HDL 93 mg/dL <40 mg/dl - Major Risk for CHD >60 mg/dl - Negat myranda Risk for CHD Not Available [address], [address], 06/19/2024 16:23:28 06/20/19 25 06/19/2024 DIREC T [...] r is not neces deandre. Not Available [address], [address], 06/19/2024 16:23:29 06/20/19 25 06/20/2024 B TYPE [...] ol. 2002; 40:97 6-982 . Not Available [facility] [address] [place], [address], 06/20/2024 11:08:16 01/17/20 24 01/17/2024 XR, foot [...] Iván pierre Physic aaliyah: Victor Manuel Kaufman [facility] (Imaging) [address], [place], [address], 01/17/2024 10:00:29 05/15/1905/15/2024 XR, chest CLINIC AL [...] Iván pierre Physic aaliyah: Victor Manuel gar [facility] (Imaging) [address], [place], [address], 05/16/2024 17:05:22 05/22/1905/22/2024 stres s test exerc [...] Time: 2024 11:13 AM Access ion #: [id number] Result Status : Final Stress Test [...] stress report for full detail sDenver Chao, PATROL OFFICER with Dr. Kenney er Respon se to [...] on 5 at 1348 EST JESUS HEREDIA [facility] [address] [place] [address], [address], 05/23/2024 12:59:34 05/22/19 25 05/22/2024 exerc ise stres s test No observ ation record ed. [address], [address], 05/23/2024 12:59:34 06/12/1906/10/2024 MAMMO , scree tye No observ ation record ed. clementina recinos [facility] [address] [place], [address], 06/11/2024 21:55:32 Result Notes None recorded. Problems Name Problem SNOMED Code Status Onset Date Resolution Date Notes Provider Name and Address Organization Details Recorded Time Sprain of sacroilia c ligament 11296237 Completed 02/27/2013 Miquel Salazar MD [address] [place], [address], [facility] 6 16:04:44 Diarrhea 01578966 Completed 02/27/2013 Miquel Salazar MD [address] [place] [address] [place], [address], [facility] 6 16:04:44 Low back pain 946077745 Active Miquel Salazar MD [address] [place] [address] [place], [address], [facility] 6 16:04:44 Hip pain 41246110 Completed 02/27/2013 Miquel Salazar MD [address] [place] [address] [place], [address], [facility] 6 16:04:44 Acute bronchiti s 51478564 Completed 02/27/2013 Miquel Salazar MD [address] [place] [address] [place], [address], [facility] 6 16:04:44 Congenita l hearing disorder 24698270 Active Miquel Salazar MD [address] [place] [address] [place], [address], [facility] 6 19:53:11 Migraine 09927199 Active 2017 Miquel Salazar MD [address] [place] [address] [place], [address], [facility] 8 16:38:15 Essential hypertens ion 96648686 Active 2018 Miquel Salazar MD [address] [place] [address] [place], [address], [facility] 9 09:15:00 Lymphocyt ic-plasma cytic colitis Active 2020 Miquel Salazar MD [address] [place] [address] [place], [address], [facility] 1 11:59:55 Osteopeni a 077847335 Active 2023 Miquel Salazar MD [address] [place], [address], [facility] 20:11:57 Chronic neck pain for greater than 3 months 161397509828 103 Active 2023 Miquel Salazar MD [address] [place] [address] [facility] [place], [address], [facility] 16:57:36 Notes:Some problems listed i n Document: #[id number] could not be added to this patient's chart. Please review this document and add these problems to the patient's chart manually as needed. Problem Notes None recorded. Procedures Surgical History Date Name Laterality Status Provider Name and Address Organization Details Recorded Time 12/25/19 24 Cardiovascular disease risk reduction counseling completed Miquel Salazar MD [address] [place] [address], [phone], [facility] 12/25/2023 12:39:12 12/04/19 24 [id number] completed Miquel Salazar MD [address] [place] [address], [phone], [facility] 12/04/2023 20:57:12 06/22/19 24 Medicare Wellness Visit completed Haydee Pollock MA [facility] 06/22/2023 10:30:57 11/15/19 23 Colonoscopy completed Miquel Salazar MD [address] [place] [address], [phone], [facility] 11/26/2022 19:55:34 06/18/19 23 Medicare Wellness Visit completed Haydee Pollock MA [facility] 06/17/2022 08:23:54 05/28/19 22 Medicare Wellness Visit completed Haydee Pollock MA [facility] 05/28/2021 08:39:36 05/28/19 22 Alcohol use screening completed Haydee Pollock MA [facility] 05/28/2021 08:39:36 05/28/19 22 Cardiovascular disease risk reduction counseling completed Haydee Pollock MA [facility] 05/28/2021 08:39:37 05/28/19 22 Medicare Risk for Falls Screen completed Haydee Pollock MA [facility] 05/28/2021 14:50:49 05/28/19 22 Advanced Care Planning completed Miquel Salazar MD [address] [place] [address], [phone], [facility] 05/28/2021 21:13:29 07/24/19 21 Medicare Risk for Falls Screen completed Hansa Portillo CMA [facility] 07/23/2020 09:13:13 11/25/19 20 prevention-cardiov ascular risk reduction counseling completed [facility] 11/22/2019 12:17:26 11/25/19 20 prevention-annual alcohol misuse screening completed [facility] 11/22/2019 12:17:26 02/23/20 17 Other (specify) completed Miquel Salazar MD [address] [place] [address], [phone], [facility] 03/08/2017 06:44:43 07/10/19 15 Other (specify) completed Miquel Salazar MD [address] [place] [address], [phone], [facility] 07/12/2014 10:51:09 09/11/19 13 Colonoscopy completed Miquel Salazar MD [address] [place] [address], [phone], [facility] 05/01/2013 12:50:27 05/25/19 13 Treatment and Advice completed Raven Dobbins Mph, LPT [address] [place] [address], [phone], [facility] 05/25/2012 10:16:20 Total Hysterectomy completed Jesus Salazar MD [address] [place] [address], [phone], [facility] 08/24/2012 10:30:09 Appendectomy completed Judy Sood MA [facility] 04/08/2011 15:42:03 Imaging Results Imaging Date Name Status LastModified by Organiz ation Details LastModified Time 01/17/2024 XR, foot completed [facility] (Imaging) [address], [place], [address], 01/17/2024 10:00:29 05/15/2024 XR, chest completed [facility] (Imaging) [address] , [place], [address], 05/16/2024 17:05:22 05/22/2024 stress test exercise completed [facility] [address] [place], [address], 05/23/2024 12:59:34 05/22/2024 exercise stress test completed [facility] [address] [place], [address], 05/23/2024 12:59:34 06/10/2024 MAMMO, screening completed [facility] [address] [place], [address], 06/11/2024 21:55:32 Procedure Notes None recorded. Medical Equipment None Reported. Allergies Allergen ID Allergen Name Allergen Category Reaction Reaction Severity Criticality Documentation Date Start Date Code Code System Note Provider Name and Address Organization Details Recorded Time 850128 lisinopri l medicatio n cough Not available Not available 05/06/2019 65755 RxNorm Miquel Salazar MD [address] [place] [address], [place], [address] [place] [address] 0 15:45:08 42547 Product containin g penicilli n (product) medicatio n Not available Not available Not available 01/14/2011 68224 8001 SNOMED Not Available [facility] 1 06:05:41 75712 minocycli ne medicatio n Not available Not available Not available 01/14/2011 6980 RxNorm Not Available [facility] 06:05:41 Medications Name Sig Start Date Stop [...] Updated DateTime 4 162.56 cm 23.7 kg/m2 16667.7 5 g 76 /min 126 mm[Hg] 74 mm[Hg] Haydee Pollock [facility] 4 15:07:05 Date Recorded Body height Body mass index (BMI) Body weight Heart rate Systolic blood pressure Diastolic blood pressure Provider Name and Address Organization Details Last Updated DateTime 162.56 cm 23.5 kg/m2 57468.1 5 g 76 /min 132 mm[Hg] 74 mm[Hg] Haydee Ron [facility] 4 12:27:28 Date Recorded Systolic blood pressure Diastolic blood pressure Provider Name and Address Organization Details Last Updated DateTime 12/25/2023 110 mm[Hg] 70 mm[Hg] Miquel Salazar MD [address] [place] [address], [phone], [facility] 12/25/2023 12:46:14 Date Recorded Body height Body mass index (BMI) Body weight Provider Name and Address Organization Details Last Updated DateTime 01/16/2024 162.56 cm 23.8 kg/m2 98245.62 g Rody Hardin LPN [facility] 01/16/2024 10:23:13 Date Recorded Body height Body mass index (BMI) Body weight Oxygen saturation Oxygen saturation in Arterial blood by Pulse oximetry Heart rate Systolic blood pressure Diastolic blood pressure Provider Name and Address Organization Details Last Updated DateTime 5 162.56 cm 24.4 kg/m2 07309.8 2 g 98 % 98 % 86 /min 124 mm[Hg] 84 mm[Hg] Saloni Jacques [facility] 5 16:08:34 Date Recorded Body height Body mass index (BMI) Body weight Heart rate Systolic blood pressure Diastolic blood pressure Provider Name and Address Organization Details Last Updated DateTime 03/17/202 5 162.56 cm 24.4 kg/m2 48164.1 2 g 76 /min 142 mm[Hg] 84 mm[Hg] Haydee Pollock MA [facility] 09:16:23 Date Recorded Systolic blood pressure Diastolic blood pressure Provider Name and Address Organization Details Last Updated DateTime 06/24/2024 124 mm[Hg] 80 mm[Hg] Miquel Salazar MD [address] [place] [address], [phone], [facility] 06/24/2024 09:40:20 Date Recorded Systolic blood pressure Diastolic blood pressure Provider Name and Address Organization Details Last Updated DateTime 04/22/2024 130 mm[Hg] 68 mm[Hg] Estella Villa RN [facility] 04/23/2024 09:22:02 Social History Question Answer Notes LastModified by Organizat ion Details LastModified Time Tobacco Smoking Status Former Smoker quit 1995. Smoked for about 25 years. 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 Information not available 05/15/2015 When Did You [...] Medical History Condition Response Hearing Loss Y Chronic Neck Pain Y Allergic Rhinitis Y Crohn's Disease Y Migraine Headaches Y CANCER Y Gynecological History Statement/Question Response Hysterectomy Y Age at Menarche 12 Obstetrics History GPAL:G 0 P 0 0 0 0 Immunizations Vaccine Type Date Status Note Provider Altaf ba and Address Organization Details Recorded Time Tdap 1 completed Not Available [facility] 04/27/2019 02:35:39 Influenza, split virus, quadrivalent, PF 0 completed Melani Anne LPN [facility] 01/27/2020 15:25:21 Td (adult), 2 Lf tetanus toxoid, preservative free, adsorbed 1 completed Haydee Pollock MA [facility] 12/24/2020 10:54:20 pneumococcal polysaccharide PPV23 1 completed Miquel Salazar MD [address] [place] [address], [phone], [facility] 02/26/2021 14:05:27 COVID-19, mRNA, LNP-S, PF, 30 mcg/0.3 mL dose 1 completed [facility] 09:14:10 COVID-19, mRNA, LNP-S, PF, 30 mcg/0.3 mL dose 3 completed FAIZAN [facility] 05/09/2023 12:30:04 Influenza, adjuvanted, quadrivalent, PF 3 completed [facility]dee [facility]ock [facility] 12/25/2023 12:25:29 COVID-19, mRNA, LNP-S, PF, 30 mcg/0.3 mL dose 1 [facility]/25/2023 12:25:29 COVID-19, mRNA, LNP-S, PF, 30 mcg/0.3 mL dose, lia-sucrose 2 [facility] 12/25/2023 12:25:29 COVID-19, mRNA, LNP-S, PF, lia-sucrose, 30 mcg/0.3 mL 3 completed [facility]dee Pollock [facility] 12/25/2023 12:25:29 Pneumococcal conjugate PCV20, polysaccharide [id number] conjugate, adjuvant, PF 4 completed Haydee Ronsaroj [facility] 12/25/2023 12:25:36 COVID-19, mRNA, LNP-S, PF, 50 mcg/0.5 mL 4 completed Haydee Asafsaroj [facility] 12/25/2023 12:25:36 Influenza, high-dose, trivalent, PF 4 completed [facility]/25/2023 12:25:36 Past Encounters Encounter ID Performer Location Encounter Start Date Encounter Closed Date Diagnosis/Indication Diagnosis SNOMED-CT Code Diagnosis ICD10 Code Diagnosis Note [id number] Radiology , [address] [address] 11/12/2010 13:51:13 11/22/2010 12:23:08 [id number] [facility], OFFICE [address] [place] [phone] 6 01/14/2011 13:44:02 01/17/2011 06:59:04 [id number] Michael Quiroz , [facility], OFFICE [address] [place] [phone] 6 02/10/2012 09:20:09 02/10/2012 11:00:55 [id number] Arabella Sood MD , [facility], OFFICE [address] [place] [phone] 6 02/22/2012 09:14:13 02/22/2012 10:20:13 [id number] Brian Millard MD Radiology , [facility] [address] [facility] [place] [address] 02/22/2012 10:20:36 02/28/2012 13:59:22 [id number] Michael Quiroz , [facility], OFFICE [address] [facility] [place] [address] 03/09/2012 15:12:29 03/09/2012 16:04:52 [id number] Michael Quiroz , [facility], OFFICE [address] [facility] [place] [address] 03/23/2012 08:02:55 03/23/2012 08:43:50 [id number] Elba Adams NP , [facility], OFF[facility] [address] [facility] [place] [address] 04/19/2012 09:13:18 04/19/2012 10:03:50 [id number] Miquel Salazar MD , [facility], OFF[facility] [address] [facility] [place] [address] 04/27/2012 08:06:14 04/27/2012 09:01:31 [id number] Miquel Salazar MD , [facility], OFFICE [address] [facility] [place] [address] 05/18/2012 08:40:21 05/18/2012 09:36:54 [id number] Raven Dobbins Mph, LPT Physical Therapy, [facility] [address] [facility] [place] [address] 05/25/2012 08:16:34 05/25/2012 10:24:40 [id number] Michael Quiroz , [facility], OFFICE [address] [facility] [place] [address] 08/09/2012 16:03:43 08/10/2012 06:43:41 [id number] CESAR Elaine , [facility], OFFICE [address] [facility] [address] 08/15/2012 16:35:53 08/16/2012 06:43:27 [id number] Nithya Stahl , [facility], OFFICE [address] [place] [address] 08/20/2012 14:22:08 08/20/2012 15:25:51 [id number] , [facility], OFFICE [address] [place] [id number] 6 08/24/2012 09:31:14 08/24/2012 10:50:07 [id number] Melani Norman LPN , [facility], OFFICE [address] [place] [id number] 6 10/16/2012 08:49:42 10/16/2012 09:54:00 [id number] Miquel Salazar MD , [facility], OFFICE [address] [place] [address] 6 09/20/2013 07:59:33 09/20/2013 08:58:38 Elevated blood-pressure reading without diagnosis of hypertension 934852416 Upper resp iratory infection 88310329 Cough 79104767 Adult heal th examination 147294456 see Risk Assessment and Lifestyle Change Counseling section above [id number] Rosalia Vidal CMA FP, [facility], OFFICE [address] [place] [address] 6 09/27/2013 13:19:21 09/27/2013 13:42:57 Acute sinusitis 92149372 Dysfunctio n of eustachian tube 21917937 [id number] , [facility], OFFICE [address] [place] [address] 6 02/14/2014 09:33:13 02/14/2014 10:48:12 Adult health examination 274745646 see Risk Assessment and Lifestyle Change Counseling section above Counseling [id number] Hearing loss 01652605 Migraine 03492928 Colitis 42673446 [id number] MD KIRILL Jain, C, OFFICE [address] [place] [address] 6 04/22/2014 15:33:39 04/22/2014 16:43:49 Low back strain 465754281 Upper resp iratory infection 60888427 Cough 01436723 [id number] Alin Olivares MD FP, C, OFFICE [address] [place] [id number] 6 02/25/2015 15:39:15 02/25/2015 16:36:12 Screening for disorder 873482098 Z11.59 Foot pain 17220482 M79.6 71 [id number] Nuha Mariano, PT Physical Therapy, [address] [address] 6 03/17/2015 17:05:32 03/18/2015 09:42:30 Foot pain 43871489 M79.743 [id number] Nuha Mariano, PT Physical Therapy, [address] [address] 6 03/23/2015 16:47:44 03/24/2015 08:15:30 Foot pain 47816885 M79.592 [id number] Mary Lou Copeland Podiatry, [address] [address] 6 04/14/2015 14:35:36 04/16/2015 15:51:16 Plantar fasciitis 330424488 M72.2 [id number] Miquel Salazar MD , [facility], OFFICE [address] [place] [id number] 6 05/15/2015 15:46:19 05/18/2015 15:29:00 Adult health examination 722323457 Z00.00 see Risk Assessment and Lifestyle Change Counseling section above Counseling 229114838 Z71 .9 Migraine 54576485 G43.90 9 Varicella vaccination 68 100925 Z23 Congenital hearing disorder 84455529 H90.8 [id number] Carson Barney Daiana Podiatry, [address] [address] 6 06/02/2015 14:49:39 06/02/2015 15:47:38 Plantar fasciitis 570094485 M72.2 [id number] Lexie ROY, [facility], OFFICE [address] [place] [id number] 6 2015 15:06:18 06/20/2015 11:41:45 Upper respiratory infection 76984734 J06.9 [id number] Carson Barney DPM Podiatry, [address] [address] 6 07/30/2015 15:15:59 07/30/2015 15:54:16 Plantar fasciitis 922266055 M72.2 [id number] Carson Barney DPM Podiatry, [address] [address] 6 10/01/2015 15:11:30 10/01/2015 16:37:34 Plantar fasciitis 755159569 M72.2 [id number] Miquel Salazar MD , [facility], OFFICE [address] [place] [id number] 6 07/18/2016 15:41:28 07/18/2016 16:35:55 Adult health examination 264693418 Z00.00 see Risk Assessment and Lifestyle Change Counseling section above Congenital hearing disorder 64223388 H90.8 Headache 03100349 R51 Knee pain 10323256 M25.5 61 [id number] Mendy Vance NP , [facility], OFFICE [address] [place] [address] 6 09/23/2016 15:34:42 09/23/2016 16:02:53 Low back pain 137002579 M54.5 right sided [id number] Candido Dodson MD , [facility], OFFICE [address] [place] [address] 06/10/2017 09:10:12 06/10/2017 10:14:37 Edema of lower extremity 562828359 R60.0 no ultrasound available over weekend; will check D dimer and if negative just supportive measures; if positive send to ER for u/s. [id number] Miquel Salazar MD , [facility], OFFICE [address] [place] [address] 6 06/23/2017 15:10:50 06/23/2017 16:33:11 Pain in left knee 5284505931 09264 M25.160 [id number] Michael Ann NP , [facility], OFFICE [address] [place] [address] 6 08/03/2017 15:11:10 08/03/2017 15:55:08 Abdominal pain 99532090 R10.9 r/o U colitis mild, GB disease, [...] go to ED or contact her PCP. [id number] MD KIRILL Jain, C, OFFICE [address] [place] [id number] 6 11/17/2017 15:39:36 11/17/2017 16:58:56 Adult health examination 758695782 Z00.00 see Risk Assessment and Lifestyle Change Counseling section above Depression screening 171 325202 Z13.89 depression screening tool administer ed, entered into emr, scored and discussed, time greater than 7.5 minutes Congenital hearing disorder 95112130 H90.8 Migraine 84199418 G43.90 9 [id number] MD KIRILL Jain, Amina, OFFICE [address] [place] [address] 6[address] 6 11/22/2018 15:54:32 11/22/2018 17:00:32 Adult health examination 561041909 Z00.00 see Risk Assessment and Lifestyle Change Counseling section above Depression screening 171 855570 Z13.89 depression screening tool administer ed, entered into emr, scored and discussed, time greater than 7.5 minutes Migraine 86416422 G43.90 9 Elevated blood-pressure reading without diagnosis of hypertension 282677031 R03.0 [id number] MD KIRILL Jain, C, OFFICE [address] [place] [address] 9[address]84[address]088 6 04/05/2019 08:45:14 04/05/2019 10:16:08 Essential hypertension 03530789 I10 [id number] MD KIRILL Jain, C, OFFICE [address] [place] [id number] 6 08/08/2019 08:51:07 08/09/2019 13:52:03 Essential hypertension 40350230 I10 [id number] MD KIRILL Jain, Amina, OFFICE [address] [place] [address]951 6 11/25/2019 14:54:07 11/26/2019 09:22:11 Adult health examination 713221055 Z00.00 see Risk Assessment and Lifestyle Change Counseling section above Depression screening 171 429799 Z13.89 depression screening tool administer ed, entered into emr, scored and discussed, time greater than 7.5 minutes Screening for alcohol abuse 520575244 Z13.39 Counseling 274016010 Z71 .89 Essential hypertension 65210515 I10 Congenital hearing disorder 68550825 H90.8 Migraine 62464095 G43.90 9 [id number] Melani Anne LPN , 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 [id number] Miquel Salazar MD , [facility], OFFICE [address] [place] [address] 6 05/19/2020 10:47:12 05/20/2020 15:40:02 Essential hypertension 29293502 I10 [id number] Miquel Salazar MD , [facility], OFFICE [address] [place] [address]13[address]791 6 06/25/2020 08:03:12 06/29/2020 11:33:28 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 [id number] Miquel Salazar MD , [facility], OFFICE [address] [place] [address] 6 07/23/2020 09:08:07 07/27/2020 13:46:16 Lymphocytic-plasmacyt ic colitis 39842193 K52.832 Essential hypertension 69883061 I10 [id number] Miquel Salazar MD , [facility], OFFICE [address] [place] [address]73[address]408 6 09/03/2020 11:44:14 09/04/2020 09:57:05 Essential hypertension 09037569 I10 Lymphocyti c-plasmacyt ic colitis 85855870 K52.832 Neck pain 17734575 M54.2 Thoracic back pain 56908 8004 M54.6 [id number] Miquel Salazar MD , [facility], OFFICE [address] [place] [address] 28068[address]798 6 11/20/2020 09:19:54 11/22/2020 19:09:53 Essential hypertension 36547974 I10 Migraine 26500206 G43.90 9 [id number] Miquel Salazar MD , [facility], OFFICE [address] [place] [address] 6 12/24/2020 10:20:05 01/06/2021 09:09:52 Screening for malignant neoplasm of colon 368412567 Z12.11 Referral for a DIRECT booked colonoscop y. This patient is a healthy ASA Class 1 or 2 patient (only mild systemic disease), or a STABLE, well controlled insulin dependent diabetic. They do not have serious cardiac disease ie NE/angiopl asty within 1 year, symptomati c CHF; renal failure with CKD 4 or 5; take Coumadin, Plavix, Aggrenox, etc. Active or passive immunization 413313225 Z23 Palpitations 02243649 R0 0.2 Essential hypertension 47826894 I10 [id number] HUONG Schneider , [facility], OFFICE [address] [place] [address] 8[address]88[address]976 6 12/28/2020 14:59:41 12/29/2020 10:38:18 Palpitations 52908226 R00.2 [id number] HUONG Schneider , [facility], OFFICE [address] [place] [address]105[address]165 6 12/29/2020 16:08:37 12/30/2020 12:53:10 Palpitations 50164521 R00.2 [id number] Miquel Salazar MD , [facility], OFFICE [address] [place] [address] 27782[address]470 6 02/26/2021 13:42:37 02/26/2021 14:20:59 Active or passive immunization 784015493 Z23 Strain of right trapezius muscle 7086275997 2938486 S29.012A Strain of neck muscle 36 2789851 S16.1XXA [id number] Miquel Salazar MD , [facility], OFFICE [address] [place] [address] 20043[address]772 6 05/28/2021 14:42:04 05/28/2021 15:41:00 Adult health examination 955789760 Z00.00 see Risk Assessment and Lifestyle Change Counseling section above Counseling 652786016 Z71 .9 including cardiovasc ular risk reduction counseling Depression screening 171 637954 Z13.31 depression screening tool administer ed, entered into emr, scored and discussed, time greater than 7.5 minutes Screening for alcohol abuse 462673795 Z13.39 Essential hypertension 27805476 I10 Advance di rective discussed with patient 474877306 Z71.89 Strain of right trapezius muscle 3245964951 8751502 S29.012A Congenital hearing disorder 46883597 H90.8 Migraine 89555301 G43.90 9 Screening for osteoporosis 835565092 Z13.363 [id number] Miquel Salazar MD , [facility], OFFICE [address] [place] [address]779[address]392 6 11/25/2021 08:00:39 11/25/2021 08:30:56 Essential hypertension 35336719 I10 Active or passive immunization 253075256 Z23 Pt declines Shingles/ PPV23 vac 11/25/21 Posterior rhinorrhea 758 27022 R09.82 [id number] Miquel Salazar MD , [facility], OFFICE [address] [place] [address] 58216[address] 6 06/17/2022 13:46:55 06/17/2022 14:56:58 Adult health examination 093919828 Z00.00 see Risk Assessment and Lifestyle Change Counseling section above Depression screening 171 Z13.31 depression screening tool administer ed Screening for alcohol abuse 743162896 Z13.39 Alcohol use screening tool administer ed Essential hypertension 16387711 I10 Migraine 12418991 G43.90 9 Chronic neck pain 710717 0620 107 M54.2 Congenital hearing disorder 27240507 H90.8 Lymphocytic colitis 1187 506239 K52.832 Menopausal flushing 1984 70640 N95.1 Rosacea 161834113 L71.9 Hyperlipidemia 35873819 E78.5 [id number] Giovanna Crocker RN Endoscopy , [address] [address] 11/11/2022 08:16:15 11/11/2022 13:43:57 [id number] Miquel Salazar MD , [facility], OFFICE [address] [place] [address]98[address] 6 12/15/2022 13:16:12 12/15/2022 13:56:14 Migraine 07879765 G43.909 Active or passive immunization 288100831 Z23 Pneumo: aware at [facility] ingrix: aware at pharmacy Essential hypertension 67364487 I10 [id number] APURVA Castaneda , [facility], OFFICE [address] [place] [address] 24253-728 6 05/01/2023 13:15:48 05/01/2023 13:56:17 Upper respiratory infection 43188410 J06.9 Patient presents with symptoms consistent with viral infection. No evidence of pneumonia on exam. Discussed supportive care: pushing fluids, rest, nasal saline and Mucinex as needed. Encouraged to follow up if symptoms persist for more then 10 days or if they are worsening. Discussed natural course of viral illnesses and lack of evidence for treating with antibiotic s. Cough 21587700 R05.9 use flonasesta rt tessalon pearls Acute sinusitis 47696437 J01.90 Encourage force fluids, steam inhalation as needed, adequate rest.Will start flonaseAdv ised current guidelines no abx until >2 weeks sx or worsening with fever/clifton ge in nasal dischargeC an use mucinex OTCFollow up if not improving or symptoms worsening. [id number] Mendy Vance NP , [facility], OFFICE [address] [place] [address] 6 05/09/2023 13:53:09 05/12/2023 13:08:35 Active or passive immunization 184972010 Z23 Pneumo: aware at [facility] ingrix: aware at pharmacy Acute bronchitis 0452935 2 J20.9 sick x2+ weeks with exp wheeze on exam- pt declines albuterol, has not tolerated in the past- short prednisone burst as prescribed . med discussed- discussed supportive care, rest, fluids, nasal saline, warm salt water gargle, humidifier - report trouble breathing, fever, not improving in a few days, or other concerns Cough 43814619 R05.9 cough med with codeine has been helpful. will refill. 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 Congenital hearing disorder 64274066 H90.8 Essential hypertension 90741597 I10 Lymphocytic colitis 1187 490478 K52.832 Acute low back pain 2788 04796 M54.50 Osteopenia 082535966 M85 .80 [id number] APURVA Castaneda, [facility], OFFICE [address] [place] [address] 6 09/08/2023 14:18:40 09/08/2023 14:56:41 Active or passive immunization 751158183 Z23 Pneumo/Brittany ngles-awar e at pharmacy Pain of le ft hip joint 9806732676 78436 M25.552 hx and sx consistent with likely arthritisx ray todayAdvis ed tylenol/ib uprofen as needed for painAdvise d to wear good fitting shoes and limit activities that worsen painAdvise d to call with worsneing or change in sxConsider sports med [id number] Miquel Salazar MD FP, [facility], OFFICE [address] [place] [address] 6 12/04/2023 14:38:53 12/04/2023 15:33:49 Ganglion cyst of right foot 8093747694 460102 M67.471 reassuranc e, wants to aspirate cyst, referral to Dr Barney [id number] Miquel Salazar MD , [facility], OFFICE [address] [facility] [place] [address] 12/25/2023 11:51:29 12/25/2023 12:56:18 Migraine 06642191 G43.[place]erson9 has no had a migraine since 2017 Essential hypertension 04128257 I10 HTN - at goal of less than 130/80 per the AHA guidelines . Continue meds and f/u in 6 mos.Discus sed labs.Minerva nue low salt diet of less than 1500 mg of sodium per day. The [place] [employer] n (AHA) recommends 30 minutes of moderate physical activity 5 days a week.A Mediterran maranda type of diet and a plant based diet is recommende d, review the website: [employer]. The DASH diet is also recommende d.* Review this website: https://[employer]/al l-about-go od-and-alfred ap for healthy inexpensiv e meals. Active or passive immunization 352637599 Z23 Pneumo: aware at pharmacy Shingrix: aware at pharmacy Flu: Completed 12/25/23 as COVID: Completed 12/25/23 as Counseled by member of primary health care team 716755177 Z71.9 Today we discussed ways to reduce [...] recommend taking daily aspirin. Posterior rhinorrhea 758 22666 R09.82 effective, refill given Chronic neck pain 974785 6187 107 M54.2 consulted with deployment specialist , cortisone injection, NSAIDS and PT with no improvemen t, trial of muscle relaxant and try 1/2 tab first per dose and let me know via portal. [id number] Carson Barney DPM Podiatry, [address] [address] 01/16/2024 10:16:17 01/16/2024 10:53:04 Exostosis of right foot 9159522800 4031900 M89.8X7 [id number] GREGOR LOAIZA PA-C , [facility], OFFICE [address] [place] [address] 6 05/14/2024 15:46:46 05/14/2024 16:32:47 Active or passive immunization 979293210 Z23 Shingles - reminded Dyspnea on exertion 6084 5006 R06.09 c/o shortness of breath with increased heart rate on exertion intermitte ntlyreassu evelyn VS and exam todayWill order labs, chest xray, and a stress test for further evaluation Call with any worsening symptoms in the interimGo to the emergency room if crushing chest pain, severe SOB Cough 42896798 R05.9 Patient with 1 month of dry cough, noticed after losartan brand changePoss ibly a side effect of new manufactur ed medication vs other - workup belowCan contact pharmacy to see if previous tablet is available , if not possibly consider pharmacy change vs medication changewill call after speaking with her pharmacy [id number] Miquel Salazar MD , [facility], OFFICE [address] [place] [address]75[address] 6 06/24/2024 08:59:03 06/24/2024 09:49:38 Migraine 24352293 G43.909 has no had a migraine since 2017 Posterior rhinorrhea 758 52329 R09.82 effective, refill given Active or passive immunization 424330867 Z23 Pneumo: aware at pharmacy Shingrix: aware at pharmacy Flu: Completed Reminded 04/05/19 LZ advised 11/20/20 as advised 12/24/20 as// Pt completed 02/26/21 as 12/25/23 as COVID: pt declines 11/22/18 sj, informed 09/03/2020 xr Completed 12/25/23 as Dyspnea on exertion 6084 5006 R06.09 - Order pulmonary function test at [facility].- Advise monitoring and documentin g instances of cough and dyspnea. Chronic cough 66297028 R 05.3 Chronic dry cough possibly linked to losartan or silent reflux.- Try over-the-c ounter Prilosec for potential silent reflux.- Consider Tessalon Perles if cough persists.- Document cough occurrence s and triggers. Chronic ne ck pain for greater than 3 months 9364428531 27412 M54.2 Chronic neck pain with minor arthritis, no significan t stenosis or pinching. Previous treatments ineffectiv e.- scheduled for medial branch block on July 09 at pain management Essential hypertension 39646784 I10 HTN - at goal of less than 130/80 per the AHA guidelines . Continue meds and f/u in 6 mos.Discus sed labs.- Advise on dietary modificati ons to reduce cholestero l, such as avoiding saturated fats.Minerva nue low salt diet of less than 1500 mg of sodium per day. The [place] [employer] (AHA) recommends 30 minutes of moderate physical activity 5 days a week.A Mediterran maranda type of diet and a plant based diet is recommende d, review the website: [employer]. [employer]. The DASH diet is also recommende d.* Review this website: https://helen carrascoFMS [facility]/al l-about-go od-and-alfred ap for healthy inexpensiv e meals. Health Concerns Section Related Observation LastModified by Organization Detai ls LastModified Time None Recorded Concern Status LastModified by Organization Details LastModified Time None Recorded Advance Directives Directive None Recorded Payers Encounter Date Sequence Insurance Name Policy Number Policy [place] Covered Member ID [place] Member ID Guarantor Name 12/04/2023 1 [facility] [id number] Nancy Gesiorek [id number] Nancy Gesiorek 12/25/2023 1 [facility] [id number] Nancy Gesiorek [id number] Nancy Gesiorek 01/16/2024 1 [place] Nancy Gesiorek [id number] Nancy Gesiorek 01/16/2024 2 [place] [id number] Nancy Gesiorek [id number] 2 Anncy Gesiorek 05/14/2024 1 [place] Nancy Gesiorek [id number] Nancy Gesiorek 05/14/2024 2 [facility] [id number] Nancy Gesiorek [id number] 2 Nancy Gesiorek 06/24/2024 1 [place] Nancy Gesiorek [id number] Nancy Gesiorek 06/24/2024 2 [facility] [id number] Nancy Gesiorek [id number] 2 Nancy Gesiorek Notes Date Note Type Note Provider Name and Address Organization Details Recorded Time 4 text/html cyst on the irght lateral side of footgot larger in the past 2 weekscausing pt pain Miquel Salazar MD [address] [place] [address], [phone], [facility] 12/04/2023 20:58:54 4 text/html VMG HypertensionReported bypatient.Duration:Age [...] - did PT several times, went to deployment specialist and was told muscular, minor arthritis, did cortisone injection not help; takes tylenol arthritis ; has tried diclofenac, meloxicam, and naproxen, has tried cyclobenzaprine and nothing has been effective Miquel Salazar MD [address] [place], [phone], [facility] 12/25/2023 21:12:15 4 text/html Patient presents to the office complaining of a small lump on the top/outside of her right foot. Patient states area is generally not uncomfortable and she first noticed lump a couple of months ago. Patient without complaints of swelling or discoloration. Patient without any known trauma. Carson Barney DPM [address] [place], [phone], [facility] 01/16/2024 10:46:27 5 text/html VMG HypertensionReported bypatient.Duration:Age [...] was getting losartan at a different pharmacy ([facility]) then refilled at a different pharmacy ([facility]) in march and feels like the cough [...] - did PT several times, went to deployment specialist and was told muscular, minor arthritis, did cortisone injection not help; takes tylenol arthritis ; has tried diclofenac, meloxicam, and naproxen, has tried cyclobenzaprine and nothing has been effective GREGOR LOAIZA PA-C [address] [place] [address], [phone], [facility] 05/14/2024 16:55:25 5 text/html Patient presents for [...] x-ray: NormalStress test: Normal Miquel Salazar MD [address] [place] [address], [phone], [facility] 06/24/2024 20:15:54 OBGyn Episode No OBEpisode recorded.
--- OUTSIDE RECORDS SUMMARY | 2024-07-11 10:19 | XMS_ITS ---
Author Organization 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 ? She has been in state of good health since her last exam. She has the following concerns: none ? She has received the [employer] Covid-19 vaccine. ? Relationship status: partnered for [...] Her last mammogram was 05/26/2023 (done at [facility]). ? She does not have a family history of colon cancer. She a has had a colonoscopy. She had a colonoscopy November 2022. She reports no polyps, so follow up in 10 yrs. ? The patient does exercise. She exercises x 2 days/week by walking and lifting weights. 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 * Medical History:? * Animal Science Instructor History:?/ Para?0/0.?Mammogram:?05/26/23 < 50% density, 05/15/21 < 50% density, at 04/20/20 with additional imaging 05/2020, 05/04/19 < 50% [...] in relationship with male partner, Babatunde. 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 ?Pets: none. ?no Sexual abuse. ?Sexually active: yes. ?no Travel outside of the [place]. ?no Verbal abuse. * Medications:?TakingamLODIPin e [...] no acute distress, well developed, well nourished, graduate research assistant present in room.?HEAD:?normocephalic, atraumatic.?NECK/THYROID:?neck supple, full range [...] * Follow Up:?1 Year (Reason: Y early Animal Science Instructor Exam) * Images: Billing Information: * Visit Code:? 02126 Preventive Care Est Pt. Age 65 and over. * Procedure Codes:? 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 She has been in state of good health since her last exam. She has the following concerns: none She has received the [employer] Covid-19 vaccine. Relationship status: partnered for nearly [...] Her last mammogram was 05/26/2023 (done at [facility]). She does not have a family history of colon cancer. She a has had a colonoscopy. She had a colonoscopy November 2022. She reports no polyps, so follow up in 10 yrs. The patient does exercise. She exercises x 2 days/week by walking and lifting weights. Examination Category Sub-Category Detail Notes Category Not es General Examination GENERAL APPEARANCE: in no [place] distress, well developed, well nourished, graduate research assistant present in room HEAD: normocephalic, atrau matic [...]
== END 2024-07-11 10:17 | disposition home or self-care (01) ==
LOC: HO.PMC 09:47
PROVIDERS: PCP Family Medicine; Visit Provider Anesthesiology
DX: M47.812 Spondylosis without myelopathy or radiculopathy, cervical region (principal); G89.4 Chronic pain syndrome
CPT/HCPCS: 99214

== ENCOUNTER → 2024-07-11 09:47 | Outpatient (BNVA) | payer MEDICARE, SELFPAY | PROVIDERS: PCP Family Medicine; Visit Provider Anesthesiology | DX: M47.812 Spondylosis without myelopathy or radiculopathy, cervical region (principal); G89.4 Chronic pain syndrome | CPT/HCPCS: 99212 ==

== ENCOUNTER 2024-09-03 06:14 | Outpatient (REF) | payer MEDICARE, SELFPAY ==
--- NOTE | ~2024-09-03 | FL_ITS ---
EXAMINATION: FL GUIDANCE ONLY HISTORY: M47.812 - Spondylosis without myelopathy or radiculopathy, cervical region COMPARISON: None available. TECHNIQUE: Fluoroscopy time: 0.2 minutes. Cumulative Dose: 0.970 mGy. DAP: 0.0128 mGym2 Images: 2. FINDINGS: Images demonstrate placement of an electrode in the right neck. FL/FL guidance in treatment room IMPRESSION: Fluoroscopy during procedure. Please see procedure report for additional information. Electronically signed by: Stephen Tapia MD 09/03/2024 08:15 AM EDT
== END 2024-09-03 06:15 | disposition home or self-care (01) ==
LOC: CF 06:14
PROVIDERS: Visit Provider Anesthesiology
DX: M47.812 Spondylosis without myelopathy or radiculopathy, cervical region (principal); G89.4 Chronic pain syndrome; Z45.42 Encounter for adjustment and management of neurostimulator
CPT/HCPCS: 64555; C1778; J2003

== ENCOUNTER 2024-09-03 07:04 | Outpatient (AMB) | payer MEDICARE, SELFPAY ==
--- NOTE | 2024-09-03 07:23 | MHC.OFFVIS ---
Vital Signs 09/03/24 07:24 09/03/24 08:07 09/03/24 08:07 Weight 142 lb BP 140/87 H 166/80 H Blood Pressure Location Lt brachial Lt brachial Position Sitting Sitting Respiration 18 18 Pulse 77 75 Pulse Source Pulse Oximeter Pulse Oximeter Pulse Oximetry (%) 100 97 Oxygen Delivery Method Room Air Room Air Intake Visit Reasons: RIGHT C5 (POSS C4, C6, C7) SPRINT PNS TRIAL Clipper Counters Required: No Allergies Penicillins Allergy (Severe, Verified 09/03/24 07:28) Seizure minocycline Adverse Reaction (Severe, Verified 09/03/24 07:28) Hives Physical Exam Vital Signs: Last Vital Signs Pulse 75 09/03/24 08:07 Resp 18 09/03/24 08:07 BP 166/80 H 09/03/24 08:07 Pulse Ox 97 09/03/24 08:07 Oxygen Delivery Method Room Air 09/03/24 08:07 Assessment & Plan Assessment & Plan (1) Spondylosis of cervical joint without myelopathy: Code(s): M47.812 - Spondylosis without myelopathy or radiculopathy, cervical region Category: Medical (2) Chronic pain syndrome: Code(s): G89.4 - Chronic pain syndrome Category: Medical Plan PRINT C6 right PNS. Percutaneous implantation of peripheral nerve stimulation Sprint system. After the risks, benefits and alternatives were discussed with the patient and informed consent was obtained, patient was placed in the prone position and padded to foster comfort. Time out was performed delineating correct site and side of the procedure , name and of the patient, patient participated in time out procedure. Entire posterior neck, occipital portion of the head, upper back were prepped with ChloraPrep and draped with sterile utility towels. C-arm was brought over the operating field and clear picture of the C6 lamina on the right was delineated on the screen. The upper central portion of the lamina was chosen as a target of the needle tip insertion . After identifying and marking the intended target, the skin around the planned entry point and the subcutaneous tissues were injected with local anesthetic forming skin wheal.. A percutaneous sleeve and stimulating probe lead introduction system were assembled, inserted and advanced through the skin wheal to the point of interest under C-arm view in tunnel vision fashion, the introducer needle was delivered to a location in proximity to the nerve. Multiple stimulation parameters were used to deliver stimulation to the nerve in concert with stimulating at multiple positions around the nerve. nerve target acquisition was confirmed noting generation of in the corresponding to the nerve being stimulated. Various electrical parameter combinations were tested, and the lead location was adjusted (physically relocated) until the patient indicated overlapping the distribution of the patient?s typical region of pain. The stimulating probe was removed from the introducer and a percutaneous lead was guided through the needle and delivered to a location in similar proximity to the nerve. Final location was verified with electrical stimulation. The introducer needle was removed, and the exposed end of the percutaneous lead was attached to an external stimulator unit. At the end of the case various electrical parameter combinations were again tested until the patient indicated paresthesia or muscle tension overlapping the distribution of the patient?s typical region of pain. After confirming that lead impedance was in the normal range, the external unit was detached, the needle was removed, and the lead was anchored at the skin. The lead was threaded into the connector block and electrical continuity and desired patient response was confirmed. The connector block was attached to the external stimulator unit. The site was covered with a sterile occlusive dressing and a image was taken to document final placement Orders: Orders FL guidance in treatment room Today M47.812 - Spondylosis without myelopathy or radiculopathy, cervical region Coding Level of Care Code Procedure Only Diagnoses Spondylosis of cervical joint without myelopathy M47.812 Chronic pain syndrome G89.4 Implantable Device Implantable Device Implantable Devices Qty Software Tools Engineer Implant Date Expiration Date Analgesic PENS system 1 [employer] 09/03/24 07/09/25
[2024-09-03 07:24] VITALS: BP 140/87; PULSE 77; RESP 18; O2SAT 100
[2024-09-03 08:07] VITALS: BP 166/80; PULSE 75; RESP 18; O2SAT 97
== END 2024-09-03 08:20 | disposition home or self-care (01) ==
PROVIDERS: PCP Family Medicine; Visit Provider Anesthesiology
DX: M47.812 Spondylosis without myelopathy or radiculopathy, cervical region (principal); G89.4 Chronic pain syndrome
CPT/HCPCS: 64555

== ENCOUNTER 2024-09-11 10:57 | Outpatient (AMB) | payer MEDICARE, SELFPAY ==
--- NOTE | 2024-09-11 11:23 | A.OFFVIS_ITS ---
Vital Signs 09/11/24 11:24 Weight 141 lb BP 171/84 H Blood Pressure Location Lt brachial Position Sitting Respiration 20 Pulse 78 Pulse Oximetry (%) 100 Oxygen Delivery Method Room Air Intake Visit Reasons: RIGHT C5 SPRINT PNS TRIAL Intake Note: dressing changed Consulting It Architect Required: No Allergies Penicillins Allergy (Severe, Verified 09/11/24 11:23) Seizure minocycline Adverse Reaction (Severe, Verified 09/11/24 11:23) Hives HPI Comments Details: Nancy is back in my office after right-sided sprint PNS. One week after the procedure she already reports 50% pain improvement. I recommend her to stay in touch with sprint representatives to find the most appropriate stimulation. She will be scheduled for nursing appointment to change her dressing. Dressing change was performed by nursing today no issues. Results of the diagnostic right-sided C4, C5, C6, C7 medial branch block she reported 75% pain improvement after the injection for the 1st 6 hours and longer after the procedure. She continues to enjoy increase mobility improved activities of daily living ability to perform actions and motions which she unable to do before. Therefore we can make a conclusion that the pain of this patient is from the spondylotic joints on the right side. Review of Systems Const All systems reviewed & are unremarkable except as noted in HPI and below ENT Reports Normal hearing present Neuro Reports Normal hearing present, Denies Abnormal speech present, Denies confusion and Denies Sensory deficit (Neuro) Psych Denies confusion Physical Exam Vital Signs: Last Vital Signs Pulse 78 09/11/24 11:24 Resp 20 09/11/24 11:24 BP 171/84 H 09/11/24 11:24 Pulse Ox 100 09/11/24 11:24 Oxygen Delivery Method Room Air 09/11/24 11:24 Const General: no acute distress; No confusion Orientation/consciousness: patient oriented x3 and No confusion Eyes General: appearance normal, both eyes and all related structures Pupils: Equal, round and reactive pupils present EOM: EOMs intact bilaterally Neck Other: Limited range of motion of the cervical spine. Lateral medial rotation of the neck is painful. Flexing forward causes strain in the neck but no pain and flexing backwards causes severe pain aggravation. Axial compression on the head aggravates the pain, Valsalva maneuver is negative. No radiation of the pain into the upper extremities. Chest Chest palpation & inspection: normal inspection of the chest Resp Effort & Inspection: normal respiratory effort, able to speak in complete sentences, normal respiratory pattern, no audible wheezes and no cough Cardio Jugular venous distension: no JVD GI Inspection: Yes normal to inspection Neuro General: patient oriented x3, gait normal and No confusion Cranial nerves: Yes CN's II-XII intact bilaterally, Yes Equal, round and reactive pupils present, Yes Normal hearing present and Yes Ability to bilaterally elevate shoulders present Speech: No Abnormal speech present Gait exam (Neuro): Normal gait present Motor exam (neuro): 5/5 motor strength present throughout Sensory Exam: No Sensory deficit (Neuro) Extrem General: No pedal edema Psych Speech and movement: Normal speech and movement present Affect: normal affect Attitude: cooperative Thought process: Normal thought process present Thought content: Normal thought content present Insight: Good insight present (Psych) Judgement: Good judgement present (Psych) Results Reviewed Results Reviewed: MRI of the cervical spine without contrast 06/11/2023. Bones appear normal no fracture or deformity no regular edema. Alignment appears normal. Spinal cord appears normal in signal. Soft tissues appears normal. Cervical spine levels: C2-C3: Degenerative disc changes as well as degenerative facet and uncovertebral changes are noted more prominent on the left. Finding cause moderate left-sided foraminal stenosis. No significant spinal canal stenosis. C3-C4: Mild degenerative disc changes and degenerative changes of the facets and uncovertebral joints with moderate left-sided foraminal stenosis. Only minimal central canal stenosis. C4-C5: Minimal degenerative disc bulge with only mild spinal canal stenosis and minimal bilateral foraminal stenosis. C5-C6: Minimal degenerative disc bulge with slightly more prominent on the right paracentral and foraminal positioned finding cause mild spinal canal stenosis. Degenerative changes contribute to moderate right-sided foraminal stenosis. C6- C7 degenerative disc osteophyte with mild spinal canal stenosis. Finding cause mild bilateral foraminal stenosis. C7-T1: Minimal degenerative changes with mild left sided foraminal stenosis Assessment & Plan Assessment & Plan (1) Spondylosis of cervical joint without myelopathy: Code(s): M47.812 - Spondylosis without myelopathy or radiculopathy, cervical region Category: Medical (2) Chronic pain syndrome: Code(s): G89.4 - Chronic pain syndrome Category: Medical Plan This patient most likely suffers from spondylosis of cervical spine which is demonstrable on her MRI. Currently continuous right-sided sprint PNS. The patient's pain is mostly on the right side. We will continue observation. Dressing changes in the office with nursing appointment.. Coding Level of Care Code Est Pt Level 3 (70308) Diagnoses Spondylosis of cervical joint without myelopathy M47.812 Chronic pain syndrome G89.4
[2024-09-11 11:24] VITALS: BP 171/84; PULSE 78; RESP 20; O2SAT 100
--- OUTSIDE RECORDS SUMMARY | 2024-09-11 12:09 | XMS_ITS | Data Portability ---
Author Organization [facility], , [facility], OFFICE Address [address] [place] [address] Care Team Providers Care Bearing Grinder Name Role Phone MIQUEL PENA Primary Care Provide r MERARY HANEY OTHER SHARMAINE DELGADO Sports Medicine [facility] [...] meeting your goals. Please visit our website [employer] for more patient resources. As part of your care plan, we will help coordinate your ongoing medical needs, arrange for durable medical equipment, renew prescriptions and necessary prior authorizations, facilitate getting referrals and collaborating with specialist, referrals for VNA services. [email or web address] Not available 06/24/2024 08:06:07 08/30/2024 08/30/2024 We reviewed your chronic medical conditions and updated your plan for management. Please review instructions below. We have discussed your personal goals and discussed how to reach your goals. Please reach out to us via the Portal or phone if you have questions about your chronic conditions or if you or your caregivers require assistance in meeting your goals. Please visit our website [employer] for more patient resources. As part of your care plan, we will help coordinate your ongoing medical needs, arrange for durable medical equipment, renew prescriptions and necessary prior authorizations, facilitate getting referrals and collaborating with specialist, referrals for VNA services. edd Not available 08/29/2024 16:49:53 Plan of Treatment Reminders Order Date Submit Date Provider Last Modified By Organization Details Last Modified Time Details Appointments LAB Follow -Up 2024 09:00A M [facility] Lab Not available Not available Not available Kallie ss Visit 30 2024 08:30A M Miquel Salazar MD Not available Not available Not available Lab CBC 2024 025 [facility], [address] [place] [address], [address], 06/19/2024 10:43:11 TSH, serum or plasma 2024 025 [facility], [address] [place] [address], [address], 06/19/2024 14:21:50 BMP, serum or plasma 2024 025 [facility], [address] [place] [address], [address], 06/19/2024 15:57:53 BNP (B-typ e natriu retic peptid e), serum or plasma 2024 025 [facility], [address] [place] [address], [address], 06/20/2024 11:08:16 Referral None record ed. Procedures None record ed. Surgeries None record [...] al tripon in value? N/A 2024 025 [facility] (Cardiology), [address] [place], [address], 05/22/2024 13:51:32 XR, chest - worsen ing SOB 2024 025 [facility] (Imaging), [address], [place], [address], 05/15/2024 10:55:52 Medication Orders omepra zole 20 mg capsul e,armando yed releas e 2024 025 [facility] #[id number], [address] [place], [address], 06/24/2024 09:43:57 ipratr opium bromid e 42 mcg (0.06 %) nasal spray 2024 025 [facility] #[id number], [address] [place], [address], 07/17/2024 20:41:06 methoc arbamo l 500 mg tablet 2023 025 [facility], [address] [place], [address], 06/24/2024 09:09:21 amlodi pine 2.5 mg tablet 2023 024 [facility], [address] [place], [address], 08/30/2024 09:53:20 ipratr opium bromid e 42 mcg (0.06 %) nasal spray 2023 024 [facility], [address] [place], [address], 12/25/2023 12:45:42 Patient TargetsNo targets recorded. Patient Instructions Encounter Date Encounter Id Patient Instructions Last Modified By Organization Details Last Modified Time 01/16/2024 [id number] Dispensed order for x-ray evaluation right foot. [email or web address] Not available 01/16/2024 10:46:13 05/14/2024 [id number] CCM: The provider and patient discussed the Chronic Care Management program, including the services provided, and any fees associated with them. [email or web address] Not available 05/14/2024 15:57:29 06/24/2024 [id number] pulmonary function test* - dyspnea on exertion for 3 months, neg exercise stress test, smoker x 20 yrs 20 pack year, quit age 42 no ABG's GELA Not available 08/26/2024 10:13:16 08/30/2024 [id number] Assessment and Plan Chronic neck pain Blurry vision Hypertension Well-controlled with losartan. - Discontinue amlodipine. - Continue losartan. - Monitor blood pressure at home and report any significant changes. adela Not available 08/31/2024 10:11:35 Reason for Referral None Reported. Results Created Date Observation Date Name Description Value Unit Range Abnormal Flag Note LastModifiedBy Organization Detail LastModifiedTime 12/22/1912/22/2023 CBC WBC 5.97 K/? ? ?L 3.98-1 0.04 Not Available [address], [address], 12/22/2023 15:42:34 12/22/1912/22/2023 CBC RBC 3.55 M/? ? ?L 3.93-5 .22 low Not Available [address], [address], 12/22/2023 15:42:34 12/22/1912/22/2023 CBC HGB 11.9 g/dL 11.2-1 5.7 Not Available [address], [address], 12/22/2023 15:42:34 12/22/1912/22/2023 CBC HCT 35.3 % 34.1-4 4.9 Not Available [address], [address], 12/22/2023 15:42:34 12/22/19 24 12/22/2023 CBC MCV 99.4 fL 79.4-9 4.8 high Not Available [address], [address], 12/22/2023 15:42:34 12/22/19 24 12/22/2023 CBC MCH 33.5 pg 25.6-3 2.2 high Not Available [address], [address], 12/22/2023 15:42:34 12/22/19 24 12/22/2023 CBC MCHC 33.7 g/dL 32.2-3 5.5 Not Available [address], [address], 12/22/2023 15:42:34 12/22/19 24 12/22/2023 CBC plt 300 K/? ? ?L 182-36 9 Not Available [address], [address], 12/22/2023 15:42:34 12/22/19 24 12/22/2023 CBC MPV 9.6 fL 9.4-12 .3 Not Available [address], [address], 12/22/2023 15:42:34 12/22/19 24 12/22/2023 CBC neut% 52.9 % 34.0-7 1.1 Not Available [address], [address], 12/22/2023 15:42:34 12/22/19 24 12/22/2023 CBC neut# 3.16 1.56-6 .13 Not Available [address], [address], 12/22/2023 15:42:34 12/22/19 24 12/22/2023 CBC lymph % 34.0 % 19.3-5 1.7 Not Available [address], [address], 12/22/2023 15:42:34 12/22/19 24 12/22/2023 CBC lymph # 2.03 K/? ? ?L 1.18-3 .74 Not Available [address], [address], 12/22/2023 15:42:34 12/22/19 24 12/22/2023 CBC mono% 8.7 % 4.7-12 .5 Not Available [address], [address], 12/22/2023 15:42:34 12/22/19 24 12/22/2023 CBC mono# 0.52 0.24-0 .56 Not Available [address], [address], 12/22/2023 15:42:34 12/22/19 24 12/22/2023 CBC eo% 3.7 % 0.7-5. 8 Not Available [address], [address], 12/22/2023 15:42:34 12/22/19 24 12/22/2023 CBC eo# 0.22 0.04-0 .36 Not Available [address], [address], 12/22/2023 15:42:34 12/22/19 24 12/22/2023 CBC baso% 0.5 % 0.1-1. 2 Not Available [address], [address], 12/22/2023 15:42:34 12/22/19 24 12/22/2023 CBC baso# 0.03 0.00-0 .08 Not Available [address], [address], 12/22/2023 15:42:34 12/22/19 24 12/22/2023 CBC RDW-CV 11.8 % 11.7-1 4.4 Not Available [address], [address], 12/22/2023 15:42:34 12/22/19 24 12/22/2023 CBC Ig% 0.200 % 0.000- 1.500 Ig % >0.5 Indic ates possi ble Left Shift Not Available [address], [address], 12/22/2023 15:42:34 12/22/19 24 12/22/2023 CBC Ig# 0.010 0.000- 0.093 Not Available [address], [address], 12/22/2023 15:42:34 12/22/19 24 12/22/2023 CBC NRBC% 0.0 % 0.0-0. 2 Not Available [address], [address], 12/22/2023 15:42:34 12/22/19 24 12/22/2023 CBC NRBC# 0.000 0.000- 0.012 Not Available [address], [address], 12/22/2023 15:42:34 12/22/19 24 12/22/2023 COMP. METAB OLIC PANEL glucose 98 mg/dL 70-100 Not Available [address], [address], 12/22/2023 16:25:37 12/22/19 24 12/22/2023 COMP. METAB OLIC PANEL BUN 18 mg/dL 7-18 Not Available [address], [address], 12/22/2023 16:25:37 12/22/19 24 12/22/2023 COMP. METAB OLIC PANEL creatinine 0.7 mg/dL 0.8-1. 3 low Not Available [address], [address], 12/22/2023 16:25:37 12/22/19 24 12/22/2023 COMP. METAB OLIC PANEL B/C 25.7 ratio Not Available [address], [address], 12/22/2023 16:25:37 12/22/19 24 12/22/2023 COMP. METAB [...] be used in pregn garrison. Not Available [address], [address], 12/22/2023 16:25:37 12/22/19 24 12/22/2023 COMP. METAB OLIC PANEL sodium 137 mmol/ L 136-14 5 Not Available [address], [address], 12/22/2023 16:25:37 12/22/19 24 12/22/2023 COMP. METAB OLIC PANEL potassium 5.2 mmol/ L 3.5-5. 1 high Not Available [address], [address], 12/22/2023 16:25:37 12/22/19 24 12/22/2023 COMP. METAB OLIC PANEL chloride 102 mmol/ L 96-107 Not Available [address], [address], 12/22/2023 16:25:37 12/22/19 24 12/22/2023 COMP. METAB OLIC PANEL anion gap 11.1 5.0-15 .0 Not Available [address], [address], 12/22/2023 16:25:37 12/22/19 24 12/22/2023 COMP. METAB OLIC PANEL CO2 24 mmol/ L 21-32 Not Available [address], [address], 12/22/2023 16:25:37 12/22/19 24 12/22/2023 COMP. METAB OLIC PANEL calcium 9.3 mg/dL 8.5-10 .3 Not Available [address], [address], 12/22/2023 16:25:37 12/22/19 24 12/22/2023 COMP. METAB OLIC PANEL total protein 7.4 g/dL 6.4-8. 2 Not Available [address], [address], 12/22/2023 16:25:37 12/22/19 24 12/22/2023 COMP. METAB OLIC PANEL albumin 3.7 g/dL 3.4-5. 0 Not Available [address], [address], 12/22/2023 16:25:37 12/22/19 24 12/22/2023 COMP. METAB OLIC PANEL globulin 3.7 g/dL Not Available [address], [address], 12/22/2023 16:25:37 12/22/19 24 12/22/2023 COMP. METAB OLIC PANEL A/G 1.0 ratio 0.8-2. 0 Not Available [address], [address], 12/22/2023 16:25:37 12/22/19 24 12/22/2023 COMP. METAB OLIC PANEL total bilirubin 0.40 mg/dL 0.00-1 .00 Not Available [address], [address], 12/22/2023 16:25:37 12/22/19 24 12/22/2023 COMP. METAB OLIC PANEL AST 26 U/L 0-37 Not Available [address], [address], 12/22/2023 16:25:37 12/22/19 24 12/22/2023 COMP. METAB OLIC PANEL ALT 32 U/L 6-63 Not Available [address], [address], 12/22/2023 16:25:37 12/22/19 24 12/22/2023 COMP. METAB OLIC PANEL alk. phos. 95 U/L 50-136 Not Available [address], [address], 12/22/2023 16:25:37 12/22/19 24 12/22/2023 LIPID PANEL cholesterol 249 mg/dL <200 mg/dl Leidy able 200-2 39 mg/dl Borde rline High >240 mg/dl High Not Available [address], [address], 12/22/2023 16:25:37 12/22/19 24 12/22/2023 LIPID PANEL triglyceride s 59 mg/dL <150 mg/dL Ethel l 150-1 99 mg/dL Borde rline High 200-4 99 mg/dL High >500 mg/dL Very High Not Available [address], [address], 12/22/2023 16:25:37 12/22/19 24 12/22/2023 LIPID PANEL direct HDL 82 mg/dL <40 mg/dl - Major Risk for CHD >60 mg/dl - Negat myranda Risk for CHD Not Available [address], [address], 12/22/2023 16:25:37 12/22/19 24 12/22/2023 DIREC T [...] 0-1 risk facto r is not nitesh deandre. Not Available [address], [address], 12/22/2023 16:25:38 06/20/19 25 06/19/2024 CBC WBC 6.19 K/? ? ?L 3.98-1 0.04 Not Available [address], [address], 06/19/2024 10:43:11 06/20/19 25 06/19/2024 CBC RBC 4.03 M/? ? ?L 3.93-5 .22 Not Available [address], [address], 06/19/2024 10:43:11 06/20/19 25 06/19/2024 CBC HGB 13.3 g/dL 11.2-1 5.7 Not Available [address], [address], 06/19/2024 10:43:11 06/20/19 25 06/19/2024 CBC HCT 39.0 % 34.1-4 4.9 Not Available [address], [address], 06/19/2024 10:43:11 06/20/19 25 06/19/2024 CBC MCV 96.8 fL 79.4-9 4.8 high Not Available [address], [address], 06/19/2024 10:43:11 06/20/19 25 06/19/2024 CBC MCH 33.0 pg 25.6-3 2.2 high Not Available [address], [address], 06/19/2024 10:43:11 06/20/19 25 06/19/2024 CBC MCHC 34.1 g/dL 32.2-3 5.5 Not Available [address], [address], 06/19/2024 10:43:11 06/20/19 25 06/19/2024 CBC plt 279 K/? ? ?L 182-36 9 Not Available [address], [address], 06/19/2024 10:43:11 06/20/19 25 06/19/2024 CBC MPV 9.3 fL 9.4-12 .3 low Not Available [address], [address], 06/19/2024 10:43:11 06/20/19 25 06/19/2024 CBC neut% 48.6 % 34.0-7 1.1 Not Available [address], [address], 06/19/2024 10:43:11 06/20/19 25 06/19/2024 CBC neut# 3.01 1.56-6 .13 Not Available [address], [address], 06/19/2024 10:43:11 06/20/19 25 06/19/2024 CBC lymph % 36.5 % 19.3-5 1.7 Not Available [address], [address], 06/19/2024 10:43:11 06/20/19 25 06/19/2024 CBC lymph # 2.26 K/? ? ?L 1.18-3 .74 Not Available [address], [address], 06/19/2024 10:43:11 06/20/19 25 06/19/2024 CBC mono% 8.9 % 4.7-12 .5 Not Available [address], [address], 06/19/2024 10:43:11 06/20/19 25 06/19/2024 CBC mono# 0.55 0.24-0 .56 Not Available [address], [address], 06/19/2024 10:43:11 06/20/19 25 06/19/2024 CBC eo% 5.2 % 0.7-5. 8 Not Available [address], [address], 06/19/2024 10:43:11 06/20/19 25 06/19/2024 CBC eo# 0.32 0.04-0 .36 Not Available [address], [address], 06/19/2024 10:43:11 06/20/19 25 06/19/2024 CBC baso% 0.6 % 0.1-1. 2 Not Available [address], [address], 06/19/2024 10:43:11 06/20/19 25 06/19/2024 CBC baso# 0.04 0.00-0 .08 Not Available [address], [address], 06/19/2024 10:43:11 06/20/19 25 06/19/2024 CBC RDW-CV 11.9 % 11.7-1 4.4 Not Available [address], [address], 06/19/2024 10:43:11 06/20/19 25 06/19/2024 CBC Ig% 0.200 % 0.000- 1.500 Ig % >0.5 Indic ates possi ble Left Shift Not Available [address], [address], 06/19/2024 10:43:11 06/20/19 25 06/19/2024 CBC Ig# 0.010 0.000- 0.093 Not Available [address], [address], 06/19/2024 10:43:11 06/20/19 25 06/19/2024 CBC NRBC% 0.0 % 0.0-0. 2 Not Available [address], [address], 06/19/2024 10:43:11 06/20/19 25 06/19/2024 CBC NRBC# 0.000 0.000- 0.012 Not Available [address], [address], 06/19/2024 10:43:11 06/20/19 25 06/19/2024 TSH TSH 4.32 uIU/m L 0.50-6 .00 The Ameri can Colle ge of Endoc rinol ogy and Ameri can Thyro id Assoc iatio n recom mend goal TSH value s betwe en 0.4-4 .0 mIU/m L. Not Available [address], [address], 06/19/2024 14:21:50 06/20/19 25 06/19/2024 BASIC METAB OLIC PANEL glucose 94 mg/dL 70-100 Not Available [address], [address], 06/19/2024 15:57:53 06/20/19 25 06/19/2024 BASIC METAB OLIC PANEL BUN 15 mg/dL 7-18 Not Available [address], [address], 06/19/2024 15:57:53 06/20/19 25 06/19/2024 BASIC METAB OLIC PANEL creatinine 0.7 mg/dL 0.8-1. 3 low Not Available [address], [address], 06/19/2024 15:57:53 06/20/19 25 06/19/2024 BASIC METAB OLIC PANEL B/C 21.4 ratio Not Available [address], [address], 06/19/2024 15:57:53 06/20/19 25 06/19/2024 BASIC METAB [...] be used in pregn garrison. Not Available [address], [address], 06/19/2024 15:57:53 06/20/19 25 06/19/2024 BASIC METAB OLIC PANEL sodium 137 mmol/ L 136-14 5 Not Available [address], [address], 06/19/2024 15:57:53 06/20/19 25 06/19/2024 BASIC METAB OLIC PANEL potassium 4.5 mmol/ L 3.5-5. 1 Not Available [address], [address], 06/19/2024 15:57:53 06/20/19 25 06/19/2024 BASIC METAB OLIC PANEL chloride 102 mmol/ L 96-107 Not Available [address], [address], 06/19/2024 15:57:53 06/20/19 25 06/19/2024 BASIC METAB OLIC PANEL anion gap 10.4 5.0-15 .0 Not Available [address], [address], 06/19/2024 15:57:53 06/20/19 25 06/19/2024 BASIC METAB OLIC PANEL CO2 25 mmol/ L 21-32 Not Available [address], [address], 06/19/2024 15:57:53 06/20/19 25 06/19/2024 BASIC METAB OLIC PANEL calcium 9.3 mg/dL 8.5-10 .3 Not Available [address], [address], 06/19/2024 15:57:53 06/20/19 25 06/19/2024 LIPID PANEL cholesterol 250 mg/dL <200 mg/dl Liedy able 200-2 39 mg/dl Borde rline High >240 mg/dl High Not Available [address], [address], 06/19/2024 16:23:28 06/20/19 25 06/19/2024 LIPID PANEL triglyceride s 80 mg/dL <150 mg/dL Ethel l 150-1 99 mg/dL Borde rline High 200-4 99 mg/dL High >500 mg/dL Very High Not Available [address], [address], 06/19/2024 16:23:28 06/20/19 25 06/19/2024 LIPID PANEL direct HDL 93 mg/dL <40 mg/dl - Major Risk for CHD >60 mg/dl - Negat myranda Risk for CHD Not Available [address], [address], 06/19/2024 16:23:28 06/20/19 25 06/19/2024 DIREC T [...] r is not neces deandre. Not Available [address], [address], 06/19/2024 16:23:29 06/20/19 25 06/20/2024 B TYPE [...] ol. 2002; 40:97 6-982 . Not Available [facility] [address] [place] [address] [place], [address], 06/20/2024 11:08:16 07/18/19 25 07/18/2024 RPR RPR NON-RE ACTIVE nonrea ctive Not Available [address], [address], 07/18/2024 10:16:32 07/18/19 25 07/23/2024 HIV 1/2 ANTIG EN/AN TIBOD Y,FOU RTH GENER ATION W/RFL HIV Ag/Ab, 4TH gen NON-RE ACTIVE non-re active normal HIV-1 antig en and HIV-1 /HIV- 2 antib odies were not detec harley. There is no labor atory evide nce of HIV infec tion. PLEAS E NOTE: This infor matio n has been discl osed to you from recor ds whose confi denti ality may be prote cted by state law. If your state requi res such prote ction , then the state law prohi bits you from tiara pastrana er discl osure of the infor matio n witho ut the speci fic writt en conse nt of the perso n to whom it perta ins, or as other taylor permi tted by law. A gener al autho rizat ion for the relea se of medic al or other infor matio n is NOT suffi cient for this purpo se. For addit ional infor matio n pleas e refer to http: //[facility] [place] emiliana n.que stdia gnost ics.c om/fa q/FAQ 106 (This link is being provi ded for infor matio nal/ educa sunita l purpo ses only. ) The perfo rmanc e of this assay has not been clini edgard valid ated in patie nts less than 2 years old. Not Available [facility] [address] [place] [address], [place], [address], 07/23/2024 10:48:36 07/18/19 25 07/23/2024 VITAM IN A (RETI NOL) vitamin A (retinol) 58 mcg/d L 38-98 Vitam in suppl ement ation withi n 24 hours prior to blood draw may affec t the accur acy of the resul ts. This test was devel oped and its mp tical perfo rmanc e alma cteri stics have been deter mined by [facility] [place], [place]. It has not been clear ed or appro amado by the U.S. Food and Drug Admin istra tion. This assay has been valid ated pursu ant to the CLIA regul ation s and is used for clini connie purpo ses. Not Available [facility] [address], [place], [address], 07/23/2024 10:48:37 07/18/19 25 07/23/2024 ZINC zinc 72 mcg/d L 60-130 This test was devel oped and its mp tical perfo rmanc e alma cteri stics have been deter mined by [employer] [facility] [facility] [place], [place]. It has not been clear ed or appro amado by the U.S. Food and Drug Admin istra tion. This assay has been valid ated pursu ant to the CLIA regul ation s and is used for clini connie purpo ses. Not Available [facility] [address], [place], [address], 07/23/2024 10:48:38 07/18/1907/23/2024 FTA-A BS fta-abs NONREA CTIVE nonrea ctive The FTA-A BS is a trepo nemal assay that is inten ded to be used with other tests (e.g. , RPR) as part of a diagn ostic algor ithm for syphi lis. The prefe rred trepo nemal -spec ific tests for confi rmati on of a react myranda RPR are Trepo nema palli dum Parti gerber Agglu tinat ion (TP-P A) or other trepo nemal antib guido assay s. From Sexua y Trans mitte d Infec tions Treat ment Guide lines ,2020 MMWR Recom m Rep 2020; 70 (No. RR-4) : pg.39 . Not Available [facility] [address], [place], [address], 07/23/2024 10:48:39 07/18/19 25 07/23/2024 RETIN OL JO ANN NG PROTE IN retinol binding protein 3.7 mg/dL 1.5-6. 7 Not Available [employer] [facility] [address] Carlos Cervantes, [place], [address], 07/23/2024 10:48:40 01/17/20 24 01/17/2024 XR, foot CLINIC AL [...] Readlamar pierre Physic aaliyah: Victor Manuel Kaufman [facility] (Imaging) [address] [place], [address], 01/17/2024 10:00:29 05/15/19 25 05/15/2024 XR, chest CLINIC AL HISTOR Y: Cough. TECHNI QUE: Fronta l view and latera l view of the chest obtain ed. COMPAR VIET: Report of a chest x-ray clear view [facility] Novemb er 2011 FINDIN GS: The heart is normal in size and config uratio n.Ther e is no hilar or medias tinal enlarg ement. There is no focal lung consol idatio n or infilt rate. The bony thorax is intact . IMPRES RYAN: No acute diseas e. Readlamar pierre Physic aaliyah: Victor Manuel Kaufman [facility] (Imaging) [address] [place], [address], 05/16/2024 17:05:22 05/22/19 25 05/22/2024 stres s [...] Loaiza Primar y Care Physic aaliyah: Jesus Bricenojessica lo Diagno sis: Dyspne a, unspec ified type [R06.0 0 (ICD-1 0-CM)] Reason For Exam: Dyspne a on exerti on Proced ure(s) Perfor med: Stress Test Exerci se Exam Date and Time: 2024 11:13 AM Access ion #: [id number] Result Status : Final Stress Test [...] stress report for full detail sDenver Chao BIAS CUTTER with Dr. Pablito watts Respon se to [...] 5 at 1348 EST KHARME N HALEY HEREDIA [facility] [address] [place] [address], [address], 05/23/2024 12:59:34 05/22/19 25 05/22/2024 exerc ise stres s test No observ ation record ed. [address], [address], 05/23/2024 12:59:34 06/12/19 25 06/10/2024 goldy BANGURA No observ ation record ed. chelitanatalie [facility]'[address] [place], [address], 06/11/2024 21:55:32 08/27/19 25 08/26/2024 pulmo nary funct ion test* No observ ation record ed. [address], [address], 08/26/2024 20:46:58 08/27/19 25 pulmo nary funct ion test* No observ ation record ed. [address], [address], 08/30/2024 10:32:40 08/27/19 25 pulmo nary funct ion test* No observ ation record ed. [address], [address], 08/31/2024 07:41:30 Result Notes None recorded. Procedures Surgical History Date Name Laterality Status Provider Name and Address Organization Details Recorded Time Jorge Luis - Colonoscopy completed Aleksander Kang MD [address] [place] [address], [id number] 11/11/2022 10:16:45 Imaging Results None recorded. Procedure Notes None recorded. Medical Equipment None Reported. Allergies Allergen ID Allergen Name Allergen Category Reaction Reaction Severity Criticality Documentation Date Start Date Code Code System Note Provider Name and Address Organization Details Recorded Time [id number] minocycli ne medicatio n hives Not available Not available 11/09/2022 6980 RxNorm HUONG Arredondo, [facility] 14:58:29 [id number] Product containin g penicilli n (product) medicatio n seizure Not available Not available 11/09/2022 97779 8001 SNOMED Shaylee Lauren, RN [facility] 3 14:59:41 Medications Name Sig Start Date [...] t Available AmLactin 12 % topical cream 08/30 completed OTC PRN Not Available Not Available Not [...] CRUSTING , IRRITATI ON, OR PAIN DEVELOPS 08/30 completed not using 06/24/24 as Not Available Not Available Not Available amlodipin e 2.5 mg tablet TAKE 1 TABLET BY MOUTH ONCE DAILY FOR HIGH BLOOD PRESSURE 08/30 completed Not Available Not Available Not Available acetamino phen 300 mg-codein e 30 [...] NEEDED, FOR RHINORRH EA POST NASAL DRIP. 2024 active Not Available Not Available Not Avai lable losartan 100 mg tablet TAKE 1 TABLET [...] patch APPLY 1 PATCH TO SKIN WEEKLY 08/30 completed Not Available Not Available Not Available naproxen 500 mg tablet take 1 [...] Not Available olmesarta n 5 mg tablet Take 2 tablets every day by oral route for 30 days, for hyperten ryan. 08/30 completed Not taking, wants to take Losartan 06/24/24 Not Available Not Available Not Available cyclobenz aprine 5 mg tablet TAKE 1 TABLET BY MOUTH 3 TIMES A DAY NEEDED FOR 7 DAYS active Not Available Not Available No t Available azelaic acid 15 % topical gel APPLY 1-2 TIMES DAILY TO FACE active Not Available Not Available No t [...] LastModified by Organizat ion Details LastModified Time Do You Wear A Helmet When Biking? No N/A Information not available 02/25/2015 What Is Your Level Of Caffeine Consumption? Occasional Information not available 02/25/2015 How Much Tobacco Do You Chew? None Information not available 02/25/2015 What Type Of Diet Are You Following? REGULAR Information not available 02/25/2015 Which Illicit Or Recreational Drugs Have You Used? 0 Information not available 02/25/2015 Education 4 Year College Information not available 05/15/2015 When Did You Quit Smoking? 16+yearssinc elastcigaret te 1996; Quit Smoking 42 Y/o, Started Age 20 Approx, 1 Ppd [email or web address] Information not available 08/31/2024 How Many Days In The Past Year [...] Proxy Signed And In Chart Yes Babatunde Sullivanere - Form Given 07/18/2016 Information not available 11/23/2018 MOLST Form Signed And In Chart 05/28/2021 Information not available 06/02/2021 Marital Status Single [id number] In formation not available 02/24/2011 Mosquito Repellent Used Routinely Yes Information not available 02/25/2015 What Was The Date Of Your Most Recent Tobacco Screening? 08/30/2024 [email or web address] Information not available 08/30/2024 How Many Children Do You Have? 0 [...] Smoking Tobacco? 15 Information not available 06/22/2023 How Much Tobacco Do You Smoke? 1 PPD Information not available 06/22/2023 What Types Of Sporting Activities Do You Participate In? Walking Information not available 05/15/2015 General Stress Level Low Information not available 02/25/2015 Do You Use Sunscreen Routinely? Yes Information not available 02/25/2015 Sex: Female Functional Status Question Answer Note LastModified by Organizat ion Details LastModified Time Do you or have you ever used any other forms of tobacco or nicotine? No Information not available 11/25/2021 What is your level of alcohol consumption? Moderate 3-4 beer a week Information not available 05/15/2015 Do you or have you ever used smokeless tobacco? Never used smokeless tobacco Information not available 04/05/2019 What is your occupation? [employer] Information not available 05/15/2015 Do you or have you ever used e-cigarettes or vape? Never used electronic cigarettes Information not available 04/05/2019 Mental Status None recorded. Family History Relationship [...] available 11/25/2019 15:10:54 Notes:sister x 3 in [place], [place] own Medical History Condition Response Hearing [...] SNOMED-CT Code Diagnosis ICD10 Code Diagnosis Note [id number] [facility] Radiology , [address] [address] 11/12/2010 13:51:13 11/22/2010 12:23:08 [id number] Miquel Salazar MD , [facility], OFFICE [address] [place] [address] 6 01/14/2011 13:44:02 01/17/2011 06:59:04 [id number] Arabella Sood MD , [facility], OFFICE [address] [place] [address] 6 02/10/2012 09:20:09 02/10/2012 11:00:55 [id number] Arabella Sood MD , [facility], OFFICE [address] [place] [address] 6 02/22/2012 09:14:13 02/22/2012 10:20:13 [id number] Brian Millard MD Radiology , [facility] [address] [place] [address] 6 02/22/2012 10:20:36 02/28/2012 13:59:22 [id number] Miquel Salazar MD , [facility], OFFICE [address] [place] [address] 6 03/09/2012 15:12:29 03/09/2012 16:04:52 [id number] Miquel Salazar MD , [facility], OFFICE [address] [place], [place] [address] [place], [place] [address] 03/23/2012 08:02:55 03/23/2012 08:43:50 [id number] Miquel Salazar MD FP, [facility], OFFICE [address] [place] [facility] [place] [address] 04/19/2012 09:13:18 04/19/2012 10:03:50 [id number] Miquel Salazar MD FP, [facility], OFFICE [address] [place] [facility] [place] [address] 04/27/2012 08:06:14 04/27/2012 09:01:31 [id number] Miquel Salazar MD FP, [facility], OFFICE [address] [place] [facility] [place] [address] 05/18/2012 08:40:21 05/18/2012 09:36:54 [id number] Raven Dobbins Mph, LPT Physical Therapy, [facility] [address] [facility] [place] [facility] [address] 05/25/2012 08:16:34 05/25/2012 10:24:40 [id number] Elba Adams NP FP, [facility], OFFICE [address] [place] [facility] [place] [address] 08/09/2012 16:03:43 08/10/2012 06:43:41 [id number] Alin Olivares MD FP, [facility], OFFICE [address] [place] [facility] [place] [address] 08/15/2012 16:35:53 08/16/2012 06:43:27 [id number] Alin Olivares MD FP, [facility], OFFICE [address] [place] [facility] [place] [address] 08/20/2012 14:22:08 08/20/2012 15:25:51 [id number] Miquel Salazar MD FP, [facility], OFFICE [address] [place] [facility] [place] [address] 08/24/2012 09:31:14 08/24/2012 10:50:07 [id number] MD KIRILL Jain, [facility], OFFICE [address] [place] [place] [facility] [place] [address] 10/16/2012 08:49:42 10/16/2012 09:54:00 [id number] Miquel Salazar MD FP, [facility], OFFICE [address] [facility] [place] [facility] [place] [address] 09/20/2013 07:59:33 09/20/2013 08:58:38 [id number] Miquel Salazar MD FP, [facility], OFFICE [address] [facility] [place] [facility] [place] [address] 09/27/2013 13:19:21 09/27/2013 13:42:57 [id number] Miquel Salazar MD , [facility], OFFICE [address] [facility] [place] [facility] [place] [address] 02/14/2014 09:33:13 02/14/2014 10:48:12 [id number] Miquel Salazar MD , [facility], OFFICE [address] [facility] [place] [facility] [place] [address] 04/22/2014 15:33:39 04/22/2014 16:43:49 [id number] Alin Olivares MD FP, [facility], OFFICE [address] [facility] [place] [facility] [place] [address] 02/25/2015 15:39:15 02/25/2015 16:36:12 [id number] Nuha Mariano, PT Physical Therapy, [facility] [address] [facility] [place] [facility] [address] 03/17/2015 17:05:32 03/18/2015 09:42:30 [id number] Nuha Mariano, PT Physical Therapy, [facility] [address] [facility] [place] [facility] [place] [address] 03/23/2015 16:47:44 03/24/2015 08:15:30 [id number] Carson Barney DPM Podiatry, [facility] [address] [place] [address] 04/14/2015 14:35:36 04/16/2015 15:51:16 [id number] Miquel Salazar MD FP, [facility], OFFICE [address] [facility] [place] [facility] [place] [address] 05/15/2015 15:46:19 05/18/2015 15:29:00 [id number] Carson Barney DPM Podiatry, [facility] [address] [place] [address] 06/02/2015 14:49:39 06/02/2015 15:47:38 [id number] Ji Davis MD , [facility], OFFICE [address] [facility] [place] [facility] [place] [address] 2015 15:06:18 06/20/2015 11:41:45 [id number] Carson Barney DPM Podiatry, [facility] [address] [facility] [place] [facility] [place] [address] 07/30/2015 15:15:59 07/30/2015 15:54:16 [id number] Carson Barney DPM Podiatry, [facility] [address] [facility] [place] [facility] [place] [address] 10/01/2015 15:11:30 10/01/2015 16:37:34 [id number] Miquel Salazar MD , [facility], OFFICE [address] [facility] [place] [facility] [place] [address] 07/18/2016 15:41:28 07/18/2016 16:35:55 [id number] Mendy Vance NP , [facility], OFFICE [address] [facility] [place] [facility] [place] [address] 09/23/2016 15:34:42 09/23/2016 16:02:53 [id number] Candido Ddoson MD , [facility], OFFICE [address] [place] [address] 06/10/2017 09:10:12 06/10/2017 10:14:37 [id number] Miquel Salazar MD , [facility], OFFICE [address] [facility] [place] [facility] [place] [address] 06/23/2017 15:10:50 06/23/2017 16:33:11 [id number] Alin Olivares MD , [facility], OFFICE [address] [facility] [place] [facility] [place] [address] 08/03/2017 15:11:10 08/03/2017 15:55:08 [id number] Miquel Salazar MD , [facility], OFFICE [address] [facility] [place] [facility] [place] [address] 11/17/2017 15:39:36 11/17/2017 16:58:56 [id number] MD KIRILL Jain, [facility], OFFICE [address] [facility] [place] [facility] [place] [address] 11/22/2018 15:54:32 11/22/2018 17:00:32 [id number] MD KIRILL Jani, [facility], OFFICE [address] [facility] [place] [facility] [place] [address] 04/05/2019 08:45:14 04/05/2019 10:16:08 [id number] MD KIRILL Jain, [facility], OFFICE [address] [place] [address], [place] [address] 08/08/2019 08:51:07 08/09/2019 13:52:03 [id number] MD KIRILL Jain, [facility], OFFICE [address] [place] [address], [place] [address] 11/25/2019 14:54:07 11/26/2019 09:22:11 [id number] Miquel Salazar MD , [facility], OFFICE [address] [place] [address] 6 01/25/2020 08:58:43 01/28/2020 12:08:00 [id number] Carson Barney DPM Podiatry, [address] [address] 02/28/2020 07:53:48 03/02/2020 13:04:56 [id number] Miquel Salazar MD , [facility], OFFICE [address] [facility] [place] [facility] [place] [address] 05/19/2020 10:47:12 05/20/2020 15:40:02 [id number] MD KIRILL Jain, [facility], OFFICE [address] [facility] [place] [facility] [place] [address] 06/25/2020 08:03:12 06/29/2020 11:33:28 [id number] MD KIRILL Jain, [facility], OFFICE [address] [facility] [place] [facility] [place] [address] 07/23/2020 09:08:07 07/27/2020 13:46:16 [id number] Miquel Salazar MD FP, [facility], OFFICE [address] [place] [facility] [place] [address] 09/03/2020 11:44:14 09/04/2020 09:57:05 [id number] MD KIRILL Jain, [facility], OFFICE [address] [place] [facility] [place] [address] 11/20/2020 09:19:54 11/22/2020 19:09:53 [id number] Miquel Salazar MD FP, [facility], OFFICE [address] [place] [facility] [place] [address] 12/24/2020 10:20:05 01/06/2021 09:09:52 [id number] MD KIRILL Jain, [facility], OFFICE [address] [place] [facility] [place] [address] 12/28/2020 14:59:41 12/29/2020 10:38:18 [id number] MD KIRILL Jain, [facility], OFFICE [address] [place] [facility] [place] [address] 12/29/2020 16:08:37 12/30/2020 12:53:10 [id number] MD KIRILL Jain, [facility], OFFICE [address] [place] [facility] [place] [address] 02/26/2021 13:42:37 02/26/2021 14:20:59 [id number] MD KIRILL Jain, [facility], OFFICE [address] [place] [facility] [place] [address] 6 05/28/2021 14:42:04 05/28/2021 15:41:00 [id number] MD KIRILL Jain, [facility], OFFICE [address] [place] [facility] [place] [address] 11/25/2021 08:00:39 11/25/2021 08:30:56 [id number] MD KIRILL Jain, [facility], OFFICE [address] [place] [facility] [place] [address] 6 06/17/2022 13:46:55 06/17/2022 14:56:58 [id number] Aleksander Kang MD [facility] , [facility] [address] [place] [address] 11/11/2022 08:16:15 11/11/2022 13:43:57 [id number] Miquel Salazar MD , [facility], OFFICE [address] [place] [address] [place] [facility] [address] 12/15/2022 13:16:12 12/15/2022 13:56:14 [id number] Miquel Salazar MD , [facility], OFFICE [address] [place] [address], [place] [address] 05/01/2023 13:15:48 05/01/2023 13:56:17 [id number] Ji Davis MD , [facility], OFFICE [address] [place] [address], [place] [address] 05/09/2023 13:53:09 05/12/2023 13:08:35 [id number] Miquel Salazar MD , [facility], OFFICE [address] [place] [address], [place] [address] 06/22/2023 13:48:30 06/22/2023 14:55:15 [id number] Miquel Salazar MD , [facility], OFFICE [address] [place] [address], [place] [address] 09/08/2023 14:18:40 09/08/2023 14:56:41 [id number] Miquel Salazar MD , [facility], OFFICE [address] [place] [address] [place] [facility] [place] [address] 12/04/2023 14:38:53 12/04/2023 15:33:49 [id number] Miquel Salazar MD , [facility], OFFICE [address] [facility] [place] [facility] [place] [address] 12/25/2023 11:51:29 12/25/2023 12:56:18 [id number] Bee Herman MD Podiatry, [facility] [address] [place] [address] 01/16/2024 10:16:17 01/16/2024 10:53:04 [id number] GREGOR LOAIZA PA-C , [facility], OFFICE [address] [place] [address] 05/14/2024 15:46:46 05/14/2024 16:32:47 [id number] Miquel Salazar MD , [facility], OFFICE [address] [place] [address] 6 06/24/2024 08:59:03 06/24/2024 09:49:38 [id number] Miquel Salazar MD , [facility], OFFICE [address] [place] [address] 08/30/2024 09:16:59 09/03/2024 17:59:44 Health Concerns Section Related Observation LastModified by Organization Detai ls LastModified Time None Recorded Concern Status LastModified by Organization Details LastModified Time None Recorded Advance Directives Directive None Recorded Payers Encounter Date Sequence Insurance Name Policy Number Policy [place] Covered Member ID [place] Member ID Guarantor Name 12/25/2023 1 [facility] [id number] Nancy Gesiorek [id number] Nancy Gesiorek 01/16/2024 1 [place] Nancy Gesiorek [id number] Nancy Gesiorek 01/16/2024 2 [place] [id number] Nancy Gesiorek [id number] 2 Nancy Gesiorek 05/14/2024 1 [place] Nancy Gesiorek [id number] Nancy Gesiorek 05/14/2024 2 [place] [id number] Nanyc Gesiorek [id number] 2 Nancy Gesiorek 06/24/2024 1 [place] Nancy Gesiorek [id number] Nancy Gesiorek 06/24/2024 2 [place] [id number] Nancy Gesiorek [id number] 2 Nancy Gesiorek 08/30/2024 1 [place] Nancy Kimiorjeet [id number] Nancy Gesiorjeet 08/30/2024 2 [place] [id number] Nancy Gesiorek [id number] 2 Nancy Gesiorek OBGyn Episode No OBEpisode recorded.
== END 2024-09-11 11:38 | disposition home or self-care (01) ==
LOC: HO.PMC 11:13
PROVIDERS: PCP Family Medicine; Visit Provider Anesthesiology
DX: M47.812 Spondylosis without myelopathy or radiculopathy, cervical region (principal); G89.4 Chronic pain syndrome
CPT/HCPCS: 99024

== ENCOUNTER → 2024-09-11 10:57 | Outpatient (BNVA) | payer MEDICARE, SELFPAY | PROVIDERS: PCP Family Medicine; Visit Provider Anesthesiology | DX: M47.812 Spondylosis without myelopathy or radiculopathy, cervical region (principal); G89.4 Chronic pain syndrome; Z96.82 Presence of neurostimulator | CPT/HCPCS: 99212 ==

== ENCOUNTER → 2024-09-12 08:35 | Outpatient (BNVA) | payer MEDICARE, SELFPAY | PROVIDERS: PCP Family Medicine; Visit Provider Anesthesiology ==

== ENCOUNTER → 2024-09-18 08:22 | Outpatient (BNVA) | payer MEDICARE, SELFPAY | PROVIDERS: PCP Family Medicine; Visit Provider Anesthesiology ==

== ENCOUNTER → 2024-09-25 08:19 | Outpatient (BNVA) | payer MEDICARE, SELFPAY | PROVIDERS: PCP Family Medicine; Visit Provider Anesthesiology ==

== ENCOUNTER → 2024-10-01 08:30 | Outpatient (BNVA) | payer MEDICARE, SELFPAY | PROVIDERS: PCP Family Medicine; Visit Provider Anesthesiology | DX: Z13.89 Encounter for screening for other disorder (principal) ==

== ENCOUNTER → 2024-10-04 13:27 | Outpatient (BNVA) | payer MEDICARE, SELFPAY | PROVIDERS: PCP Family Medicine; Visit Provider Anesthesiology | DX: Z13.89 Encounter for screening for other disorder (principal) ==

== ENCOUNTER 2024-10-23 12:30 | Outpatient (AMB) | payer MEDICARE, SELFPAY ==
[2024-10-23 12:40] VITALS: BP 133/75; PULSE 75; RESP 18; TEMP 36.1
--- NOTE | 2024-10-23 12:40 | MHC.OFFVIS ---
Vital Signs 10/23/24 12:40 Weight 146 lb BP 133/75 Blood Pressure Location Lt brachial Position Sitting Respiration 18 Pulse 75 Pulse Source Pulse Oximeter Temp 97.0 F Temp Source Skin Intake Visit Reasons: f/u sprint pull Learning Design Specialist Required: No Allergies Penicillins Allergy (Severe, Verified 10/23/24 12:41) Seizure minocycline Adverse Reaction (Severe, Verified 10/23/24 12:41) Hives HPI Comments Details: Nancy is back in my office for the follow-up after the removal of the sprint PNS. The device was removed 2 weeks earlier because of the signs of the infection. Device was removed and she was started on antibiotics. Nevertheless the patient had good 6 weeks of the stimulation. She reports now absence of pain in her neck. We agreed that when her pain will come back she will give us a call and schedule an appointment. Results of the diagnostic right-sided C4, C5, C6, C7 medial branch block she reported 75% pain improvement after the injection for the 1st 6 hours and longer after the procedure. She continues to enjoy increase mobility improved activities of daily living ability to perform actions and motions which she unable to do before. Therefore we can make a conclusion that the pain of this patient is from the spondylotic joints on the right side. Review of Systems Const All systems reviewed & are unremarkable except as noted in HPI and below ENT Reports Normal hearing present Neuro Reports Normal hearing present, Denies Abnormal speech present, Denies confusion and Denies Sensory deficit (Neuro) Psych Denies confusion Physical Exam Vital Signs: Last Vital Signs Temp 97.0 F 10/23/24 12:40 Pulse 75 10/23/24 12:40 Resp 18 10/23/24 12:40 BP 133/75 10/23/24 12:40 Const General: no acute distress; No confusion Orientation/consciousness: patient oriented x3 and No confusion Eyes General: appearance normal, both eyes and all related structures Pupils: Equal, round and reactive pupils present EOM: EOMs intact bilaterally Neck Other: Limited range of motion of the cervical spine. Lateral medial rotation of the neck is painful. Flexing forward causes strain in the neck but no pain and flexing backwards causes severe pain aggravation. Axial compression on the head aggravates the pain, Valsalva maneuver is negative. No radiation of the pain into the upper extremities. Chest Chest palpation & inspection: normal inspection of the chest Resp Effort & Inspection: normal respiratory effort, able to speak in complete sentences, normal respiratory pattern, no audible wheezes and no cough Cardio Jugular venous distension: no JVD GI Inspection: Yes normal to inspection Neuro General: patient oriented x3, gait normal and No confusion Cranial nerves: Yes CN's II-XII intact bilaterally, Yes Equal, round and reactive pupils present, Yes Normal hearing present and Yes Ability to bilaterally elevate shoulders present Speech: No Abnormal speech present Gait exam (Neuro): Normal gait present Motor exam (neuro): 5/5 motor strength present throughout Sensory Exam: No Sensory deficit (Neuro) Extrem General: No pedal edema Psych Speech and movement: Normal speech and movement present Affect: normal affect Attitude: cooperative Thought process: Normal thought process present Thought content: Normal thought content present Insight: Good insight present (Psych) Judgement: Good judgement present (Psych) Assessment & Plan Assessment & Plan (1) Spondylosis of cervical joint without myelopathy: Code(s): M47.812 - Spondylosis without myelopathy or radiculopathy, cervical region Category: Medical (2) Chronic pain syndrome: Code(s): G89.4 - Chronic pain syndrome Category: Medical Plan This patient most likely suffers from spondylosis of cervical spine which is demonstrable on her MRI. The device was removed 2 weeks earlier because of the signs of the infection. Device was removed and she was started on antibiotics. Nevertheless the patient had good 6 weeks of the stimulation. She reports now absence of pain in her neck. We agreed that when her pain will come back she will give us a call and schedule an appointment. Coding Level of Care Code Est Pt Level 3 (58860) Diagnoses Spondylosis of cervical joint without myelopathy M47.812 Chronic pain syndrome G89.4
--- OUTSIDE RECORDS SUMMARY | 2024-10-23 13:24 | XMS_ITS | Patient Health Record ---
Author Organization [facility] Address [address] [place] [address] Care Team Providers Care Digital Marketing Intern Name Role Phone ERIKA DE LEON Primary Care Provider SHARON Vale Unavailable [phone] Allergies Allergen (clinical drug ingredient) Drug/Non Drug Allergy documented on EMR Reaction Allergy Type Onset Date Status minocycline Minocycline HCl Hives Drug Allergy Active Penicillin Seizures Drug Allergy Active Reason For Referral No Information Medications Medication SIG (Take, Route, Frequency, Duration) Notes Start Date End Date Status Estradiol 0.075 MG/24HR 1 patch to skin Transdermal weekly; Duration: 90 days Use this script preferentially, as [...] Status W/U Status Risk Notes Problem Menopause (218664844) Menopausal and female climacteric states (N95.1) Active confirmed Problem COVID-19 (265852071) COVID-19 (U07.1) Active confirmed Vital Signs Temperature 97.3 degrees Fahrenheit 07/01/2024 Blood pressure diastolic 78 mm Hg 07/01/2024 Height 5 ft 2.8 in in 07/01/2024 Blood pressure systolic 144 mm Hg 07/01/2024 Weight 140 lbs 07/01/2024 BMI 24.96 kg/m2 07/01/2024 Encounters Encounter Location Date Provider Diagnosis Total [facility] [address] [place] [address] 07/01/2024 SHARONSravan CASTILLORICO Encounter for gynecological examination (general) (routine) without abnormal findings Z01.419 ; Encounter for screening mammogram for malignant neoplasm of breast Z12.31 and Menopausal and female climacteric states N95.1 [facility] [address] [place] [address] 03/11/2024 SHARON RICO Menopausal and femal e [...] Provider Name:SHARON Melendez, 07/03/2025 10:40:00 AM, [address], [address], [place], [address], Insurance Providers Payer Name Payer Address Payer Phone Subscriber Number Group Number Insured Name Patient Relationship to Insured Coverage Start Date Coverage End Date MEDICARE [address] [place] [id number] FAUSTONIDHIYUDY MORATAYA Self - patient is the insured 1 MEDEX [address] [place] [address] [id number] 2 YUDY MELARA Self - patient is the [...]
--- OUTSIDE RECORDS SUMMARY | 2024-10-23 13:24 | XMS_ITS | Data Portability ---
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 Please visit our website [employer] for more patient resources. As part of your care plan, we will help coordinate your ongoing medical needs, arrange for durable medical equipment, renew prescriptions and necessary prior authorizations, facilitate getting referrals and collaborating with specialist, referrals for VNA services. [email or web address] Not available 06/24/2024 08:06:07 08/30/2024 08/30/2024 We [...] meeting your goals. Please visit our website [employer] for more patient resources. As part of your care plan, we will help coordinate your ongoing medical needs, arrange for durable medical equipment, renew prescriptions and necessary prior authorizations, facilitate getting referrals and collaborating with specialist, referrals for VNA services. [email or web address] Not available 08/29/2024 16:49:53 Plan of Treatment Reminders Order Date Submit Date Provider Last Modified By Organization Details Last Modified Time Details Appointments LAB Follow -Up 2024 09:00A M [facility] Lab Not available Not available Not available Kallie ss Visit 30 2024 08:30A M Miquel Salazar MD Not available Not available Not available Lab CBC 2024 025 [facility], [address] [place] [address], [address], 06/19/2024 10:43:11 TSH, serum or plasma 2024 025 [facility], [address] [place] [address], [id number], 06/19/2024 14:21:50 BMP, serum or plasma 2024 025 [facility], [address] [place] [address], [address], 06/19/2024 15:57:53 BNP (B-typ e natriu retic peptid e), serum or plasma 2024 025 [facility], [address] [place] [address], [address], 06/20/2024 11:08:16 Referral None record ed. Procedures None record ed. Surgeries None record ed. Imaging exerci se stress test - can walk on treadm ill, 5'4 , 142lbs , no pacer, pt cleare d to hold Amlodi pine 24hrs prior Standa rd exerci se stress test withou t imagin g Can the patien t walk on a treadm ill? Y OK to hold beta blocke rs? N/A Does patien t have asthma ? N Does patien t have seizur e disord er? N Does patien t have abnorm al tripon in value? N/A [address] [facility] [address] [place], [address], 05/22/2024 13:51:32 XR, chest - worsen ing SOB 2024 025 [facility] (Imaging), [address], [place], [address], 05/15/2024 10:55:52 Medication Orders omepra zole 20 mg capsul e,armando yed releas e 2024 025 [facility]acy #2024, [address] [place], [address], 06/24/2024 09:43:57 ipratr opium bromid e 42 mcg (0.06 %) nasal spray 2024 025 [facility] #2024, [address] [place], [address], 07/17/2024 20:41:06 methoc arbamo l 500 mg tablet 2023 025 [facility], [address] [place], [address], 06/24/2024 09:09:21 amlodi pine 2.5 mg tablet 2023 024 [facility], [address] [place], [address], 08/30/2024 09:53:20 ipratr opium bromid e 42 mcg (0.06 %) nasal spray 2023 024 [facility], [address] [place], [address], 12/25/2023 12:45:42 Patient TargetsNo targets recorded. Patient Instructions Encounter Date Encounter Id Patient Instructions Last Modified By Organization Details Last Modified Time 01/16/2024 [id number] Dispensed order for x-ray evaluation right foot. [email or web address] Not available 01/16/2024 10:46:13 05/14/2024 [id number] CCM: The provider and patient discussed the Chronic Care Management program, including the services provided, and any fees associated with them. [email or web address] Not available 05/14/2024 15:57:29 06/24/2024 [id number] pulmonary function test* - dyspnea on exertion for 3 months, neg exercise stress test, smoker x 20 yrs 20 pack year, quit age 42 no ABG's [email or web address] Not available 08/26/2024 10:13:16 08/30/2024 [id number] Assessment and Plan Chronic neck pain Blurry vision Hypertension Well-controlled with losartan. - Discontinue amlodipine. - Continue losartan. - Monitor blood pressure at home and report any significant changes. adela Not available 08/31/2024 10:11:35 Reason for Referral None Reported. Results Created Date Observation Date Name Description Value Unit Range Abnormal Flag Note LastModifiedBy Organization Detail LastModifiedTime 12/22/1912/22/2023 CBC WBC 5.97 K/ L 3.98-1 0.04 Not Available [address], [address], 12/22/2023 15:42:34 12/22/1912/22/2023 CBC RBC 3.55 M/ L 3.93-5 .22 low Not Available [address], [address], 12/22/2023 15:42:34 12/22/1912/22/2023 CBC HGB 11.9 g/dL 11.2-1 5.7 Not Available [address], [address], 12/22/2023 15:42:34 12/22/1912/22/2023 CBC HCT 35.3 % 34.1-4 4.9 Not Available [address], [address], 12/22/2023 15:42:34 12/22/19 24 12/22/2023 CBC MCV 99.4 fL 79.4-9 4.8 high Not Available [address], [address], 12/22/2023 15:42:34 12/22/19 24 12/22/2023 CBC MCH 33.5 pg 25.6-3 2.2 high Not Available [address], [address], 12/22/2023 15:42:34 12/22/19 24 12/22/2023 CBC MCHC 33.7 g/dL 32.2-3 5.5 Not Available [address], [address], 12/22/2023 15:42:34 12/22/19 24 12/22/2023 CBC plt 300 K/ L 182-36 9 Not Available [address], [address], 12/22/2023 15:42:34 12/22/19 24 12/22/2023 CBC MPV 9.6 fL 9.4-12 .3 Not Available [address], [address], 12/22/2023 15:42:34 12/22/19 24 12/22/2023 CBC neut% 52.9 % 34.0-7 1.1 Not Available [address], [address], 12/22/2023 15:42:34 12/22/19 24 12/22/2023 CBC neut# 3.16 1.56-6 .13 Not Available [address], [address], 12/22/2023 15:42:34 12/22/19 24 12/22/2023 CBC lymph % 34.0 % 19.3-5 1.7 Not Available [address], [address], 12/22/2023 15:42:34 12/22/19 24 12/22/2023 CBC lymph # 2.03 K/ L 1.18-3 .74 Not Available [address], [address], 12/22/2023 15:42:34 12/22/19 24 12/22/2023 CBC mono% 8.7 % 4.7-12 .5 Not Available [address], [address], 12/22/2023 15:42:34 12/22/19 24 12/22/2023 CBC mono# 0.52 0.24-0 .56 Not Available [address], [address], 12/22/2023 15:42:34 12/22/19 24 12/22/2023 CBC eo% 3.7 % 0.7-5. 8 Not Available [address], [address], 12/22/2023 15:42:34 12/22/19 24 12/22/2023 CBC eo# 0.22 0.04-0 .36 Not Available [address], [address], 12/22/2023 15:42:34 12/22/19 24 12/22/2023 CBC baso% 0.5 % 0.1-1. 2 Not Available [address], [address], 12/22/2023 15:42:34 12/22/19 24 12/22/2023 CBC baso# 0.03 0.00-0 .08 Not Available [address], [address], 12/22/2023 15:42:34 12/22/19 24 12/22/2023 CBC RDW-CV 11.8 % 11.7-1 4.4 Not Available [address], [address], 12/22/2023 15:42:34 12/22/19 24 12/22/2023 CBC Ig% 0.200 % 0.000- 1.500 Ig % >0.5 Indic ates possi ble Left Shift Not Available [address], [address], 12/22/2023 15:42:34 12/22/19 24 12/22/2023 CBC Ig# 0.010 0.000- 0.093 Not Available [address], [address], 12/22/2023 15:42:34 12/22/19 24 12/22/2023 CBC NRBC% 0.0 % 0.0-0. 2 Not Available [address], [address], 12/22/2023 15:42:34 12/22/19 24 12/22/2023 CBC NRBC# 0.000 0.000- 0.012 Not Available [address], [address], 12/22/2023 15:42:34 12/22/19 24 12/22/2023 COMP. METAB OLIC PANEL glucose 98 mg/dL 70-100 Not Available [address], [address], 12/22/2023 16:25:37 12/22/19 24 12/22/2023 COMP. METAB OLIC PANEL BUN 18 mg/dL 7-18 Not Available [address], [address], 12/22/2023 16:25:37 12/22/19 24 12/22/2023 COMP. METAB OLIC PANEL creatinine 0.7 mg/dL 0.8-1. 3 low Not Available [address], [address], 12/22/2023 16:25:37 12/22/19 24 12/22/2023 COMP. METAB OLIC PANEL B/C 25.7 ratio Not Available [address], [address], 12/22/2023 16:25:37 12/22/19 24 12/22/2023 COMP. METAB [...] be used in pregn garrison. Not Available [address], [address], 12/22/2023 16:25:37 12/22/19 24 12/22/2023 COMP. METAB OLIC PANEL sodium 137 mmol/ L 136-14 5 Not Available [address], [address], 12/22/2023 16:25:37 12/22/19 24 12/22/2023 COMP. METAB OLIC PANEL potassium 5.2 mmol/ L 3.5-5. 1 high Not Available [address], [address], 12/22/2023 16:25:37 12/22/19 24 12/22/2023 COMP. METAB OLIC PANEL chloride 102 mmol/ L 96-107 Not Available [address], [address], 12/22/2023 16:25:37 12/22/19 24 12/22/2023 COMP. METAB OLIC PANEL anion gap 11.1 5.0-15 .0 Not Available [address], [address], 12/22/2023 16:25:37 12/22/19 24 12/22/2023 COMP. METAB OLIC PANEL CO2 24 mmol/ L 21-32 Not Available [address], [address], 12/22/2023 16:25:37 12/22/19 24 12/22/2023 COMP. METAB OLIC PANEL calcium 9.3 mg/dL 8.5-10 .3 Not Available [address], [address], 12/22/2023 16:25:37 12/22/19 24 12/22/2023 COMP. METAB OLIC PANEL total protein 7.4 g/dL 6.4-8. 2 Not Available [address], [address], 12/22/2023 16:25:37 12/22/19 24 12/22/2023 COMP. METAB OLIC PANEL albumin 3.7 g/dL 3.4-5. 0 Not Available [address], [address], 12/22/2023 16:25:37 12/22/19 24 12/22/2023 COMP. METAB OLIC PANEL globulin 3.7 g/dL Not Available [address], [address], 12/22/2023 16:25:37 12/22/19 24 12/22/2023 COMP. METAB OLIC PANEL A/G 1.0 ratio 0.8-2. 0 Not Available [address], [address], 12/22/2023 16:25:37 12/22/19 24 12/22/2023 COMP. METAB OLIC PANEL total bilirubin 0.40 mg/dL 0.00-1 .00 Not Available [address], [address], 12/22/2023 16:25:37 12/22/19 24 12/22/2023 COMP. METAB OLIC PANEL AST 26 U/L 0-37 Not Available [address], [address], 12/22/2023 16:25:37 12/22/19 24 12/22/2023 COMP. METAB OLIC PANEL ALT 32 U/L 6-63 Not Available [address], [address], 12/22/2023 16:25:37 12/22/19 24 12/22/2023 COMP. METAB OLIC PANEL alk. phos. 95 U/L 50-136 Not Available [address], [address], 12/22/2023 16:25:37 12/22/19 24 12/22/2023 LIPID PANEL cholesterol 249 mg/dL <200 mg/dl Leidy able 200-2 39 mg/dl Borde rline High >240 mg/dl High Not Available [address], [address], 12/22/2023 16:25:37 12/22/19 24 12/22/2023 LIPID PANEL triglyceride s 59 mg/dL <150 mg/dL Ethel l 150-1 99 mg/dL Borde rline High 200-4 99 mg/dL High >500 mg/dL Very High Not Available [address], [address], 12/22/2023 16:25:37 12/22/19 24 12/22/2023 LIPID PANEL direct HDL 82 mg/dL <40 mg/dl - Major Risk for CHD >60 mg/dl - Negat myranda Risk for CHD Not Available [address], [address], 12/22/2023 16:25:37 12/22/19 24 12/22/2023 DIREC T LDL direct LDL 136 mg/dL RISK CATEG ORY LDL GOAL _ CHD or CHD Risk Equiv alent s <100 mg/dl (10-y ear risk >20%) 2+ Risk Facto rs <130 mg/dl (10-y ear risk <= 20%) 0-1 Risk Facto r <160 mg/dl Almo st all peopl e with 0-1 risk facto r have a 10 year risk <10%, thus 10 year risk asses ment in peopl e with 0-1 risk facto r is not nitesh carrera. Not Available [address], [address], 12/22/2023 16:25:38 06/20/19 25 06/19/2024 CBC WBC 6.19 K/ L 3.98-1 0.04 Not Available [address], [address], 06/19/2024 10:43:11 06/20/19 25 06/19/2024 CBC RBC 4.03 M/ L 3.93-5 .22 Not Available [address], [address], 06/19/2024 10:43:11 06/20/19 25 06/19/2024 CBC HGB 13.3 g/dL 11.2-1 5.7 Not Available [address], [address], 06/19/2024 10:43:11 06/20/19 25 06/19/2024 CBC HCT 39.0 % 34.1-4 4.9 Not Available [address], [address], 06/19/2024 10:43:11 06/20/19 25 06/19/2024 CBC MCV 96.8 fL 79.4-9 4.8 high Not Available [address], [address], 06/19/2024 10:43:11 06/20/1906/19/2024 CBC MCH 33.0 pg 25.6-3 2.2 high Not Available [address], [address], 06/19/2024 10:43:11 06/20/19 25 06/19/2024 CBC MCHC 34.1 g/dL 32.2-3 5.5 Not Available [address], [address], 06/19/2024 10:43:11 06/20/1906/19/2024 CBC plt 279 K/ L 182-36 9 Not Available [address], [address], 06/19/2024 10:43:11 06/20/19 25 06/19/2024 CBC MPV 9.3 fL 9.4-12 .3 low Not Available [address], [address], 06/19/2024 10:43:11 06/20/1906/19/2024 CBC neut% 48.6 % 34.0-7 1.1 Not Available [address], [address], 06/19/2024 10:43:11 06/20/1906/19/2024 CBC neut# 3.01 1.56-6 .13 Not Available [address], [address], 06/19/2024 10:43:11 06/20/19 25 06/19/2024 CBC lymph % 36.5 % 19.3-5 1.7 Not Available [address], [address], 06/19/2024 10:43:11 06/20/19 25 06/19/2024 CBC lymph # 2.26 K/ L 1.18-3 .74 Not Available [address], [address], 06/19/2024 10:43:11 06/20/19 25 06/19/2024 CBC mono% 8.9 % 4.7-12 .5 Not Available [address], [address], 06/19/2024 10:43:11 06/20/19 25 06/19/2024 CBC mono# 0.55 0.24-0 .56 Not Available [address], [address], 06/19/2024 10:43:11 06/20/19 25 06/19/2024 CBC eo% 5.2 % 0.7-5. 8 Not Available [address], [address], 06/19/2024 10:43:11 06/20/19 25 06/19/2024 CBC eo# 0.32 0.04-0 .36 Not Available [address], [address], 06/19/2024 10:43:11 06/20/19 25 06/19/2024 CBC baso% 0.6 % 0.1-1. 2 Not Available [address], [address], 06/19/2024 10:43:11 06/20/19 25 06/19/2024 CBC baso# 0.04 0.00-0 .08 Not Available [address], [address], 06/19/2024 10:43:11 06/20/19 25 06/19/2024 CBC RDW-CV 11.9 % 11.7-1 4.4 Not Available [address], [address], 06/19/2024 10:43:11 06/20/19 25 06/19/2024 CBC Ig% 0.200 % 0.000- 1.500 Ig % >0.5 Indic ates possi ble Left Shift Not Available [address], [address], 06/19/2024 10:43:11 06/20/19 25 06/19/2024 CBC Ig# 0.010 0.000- 0.093 Not Available [address], [address], 06/19/2024 10:43:11 06/20/19 25 06/19/2024 CBC NRBC% 0.0 % 0.0-0. 2 Not Available [address], [address], 06/19/2024 10:43:11 06/20/19 25 06/19/2024 CBC NRBC# 0.000 0.000- 0.012 Not Available [address], [address], 06/19/2024 10:43:11 06/20/19 25 06/19/2024 TSH TSH 4.32 uIU/m L 0.50-6 .00 The Ameri can Colle ge of Endoc rinol ogy and Ameri can Thyro id Assoc iatio n recom mend goal TSH value s betwe en 0.4-4 .0 mIU/m L. Not Available [address], [address], 06/19/2024 14:21:50 06/20/19 25 06/19/2024 BASIC METAB OLIC PANEL glucose 94 mg/dL 70-100 Not Available [address], [address], 06/19/2024 15:57:53 06/20/19 25 06/19/2024 BASIC METAB OLIC PANEL BUN 15 mg/dL 7-18 Not Available [address], [address], 06/19/2024 15:57:53 06/20/19 25 06/19/2024 BASIC METAB OLIC PANEL creatinine 0.7 mg/dL 0.8-1. 3 low Not Available [address], [address], 06/19/2024 15:57:53 06/20/19 25 06/19/2024 BASIC METAB OLIC PANEL B/C 21.4 ratio Not Available [address], [address], 06/19/2024 15:57:53 06/20/19 25 06/19/2024 BASIC METAB [...] be used in pregn garrison. Not Available [address], [address], 06/19/2024 15:57:53 06/20/19 25 06/19/2024 BASIC METAB OLIC PANEL sodium 137 mmol/ L 136-14 5 Not Available [address], [address], 06/19/2024 15:57:53 06/20/19 25 06/19/2024 BASIC METAB OLIC PANEL potassium 4.5 mmol/ L 3.5-5. 1 Not Available [address], [address], 06/19/2024 15:57:53 06/20/19 25 06/19/2024 BASIC METAB OLIC PANEL chloride 102 mmol/ L 96-107 Not Available [address], [address], 06/19/2024 15:57:53 06/20/19 25 06/19/2024 BASIC METAB OLIC PANEL anion gap 10.4 5.0-15 .0 Not Available [address], [address], 06/19/2024 15:57:53 06/20/19 25 06/19/2024 BASIC METAB OLIC PANEL CO2 25 mmol/ L 21-32 Not Available [address], [address], 06/19/2024 15:57:53 06/20/19 25 06/19/2024 BASIC METAB OLIC PANEL calcium 9.3 mg/dL 8.5-10 .3 Not Available [address], [address], 06/19/2024 15:57:53 06/20/19 25 06/19/2024 LIPID PANEL cholesterol 250 mg/dL <200 mg/dl Leidy able 200-2 39 mg/dl Borde rline High >240 mg/dl High Not Available [address], [address], 06/19/2024 16:23:28 06/20/19 25 06/19/2024 LIPID PANEL triglyceride s 80 mg/dL <150 mg/dL Ethel l 150-1 99 mg/dL Borde rline High 200-4 99 mg/dL High >500 mg/dL Very High Not Available [address], [address], 06/19/2024 16:23:28 06/20/19 25 06/19/2024 LIPID PANEL direct HDL 93 mg/dL <40 mg/dl - Major Risk for CHD >60 mg/dl - Negat myranda Risk for CHD Not Available [address], [address], 06/19/2024 16:23:28 06/20/19 25 06/19/2024 DIREC T LDL direct LDL 133 mg/dL RISK CATEG ORY LDL GOAL _ CHD or CHD Risk Equiv alent s <100 mg/dl (10-y ear risk >20%) 2+ Risk Facto rs <130 mg/dl (10-y ear risk <= 20%) 0-1 Risk Facto r <160 mg/dl Almo st all peopl e with 0-1 risk facto r have a 10 year risk <10%, thus 10 year risk asses ment in peopl e with 0-1 risk facto r is not neces deandre. Not Available [address], [address], 06/19/2024 16:23:29 06/20/19 25 06/20/2024 B TYPE [...] ol. 2002; 40:97 6-982 . Not Available [facility] [place] [facility] [address], [place], [address], 06/20/2024 11:08:16 07/18/19 25 07/18/2024 RPR RPR NON-RE ACTIVE nonrea ctive Not Available [address], [address], 07/18/2024 10:16:32 07/18/19 25 07/23/2024 HIV 1/2 ANTIG EN/AN TIBOD Y,FOU RTH GENER ATION W/RFL HIV Ag/Ab, 4TH gen NON-RE ACTIVE non-re active normal HIV-1 antig en and HIV-1 /HIV- 2 antib odies were not detec harley. There is no labor atory evide nce of HIV infec tion. EN Kat NOTE: This infor matio n has been discl osed to you from recor ds whose confi denti ality may be prote cted by state law. If your state requi res such prote ction , then the state law prohi bits you from tiara g any furth er discl osure of the infor matio [...] se. For addit ional infor matio n en e refer to http: //[facility] emiliana uribe.que stdia gnost ics.c om/fa q/FAQ 106 (This link is being provi ded for infor matio nal/ educa sunita l purpo ses only. ) The perfo rmanc e of this assay has not been clini edgard valid ated in patie nts less than 2 years old. Not Available [facility] [place] [facility] [address] [place] [address] B, [place], [address], 07/23/2024 10:48:36 07/18/19 25 07/23/2024 VITAM IN A (RETI NOL) vitamin A (retinol) 58 mcg/d L 38-98 Vitam in suppl ement ation withi n 24 hours prior to blood draw may affec t the accur acy of the resul ts. This test was devel oped and its mp tical perfo rmanc e alma cteri stics have been deter mined by [facility]. It has not been clear ed or appro amado by the U.S. Food and Drug Admin istra tion. This assay has been valid ated pursu ant to the CLIA regul ation s and is used for clini connie purpo ses. Not Available [facility] [place] [facility] [address], [place], [address], 07/23/2024 10:48:37 07/18/19 25 07/23/2024 ZINC zinc 72 mcg/d L 60-130 This test was devfederico garcía and its mp tical perfo rmanc e alma cteri stics have been deter mined by [facility] [place], [place]. It has not been clear ed or appro amado by the U.S. Food and Drug Admin istra tion. This assay has been valid ated pursu ant to the CLIA regul ation s and is used for clini connie purpo ses. Not Available [facility] [place] [facility] [address], [address], 07/23/2024 10:48:38 07/18/19 25 07/23/2024 FTA-A BS fta-abs NONREA CTIVE nonrea ctive [...] nemal antib guido assay s. From Sexua lly Trans mitte d Infec tions Treat ment Guide lines ,2020 MMWR Recom m Rep 2020; 70 (No. RR-4) : pg.39 . Not Available [facility] [place] [facility] [address], [place], [address], 07/23/2024 10:48:39 07/18/19 25 07/23/2024 RETIN OL JO ANN NG PROTE IN retinol binding protein 3.7 mg/dL 1.5-6. 7 Not Available [facility] [address], [place], [place], [address], 07/23/2024 10:48:40 01/17/20 24 01/17/2024 XR, foot [...] Physic aaliyah: Victor Manuel Kaufman [facility] (Imaging) [address] [place], [address], 01/17/2024 10:00:29 05/15/19 25 05/15/2024 XR, chest CLINIC AL HISTOR Y: Cough. TECHNI QUE: Fronta l view and latera l view of the chest obtain ed. COMPAR VIET: Report of a chest x-ray [facility] Novemb er 2011 FINDIN GS: The heart is normal in size and config uratio n.Ther e is no hilar or medias tinal enlarg ement. There is no focal lung consol idatio n or infilt rate. The bony thorax is intact . IMPRES RYAN: No acute diseas e. Iván pierre Physic aaliyah: Victor Manuel Kaufman [facility] (Imaging) [address] [place], [address], 05/16/2024 17:05:22 05/22/19 25 05/22/2024 stres s test exerc ise Table format ting from the origin al result was not includ ed. Images from the origin al result were not includ ed. 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 Kenney er Respon se to [...] Dan MD on 5 at 1348 EST JAVIERE Cara HEREDIA [facility] [address] [place] [address], [address], 05/23/2024 12:59:34 05/22/1905/22/2024 exerc ise stres s test No observ ation record ed. [address], [address], 05/23/2024 12:59:34 06/12/1906/10/2024 MAMMO , scree tye No observ ation record ed. clementina jorje [facility] [place], [place], [address], 06/11/2024 21:55:32 08/27/19 25 08/26/2024 pulmo nary funct ion test* No observ ation record ed. [address], [address], 08/26/2024 20:46:58 08/27/19 25 pulmo nary funct ion test* No observ ation record ed. [address], [address], 08/30/2024 10:32:40 08/27/19 25 pulmo nary funct ion test* No observ ation record ed. [address], [address], 08/31/2024 07:41:30 Result Notes None recorded. Procedures Surgical History Date Name Laterality Status Provider Name and Address Organization Details Recorded Time 3 Jorge Luis - Colonoscopy completed Aleksander Kang MD [address] [place] [address], [id number], [facility] 11/11/2022 10:16:45 Imaging Results None recorded. Procedure Notes None recorded. Medical Equipment None Reported. Allergies Allergen ID Allergen Name Allergen Category Reaction Reaction Severity Criticality Documentation Date Start Date Code Code System Note Provider Name and Address Organization Details Recorded Time [id number] minocycli ne medicatio n hives Not available Not available 11/09/2022 6980 RxNorm Shaylee Aguilar RN null, [facility] 3 14:58:29 607885 Product containin g penicilli n (product) medicatio n seizure Not available Not available 11/09/2022 26756 8001 SNOMED Shaylee Aguilar RN null, [facility] 3 14:59:41 Medications Name Sig Start Date Stop Date Status Note LastModified by Organization Details LastModified Time prednison e tab 5mg active Not Available Not Available No t Available tramadol hcl tab 50mg active Not Available Not Available Not Available budesonid e cap 3mg/24hr active Not [...] Available Not Available No t Available losartan 50 mg tablet TAKE 1 [...] BY MOUTH DAILY FOR HIGH BLOOD PRESSURE 08/30 completed Not taking, wants to take [...] Y/o, Started Age 20 Approx, 1 Ppd [email or web address] Information not available 08/31/2024 How Many Days In The Past Year Have You Had A Heavy Drinking Consumption (4+ Female, 5+ Male)? 0 Information not available 08/24/2012 Are There Any Guns Present In Your Home? No Information not available 02/25/2015 Live Alone Or With Others? With Others Boyfriend Since 20 Yrs - Babatunde [email or web address] Information not available 01/14/2011 Patient Has Health Care Proxy Signed And In Chart Yes Babatunde Vazquez - Form Given 07/18/2016 Information not available 11/23/2018 MOLST Form Signed And In Chart 05/28/2021 Information not available 06/02/2021 Marital Status Single In formation not available 02/24/2011 Mosquito Repellent Used Routinely Yes Information not available 02/25/2015 What Was The Date Of Your Most Recent Tobacco Screening? 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 not available 05/15/2015 Do you or [...] Not available 05/15/2015 16:12:11 Sister Hypertensive disorder daysizdavid chano Not available 11/25/2019 15:10:54 Notes:sister x 3 [...] SNOMED-CT Code Diagnosis ICD10 Code Diagnosis Note [id number] [facility] Radiology , [facility] [address] [facility] [place] [address] 11/12/2010 13:51:13 11/22/2010 12:23:08 [id number] Miquel Salazar MD , [facility], OFFICE [address] [facility] [place] [address] 01/14/2011 13:44:02 01/17/2011 06:59:04 [id number] Arabella Sood MD , [facility], OFFICE [address] [facility] [place] [address] 02/10/2012 09:20:09 02/10/2012 11:00:55 [id number] Arabella Sood MD , [facility], OFFICE [address] [facility] [place] [address] 02/22/2012 09:14:13 02/22/2012 10:20:13 [id number] Brian Millard MD Radiology , [facility] [address] [facility] [place] [address] 02/22/2012 10:20:36 02/28/2012 13:59:22 [id number] Miquel Salazar MD , [facility], OFFICE [address] [facility] [place] [address] 03/09/2012 15:12:29 03/09/2012 16:04:52 [id number] Miquel Salazar MD , [facility], OFFICE [address] [facility] [place] [address] 03/23/2012 08:02:55 03/23/2012 08:43:50 [id number] MD KIRILL Jain, [facility], OFFICE [address] [place] [facility] [address] 04/19/2012 09:13:18 04/19/2012 10:03:50 [id number] Miquel Salazar MD FP, [facility], OFFICE [address] [place] [facility] [place] [address] 04/27/2012 08:06:14 04/27/2012 09:01:31 [id number] Miquel Salazar MD FP, [facility], OFFICE [address] [place] [place] [address] 05/18/2012 08:40:21 05/18/2012 09:36:54 [id number] Raven Dobbins Mph, LPT Physical Therapy, [facility] [address] [facility] [place] [address] 05/25/2012 08:16:34 05/25/2012 10:24:40 [id number] Elba Adams NP , [facility], OFFICE [address] [place] [facility] [place] [address] 08/09/2012 16:03:43 08/10/2012 06:43:41 [id number] Alin Olivares MD , [facility], OFFICE [address] [place] [facility] [place] [address] 08/15/2012 16:35:53 08/16/2012 06:43:27 [id number] Alin Olivares MD FP, [facility], OFFICE [address] [place] [address] 08/20/2012 14:22:08 08/20/2012 15:25:51 [id number] Miquel Salazar MD FP, [facility], OFFICE [address] [place] [facility] [place] [address] 08/24/2012 09:31:14 08/24/2012 10:50:07 [id number] MD KIRILL Jain, [facility], OFFICE [address] [place] [facility] [place] [address] 10/16/2012 08:49:42 10/16/2012 09:54:00 [id number] MD KIRILL Jain, [facility], OFFICE [address] [place] [facility] [place] [address] 09/20/2013 07:59:33 09/20/2013 08:58:38 [id number] Miquel Salazar MD FP, [facility], OFFICE [address] [facility] [place] [address] 09/27/2013 13:19:21 09/27/2013 13:42:57 [id number] Miquel Salazar MD , [facility], OFFICE [address] [facility] [place] [address] 02/14/2014 09:33:13 02/14/2014 10:48:12 [id number] Miquel Salazar MD , [facility], OFFICE [address] [facility] [place] [address] 04/22/2014 15:33:39 04/22/2014 16:43:49 [id number] Alin Olivares MD , [facility], OFFICE [address] [facility] [place] [address] 02/25/2015 15:39:15 02/25/2015 16:36:12 [id number] Nuha Mariano, PT Physical Therapy, [facility] [address] [facility] [place] [address] 03/17/2015 17:05:32 03/18/2015 09:42:30 [id number] Nuha Mariano, PT Physical Therapy, [facility] [address] [facility] [place] [address] 03/23/2015 16:47:44 03/24/2015 08:15:30 [id number] Carson Barney DPM Podiatry, [facility] [address] [place] [address] 04/14/2015 14:35:36 04/16/2015 15:51:16 [id number] Miquel Salazar MD , [facility], OFFICE [address] [facility] [place] [address] 05/15/2015 15:46:19 05/18/2015 15:29:00 [id number] Carson Barney DPM Podiatry, [facility] [address] [place] [address] 06/02/2015 14:49:39 06/02/2015 15:47:38 [id number] Ji Davis MD , [facility], OFFICE [address] [facility] [place] [address] 2015 15:06:18 06/20/2015 11:41:45 [id number] Carson Barney DPM Podiatry, [facility] [address] [facility] [place] [address] 07/30/2015 15:15:59 07/30/2015 15:54:16 [id number] ALISHA Qiu Podiatry, [facility] [address] [facility] [place] [address] 10/01/2015 15:11:30 10/01/2015 16:37:34 [id number] Miquel Salazar MD , [facility], OFFICE [address] [facility] [place] [address] 07/18/2016 15:41:28 07/18/2016 16:35:55 [id number] Mendy Vance NP , [facility], OFFICE [address] [facility] [place] [address] 09/23/2016 15:34:42 09/23/2016 16:02:53 [id number] Candido Dodson MD , [facility], OFFICE [address] [place] [address] 06/10/2017 09:10:12 06/10/2017 10:14:37 [id number] Miquel Salazar MD , [facility], OFFICE [address] [facility] [place] [address] 06/23/2017 15:10:50 06/23/2017 16:33:11 [id number] Alin Olivares MD , [facility], OFFICE [address] [facility] [place] [address] 08/03/2017 15:11:10 08/03/2017 15:55:08 [id number] Miquel Salazar MD , [facility], OFFICE [address] [facility] [place] [address] 11/17/2017 15:39:36 11/17/2017 16:58:56 [id number] Miquel Salazar MD , [facility], OFFICE [address] [facility] [place] [address] 11/22/2018 15:54:32 11/22/2018 17:00:32 [id number] Miquel Salazar MD , [facility], OFFICE [address] [facility] [place] [address] 04/05/2019 08:45:14 04/05/2019 10:16:08 [id number] MD KIRILL Jain, [facility], OFFICE [address] [facility] [place] [address] 08/08/2019 08:51:07 08/09/2019 13:52:03 [id number] MD KIRILL Jain, [facility], OFFICE [address] [place] [address] [place] [address] 11/25/2019 14:54:07 11/26/2019 09:22:11 [id number] Miquel Salazar MD , [facility], OFFICE [address] [place] [address] 01/25/2020 08:58:43 01/28/2020 12:08:00 [id number] Carson Barney, QUINTIN Podiatry, [facility] [address] [place] [address] 02/28/2020 07:53:48 03/02/2020 13:04:56 [id number] MD KIRILL Jain, [facility], OFFICE [address] [facility] [place] [address] 05/19/2020 10:47:12 05/20/2020 15:40:02 [id number] Miquel Salazar MD , [facility], OFFICE [address] [facility] [place] [address] 06/25/2020 08:03:12 06/29/2020 11:33:28 [id number] MD KIRILL Jain, [facility], OFFICE [address] [facility] [place] [address] 07/23/2020 09:08:07 07/27/2020 13:46:16 [id number] MD KIRILL Jain, [facility], OFFICE [address] [facility] [place] [address] 09/03/2020 11:44:14 09/04/2020 09:57:05 [id number] Miquel Salazar MD FP, [facility], OFFICE [address] [facility] [place] [address] 11/20/2020 09:19:54 11/22/2020 19:09:53 [id number] Miquel Salazar MD FP, [facility], OFFICE [address] [facility] [place] [address] 12/24/2020 10:20:05 01/06/2021 09:09:52 [id number] MD KIRILL Jain, [facility], OFFICE [address] [facility] [place] [address] 12/28/2020 14:59:41 12/29/2020 10:38:18 [id number] MD KIRILL Jain, [facility], OFFICE [address] [facility] [place] [address] 12/29/2020 16:08:37 12/30/2020 12:53:10 [id number] MD KIRILL Jain, [facility], OFFICE [address] [facility] [place] [address] 02/26/2021 13:42:37 02/26/2021 14:20:59 [id number] MD KIRILL Jain, [facility], OFFICE [address] [facility] [place] [address] 05/28/2021 14:42:04 05/28/2021 15:41:00 [id number] MD KIRILL Jain, [facility], OFFICE [address] [facility] [place] [address] 11/25/2021 08:00:39 11/25/2021 08:30:56 [id number] Miquel Salazar MD FP, [facility], OFFICE [address] [facility] [place] [address] 06/17/2022 13:46:55 06/17/2022 14:56:58 [id number] Aleksander Kang MD Endoscopy , [address] [place] [address] 11/11/2022 08:16:15 11/11/2022 13:43:57 [id number] Miquel Salazar MD FP, [facility], OFFICE [address] [facility] [place] [address] 12/15/2022 13:16:12 12/15/2022 13:56:14 [id number] Miquel Salazar MD FP, [facility], OFFICE [address] [facility] [place] [address] 05/01/2023 13:15:48 05/01/2023 13:56:17 [id number] Ji Davis MD , [facility], OFFICE [address] [place] [address] 05/09/2023 13:53:09 05/12/2023 13:08:35 [id number] MD KIRILL Jain, [facility], OFFICE [address] [place] [address] 06/22/2023 13:48:30 06/22/2023 14:55:15 [id number] MD KIRILL Jain, [facility], OFFICE [address] [place] [address] 09/08/2023 14:18:40 09/08/2023 14:56:41 [id number] MD KIRILL Jain, [facility], OFFICE [address] [place] [address] 12/04/2023 14:38:53 12/04/2023 15:33:49 [id number] Miquel Salazar MD FP, [facility], OFFICE [address] [place] [address], [place] [address] 12/25/2023 11:51:29 12/25/2023 12:56:18 [id number] Bee Herman MD Podiatry, [facility] [address] [place] [address] 01/16/2024 10:16:17 01/16/2024 10:53:04 [id number] GREGOR LAOIZA PA-C FP, [facility], OFFICE [address] [place] [address] 05/14/2024 15:46:46 05/14/2024 16:32:47 [id number] Miquel Salazar MD , [facility], OFFICE [address] [place] [address] 06/24/2024 08:59:03 06/24/2024 09:49:38 [id number] Miquel Salazar MD , [facility], OFFICE [address] [place] [address] 6 08/30/2024 09:16:59 09/03/2024 17:59:44 Health Concerns Section Related Observation LastModified by Organization Detai ls LastModified Time None Recorded Concern Status LastModified by Organization Details LastModified Time None Recorded Advance Directives Directive None Recorded Payers Insurance Date Sequence Insurance Name Policy Number Policy [place] Covered Member ID [place] Member ID Guarantor Name 09/03/2024 2 [place] [id number] Nancy Gesiorek [id number] Nancy Gesiorek 08/28/2024 1 [place] [employer]ERNMENT [employer] Nancy Gesiorek [id number] Nancy Gesiorek 08/27/2024 [facility] ([id number]) [id number] Nancy Gesiorek [id number] Nancy Gesiorek 07/08/2024 1 FORMERLY [facility] PLANS FORMERLY [facility] DIRECT [facility] ER (O) Nancy Gesiorek [id number] Nancy Gesiorek 07/08/2024 1 [facility] [id number] Nancy Gesiorek [id number] Nancy Gesiorek 07/08/2024 1 [facility] [id number] Nancy Gesiorek [id number] Nancy Gesiorek 07/16/2024 [employer] [facility] [id number] Nancy Gesiorek [id number] Nancy Gesiorek 07/08/2024 1 [employer] (O) [id number] Nancy Gesiorek [id number] Nancy Belle 07/08/2024 1 [facility] - TOGET[facility] (MEDICAID HMO) Nancy Belle [id number] Nancy Belle OBGyn Episode No OBEpisode recorded.
== END 2024-10-23 12:54 | disposition home or self-care (01) ==
LOC: HO.PMC 12:30
PROVIDERS: PCP Family Medicine; Visit Provider Anesthesiology
DX: M47.812 Spondylosis without myelopathy or radiculopathy, cervical region (principal); G89.4 Chronic pain syndrome
CPT/HCPCS: 99213

== ENCOUNTER → 2024-10-23 12:30 | Outpatient (BNVA) | payer MEDICARE, SELFPAY | PROVIDERS: PCP Family Medicine; Visit Provider Anesthesiology | DX: M47.812 Spondylosis without myelopathy or radiculopathy, cervical region (principal); G89.4 Chronic pain syndrome | CPT/HCPCS: 99212 ==

== ENCOUNTER 2025-03-27 10:19 | Outpatient (REF) | payer MEDICARE, SELFPAY ==
--- NOTE | ~2025-03-27 | MM_ITS ---
STUDY: DUAL ENERGY X-RAY ABSORPTIOMETRY / DXA REASON FOR EXAM: Female, 69 years old Z78.0 [place] TECHNIQUE: Bone Mineral Density (BMD) measurements of the lumbar spine and left hip were obtained using [email or web address] COMPARISON: September 17, 2021 FINDINGS: L1-L4 BMD: 1.333 g/cm2 L1-L4 T score: 1.3. This corresponds to Normal bone density. This represents a 2.1 % increase in bone density compared with prior exam from September 17, 2021. Left femoral neck BMD: 0.968 g/cm2 Left femoral neck T score: -0.5. This corresponds to Normal bone density. Left total hip BMD: 1.043 g/cm2 Left total hip T score: 0.3. This corresponds to Normal bone density. This represents a 2.9 % increase in bone density compared with prior exam from September 17, 2021. * - Indicates a statistically significant change. MM/XR DEXA axial skeleton IMPRESSION: Normal bone density Reference Information: The T-score is the number of standard deviations above or below the standard which is normal for young adults at their peak bone mineral density. The World Health Organization (WHO) interprets the T-scores as follows: At or above -1 SD Normal bone density Between -1 and -2.5 SD Osteopenia At or below -2.5 SD Osteoporosis Electronically signed by: Flor Loving MD 03/27/2025 11:03 AM [facility]
--- OUTSIDE RECORDS SUMMARY | 2025-03-27 12:43 | XMS_ITS | Encounter Summary ---
Author Organization [facility] Address [address] [facility] [address] [place] [address] Phone Care Team Providers Care Paraffiner Name Role Phone Miquel Murphy MD Primary Care Prov ider Encounter Details Date Type Department Care Team (Late st Contact Info) Description 03/09/2017 Procedure Pass OR Admitting Dept - Virtual Department [address] [place] [address] Social History Tobacco Use Types Packs/Day Years Used Date Smoking Tobacco: Former Cigarettes Q uit: 1976 Smokeless Tobacco: Never Comments:quit 30 years ago Alcohol Use Standard Drinks/Week Comments Yes 6 (1 standard drink = 0.6 oz pur e alcohol) Comments Unknown Sex and Gender Information Value Date Recorded Sex Assigned at Not on file Legal Sex Female 9:55 PM EDT Gender Identity Not on file Sexual Orientation Not on file documented as of this encounter Plan of Treatment Not on file documented as of this encounter Visit Diagnoses Not on filedocumented in this encounter Care Teams Paraffiner Relationship Specialty Start Date End Date Miquel Murphy MD [address] [place] [phone] [email or web address] PCP - General 02/09/17 documented as of this encounter Additional Source Comments The information contained in this document represents components of the legal health record. It is not the complete legal health record.[facility]
--- OUTSIDE RECORDS SUMMARY | 2025-03-27 12:43 | XMS_ITS | Encounter Summary ---
Author Organization [facility] Address [address] [facility] [address] [place] [address] Phone Care Team Providers Care Endocrinology Physician Name Role Phone Miquel Murphy MD Primary Care Prov ider Encounter Details Date Type Department Care Team (Late st Contact Info) Description 10/29/2018 Prep for Surgery [facility] [address] [place] [address] Marianna Moore MD [address] [place] [address] Orthopedics & Sports Medicine, [facility] [place] [address] [email or web address] Social History Tobacco Use Types Packs/Day Years Used Date Smoking Tobacco: Former Cigarettes Q uit: 1977 Smokeless Tobacco: Never Comments:quit 30 years ago [...] on filedocumented in this encounter Care Teams Endocrinology Physician Relationship Specialty Start Date End Date Miquel uMrphy MD [address] [place] [phone] [email or web address] PCP - General 02/09/17 documented as of this encounter Additional Source Comments The information contained in this document represents components of the legal health record. It is not the complete legal health record.[facility]
--- OUTSIDE RECORDS SUMMARY | 2025-03-27 12:43 | XMS_ITS | Encounter Summary ---
Author Organization [facility] Address [address] [facility] [address] [place] [address] Phone Care Team Providers Care Leather Carver Name Role Phone Miquel Murphy MD Primary Care Prov ider Encounter Details Date Type Department Care Team (Late st Contact Info) Description 02/22/2017 Procedure Pass OR Admitting Dept - Virtual Department [address] [place] [address] Social History Tobacco Use Types Packs/Day Years Used Date Smoking Tobacco: Former Smokeless Tobacco: Never Comments:quit 30 years ago [...] on filedocumented in this encounter Care Teams Leather Carver Relationship Specialty Start Date End Date Miquel Murphy MD [address] [place] [phone] [email or web address] PCP - General 02/09/17 documented as of this encounter Additional Source Comments The information contained in this document represents components of the legal health record. It is not the complete legal health record.[facility]
--- OUTSIDE RECORDS SUMMARY | 2025-03-27 12:43 | XMS_ITS | Patient Health Record ---
Author Organization [facility] Address [address] [facility] [address] [place] [address] Care Team Providers Care Telephone Advice Nurse Name Role Phone ERIKA DE LEON Primary Care Provider SHARON Vale Unavailable [phone] Allergies Allergen (clinical drug ingredient) Drug/Non Drug [...] Status W/U Status Risk Notes Problem Menopause (221045413) Menopausal and female climacteric states (N95.1) Active confirmed Problem COVID-19 (871659546) COVID-19 (U07.1) Active confirmed Vital Signs Temperature 97.3 degrees Fahrenheit 07/01/2024 Blood pressure diastolic 78 mm Hg 07/01/2024 Height 5 ft 2.8 in in 07/01/2024 Blood pressure systolic 144 mm Hg 07/01/2024 Weight 140 lbs 07/01/2024 BMI 24.96 kg/m2 07/01/2024 Encounters Encounter Location Date Provider Diagnosis [facility] [address] [place] [address] 07/01/2024 SHARON RICO Encounter for gynecological examination [...] Next Appt Details Provider Name:SHARON Melendez, 07/03/2025 10:30:00 AM, [address], [place], [address], Insurance Providers Payer Name Payer Address Payer Phone Subscriber Number Group Number Insured Name Patient Relationship to Insured Coverage Start Date Coverage End Date MEDICARE [address] MAYURI HOLLIS [id number] [phone] [id number] YUDY MELARA Self - patient is the insured 1 MEDEX [address] [place] [address] [phone] [id number] YUDY MELARA Self - patient is [...]
--- OUTSIDE RECORDS SUMMARY | 2025-03-27 12:43 | XMS_ITS | Clinical Summary ---
Author Organization [facility] Address [address] [facility] [address] [place] [address] Phone Care Team Providers Care Tax Services Manager Name Role Phone Miquel Murphy MD Primary Care Prov ider Allergies Active Allergy Reactions Criticality Noted Date Comments Lactose 08/20/2014 Other reaction(s): GI PROBLEMS Minocycline Hcl Hives 08/20/2014 Penicillin Seizures 08/20/2014 Medications biotin 1 mg tablet Active estradiol (ESTRACE) 1 MG tablet 1 tablet Active omega 1-ilr-pcp-fish oil (FISH OIL) 1,000 mg (120 mg-180 mg) Cap 1 capsule Activ e vitamin E 400 UNIT capsule 1 capsule Active losartan (COZAAR) 50 MG tablet Take 75 mg by mouth. 1 Active estradioL (CLIMARA) 0.1 mg/24 hr APPLY 1 PATCH TOPICALLY ONCE A WEEK 1 Active aspirin 81 MG EC tablet Take 81 mg by mouth daily. Active ascorbic acid, vitamin C, (VITAMIN C) 250 mg Chew Take by mouth daily. Active cyanocobalamin, vitamin B-12, 1000 MCG tablet Take 1,000 mcg by mouth daily. Active Active Problems Problem Noted Date Diagnosed Date Palpitations 01/15/2021 Arthritis of carpometacarpal (CMC) joint of righ t thumb Arthritis of carpometacarpal (CMC) joint of left thumb Family History Relation Status Comments Father Alive Mother Social History Tobacco Use Types Packs/Day Years Used Date Smoking Tobacco: Former Cigarettes Q uit: 1976 Smokeless Tobacco: Never Comments:quit 30 years ago Alcohol Use Standard Drinks/Week Comments Yes 6 (1 standard drink = 0.6 oz pur e alcohol) Education Answer Date Recorded Are you interested in more education? Not on francisco e 08/05/2022 Are you concerned about learning? Not on file 08/05/2022 No 08/05/2022 No 08/05/2022 Digital Access Answer Date Recorded No 09/03/2022 No 09/03/2022 Reliable internet access at home? Not on file 09/03/2022 Device with a working camera? Not on file Comments No Sex and Gender Information Value Date Recorded Sex Assigned at Not on file Legal Sex Female 9:55 PM EDT Gender Identity Not on file Sexual Orientation Not on file Last Filed Vital Signs Vital Sign Reading Time Taken Comments Blood Pressure 120/78 05/22/2024 10:47 AM EST Pulse 75 01/15/2021 11:48 AM EDT Temperature 36.4 C (97.5 F) 11/16/2018 10:00 AM EDT Respiratory Rate 16 11/16/2018 11:45 AM EDT Oxygen Saturation 98% 01/15/2021 11:48 AM EDT Inhaled Oxygen Concentration - - Weight 63.5 kg (140 lb) 07/26/2021 6:16 PM EDT Height 162.6 cm (5' 4 ) 07/26/2021 6:16 PM EDT Body Mass Index 24.03 07/26/2021 6:16 PM EDT Plan of Treatment Health Maintenance Due Date Last Done Comments CREATININE LEVEL 1955 LIPID PANEL 1955 POTASSIUM LEVEL 1955 DEPRESSION SCREENING 1967 SMOKING Hx and SMOKELESS TOBACCO SCREENING 06/17/1968 HEPATITIS C SCREENING 06/17/1973 COLOGUARD 06/17/2000 FIT TEST 06/17/2000 FOBT 06/17/2000 SIGMOIDOSCOPY 06/17/2000 VIRTUAL COLONOSCOPY 06/17/2000 PNEUMOCOCCAL VACCINES (50+ years) (1 of 1 - PCV) 06/17/2005 ZOSTER VACCINES (1 of 2) 06/17/2005 MAMMOGRAM 06/22/2014 06/22/2012 OSTEOPOROSIS SCREENING INITI AL (ONE-TIME) 06/17/2020 Adult Td,Tdap Booster 01/14/2021 01/14/2011 INFLUENZA VACCINE (#1) 2024 0, 01/25/2020 COVID-19 VACCINE (2 - 2024-2 6 season) 2024 2020 RSV VACCINE (1 - 1-dose 75+ series) 06/17/2030 COLONOSCOPY 11/11/2032 11/11/2022 COLORECTAL CANCER SCREENING 11/11/2032 HEPATITIS A VACCINES Aged Out No long er eligible based on patient's age to complete this topic HIB VACCINES Aged Out No longer eligi ble based on patient's age to complete this topic MENINGOCOCCAL VACCINES (ACWY) Aged Out No longer eligible based on patient's age to complete this topic MENINGOCOCCAL VACCINES (B) Aged Out N o longer eligible based on patient's age to complete this topic Medical Devices Implanted Type Area Dry Press Operator Helper Device Identifier Shelf Expiration Date Model / Serial / Lot Lyons Suture [id number] 0 Absorbable Ethibond Mini Lyons - [id number] Implanted:Qty: 1 on 02/22/2017 by Marianna Moore MD at [facility] Right: Wrist [employer] 08/07/2021 [id number] / / [id number] Lyons Suture Size 0 Needleos2 [id number] Arthroscopy Quick Double Arm Mini - [id number] Implanted:Qty: 1 on 11/16/2018 by Marianna Moore MD at [facility] Left: Thumb [employer] 06/08/2023 [id number] / / [id number] Procedures Procedure Name Priority Date/Time Associated Diagnosis Comments COLONOSCOPY FOR RESULT ENTRY ONLY Routine 11/11/2022 from Last 3 Months or Most Recently Relevant to Health Maintenance Results * COLONOSCOPY FOR RESULT ENTRY ONLY (11/11/2022) Colonoscopy External us Historical Provider HEALTH MAINTENANCE Final Result from Last 3 Months or Most Recently Relevant to Health Maintenance [place] [address] [place] [address] [employer]OSS MEDEX SUPPLEMENT MEDICARE PART A & [place] [address] [place] [address] MEDEX SUPPLEMENT MEDICARE PART A & B [employer] SUPPLEMENT MEDICARE PART A & B MEDEX SUPPLEMENT MEDICARE PART A & B [employer] MEDEX SUPPLEMENT MEDICARE PART A & B [employer] MEDEX SUPPLEMENT MEDICARE PART A & B Advance Directives For more information, please contact: [phone] (9AM - 5PM [facility], Monday-Monday) * Full Code (Presumed) (Latest Code Status on File) Date Activated Date Inactivated Comments 02/22/2017 9:31 AM 02/22/2017 1:36 PM Care Teams Tax Services Manager Relationship Specialty Start Date End Date Miquel Murphy MD [address] [place] [phone] [email or web address] PCP - General 02/09/17 Additional Source Comments The information contained in this document represents components of the legal health record. It is not the complete legal health record.[facility]
--- OUTSIDE RECORDS SUMMARY | 2025-03-27 12:43 | XMS_ITS | Encounter Summary ---
Author Organization [facility] Address [address] [facility] [address] [place] [phone] Phone Care Team Providers Care Yield Engineer Name Role Phone Miquel Murphy MD Primary Care Prov ider Reason for Referral * Outpatient Procedure - Closed Specialty Diagnoses / Procedures Referred By Parker cabrera Referred To Contact Diagnoses Palpitations Procedures Adult Echo TTE Miquel Murphy MD Phone: tel: fax: [email or web address] Referral ID Status Reason Start Date Expiration Date Visits Re quested Visits Authorized [id number] Closed 01/04/2021 03/05/2021 1 1 Encounter Details Date Type Department Care Team (Late st Contact Info) Description 01/04/2021 Transcribe Orders Virtual Department [address] [place] [address] Miquel Murphy MD [address] [place] [address] [email or web address] Palpitations (Primary Dx) Social History Tobacco Use Types Packs/Day Years Used Date Smoking Tobacco: Former Cigarettes Q uit: 1976 Smokeless Tobacco: Never Comments:quit 30 years ago Alcohol Use Standard Drinks/Week Comments Yes 6 (1 standard drink = 0.6 oz pur e alcohol) Comments No Sex and Gender Information Value Date Recorded Sex Assigned at Not on file Legal Sex Female 9:55 PM EDT Gender Identity Not on file Sexual Orientation Not on file documented as of this encounter Plan of Treatment Not on file documented as of this encounter Results * TTE COMPREHENSIVE (01/05/2021 1:40 PM EDT) Body Surface Area 1.7 m2 Height 162 cm Weight 61 kg Systolic BP 158 mmHg Diastolic BP 79 mmHg Left Atrium Dimension Anterior-Posterior 33 15 - 40 mm Aortic Valve Mean Gradient 7 mmHg Aortic Valve Time Velocity Integral 388 mm Aortic Valve Peak Velocity 184.0 cm/s Aortic Valve Peak Velocity 184.0 cm/s Aortic Valve Peak Velocity 184.0 cm/s Aortic Valve Peak Gradient 14 mmHg Aortic Sinus Diameter 22 mm Ascending Aorta Diameter 26 mm Interventricular Septum Thickness 12 mm Left Ventricle Internal Diameter End Diastole 45 37 - 52 mm Left Ventricle Internal Diameter End Systole 30 22 - 35 mm Left Ventricular Outflow Tract Diameter 19.0 mm LVOT VTI REST 218 mm Left Ventricular Outflow Tract Velocity 1.0 m/s Left Ventricular Outflow Tract Gradient at Rest 4 mmHg Left Ventricular Posterior Wall Thickness 9 mm Ejection Fraction 61 50 - 75 Percent Mitral Valve Deceleration Time 171 ms Mitral Valve A Wave Speed 69.7 cm/s Mitral Valve E Wave Speed 66.3 cm/s Right Ventricle Basal Diameter 29.3 25 - 41 mm Tricuspid Valve Peak Velocity 2.3 m/s Raw LV EF% 56 % Left Atrial Volume 23 mL Left Atrial Volume Index 13.53 mL/m2 Right Ventricle Peak Systolic Pressure 24 mmHg Right Ventricle TAPSE 20 mm Right Atrium Pressure Estimated 3 mmHg Right Ventricle to Right Atrium Pressure Gradient 21 mmHg Right Ventricle Pulse Doppler S Wave 11.4 cm/s Right Ventricle Linear Dimension 29 mm Aortic Valve Sinus Index 1 13 19 - 27 mm Ascending Aorta Diameter 15 mm Aortic Sinus Index 13 mm Ascending Aorta Index 15 mm Anatomical Region Laterality Modality Heart Ultrasound Narrative 01/06/2021 8:09 AM EDT Normal LV size and function EF 60 to 65%. Normal RV size and function. Normal diastolic function. Mild mitral regurgitation. Compared to study from 2013, no change. Left Ventricle Left ventricular cavity size is normal and the left ventricular wall thickness is increased. There is mild asymmetric left ventricular hypertrophy. Left ventricular systolic function is normal. There is no evidence of diffuse left ventricular hypokinesis. The estimated ejection fraction is 61% (Normal 50-75%). The left ventricular ejection fraction was measured by the single dimension method. Left ventricular diastolic function appears within normal limits for age. There is no evidence of left ventricular thrombus. Right Ventricle The right ventricular size is normal. The right ventricle measures 29 mm at the base (normal 25-41 mm). The right ventricular systolic function is normal. Left Atrium The left atrium is normal in size. The left atrial anterior-posterior dimension measures 33 mm (normal 15-40 mm). The LA volume is 23 mL. The LA volume index is 13.53 mL/m2 (normal indexed value is 16-34 mL/m2). The pulmonary venous flow profiles are normal. No evidence suggestive of pulmonary vein stenosis. Right Atrium The right atrium is normal in size. The IVC is normal in size (2.1cm or less). The IVC demonstrates normal collapse with inspiration which is consistent with normal RA pressure. The hepatic veins appear normal in size. Mitral Valve The E/A ratio is 1.0. The medial E' is 6.3 cm/s. The lateral E' is 7.2 cm/s. The E/E' average is 9.8. There is no evidence of mitral stenosis. There is trace mitral regurgitation detected by spectral and color Doppler. Tricuspid Valve The tricuspid valve appears normal. There is no evidence of tricuspid stenosis. There is evidence of trace tricuspid regurgitation by color and spectral Doppler. The systolic pulmonary artery pressure is within normal limits. The RV systolic pressure was estimated from the peak TV regurgitant velocity. The estimated RV systolic pressure is 24 mmHg assuming a right atrial pressure of 3 mmHg. The calculated peak RV-RA pressure gradient is 21 mmHg. Aortic Valve The aortic valve is tricuspid. The Vmax is 184 cm/s. The Vmean is 126 cm/s. The VTI is 38.8cm. The STAR is 1.52 cm2. The peak aortic valve gradient is 14 mmHg. The mean aortic gradient is 7 mmHg. There is no evidence of aortic regurgitation by color and spectral Doppler. The visualized portions of the thoracic aorta appear normal. Pulmonic Valve The pulmonary valve appears normal. There is no evidence of pulmonic stenosis. There is evidence of mild pulmonary regurgitation by color and spectral Doppler. The pulmonary artery appears normal. Pericardium There is no evidence of pericardial effusion. Interatrial Septum The interatrial septum appears normal. General Findings The image quality was good (2). Technique(s) used in the evaluation: Color flow Doppler and Spectral Doppler. The predominant rhythm during the study was sinus. Patient tolerated the procedure well. Comparison Findings Compared to a prior TTE from 05/04/2012 Miquel Salazar MD CV ECHO ORDERABLES Final Result documented in this encounter Visit Diagnoses Diagnosis Palpitations- Primary Palpitations documented in this encounter Care Teams Yield Engineer Relationship Specialty Start Date End Date Miquel Murphy MD [address] [place] [phone] [email or web address] PCP - General 02/09/17 documented as of this encounter Additional Source Comments The information contained in this document represents components of the legal health record. It is not the complete legal health record.[facility]
--- OUTSIDE RECORDS SUMMARY | 2025-03-27 12:43 | XMS_ITS | Encounter Summary ---
Author Organization [facility] Address [address] [place] [address] Phone Care Team Providers Care E Learning Coordinator Name Role Phone Unknown, Unknown Primary Care Provider Miquel Lewis MD Primary Care Prov ider Encounter Details Date Type Department Care Team (Latest Contact Info) Description 01/28/2017 Ancillary Orders [facility] [address] [place] [phone] Doris Rios PA-C [address] [place] [address] Orthopedics & Sports Medicine, [place], [place] [phone] [email or web address] History of arthroplasty Social History Tobacco Use Types Packs/Day Years Used Date Smoking Tobacco: Never Assessed Comments Unknown Sex and Gender Information Value Date Recorded Sex Assigned at Not on file Legal Sex Female 9:55 PM EDT Gender Identity Not on file Sexual Orientation Not on file documented as of this encounter Plan of Treatment Not on file documented as of this encounter Results * XR FINGER 2 OR MORE VIEWS (RIGHT) (03/07/2017 12:05 PM EST) Narrative Fartun Reyes - 03/07/2017 12:06 PM EST This image report has been auto-finalized and has not been read by a Radiologist. Interpretation has been included in the provider encounter note for this date of service. Doris Rios PA-C IMG XR UPPER EXTREMITY F inal Result documented in this encounter Visit Diagnoses Diagnosis History of arthroplasty History of arthroplasty documented in this encounter Care Teams E Learning Coordinator Relationship Specialty Start Date End Date Unknown, Unknown, MD PCP - General 01/28/17 02/08/17 Miquel Murphy MD [address] [place] [phone] [email or web address] PCP - General 02/09/17 documented as of this encounter Additional Source Comments The information contained in this document represents components of the legal health record. It is not the complete legal health record.[facility]
--- OUTSIDE RECORDS SUMMARY | 2025-03-27 12:43 | XMS_ITS | Encounter Summary ---
Author Organization [facility] Address [address] [facility] [address] [place] [address] Phone Care Team Providers Care Table Keeper Name Role Phone Miquel Murphy MD Primary Care Prov ider Encounter Details Date Type Department Care Team (Late st Contact Info) Description 01/04/2021 Procedure Pass [facility] [address] [place] [address] Social History Tobacco Use Types Packs/Day Years [...] on filedocumented in this encounter Care Teams Table Keeper Relationship Specialty Start Date End Date Miquel Murphy MD [address] [place] [phone] [email or web address] PCP - General 02/09/17 documented as of this encounter Additional Source Comments The information contained in this document represents components of the legal health record. It is not the complete legal health record.[facility]
--- OUTSIDE RECORDS SUMMARY | 2025-03-27 12:43 | XMS_ITS | Encounter Summary ---
Author Organization [facility] Address [address] [facility] [address] [place] [phone] Phone Care Team Providers Care Coordinator Of Rehabilitation Services Name Role Phone Miquel Murphy MD Primary Care Prov ider Reason for Referral * MRI/CAT Scan - Closed Specialty Diagnoses / Procedures Referred By Parker t Referred To Contact Radiology Diagnoses Radiculopathy, cervical region Procedures MRI Cervical Spine CHG MRI, CERV SPINE Edin Mcdaniels DO Phone: tel: fax: [email or web address] Referral ID Status Reason Start Date Expiration Date Visits Re quested Visits Authorized [id number] Closed 07/14/2021 09/11/2021 1 1 Encounter Details Date Type Department Care Team (Latest Contact Info) Description 07/14/2021 Transcribe Orders Virtual Department [address] [place] [address] Edin Mcdaniels DO [address] [place] [address] [email or web address] Radiculopathy, cervical region (Primary Dx) Social History Tobacco Use Types [...] documented as of this encounter Results * MRI CERVICAL SPINE (BONE) WITHOUT CONTRAST (08/01/2021 9:30 AM EDT) Anatomical Region Laterality Modality C-spine Magnetic Resonan ce 08/02/2021 12:4 4 PM EDT Impressions 08/02/2021 12:54 PM EDT Multilevel degenerative changes as above most significant at C2-3 with severe left neural foraminal stenosis and small C5-6 disc herniation. No evidence of canal stenosis or myelitis. Narrative 08/02/2021 12:54 PM EDT HISTORY: Outside Radiology Order COMPARISON: None. TECHNIQUE: Exam performed on a 1.5 Giovanna high-field MRI scanner. Sagittal T1, T2 and STIR, axial T2* gradient echo and 3-D bright fluid sequences were obtained. MRI CERVICAL SPINE FINDINGS: Straightening of the spine. Loss of lordosis. Mild C5-6 disc space narrowing and endplate spurring. Mild degenerative endplate marrow edema signal changes at C5- 6 and right C1-2 facet arthropathy and bone marrow edema. No malalignment. No compression fractures. No destructive or suspicious bone lesions. No cerebellar tonsil herniation. No spinal cord lesions or syrinx. Paraspinal soft tissues are unremarkable. C2-3: Severe left neural foraminal stenosis due to mild facet arthropathy and uncovertebral spurring. C3-4: Unremarkable. C4-5: Mild right neural foraminal stenosis due to spurring. C5-6: Small broad-based right paracentral disc protrusion. C6-7: Unremarkable. C7-T1: Unremarkable. Procedure Note Nando Montana MD - 08/02/2021 HISTORY: Outside Radiology Order COMPARISON: None. TECHNIQUE: Exam performed on a 1.5 Giovanna high-field MRI scanner. SagittalT1, T2 and STIR, axial T2* gradient echo and 3-D bright fluid sequenceswere obtained. MRI CERVICAL SPINE FINDINGS: Straightening of the spine. Loss of lordosis. Mild C5-6 disc spacenarrowing and endplate spurring. Mild degenerative endplate marrow edemasignal changes at C5-6 and right C1-2 facet arthropathy and bone marrowedema. No malalignment. No compression fractures. No destructive orsuspicious bone lesions. No cerebellar tonsil herniation. No spinal cordlesions or syrinx. Paraspinal soft tissues are unremarkable. C2-3: Severe left neural foraminal stenosis due to mild facet arthropathyand uncovertebral spurring. C3-4: Unremarkable. C4-5: Mild right neural foraminal stenosis due to spurring. C5-6: Small broad-based right paracentral disc protrusion. C6-7: Unremarkable. C7-T1: Unremarkable. IMPRESSION: Multilevel degenerative changes as above most significant at C2-3 withsevere left neural foraminal stenosis and small C5-6 disc herniation. Noevidence of canal stenosis or myelitis. Edin Mcdaniels DO IMG MR XSPECIALTY Final Resu lt documented in this encounter Visit Diagnoses Diagnosis Radiculopathy, cervical region- Primary Brachial neuritis or radiculitis nos Radiculopathy, cervical region Brachial neuritis or radiculitis nos documented in this encounter Care Teams Coordinator Of Rehabilitation Services Relationship Specialty Start Date End Date Miquel Murphy MD [address] [place] [phone] [email or web address] PCP - General 02/09/17 documented as of this encounter Additional Source Comments The information contained in this document represents components of the legal health record. It is not the complete legal health record.[facility]
--- OUTSIDE RECORDS SUMMARY | 2025-03-27 12:43 | XMS_ITS | Encounter Summary ---
Author Organization [facility] Address [address] [facility] [address] [place] [phone] Phone Care Team Providers Care Shoe Repairman Name Role Phone Miquel Murphy MD Primary Care Prov ider Encounter Details Date Type Department Care Team (Latest Contact Info) Description 06/10/2017 Transcribe Orders [facility] [address] [address] Candido Dodson MD, MPH [address] [place] [address] [email or web address] Localized edema (Primary Dx) Social History Tobacco Use Types [...] documented as of this encounter Results * D-dimer (06/10/2017 10:09 AM EST) D-DIMER 218 <500 ng/mL FEU [facility] Comment:In patients with low to moderate pre-test probability scores for VTE (PE or DVT), a D-Dimer cut-off less than 500 ng/mL (FEU) has a negative predictive value (NPV) of 97 to 100%. Blood 06/10/2017 10:0 9 AM EST 06/10/2017 10:12 AM EST us Candido Dodson MD, MPH LAB BLOOD BKR ORDERABLES Final Result [facility] [address] [place] [address] documented in this encounter Visit Diagnoses Diagnosis Localized edema- Primary Edema documented in this encounter Care Teams Shoe Repairman Relationship Specialty Start Date End Date Miquel Murphy MD [address] [place] [phone] [email or web address] PCP - General 02/09/17 documented as of this encounter Additional Source Comments The information contained in this document represents components of the legal health record. It is not the complete legal health record.[facility]
--- OUTSIDE RECORDS SUMMARY | 2025-03-27 12:43 | XMS_ITS | Encounter Summary ---
Author Organization [facility] Address [address] [facility] [address] [place] [phone] Phone Care Team Providers Care Bell Ringer Name Role Phone Miquel Murphy MD Primary Care Prov ider Encounter Details Date Type Department Care Team (Late st Contact Info) Description 01/04/2021 Transcribe Orders Virtual Department [address] [place] [address] Miquel Murphy MD [address] [place], [place] [phone] [email or web address] Palpitations Social History Tobacco Use Types Packs/Day Years [...] documented as of this encounter Visit Diagnoses Diagnosis Palpitations documented in this encounter Care Teams Bell Ringer Relationship Specialty Start Date End Date Miquel Murphy MD [address] [place] [phone] [email or web address] PCP - General 02/09/17 documented as of this encounter Additional Source Comments The information contained in this document represents components of the legal health record. It is not the complete legal health record.[facility]
--- OUTSIDE RECORDS SUMMARY | 2025-03-27 12:43 | XMS_ITS | Encounter Summary ---
Author Organization [facility] Address [address] [facility] [address] [place] [phone] Phone Care Team Providers Care Imaging Assistant Name Role Phone Miquel Murphy MD Primary Care Prov ider Encounter Details Date Type Department Care Team (Late st Contact Info) Description 07/14/2021 Procedure Pass [address] [address] Social History Tobacco Use Types Packs/Day Years [...] on filedocumented in this encounter Care Teams Imaging Assistant Relationship Specialty Start Date End Date Miquel Murphy MD [address] [place] [phone] [email or web address] PCP - General 02/09/17 documented as of this encounter Additional Source Comments The information contained in this document represents components of the legal health record. It is not the complete legal health record.[facility]
--- OUTSIDE RECORDS SUMMARY | 2025-03-27 12:44 | XMS_ITS | Encounter Summary ---
Author Organization [facility] Address [address] [facility] [address] [place] [phone] Phone Care Team Providers Care Log Handler Name Role Phone Miquel Murphy MD Primary Care Prov ider Encounter Details Date Type Department Care Team (Late st Contact Info) Description 11/16/2018 Procedure Pass OR Admitting Dept - Virtual Department [address] [place] [address] Social History Tobacco Use Types Packs/Day Years [...] on filedocumented in this encounter Care Teams Log Handler Relationship Specialty Start Date End Date Miquel Murphy MD [address] [place] [phone] [email or web address] PCP - General 02/09/17 documented as of this encounter Additional Source Comments The information contained in this document represents components of the legal health record. It is not the complete legal health record.[facility]
== END 2025-03-27 10:20 | disposition home or self-care (01) ==
LOC: HO.MAMMO 10:19
PROVIDERS: PCP Family Medicine; Visit Provider Family Medicine
DX: Z78.0 Asymptomatic menopausal state (principal)
CPT/HCPCS: 77080

== ENCOUNTER → 2025-03-27 10:30 | Outpatient (BNV) | payer MEDICARE, SELFPAY | PROVIDERS: PCP Family Medicine; Visit Provider Radiology Body Imaging | DX: E28.39 Other primary ovarian failure (principal) | CPT/HCPCS: 77080 ==